=== PATIENT | female | born 1990 | race Caucasian/White ===

== ENCOUNTER → 2017-12-04 10:43 | Outpatient (CLI) | payer OTHER, MEDICAID, SELFPAY ==
[2017-12-04 12:16] LABS: Rubella Antibody IgG 14.3 IU/mL (>15)
[2017-12-04 12:18] LABS: TSH w/ Reflex to FT4 0.87 uIU/mL (0.47-4.68)
[2017-12-05 14:22] LABS: Rubeola Measles IgG < 25.00 AU/mL (< 25.00)
[2017-12-05 14:52] LABS: Hepatitis B Surf Ab Qualitativ Reactive (Nonreactive)
[2017-12-05 15:15] LABS: Hepatitis B Core Antibody Reactive (Nonreactive)
== END ==
PROVIDERS: PCP Physician Assistant; Visit Provider Student in an Organized Health Care Education/Training Program
DX: L74.510 Primary focal hyperhidrosis, axilla (principal); Z78.9 Other specified health status
CPT/HCPCS: 36415; 84443; 86704; 86706; 86735; 86762; 86765; 86787

== ENCOUNTER → 2017-12-06 13:03 | Outpatient (CLI) | payer OTHER, MEDICAID, SELFPAY ==
[2017-12-06 15:00] LABS: Alanine Aminotransferase 32 IU/L (9-52); Albumin 4.2 g/dL (3.5-5.0); Albumin Globulin Ratio 1.7 (1.0-2.8); Alkaline Phosphatase 67 U/L (38-126); Aspartate Aminotransferase 27 IU/L (14-36); Bilirubin Total 0.4 mg/dL (0.2-1.3); Bilirubin Unconjugated 0.1 mg/dL (0.0-1.1); Globulin 2.5 g/dL (1.7-4.1); HEMOLYSIS < 15 (0-50); Total Protein 6.7 g/dL (6.3-8.2)
[2017-12-06 17:50] LABS: Hepatitis B Surface Antigen NEGATIVE s/c (NEGATIVE)
[2017-12-07 11:52] LABS: Hep C Virus Ab w/Reflex Quant NEGATIVE s/c (NEGATIVE)
[2017-12-08 14:05] LABS: Hepatitis B Core IgM Nonreactive (Nonreactive)
[2017-12-09 19:07] LABS: HIV Ag/Ab, 4th Gen Nonreactive (Nonreactive)
== END ==
PROVIDERS: PCP Physician Assistant; Visit Provider Student in an Organized Health Care Education/Training Program
DX: R76.8 Other specified abnormal immunological findings in serum (principal); Z87.898 Personal history of other specified conditions
CPT/HCPCS: 36415; 80076; 86703; 86705; 86803; 87340

== ENCOUNTER → 2017-12-08 13:48 | Outpatient (CLI) | payer OTHER, MEDICAID, SELFPAY ==
--- NOTE | 2017-12-08 21:19 | DI.ECHO.S_ITS ---
Echocardiogram Report + + :Name: SID DE LA PAZ Study Date: 12/08/2017 Height: 68 in : :[facility] Weight: 185 lb : : Gender: Female BSA: 2.0 m2 : :: 1990 Age: 27 yrs BP: 128/70 mmHg: :Reason For Study: Valve disease : : Performed By: Yohana Jimenez : :Referring: KEY WREN : + + Interpretation Summary The left ventricle is normal in size, wall thickness, and systolic function without any focal wall motion abnormalities. The ejection fraction is estimated to be 60-65%. Diastolic parameters suggest probable normal left ventricular diastolic function and normal filling pressures. No valvular abnormalities. The right ventricle is normal in size and function. There is no prior echocardiogram noted for this patient. Procedure: A two-dimensional transthoracic echocardiogram with color flow and Doppler was performed. The study quality was technically good. There is no prior echocardiogram noted for this patient. The patient was in normal sinus rhythm during the exam. Left Ventricle: The left ventricle is normal in size, wall thickness, and systolic function without any focal wall motion abnormalities. The ejection fraction is estimated to be 60-65%. Diastolic parameters suggest probable normal left ventricular diastolic function and normal filling pressures. Right Ventricle: The right ventricle is normal in size and function. TAPSE 2.1cm. Atria: The left atrial size is normal. Right atrial size is normal. The interatrial septum is intact with no evidence for an atrial septal defect. Mitral Valve: The mitral valve is normal in structure and function. There is no mitral regurgitation noted. Aortic Valve: The aortic valve is trileaflet. The aortic valve opens well. There is no aortic valve stenosis. No aortic regurgitation is present. Tricuspid Valve: The tricuspid valve is normal in structure and function. There is no tricuspid stenosis. There is a trace or physiologic amount of tricuspid regurgitation. Pulmonary artery pressures cannot be estimated because of the lack of a measurable TR jet velocity. Pulmonic Valve: The pulmonic valve is normal in structure and function. There is no pulmonic valvular regurgitation. Great Vessels: The aortic root is normal size. The dimensions of the ascending aorta are normal. The IVC is of normal diameter and collapses greater than 50% with a sniff. This suggests a low right atrial pressure of 3 mm Hg. Pericardium/ Pleura There is no pericardial effusion. There is no pleural effusion. MMode/2D Measurements & Calculations LVIDd: 4.9 cm Ao root diam: 2.7 cm LVIDs: 3.2 cm Aortic Jxn: 2.2 cm FS: 33.5 % asc Aorta Diam: 2.4 cm EPSS: 0.94 cm Ao Arch Diam (Prox Trans): 2.4 cm IVSd: 0.77 cm LVPWd: 0.62 cm LV ochoa. diameter/BSA (cm/m^2): 2.5 LV sys. diameter/BSA (cm/m^2): 1.6 LA dimension: 3.6 cm RA long axis: 4.3 cm LA A2 area: 18.5 cm2 RA area: 14.9 cm2 LA A4 area: 17.3 cm2 RA vol: 44.0 ml LA length (vol): 4.9 cm RA : 22.2 ml/m2 LA vol: 55.1 ml IVC diam: 1.5 cm LA vol index: 27.9 ml/m2 RVDd major: 5.0 cm RVD1 (basal): 3.6 cm RVD2 (mid): 3.0 cm Doppler Measurements & Calculations Ao V2 max: 147.1 cm/sec MV E max gutierrez: 90.0 cm/sec Ao V2 mean: 93.3 cm/sec MV A max gutierrez: 61.8 cm/sec Ao max P.7 mmHg MV E/A: 1.5 Ao mean P.1 mmHg Med Peak E' Gutierrez: 9.5 cm/sec Ao V2 VTI: 31.0 cm E/E' med: 9.5 Lat Peak E' Gutierrez: 13.8 cm/sec E/E' lat: 6.5 E/e' average: 8.0 MV dec time: 0.24 sec MV P1/2t: 70.6 msec PA V2 max: 98.8 cm/sec MV P1/2t max gutierrez: 89.5 cm/sec PA V2 mean: 60.9 cm/sec MVA(P1/2t): 3.1 cm2 PA mean P.8 mmHg PA Accel Time: 0.18 sec _ Electronically signed by: Juvencio Oconnell M.D. on Reading Physician:12/08/2017 09:19 PM
== END ==
PROVIDERS: PCP Physician Assistant; Visit Provider Student in an Organized Health Care Education/Training Program
DX: F19.11 Other psychoactive substance abuse, in remission (principal); Z87.898 Personal history of other specified conditions
CPT/HCPCS: 93306

== ENCOUNTER → 2017-12-29 16:20 | Outpatient (CLI) | payer OTHER, MEDICAID, SELFPAY ==
--- NOTE | 2017-12-29 16:23 | DI.RAD.S_ITS ---
PROCEDURE: XR FOOT RT MIN 3V INDICATIONS: Foot injury TECHNIQUE: 3 views of the foot were acquired. COMPARISON: None. FINDINGS: Bones: Subtle lucency projects in the base of the fourth metatarsal, technically indeterminate. Elsewhere, no fractures or dislocations. No suspicious bony lesions. Soft tissues: No tibiotalar joint effusion. Achilles tendon appears normal. IMPRESSION: Subtle linear lucency projecting in the base of the fourth metatarsal although indeterminate recommend correlation of point tenderness. If clinically warranted, further evaluation with repeat radiographs in 10 days could be performed, versus CT. Dictated by: Carlos Echavarria M.D. on 12/29/2017 at 17:36 Approved by: Carlos Echavarria M.D. on 12/29/2017 at 17:38
== END ==
PROVIDERS: PCP Student in an Organized Health Care Education/Training Program; Visit Provider Student in an Organized Health Care Education/Training Program
DX: S99.921A Unspecified injury of right foot, initial encounter (principal)
CPT/HCPCS: 73630

== ENCOUNTER → 2018-04-11 14:12 | Outpatient (CLI) | payer OTHER, MEDICAID, SELFPAY ==
--- NOTE | 2018-04-11 14:15 | DI.RAD.S_ITS ---
PROCEDURE: XR CERVICAL SPINE 2V OR 3V INDICATIONS: Neck pain TECHNIQUE: 3 view(s) of the cervical spine were acquired. COMPARISON: None. FINDINGS: Bones: No fractures or dislocations to the T1 level. The lateral masses of C1 appear intact on the odontoid view. No suspicious bony lesions. Soft tissues: No prevertebral soft tissue swelling. IMPRESSION: No trauma found, no appreciable degenerative change identified. Dictated by: Erick Shah M.D. on 04/11/2018 at 16:02 Approved by: Erick Shah M.D. on 04/11/2018 at 16:02
== END ==
PROVIDERS: PCP Student in an Organized Health Care Education/Training Program; Visit Provider Student in an Organized Health Care Education/Training Program
DX: M54.2 Cervicalgia (principal); G44.209 Tension-type headache, unspecified, not intractable
CPT/HCPCS: 72040

== ENCOUNTER → 2018-09-04 12:31 | Outpatient (CLI) | payer OTHER, MEDICAID, SELFPAY ==
--- NOTE | 2018-09-04 12:32 | DI.US.S_ITS ---
ULTRASOUND OF RIGHT BREAST: 09/04/2018 CLINICAL: Palpable right breast lump retroareolar. No prior exams were available for comparison. Color flow and real-time ultrasound of the right breast were performed. Wong scale images of the real-time examination were reviewed. There is a small skin lesion right breast at 12 o'clock in the sub-areolar depth within the skin measuring approximately 3mm in size that correlates with area of clinical concern and palpable abnormality. THere is associated skin thickening around this intradermal lesion. No abnormalities were seen sonographically in the underlying right breast. IMPRESSION: BENIGN There is no sonographic evidence of malignancy. The palpable area of concern corresponds to an intradermal lesion measuring approximately 3mm in size. Recommend clinical follow up for evaluation and possible dermatology consultation. This exam was interpreted at Station ID: [id number]. Electronically Signed By: Aram Isaac M.D. aty/:09/05/2018 06:19:36 letter sent: Clinical Evaluation Ultrasound BI-RADS: 2 Benign
== END ==
PROVIDERS: PCP Student in an Organized Health Care Education/Training Program; Visit Provider Registered Nurse
DX: N63.10 Unspecified lump in the right breast, unspecified quadrant (principal)
CPT/HCPCS: 76642

== ENCOUNTER 2019-09-08 18:53 | Emergency (ER) | payer OTHER, MEDICAID, SELFPAY ==
[2019-09-08] VITALS (17 sets, daily range): BP systolic 90–152; BP diastolic 54–90; PULSE 65–102; RESP 12–28; TEMP 36.9–38.1; O2SAT 96–100; BMI 28.8
[2019-09-08 20:43] LABS: Add Manual Diff / Slide Review NO; Basophils Absolute Auto 0 /uL (0-100); Basophils Percent Auto 0.4 % (0-2); Eosinophils Absolute Auto 600 /uL (0-450); Eosinophils Percent Auto 5.8 % (2-4); Hematocrit 42.4 % (36-46); Hemoglobin 14.5 g/dL (12.0-16.0); Lymphocytes Absolute Auto 3700 /uL (1100-4500); Lymphocytes Percent Auto 34.8 % (25-40); Mean Corpuscular HGB Conc 34.2 % (30-36); Mean Corpuscular Hemoglobin 30.6 PG (26-34); Mean Corpuscular Volume 89.5 fL (80-100); Monocytes Absolute Auto 900 /uL (0-900); Monocytes Percent Auto 8.1 % (3-14); Neutrophils Absolute Auto 5400 /uL (1500-7000); Neutrophils Percent Auto 50.9 % (50-75); Platelet Count 229 X10^3/uL (150-400); Red Blood Cell Count 4.74 X10^6/uL (4.0-5.2); Red Cell Distribution Width 13.1 % (11.6-14.8); White Blood Cell Count 10.6 X10^3/uL (4.5-11.0)
[2019-09-08 20:55] LABS: Alanine Aminotransferase 26 IU/L (<35); Albumin 4.3 g/dL (3.5-5.0); Albumin Globulin Ratio 1.4 (1.0-2.8); Alkaline Phosphatase 70 U/L (38-126); Aspartate Aminotransferase 48 IU/L (14-36); Bilirubin Total 0.5 mg/dL (0.2-1.3); Blood Urea Nitrogen 13 mg/dL (7-17); Calcium 9.6 mg/dL (8.4-10.2); Carbon Dioxide 26 mmol/L (22-32); Chloride 105 mmol/L (98-107); Estimated Glomerular Filt Rate > 60.0 mL/min (>60); Globulin 3.1 g/dL (1.7-4.1); Glucose 79 mg/dL (70-100); Potassium 3.7 mmol/L (3.4-5.1); Sodium 138 mmol/L (137-145); Total Protein 7.4 g/dL (6.3-8.2)
[2019-09-08] MEDS: KETOROLAC 60 MG/2 ML VIAL 15 MG IV (20:55)
[2019-09-08] MEDS: ACETAMINOPHEN 325 MG TABLET 650 MG PO (20:55)
[2019-09-08] MEDS: METOCLOPRAMIDE 10 MG/2 ML INJ IV (20:55)
[2019-09-08] MEDS: diphenhydrAMINE 50 MG/ML VIAL 25 MG IV (20:55)
[2019-09-08 20:56] LABS: Lactate (Lactic Acid) 1.4 mmol/L (0.7-2.1)
[2019-09-08] MEDS: SODIUM CHLORIDE 0.9% 1,000 ML 1000 ML IV (20:56)
[2019-09-08 20:57] LABS: HEMOLYSIS 52 (0-50)
[2019-09-08 21:15] LABS: Procalcitonin < 0.05 ng/mL (<0.5)
[2019-09-08 21:45] LABS: Appearance Urine UA SL CLOUDY; Bilirubin Urine UA NEGATIVE (NEGATIVE); Color Urine UA YELLOW; Glucose Urine UA NEGATIVE (Negative); Ketones Urine UA NEGATIVE (NEGATIVE); Leukocyte Esterase Urine UA NEGATIVE (NEGATIVE); Nitrite Urine UA NEGATIVE (Negative); Occult Blood Urine UA TRACE-INTACT (Negative); Protein Urine UA NEGATIVE (Negative); Specific Gravity Urine UA 1.015 (1.000-1.035); Urobilinogen Urine UA 0.2 E.U./dL (0.2)
[2019-09-08 21:54] LABS: pH Urine UA 7.5 (4.5-8.0)
[2019-09-08 22:04] LABS: Amorphous Sediment Urine 4+; Bacteria Urine Few (2-10); RBC Urine 0-1/HPF (0-5/HPF); Squamous Epithelial Cell Urine 1-5 /HPF (0-5/HPF); WBC Urine 0-1/HPF (0-5/HPF)
[2019-09-08 22:05] LABS: Culture Indicated Urine Cult Not Indicated
--- NOTE | 2019-09-08 22:07 | ED.DIZZY ---
HPI - Dizziness <MARCUS Plasencia - Last Filed: 09/09/19 03:26> General Chief Complaint: Fever Stated Complaint: Lightheaded, Dizzy, Headache, Unstable,Neck Pain Time Seen by Provider: 09/08/19 20:00 Source: patient Mode of arrival: Ambulatory Limitations: no limitations History of Present Illness HPI Narrative: This is a 29-year-old female, former smoker, who has non-contributing medical history presents to ED with multiple chief complaints such as feeling lightheaded, dizzy, fatigue and malaise, headache, stiff neck, palpitation, and nausea for last 2 weeks which has been getting worse. Patient was evaluated by Dr. White 3 days ago and she had presyncopal episode witnessed by Dr. White and planned for outpatient event monitor, SHERIE, home BP monitor for further evaluation. Patient reports has been running temperature from 98-99%. Patient denies recent travel, known ill contact, or contact with postservtag patients. Patient reports she recently has sharp discomfort behind her right ear. Patient denies cough, sore throat, runny nose, diarrhea, abdominal pain, urinary symptoms, loss of sense of smell or taste. Patient denies chest pain, unusual rashes, dyspnea, or ear pain. Patient reports when she flexed her neck pain, pain is in her posterior lower head. Patient denies speech difficulty, weakness to 1 side of her body, facial droops, difficulty with swallowing. Patient noticed large amount of frequent urination today but she had taken increasing p.o. fluid intake since he was hot day. Patient reports she has been feeling always weak since she quit smoking last January 2019. Patient has been taking Naprosyn as needed for discomfort and last dose was at 4:00 p.m.. Related Data Previous Rx's Medication Instructions Recorded norethindrone 0.5 mg-ethinyl 1 tab PO DAILY #84 tab 08/09/19 estradiol 35 mcg tablet Allergies Allergy/AdvReac Type Severity Reaction Status Date / Time penicillin G AdvReac Verified 09/08/19 19:22 Review of Systems <MARCUS Plasencia - Last Filed: 09/09/19 03:26> Review of Systems Narrative: General: See HPI HEENT: Denies sinus pain, (+) posterior right ear pain, sore throat, difficulty swallowing, dizziness. Respiratory: Denies dyspnea, cough, wheezing, hemoptysis, sputum. Cardiovascular: Denies chest pain, (+) palpitations, orthopnea, edema. Gastrointestinal: Denies (+) occasional nausea when she moves her head, vomiting, abdominal pain, diarrhea, constipation, melena. : Denies dysuria, (+) frequency, incontinence, hematuria, urinary retention. Musculoskeletal: See HPI Skin: Denies rash, skin lesions, or other. Neurologic: Denies weakness, (+) headache, numbness, change in speech, confusion, seizures, incoordination. Psychiatric: No concerning psychosocial issues. 12-point review of systems is negative except for those stated above. Patient History <MARCUS Plasencia - Last Filed: 09/09/19 03:26> Medical History No significant past medical history (Acute) Surgical History No pertinent past surgical history (Acute) Social History marital status: unmarried,single number of children: 1 household members: family occupational status: student Smoking Status: Former smoker alcohol intake: never substance use type: does not use and former substance user Smoking Status: Former smoker Exam <MARCUS Plasencia - Last Filed: 09/09/19 03:26> Narrative Exam Narrative: GEN: Alert, oriented x 3, well nourished, and in no acute distress. Head: Normal cephalic, atraumatic. No scalp or temporal tenderness, palpable mass or rash. EYES: Pupils are equal, round, and reactive to light and accommodation. Extraocular muscles are intact bilaterally. There is no subconjunctival hemorrhage, exudate and sclera non-icteric. ENT: Bilateral auditory canals and tympanic membranes clear. Hearing grossly intact. Nose without bleeding, purulent discharge or deviation. Facial sinuses nontender to palpate. Mucous membrane moist, no mucosal lesion. Throat without erythema, tonsillar hypertrophy or exudate. Uvula in midline, airway patent. Neck: Trachea in midline. No JVD, non-tender without lymphadenopathy. No masses or thyroid megaly. Supple, non-tender and no meningeal signs. CARDIAC: Normal regular rate and rhythm without murmurs, gallops, or rubs. No chest wall tenderness. No peripheral edema, cyanosis or pallor. Capillary refill is less than 2 seconds. RESPIRATORY: Lungs are clear to auscultate bilaterally. No cough, wheezes, rales, or rhonchi. No stridor, respiratory distress, increase work of breathing, or accessary muscle used. ABD: Abdomen soft, nontender and non-distended. No guarding or rebound tenderness to palpate. Bowel sounds are normal in all 4 quadrants. There is no palpable masses or organomegaly. EXT: Full painless ROM of all extremities with no loss of sensation, strength, effusion or edema. SKIN: Warm, dry, normal color for patient. No erythema, lesions or rash over visible areas. BACK: Nontender without deformity or crepitance. No flank tenderness. NEUROLOGICAL: Alert and oriented to place, time and person. Sensation and motor function intact bilaterally. No facial droops, dysphasia. PSYCHIATRIC: Good judgement and reason, without hallucinations, abnormal affect or abnormal behaviors during the examination. Patient is not suicidal. Initial Vital Signs Initial Vital Signs: Vital Signs Temperature 100.5 F H 09/08/19 19:23 Pulse Rate 102 H 09/08/19 19:23 Respiratory Rate 16 09/08/19 19:23 Blood Pressure 145/75 H 09/08/19 19:23 Pulse Oximetry 100 09/08/19 19:23 <Tiana Saldana MD - Last Filed: 09/09/19 03:35> Initial Vital Signs Initial Vital Signs: Vital Signs Temperature 100.5 F H 09/08/19 19:23 Pulse Rate 102 H 09/08/19 19:23 Respiratory Rate 16 09/08/19 19:23 Blood Pressure 145/75 H 09/08/19 19:23 Pulse Oximetry 100 09/08/19 19:23 Scores <MARCUS Plasencia - Last Filed: 09/09/19 03:26> GCS [place] coma scale eye opening: Spontaneous [place] coma scale verbal response: Orientated [place] coma scale motor response: Obey commands [place] coma scale total score: 15 Course <MARCUS Plasencia - Last Filed: 09/09/19 03:26> Orders Ordered: ED Orders 09/08/19 19:28 Test Urine Stat Urinalysis and Microscopic Stat 09/08/19 20:21 Complete Blood Count AUTO DIFF Stat Comprehensive Metabolic Panel Stat D Dimer Stat Lactate (Lactic Acid) Stat Procalcitonin Stat Troponin & CK Cardiac Panel Stat 09/08/19 20:35 Blood Culture Stat 09/08/19 20:39 EKG-12 Lead Stat Discontinued Medications Acetaminophen (Tylenol) 650 mg PO NOW ONE Stop: 09/08/19 20:27 Last Admin: 09/08/19 20:55 Dose: 650 mg Documented by: OBDULIO Diphenhydramine HCl (Benadryl) 25 mg IV NOW ONE Stop: 09/08/19 20:27 Last Admin: 09/08/19 20:55 Dose: 25 mg Documented by: OBDULIO Sodium Chloride (Normal Saline 0.9%) 1,000 mls @ 1,000 mls/hr IV BOLUS ONE Stop: 09/08/19 21:25 Last Infusion: 09/08/19 23:10 Dose: 0 mls/hr Documented by: Admin: 09/08/19 20:56 Dose: 1,000 mls/hr Documented by: OBDULIO Ketorolac Tromethamine (Toradol) 15 mg IV NOW ONE Stop: 09/08/19 20:27 Last Admin: 09/08/19 20:55 Dose: 15 mg Documented by: OBDULIO Metoclopramide HCl (Reglan) 10 mg IV NOW ONE Stop: 09/08/19 20:27 Last Admin: 09/08/19 20:55 Dose: 10 mg Documented by: OBDULIO Consultations Consultation #1: Dr. Saldana with HPI, physical findings, studies and treatment plan Vital Signs Vital signs: Vital Signs - 8 hr 09/08/19 20:33 09/08/19 20:46 09/08/19 21:00 Temperature Pulse Rate 68 72 72 Pulse Rate [Orthostatic Lying] Pulse Rate [Orthostatic Sitting] Pulse Rate [Orthostatic Standing] Respiratory Rate 17 23 14 Blood Pressure 116/90 125/72 Blood Pressure [Orthostatic Lying] Blood Pressure [Orthostatic Sitting] Blood Pressure [Orthostatic Standing] Pulse Oximetry 99 98 97 09/08/19 21:15 09/08/19 21:30 09/08/19 21:45 Temperature Pulse Rate 102 H 66 67 Pulse Rate [Orthostatic Lying] Pulse Rate [Orthostatic Sitting] Pulse Rate [Orthostatic Standing] Respiratory Rate 28 H 12 13 Blood Pressure 152/88 H 115/58 L 111/55 L Blood Pressure [Orthostatic Lying] Blood Pressure [Orthostatic Sitting] Blood Pressure [Orthostatic Standing] Pulse Oximetry 98 96 99 09/08/19 22:00 09/08/19 22:16 09/08/19 22:29 Temperature Pulse Rate 65 70 72 Pulse Rate [Orthostatic Lying] Pulse Rate [Orthostatic Sitting] Pulse Rate [Orthostatic Standing] Respiratory Rate 14 14 19 Blood Pressure 112/57 L 90/54 L 115/58 L Blood Pressure [Orthostatic Lying] Blood Pressure [Orthostatic Sitting] Blood Pressure [Orthostatic Standing] Pulse Oximetry 98 99 100 09/08/19 22:30 09/08/19 22:33 09/08/19 22:34 Temperature Pulse Rate 74 79 78 Pulse Rate [Orthostatic Lying] Pulse Rate [Orthostatic Sitting] Pulse Rate [Orthostatic Standing] Respiratory Rate 14 22 21 Blood Pressure 117/61 123/73 122/72 Blood Pressure [Orthostatic Lying] Blood Pressure [Orthostatic Sitting] Blood Pressure [Orthostatic Standing] Pulse Oximetry 100 100 99 09/08/19 22:38 09/08/19 23:10 09/08/19 23:16 Temperature 98.4 F Pulse Rate Pulse Rate [Orthostatic Lying] 75 Pulse Rate [Orthostatic Sitting] 85 Pulse Rate [Orthostatic Standing] 82 Respiratory Rate Blood Pressure 107/57 L Blood Pressure [Orthostatic Lying] 117/61 Blood Pressure [Orthostatic Sitting] 123/73 Blood Pressure [Orthostatic Standing] 122/72 Pulse Oximetry 09/08/19 23:17 Temperature Pulse Rate 69 Pulse Rate [Orthostatic Lying] Pulse Rate [Orthostatic Sitting] Pulse Rate [Orthostatic Standing] Respiratory Rate 19 Blood Pressure 107/57 L Blood Pressure [Orthostatic Lying] Blood Pressure [Orthostatic Sitting] Blood Pressure [Orthostatic Standing] Pulse Oximetry 99 <Tiana Saldana MD - Last Filed: 09/09/19 03:35> Orders Ordered: ED Orders 09/08/19 19:28 Test Urine Stat Urinalysis and Microscopic Stat 09/08/19 20:21 Complete Blood Count AUTO DIFF Stat Comprehensive Metabolic Panel Stat D Dimer Stat Lactate (Lactic Acid) Stat Procalcitonin Stat Troponin & CK Cardiac Panel Stat 09/08/19 20:35 Blood Culture Stat 09/08/19 20:39 EKG-12 Lead Stat Discontinued Medications Acetaminophen (Tylenol) 650 mg PO NOW ONE Stop: 09/08/19 20:27 Last Admin: 09/08/19 20:55 Dose: 650 mg Documented by: OBDULIO Diphenhydramine HCl (Benadryl) 25 mg IV NOW ONE Stop: 09/08/19 20:27 Last Admin: 09/08/19 20:55 Dose: 25 mg Documented by: OBDULIO Sodium Chloride (Normal Saline 0.9%) 1,000 mls @ 1,000 mls/hr IV BOLUS ONE Stop: 09/08/19 21:25 Last Infusion: 09/08/19 23:10 Dose: 0 mls/hr Documented by: Admin: 09/08/19 20:56 Dose: 1,000 mls/hr Documented by: OBDULIO Ketorolac Tromethamine (Toradol) 15 mg IV NOW ONE Stop: 09/08/19 20:27 Last Admin: 09/08/19 20:55 Dose: 15 mg Documented by: OBDULIO Metoclopramide HCl (Reglan) 10 mg IV NOW ONE Stop: 09/08/19 20:27 Last Admin: 09/08/19 20:55 Dose: 10 mg Documented by: OBDULIO Vital Signs Vital signs: Vital Signs - 8 hr 09/08/19 20:33 09/08/19 20:46 09/08/19 21:00 Temperature Pulse Rate 68 72 72 Pulse Rate [Orthostatic Lying] Pulse Rate [Orthostatic Sitting] Pulse Rate [Orthostatic Standing] Respiratory Rate 17 23 14 Blood Pressure 116/90 125/72 Blood Pressure [Orthostatic Lying] Blood Pressure [Orthostatic Sitting] Blood Pressure [Orthostatic Standing] Pulse Oximetry 99 98 97 09/08/19 21:15 09/08/19 21:30 09/08/19 21:45 Temperature Pulse Rate 102 H 66 67 Pulse Rate [Orthostatic Lying] Pulse Rate [Orthostatic Sitting] Pulse Rate [Orthostatic Standing] Respiratory Rate 28 H 12 13 Blood Pressure 152/88 H 115/58 L 111/55 L Blood Pressure [Orthostatic Lying] Blood Pressure [Orthostatic Sitting] Blood Pressure [Orthostatic Standing] Pulse Oximetry 98 96 99 09/08/19 22:00 09/08/19 22:16 09/08/19 22:29 Temperature Pulse Rate 65 70 72 Pulse Rate [Orthostatic Lying] Pulse Rate [Orthostatic Sitting] Pulse Rate [Orthostatic Standing] Respiratory Rate 14 14 19 Blood Pressure 112/57 L 90/54 L 115/58 L Blood Pressure [Orthostatic Lying] Blood Pressure [Orthostatic Sitting] Blood Pressure [Orthostatic Standing] Pulse Oximetry 98 99 100 09/08/19 22:30 09/08/19 22:33 09/08/19 22:34 Temperature Pulse Rate 74 79 78 Pulse Rate [Orthostatic Lying] Pulse Rate [Orthostatic Sitting] Pulse Rate [Orthostatic Standing] Respiratory Rate 14 22 21 Blood Pressure 117/61 123/73 122/72 Blood Pressure [Orthostatic Lying] Blood Pressure [Orthostatic Sitting] Blood Pressure [Orthostatic Standing] Pulse Oximetry 100 100 99 09/08/19 22:38 09/08/19 23:10 09/08/19 23:16 Temperature 98.4 F Pulse Rate Pulse Rate [Orthostatic Lying] 75 Pulse Rate [Orthostatic Sitting] 85 Pulse Rate [Orthostatic Standing] 82 Respiratory Rate Blood Pressure 107/57 L Blood Pressure [Orthostatic Lying] 117/61 Blood Pressure [Orthostatic Sitting] 123/73 Blood Pressure [Orthostatic Standing] 122/72 Pulse Oximetry 09/08/19 23:17 Temperature Pulse Rate 69 Pulse Rate [Orthostatic Lying] Pulse Rate [Orthostatic Sitting] Pulse Rate [Orthostatic Standing] Respiratory Rate 19 Blood Pressure 107/57 L Blood Pressure [Orthostatic Lying] Blood Pressure [Orthostatic Sitting] Blood Pressure [Orthostatic Standing] Pulse Oximetry 99 MDM - Dizziness <MARCUS Plasencia - Last Filed: 09/09/19 03:26> Differential Diagnosis Differential diagnosis: Likely orthostatic hypotension and other (Headache, COVID-19, PE, UTI, , anemia, electrolyte imbalance, Prolonged QT/STEMI) Medical Records Attestation: I reviewed the patient's medical records. Lab Data Attestation: I reviewed the patient's lab results. Result diagrams: 09/08/19 20:21 09/08/19 20:21 Labs: Lab Results 09/08/19 09/08/19 09/08/19 Range/Units 19:28 19:28 20:21 WBC 10.6 (4.5-11.0) X10^3/uL RBC 4.74 (4.0-5.2) X10^6/uL Hgb 14.5 (12.0-16.0) g/dL Hct 42.4 (36-46) % MCV 89.5 (80-100) fL MCH 30.6 (26-34) PG MCHC 34.2 (30-36) % RDW 13.1 (11.6-14.8) % Plt Count 229 (150-400) X10^3/uL Neut % (Auto) 50.9 (50-75) % Lymph % (Auto) 34.8 (25-40) % Lawrence % (Auto) 8.1 (3-14) % Eos % (Auto) 5.8 H (2-4) % Baso % (Auto) 0.4 (0-2) % Neut # (Auto) 5400 (2036-5787) /uL Lymph # (Auto) 3700 (5054-7197) /uL Lawrence # (Auto) 900 (0-900) /uL Eos # (Auto) 600 H (0-450) /uL Baso # (Auto) 0 (0-100) /uL D-Dimer (<230) ng/mL Sodium (137-145) mmol/L Potassium (3.4-5.1) mmol/L Chloride (98-107) mmol/L Carbon Dioxide (22-32) mmol/L BUN (7-17) mg/dL Creatinine (0.52-1.04) mg/dL Estimated GFR (>60) mL/min BUN/Creatinine Ratio (6-22) Glucose (70-100) mg/dL Lactate (0.7-2.1) mmol/L Calcium (8.4-10.2) mg/dL Total Bilirubin (0.2-1.3) mg/dL AST (14-36) IU/L ALT (<35) IU/L Alkaline Phosphatase (38-126) U/L Total Creatine Kinase (30-135) U/L CK-MB (CK-2) CK-MB (CK-2) Rel Index Troponin I (0.01-0.034) ng/mL Total Protein (6.3-8.2) g/dL Albumin (3.5-5.0) g/dL Globulin (1.7-4.1) g/dL Albumin/Globulin Ratio (1.0-2.8) Procalcitonin (<0.5) ng/mL Urine Color Yellow Urine Appearance Sl cloudy Urine pH 7.5 (4.5-8.0) Ur Specific Artemas 1.015 (1.000-1.035) Urine Protein Negative (Negative) Urine Glucose (UA) Negative (Negative) g/dL Urine Ketones Negative (NEGATIVE) Urine Occult Blood Trace-intact (Negative) Urine Nitrate Negative (Negative) Urine Bilirubin Negative (NEGATIVE) Urine Urobilinogen 0.2 (0.2) E.U./dL Ur Leukocyte Esterase Negative (NEGATIVE) Urine RBC 0-1/hpf (0-5/HPF) Urine WBC 0-1/hpf (0-5/HPF) Ur Squamous Epith Cells 1-5 /hpf (0-5/HPF) Amorphous Sediment 4+ Urine Bacteria Few (2-10) H (None) Ur Culture Indicated? Cult not indicated Urine Test Negative (Negative) 09/08/19 09/08/19 09/08/19 Range/Units 20:21 20:21 20:21 WBC (4.5-11.0) X10^3/uL RBC (4.0-5.2) X10^6/uL Hgb (12.0-16.0) g/dL Hct (36-46) % MCV (80-100) fL MCH (26-34) PG MCHC (30-36) % RDW (11.6-14.8) % Plt Count (150-400) X10^3/uL Neut % (Auto) (50-75) % Lymph % (Auto) (25-40) % Lawrence % (Auto) (3-14) % Eos % (Auto) (2-4) % Baso % (Auto) (0-2) % Neut # (Auto) (5649-1508) /uL Lymph # (Auto) (5833-3103) /uL Lawrence # (Auto) (0-900) /uL Eos # (Auto) (0-450) /uL Baso # (Auto) (0-100) /uL D-Dimer (<230) ng/mL Sodium 138 (137-145) mmol/L Potassium 3.7 (3.4-5.1) mmol/L Chloride 105 (98-107) mmol/L Carbon Dioxide 26 (22-32) mmol/L BUN 13 (7-17) mg/dL Creatinine 0.62 (0.52-1.04) mg/dL Estimated GFR > 60.0 (>60) mL/min BUN/Creatinine Ratio 21.0 (6-22) Glucose 79 (70-100) mg/dL Lactate 1.4 (0.7-2.1) mmol/L Calcium 9.6 (8.4-10.2) mg/dL Total Bilirubin 0.5 (0.2-1.3) mg/dL AST 48 H (14-36) IU/L ALT 26 (<35) IU/L Alkaline Phosphatase 70 (38-126) U/L Total Creatine Kinase (30-135) U/L CK-MB (CK-2) CK-MB (CK-2) Rel Index Troponin I (0.01-0.034) ng/mL Total Protein 7.4 (6.3-8.2) g/dL Albumin 4.3 (3.5-5.0) g/dL Globulin 3.1 (1.7-4.1) g/dL Albumin/Globulin Ratio 1.4 (1.0-2.8) Procalcitonin < 0.05 (<0.5) ng/mL Urine Color Urine Appearance Urine pH (4.5-8.0) Ur Specific Artemas (1.000-1.035) Urine Protein (Negative) Urine Glucose (UA) (Negative) g/dL Urine Ketones (NEGATIVE) Urine Occult Blood (Negative) Urine Nitrate (Negative) Urine Bilirubin (NEGATIVE) Urine Urobilinogen (0.2) E.U./dL Ur Leukocyte Esterase (NEGATIVE) Urine RBC (0-5/HPF) Urine WBC (0-5/HPF) Ur Squamous Epith Cells (0-5/HPF) Amorphous Sediment Urine Bacteria (None) Ur Culture Indicated? Urine Test (Negative) 09/08/19 09/08/19 Range/Units 20:21 20:21 WBC (4.5-11.0) X10^3/uL RBC (4.0-5.2) X10^6/uL Hgb (12.0-16.0) g/dL Hct (36-46) % MCV (80-100) fL MCH (26-34) PG MCHC (30-36) % RDW (11.6-14.8) % Plt Count (150-400) X10^3/uL Neut % (Auto) (50-75) % Lymph % (Auto) (25-40) % Lawrence % (Auto) (3-14) % Eos % (Auto) (2-4) % Baso % (Auto) (0-2) % Neut # (Auto) (0712-3809) /uL Lymph # (Auto) (9829-8221) /uL Lawrence # (Auto) (0-900) /uL Eos # (Auto) (0-450) /uL Baso # (Auto) (0-100) /uL D-Dimer < 200 (<230) ng/mL Sodium (137-145) mmol/L Potassium (3.4-5.1) mmol/L Chloride (98-107) mmol/L Carbon Dioxide (22-32) mmol/L BUN (7-17) mg/dL Creatinine (0.52-1.04) mg/dL Estimated GFR (>60) mL/min BUN/Creatinine Ratio (6-22) Glucose (70-100) mg/dL Lactate (0.7-2.1) mmol/L Calcium (8.4-10.2) mg/dL Total Bilirubin (0.2-1.3) mg/dL AST (14-36) IU/L ALT (<35) IU/L Alkaline Phosphatase (38-126) U/L Total Creatine Kinase 92 (30-135) U/L CK-MB (CK-2) TNP CK-MB (CK-2) Rel Index TNP Troponin I < 0.012 (0.01-0.034) ng/mL Total Protein (6.3-8.2) g/dL Albumin (3.5-5.0) g/dL Globulin (1.7-4.1) g/dL Albumin/Globulin Ratio (1.0-2.8) Procalcitonin (<0.5) ng/mL Urine Color Urine Appearance Urine pH (4.5-8.0) Ur Specific Artemas (1.000-1.035) Urine Protein (Negative) Urine Glucose (UA) (Negative) g/dL Urine Ketones (NEGATIVE) Urine Occult Blood (Negative) Urine Nitrate (Negative) Urine Bilirubin (NEGATIVE) Urine Urobilinogen (0.2) E.U./dL Ur Leukocyte Esterase (NEGATIVE) Urine RBC (0-5/HPF) Urine WBC (0-5/HPF) Ur Squamous Epith Cells (0-5/HPF) Amorphous Sediment Urine Bacteria (None) Ur Culture Indicated? Urine Test (Negative) ECG Data Attestation: I personally reviewed and interpreted this ECG as follows: Prior ECG tracings: not available for review Interpretation: Normal sinus rhythm rate at 69. Normal [place]. NC interval 138, QRS duration 94, QT QTC 410/[address] changes. MDM Narrative Medical decision making narrative: This is a 29-year-old female presents to with multiple vague symptoms for last 2 weeks which has been worsening. Physical exam was unremarkable. Patient had initial temperature is 100.5? with tachycardia of 102 with slight hypertensive of 145/75. Covid 19 was swabed and sent out for routine process. EKG was normal SR without acute ST-T changes or prolonged QT. CBC was unremarkable without leukocytosis or increase in neutrophils. Normal procalcitonin and lactate. CMP was unremarkable except mildly elevated AST of 48. Uhcg was negative and urine test does not indicate UTI. Shortly after patient was givenTylenol, IV medication Toradol, Benadryl and Reglan for headache, patient had side effects of mild akathisia which subsided shortly. According to primary nurse the patient had near syncope episode when got out of bed to go to the bathroom. She was able to use bedside commode without syncope. Patient received 1 L of normal saline infusion. Patient reports feeling much improved after the treatment. Added a D-dimer and cardiac enzymes to rule out PE and cardiac origin for patient's near-syncope symptoms and both were negative. Findings were discussed with the patient and advised to follow up with Dr. Stewart as planned to further investigation and treatment for dizziness. Patient advise self quarantine and social isolation with good hand hygiene until she receives a call for Covid 19 test result. Patient verbalized understanding and agreement with treatment plan. <Tiana Saldana MD - Last Filed: 09/09/19 03:35> Lab Data Labs: Lab Results 07/19/20 07/19/20 07/19/20 Range/Units 19:28 19:28 20:21 WBC 10.6 (4.5-11.0) X10^3/uL RBC 4.74 (4.0-5.2) X10^6/uL Hgb 14.5 (12.0-16.0) g/dL Hct 42.4 (36-46) % MCV 89.5 (80-100) fL MCH 30.6 (26-34) PG MCHC 34.2 (30-36) % RDW 13.1 (11.6-14.8) % Plt Count 229 (150-400) X10^3/uL Neut % (Auto) 50.9 (50-75) % Lymph % (Auto) 34.8 (25-40) % Lawrence % (Auto) 8.1 (3-14) % Eos % (Auto) 5.8 H (2-4) % Baso % (Auto) 0.4 (0-2) % Neut # (Auto) 5400 (2712-3289) /uL Lymph # (Auto) 3700 (3633-0818) /uL Lawrence # (Auto) 900 (0-900) /uL Eos # (Auto) 600 H (0-450) /uL Baso # (Auto) 0 (0-100) /uL D-Dimer (<230) ng/mL Sodium (137-145) mmol/L Potassium (3.4-5.1) mmol/L Chloride (98-107) mmol/L Carbon Dioxide (22-32) mmol/L BUN (7-17) mg/dL Creatinine (0.52-1.04) mg/dL Estimated GFR (>60) mL/min BUN/Creatinine Ratio (6-22) Glucose (70-100) mg/dL Lactate (0.7-2.1) mmol/L Calcium (8.4-10.2) mg/dL Total Bilirubin (0.2-1.3) mg/dL AST (14-36) IU/L ALT (<35) IU/L Alkaline Phosphatase (38-126) U/L Total Creatine Kinase (30-135) U/L CK-MB (CK-2) CK-MB (CK-2) Rel Index Troponin I (0.01-0.034) ng/mL Total Protein (6.3-8.2) g/dL Albumin (3.5-5.0) g/dL Globulin (1.7-4.1) g/dL Albumin/Globulin Ratio (1.0-2.8) Procalcitonin (<0.5) ng/mL Urine Color Yellow Urine Appearance Sl cloudy Urine pH 7.5 (4.5-8.0) Ur Specific Artemas 1.015 (1.000-1.035) Urine Protein Negative (Negative) Urine Glucose (UA) Negative (Negative) g/dL Urine Ketones Negative (NEGATIVE) Urine Occult Blood Trace-intact (Negative) Urine Nitrate Negative (Negative) Urine Bilirubin Negative (NEGATIVE) Urine Urobilinogen 0.2 (0.2) E.U./dL Ur Leukocyte Esterase Negative (NEGATIVE) Urine RBC 0-1/hpf (0-5/HPF) Urine WBC 0-1/hpf (0-5/HPF) Ur Squamous Epith Cells 1-5 /hpf (0-5/HPF) Amorphous Sediment 4+ Urine Bacteria Few (2-10) H (None) Ur Culture Indicated? Cult not indicated Urine Test Negative (Negative) 09/08/19 09/08/19 09/08/19 Range/Units 20:21 20:21 20:21 WBC (4.5-11.0) X10^3/uL RBC (4.0-5.2) X10^6/uL Hgb (12.0-16.0) g/dL Hct (36-46) % MCV (80-100) fL MCH (26-34) PG MCHC (30-36) % RDW (11.6-14.8) % Plt Count (150-400) X10^3/uL Neut % (Auto) (50-75) % Lymph % (Auto) (25-40) % Lawrence % (Auto) (3-14) % Eos % (Auto) (2-4) % Baso % (Auto) (0-2) % Neut # (Auto) (5824-5479) /uL Lymph # (Auto) (6150-0509) /uL Lawrence # (Auto) (0-900) /uL Eos # (Auto) (0-450) /uL Baso # (Auto) (0-100) /uL D-Dimer (<230) ng/mL Sodium 138 (137-145) mmol/L Potassium 3.7 (3.4-5.1) mmol/L Chloride 105 (98-107) mmol/L Carbon Dioxide 26 (22-32) mmol/L BUN 13 (7-17) mg/dL Creatinine 0.62 (0.52-1.04) mg/dL Estimated GFR > 60.0 (>60) mL/min BUN/Creatinine Ratio 21.0 (6-22) Glucose 79 (70-100) mg/dL Lactate 1.4 (0.7-2.1) mmol/L Calcium 9.6 (8.4-10.2) mg/dL Total Bilirubin 0.5 (0.2-1.3) mg/dL AST 48 H (14-36) IU/L ALT 26 (<35) IU/L Alkaline Phosphatase 70 (38-126) U/L Total Creatine Kinase (30-135) U/L CK-MB (CK-2) CK-MB (CK-2) Rel Index Troponin I (0.01-0.034) ng/mL Total Protein 7.4 (6.3-8.2) g/dL Albumin 4.3 (3.5-5.0) g/dL Globulin 3.1 (1.7-4.1) g/dL Albumin/Globulin Ratio 1.4 (1.0-2.8) Procalcitonin < 0.05 (<0.5) ng/mL Urine Color Urine Appearance Urine pH (4.5-8.0) Ur Specific Artemas (1.000-1.035) Urine Protein (Negative) Urine Glucose (UA) (Negative) g/dL Urine Ketones (NEGATIVE) Urine Occult Blood (Negative) Urine Nitrate (Negative) Urine Bilirubin (NEGATIVE) Urine Urobilinogen (0.2) E.U./dL Ur Leukocyte Esterase (NEGATIVE) Urine RBC (0-5/HPF) Urine WBC (0-5/HPF) Ur Squamous Epith Cells (0-5/HPF) Amorphous Sediment Urine Bacteria (None) Ur Culture Indicated? Urine Test (Negative) 09/08/19 09/08/19 Range/Units 20:21 20:21 WBC (4.5-11.0) X10^3/uL RBC (4.0-5.2) X10^6/uL Hgb (12.0-16.0) g/dL Hct (36-46) % MCV (80-100) fL MCH (26-34) PG MCHC (30-36) % RDW (11.6-14.8) % Plt Count (150-400) X10^3/uL Neut % (Auto) (50-75) % Lymph % (Auto) (25-40) % Lawrence % (Auto) (3-14) % Eos % (Auto) (2-4) % Baso % (Auto) (0-2) % Neut # (Auto) (2753-4299) /uL Lymph # (Auto) (8539-6728) /uL Lawrence # (Auto) (0-900) /uL Eos # (Auto) (0-450) /uL Baso # (Auto) (0-100) /uL D-Dimer < 200 (<230) ng/mL Sodium (137-145) mmol/L Potassium (3.4-5.1) mmol/L Chloride (98-107) mmol/L Carbon Dioxide (22-32) mmol/L BUN (7-17) mg/dL Creatinine (0.52-1.04) mg/dL Estimated GFR (>60) mL/min BUN/Creatinine Ratio (6-22) Glucose (70-100) mg/dL Lactate (0.7-2.1) mmol/L Calcium (8.4-10.2) mg/dL Total Bilirubin (0.2-1.3) mg/dL AST (14-36) IU/L ALT (<35) IU/L Alkaline Phosphatase (38-126) U/L Total Creatine Kinase 92 (30-135) U/L CK-MB (CK-2) TNP CK-MB (CK-2) Rel Index TNP Troponin I < 0.012 (0.01-0.034) ng/mL Total Protein (6.3-8.2) g/dL Albumin (3.5-5.0) g/dL Globulin (1.7-4.1) g/dL Albumin/Globulin Ratio (1.0-2.8) Procalcitonin (<0.5) ng/mL Urine Color Urine Appearance Urine pH (4.5-8.0) Ur Specific Artemas (1.000-1.035) Urine Protein (Negative) Urine Glucose (UA) (Negative) g/dL Urine Ketones (NEGATIVE) Urine Occult Blood (Negative) Urine Nitrate (Negative) Urine Bilirubin (NEGATIVE) Urine Urobilinogen (0.2) E.U./dL Ur Leukocyte Esterase (NEGATIVE) Urine RBC (0-5/HPF) Urine WBC (0-5/HPF) Ur Squamous Epith Cells (0-5/HPF) Amorphous Sediment Urine Bacteria (None) Ur Culture Indicated? Urine Test (Negative) Discharge Plan Departure Patient Disposition: Home Clinical Impression: Viral illness, Postural dizziness with presyncope Discharge Date/Time: 09/08/19 23:20 Instructions: DI for Fever (Symptom) -- Adult, DI for Dizziness-Nonvertigo Activity Restrictions/Additional Instructions: You have been diagnosed with [mild fever likely from viral illness and presyncope with changing in position. Unremarkable lab tests today including procalcitonin, lactate, CBC, chemistry including liver function test, and urine test.]. What to do: *Take your medications as directed. Please continue to take Tylenol and or Motrin as needed for discomfort or fever. Tylenol 650-1000 mg up to 3 to 4 times a day as needed. Ibuprofen/Motrin 400-600 mg up to 3 times a day as needed and please take it with food to decrease GI irritation. Please hydrate adequately. *What to do for Covid risk: * per recommendations from the CDC and the [facility] Department of Health * stay home except to get medical care. Restrict activities outside your home, except for getting medical care. Do not go to work, school, or public areas. Avoid using public transportation, ride sharing, or taxis. * separate yourself from other people in your home. * call ahead before visiting your doctor * Wear a face mask * Cover your coughs and sneezes * Clean your hands often * Avoid sharing household items * Clean all high-touch services every day * Monitor your symptoms and seek prompt medical attention if your illness is worsening, particularly with difficulty in breathing. *Follow up with your primary care provider in 2-3 days, call for an appointment to discuss follow-up evaluation and treatment for dizziness and presyncopal episode.. Let them know you were seen in the ED and that we asked you to be seen in follow up. You will receive a phone call from a with latoya with results in next 2-5 days. *Return to ED if you have any new, worsening, or concerning symptoms, such as [chest pain, breathing difficulty, unable to tolerate fluids, unusual rash, worsening pain, high fever, or any acute concerns]. Prescriptions: No Action Nortrel 0.5/35 (28) 0.5-35 mg-mcg tablet 1 tab PO DAILY Qty: 84 RF: 3 Referrals: Anthony White MD [Primary Care Provider] - <Tiana Saldana MD - Last Filed: 09/09/19 03:35> Cosign ED Attending Cosignature Attestation: I was immediately available in the department for consultation throughout this patient's visit. I agree with documentation as above. Tiana Saldana MD
[2019-09-08 22:21] LABS: Creatine Kinase 92 U/L (30-135)
[2019-09-08 22:29] LABS: D Dimer < 200 ng/mL (<230)
[2019-09-08 22:34] LABS: Troponin I < 0.012 ng/mL (0.01-0.034)
[2019-09-08 23:07] LABS: Pregnancy Test Urine Negative (Negative)
[2019-09-10 16:08] LABS: COVID19 Sendout Not Detected (Not Detected)
== END 2019-09-08 23:20 | disposition home or self-care (01) ==
PROVIDERS: Emergency Provider Nurse Practitioner Family; PCP Student in an Organized Health Care Education/Training Program
DX: R42 Dizziness and giddiness (principal); R50.9 Fever, unspecified; I10 Essential (primary) hypertension; R79.89 Other specified abnormal findings of blood chemistry; R55 Syncope and collapse
CPT/HCPCS: 36415; 80053; 81001; 81025; 82550; 83605; 84145; 84484; 85025; 85379; 87040; 87635; 93005; 96361; 96374; 96375; 99284; 99285; J1200; J1885; J2765

== ENCOUNTER → 2019-11-14 15:27 | Outpatient (CLI) | payer OTHER, MEDICAID, SELFPAY ==
[2019-11-14 16:00] LABS: Creatine Kinase 82 U/L (30-135)
[2019-11-14 16:57] LABS: TSH w/ Reflex to FT4 1.35 uIU/mL (0.47-4.68)
== END ==
PROVIDERS: PCP Student in an Organized Health Care Education/Training Program; Referring Provider Student in an Organized Health Care Education/Training Program; Visit Provider Student in an Organized Health Care Education/Training Program
DX: G44.229 Chronic tension-type headache, not intractable (principal); R22.1 Localized swelling, mass and lump, neck
CPT/HCPCS: 36415; 82550; 84443

== ENCOUNTER → 2019-12-18 14:54 | Outpatient (CLI) | payer OTHER, MEDICAID, SELFPAY ==
--- NOTE | 2019-12-18 14:55 | DI.RAD.S_ITS ---
PROCEDURE: XR CERVICAL SPINE 2V OR 3V INDICATIONS: Neck pain TECHNIQUE: Three views of the cervical spine were acquired. COMPARISON: [facility], CR, XR CERVICAL SPINE 2V OR 3V, 04/11/2018, 14:28. FINDINGS: Bones: No fractures or dislocations to the C7 level. The lateral masses of C1 appear intact on the odontoid view. No suspicious bony lesions. Soft tissues: No prevertebral soft tissue swelling. IMPRESSION: No acute osseous abnormality. If the symptoms persist with conservative management, consider cross sectional imaging such as CT or MRI for further assessment. Dictated by: Patrick Cote M.D. on 12/18/2019 at 17:08 Approved by: Patrick Cote M.D. on 12/18/2019 at 17:09
== END ==
PROVIDERS: Family Provider Student in an Organized Health Care Education/Training Program; PCP Student in an Organized Health Care Education/Training Program; Referring Provider Student in an Organized Health Care Education/Training Program; Visit Provider Student in an Organized Health Care Education/Training Program
DX: M54.2 Cervicalgia (principal); R22.1 Localized swelling, mass and lump, neck
CPT/HCPCS: 72040

== ENCOUNTER → 2020-01-03 12:08 | Outpatient (CLI) | payer OTHER, MEDICAID, SELFPAY ==
--- NOTE | 2020-01-03 12:09 | DI.MRI.S_ITS ---
PROCEDURE: MR HEAD/BRAIN WO CON INDICATIONS: Presyncope TECHNIQUE: Noncontrast axial T1 spin echo, axial T2 fast spin echo, sagittal and axial FLAIR, coronal T2 fast spin echo, axial gradient echo, axial diffusion and ADC through the brain. COMPARISON: None. FINDINGS: Image quality: Excellent. CSF Spaces: Basal cisterns are patent. No extra-axial fluid collections. Ventricles are normal in size and shape. Brain: No intracranial masses or hemorrhage. Wong/white matter interface is normal. Brainstem appears normal. Diffusion-weighted images demonstrate no acute ischemic insult. No chronic ischemic insults. Normal intravascular flow voids are present. Skull and face: Calvarium has normal marrow signal. Orbits appear normal. Sinuses: Sinuses and mastoids are clear. IMPRESSION: 1. No intracranial disease process. 2. No abnormal intracranial mass or mass effect. 3. No abnormal intracranial signal. Dictated by: Ameena Hodge MD, PhD on 01/03/2020 at 13:44 Approved by: Ameena Hodge MD, PhD on 01/03/2020 at 13:45
== END ==
PROVIDERS: Family Provider Student in an Organized Health Care Education/Training Program; PCP Student in an Organized Health Care Education/Training Program; Referring Provider Student in an Organized Health Care Education/Training Program; Visit Provider Student in an Organized Health Care Education/Training Program
DX: R55 Syncope and collapse (principal); R42 Dizziness and giddiness
CPT/HCPCS: 70551

== ENCOUNTER → 2020-05-26 10:03 | Outpatient (CLI) | payer OTHER, MEDICAID, SELFPAY ==
[2020-05-27 22:38] LABS: QuantiFERON Mitogen Value >10.00 IU/mL (.); QuantiFERON Nil Value 0.08 IU/mL (.); QuantiFERON TB Gold Plus Negative (Negative); QuantiFERON TB1 Ag Value 0.11 IU/mL (.); QuantiFERON TB2 Ag Value 0.06 IU/mL (.)
== END ==
PROVIDERS: Family Provider Student in an Organized Health Care Education/Training Program; PCP Student in an Organized Health Care Education/Training Program; Referring Provider Student in an Organized Health Care Education/Training Program; Visit Provider Student in an Organized Health Care Education/Training Program
DX: Z02.0 Encounter for examination for admission to educational institution (principal)
CPT/HCPCS: 36415; 86480

== ENCOUNTER 2020-05-28 10:30 | Outpatient (RCR) | payer OTHER, MEDICAID, SELFPAY ==
--- NOTE | 2019-12-23 18:01 | PT.OIE ---
Current Diagnoses Chronic tension-type headache, not intractable (12/23/19) Cervicalgia (12/23/19) Abnormal posture (12/23/19) Weakness (12/23/19) Past Medical History (Last Reviewed 09/09/19 @ 02:34 by MARCUS Plasencia) No significant past medical history (Acute) Past Surgical History (Last Reviewed 09/09/19 @ 02:34 by MARCUS Plasencia) No pertinent past surgical history (Acute) Visit Care Team Role Provider Type Anthony White MD Attending Provider Physician Family Provider Primary Care Provider Referring Provider Specialty: Internal Medicine Address: [address] [place] [address], [address], [facility] Email: [email or web address] Physical Therapy Initial Evaluation PT-OP-A Visit Information Start: 12/19/19 17:51 Freq: Status: Active Protocol: Document 12/23/19 16:42 [facility] (Rec: 12/23/19 17:54 [facility] [id number]) Out-Patient Physical Therapy Visit Information Visit Information Visit Type Initial Evaluation Visit Start Time 16:45 Visit Stop Time 17:35 Total Visit Minutes 50 Visit Number 03/15 Number of COMPANY PILOT Visits 0 PT-OP-B Current Condition Start: 12/19/19 17:51 Freq: Status: Active Protocol: Document 12/23/19 16:42 [facility] (Rec: 12/23/19 17:54 [facility] [id number]) Current Condition History of Current Condition Onset Date TURNER mostly this year; neck pain since childhood Current Complaints neck & TURNER History of Current Condition Pt reports tension TURNER that have been going on for just this year around June. Pt reports a couple years ago, she would get a sharp pain behind R ear that woudln't last long. Pt reports neck & back pain since she was a little kid d/t [facility].Pt reprots as a teenager she didn't take care of her body well and did not do a lot of sittin gup straight. Reports it is difficult and painful to sit up straight. Pt has dizziness comes and goes throughout the day, and since taking anxiety meds, that has helped. Pt reprots she has had to take a mm relaxor and tramadol and does not want to get to that point anymore. Pt took a break from school d/t pain stopping ability to concentrate. Pt has 3 year old son. Pt reports she has had 2 tension TURNER that are pretty major but has mild TURNER 1-2x/week. Pt has seen neurologist that did blood work that idd not show anything; She has worn a heart monitor for 24 hours and neuro wants her to do 2 weeks. Awaiting approval for MRI of head and neck Prior Treatments and Tests chiropractic as a kid, chiro recently-has helped some, acupuncture 1x but did not like it, TENs unit at home but no help, massage helped some. Treatment Goals Patient/Caregiver Goals be able to concentrate in order to be able to go to school, get some strength,dec TURNER, Improve posture Personal Factors Other Personal Factors That May Effect neck pain, back pain, Therapy/Recovery depression, dizziness, anxiety PT-OP-C Subjective Start: 12/19/19 17:51 Freq: Status: Active Protocol: Document 12/23/19 16:42 [facility] (Rec: 12/23/19 17:54 [facility] [id number]) Patient Questionnaires Neck Disability Index NDI Score 25/50 Neck Disability Index Impairment 40 to 59% Impaired (Score 20- 29) OP-PT Pain Assessment Location neck pain Pain Location Details neck pain B & TURNER(UT to post neck & up lat and post head) Intensity 6 Scale Used Numeric (0 - 10) Description Aching,Tightness Description- Other grindy, head feels too heavy Frequency Constant Pain Aggravating Factors Lifting Other Pain Aggravating Factors lack of movement Pain Alleviating Factors Heat,Medication,Massage Other Pain Alleviating Factors stretching, relaxation exercise PT-OP-F Manual Assessment Start: 12/19/19 17:51 Freq: Status: Active Protocol: Document 12/23/19 16:42 [facility] (Rec: 12/23/19 17:54 [facility] [id number]) Manual Assessments Soft Tissue Assessment Soft Tissue Mobility Assessment B UT, LS, cervical paraspinals Joint Mobility Assessment Joint Mobility Assessment L 1st rib elevated PT-OP-J Posture/Palpation/Skin Start: 12/19/19 17:51 Freq: Status: Active Protocol: Document 12/23/19 16:42 [facility] (Rec: 12/23/19 17:54 [facility] [id number]) Posture Evaluation Sylvester Postural Classification System [facility] Postural Classifications Posterior/Anterior Vertebral Compression Test 0 Elbow Flexion Test 0 Lumbar Protective Mechanism Left AP 0 Lumbar Protective Mechanism Right AP 0 Lumbar Protective Mechanism Left PA 1 Lumbar Protective Mechanism Right PA 1 PT-OP-K Range of Motion Start: 12/19/19 17:51 Freq: Status: Active Protocol: Document 12/23/19 16:42 [facility] (Rec: 12/23/19 17:54 [facility] [id number]) Cervical Spine Range of Motion Cervical Spine Active Degrees Testing Position Sitting Flexion 66 Extension 39 Rotation Left 51 Rotation Right 43 Lateral Flexion Left 23 Lateral Flexion Right 43 ROM Limitations Soft Tissue Tightness,Pain Comments nauseus w/flex, pain retruning to netral after ext PT-OP-L Special Tests Start: 12/19/19 17:51 Freq: Status: Active Protocol: Document 12/23/19 16:42 [facility] (Rec: 12/23/19 17:54 [facility] [id number]) Special Tests Cervical Spine Special Tests Vertebral Artery Test Results feels floating w/ L; neg R Spurling's Test Test Results pain in neck Alar Ligament Test Results neg Neural Special Tests- Upper Body Median Nerve Tension Test Results mod tension B Ulnar Nerve Tension Test Results neg B Radial Nerve Tension Test Results neg B Upper Limb Tension Test Test Results about 70 deg B passive abd w/ shoulder restriciton PT-OP-M Strength Start: 12/19/19 17:51 Freq: Status: Active Protocol: Document 12/23/19 16:42 [facility] (Rec: 12/23/19 17:54 [facility] [id number]) Cervical Spine Strength Cervical Spine Manual Muscle Testing Testing Position Sitting Flexion (C1-2) 3+ Fair+ Extension 3+ Fair+ Rotation Left 3+ Fair+ Rotation Right 4 Good Lateral Flexion Left (C3) 3+ Fair+ Lateral Flexion Right (C3) 3+ Fair+ Comments BP 132/76; felt lightheaded w/ some testing Shoulder Strength Shoulder Manual Muscle Testing Right Flexion 3+ Fair+ Extension 3+ Fair+ Abduction (C5) 3+ Fair+ External Rotation 3+ Fair+ Internal Rotation 5 Normal Left Flexion 3+ Fair+ Extension 3+ Fair+ Abduction (C5) 3+ Fair+ External Rotation 3+ Fair+ Internal Rotation 4+ Good+ PT-OP-Q Treatments Start: 12/19/19 17:51 Freq: Status: Active Protocol: Document 12/23/19 16:42 [facility] (Rec: 12/23/19 17:54 [facility] [id number]) Therapeutic Exercises Sidelying Exercises rotation Sidelying Exercise Name open book Side bilateral Reps/Minutes 10 Standing Exercises stretch Standing Exercise Name pec in corner Side bilateral Reps/Minutes 30 sec PT-OP-T Assessment and Plan Start: 12/19/19 17:51 Freq: Status: Active Protocol: Document 12/23/19 16:42 [facility] (Rec: 12/23/19 17:54 [facility] [id number]) Physical Therapy Assessment Rehab Potential Rehabilitation Potential Good Evaluation Complexity Number of Personal Factors/Comorbidities 3 or More Number of Body Systems Impaired 4 or More Clinical Presentation at Evaluation Unstable Impairments Impairments Activity Tolerance,Functional Activities,Functional Mobility ,Pain,Posture,ROM,Soft Tissue Mobility,Strength Goals posture Special Effects Technician Goal (LTG) Pt will present with ipmroved postural stability and posture evidenced by scoring at least 4/5 on VCT. LTG Duration 02/21/19 ROM Residential Goal (LTG) Pt will have full cervical ROM without pain, nausea or dizziness. LTG Duration 02/21/19 strength Short Term Goal (STG) Pt will be indep with HEP. STG Duration 01/22/20 Residential Goal (LTG) Pt will score 5/5 on B shoulder MMT, EFT & LPM to show improved stability in order to allow her to fully participate in her typical activities and allow to dec pain to return to school. LTG Duration 02/21/19 NDI Impairment 25/50 Short Term Goal (STG) Pt will improve NDI score to 18/50 to show improved functional ability. STG Duration 01/22/20 Residential Goal (LTG) Pt will improve NDI score to 6 /50 to show improved functional ability. LTG Duration 02/22/20 Assessment Summary Assessment Pt presents with 6 month ago onset of TURNER and increased neck pain greater than prior underlying neck pain. She had neck Xray and lab testing that did not show anything and has seen a neurologist along with natropathic MD & PCP. MDs have recommended cervical and brain MRIs, but pt has not gotten insurance approval. Imaging would be beneficial d/ t pt's concerning symptoms including occasional lightheadness, dizziness and nausea associated with TURNER. Pt has very fwd slouched posture that likely causes some of her pain d/t poor cervical positioning & dec stability. Pt would benefit from skilled PT to work on dec pain and improving functional ability including posture, strength, ROM and return to typical daily activities. Physical Therapy Plan Frequency and Duration Frequency of Treatment 2x/Week Duration of Treatment 2 months Plan of Care Start Date 12/23/19 Plan of Care End Date 02/22/20 Therapeutic Interventions Therapeutic Interventions Balance Training,Gait Training ,Home Exercise Program,Joint Mobilizations,Manual Therapy, Neuromuscular Re-education, Patient/Caregiver Education, Self-Care/Home Management,Soft Tissue Mobilization,Taping, Therapeutic Activities, Therapeutic Exercises Modalities Cold Pack/Ice Massage,Electric Stimulation,Hot Packs, Traction- Mechanical, Ultrasound Next Visit Focus/Plan Next Note Type Treatment Note Next Visit Plan further cervical testing, thoracic mobs, STM to pec & thoracic region, cervical retraction
--- NOTE | 2019-12-23 18:01 | PT.OPPOC ---
Physical, Occupational & Speech Therapy At [facility] Current Diagnoses Chronic tension-type headache, not intractable (12/23/19) Cervicalgia (12/23/19) Abnormal posture (12/23/19) Weakness (12/23/19) Visit Care Team Role Provider Type Anthony White MD Attending Provider Physician Family Provider Primary Care Provider Referring Provider Specialty: Internal Medicine Address: [address] [place] [address], [facility] [address], [place], [address] Email: [email or web address] Plan Of Care PT-OP-T Assessment and Plan Start: 12/19/19 17:51 Freq: Status: Active Protocol: Document 12/23/19 16:42 [facility] (Rec: 12/23/19 17:54 [facility] [id number]) Physical Therapy Assessment Rehab Potential Rehabilitation Potential Good Evaluation Complexity Number of Personal Factors/Comorbidities 3 or More Number of Body Systems Impaired 4 or More Clinical Presentation at Evaluation Unstable Impairments Impairments Activity Tolerance,Functional Activities,Functional Mobility ,Pain,Posture,ROM,Soft Tissue Mobility,Strength Goals posture Health Services Rn Goal (LTG) Pt will present with ipmroved postural stability and posture evidenced by scoring at least 4/5 on VCT. LTG Duration 02/21/19 ROM Health Services Rn Goal (LTG) Pt will have full cervical ROM without pain, nausea or dizziness. LTG Duration 02/21/19 strength Short Term Goal (STG) Pt will be indep with HEP. STG Duration 01/22/20 Care Home Goal (LTG) Pt will score 5/5 on B shoulder MMT, EFT & LPM to show improved stability in order to allow her to fully participate in her typical activities and allow to dec pain to return to school. LTG Duration 02/21/19 NDI Impairment 25/50 Short Term Goal (STG) Pt will improve NDI score to 18/50 to show improved functional ability. STG Duration 01/22/20 Care Home Goal (LTG) Pt will improve NDI score to 6 /50 to show improved functional ability. LTG Duration 02/22/20 Assessment Summary Assessment Pt presents with 6 month ago onset of TURNER and increased neck pain greater than prior underlying neck pain. She had neck Xray and lab testing that did not show anything and has seen a neurologist along with natropathic MD & PCP. MDs have recommended cervical and brain MRIs, but pt has not gotten insurance approval. Imaging would be beneficial d/ t pt's concerning symptoms including occasional lightheadness, dizziness and nausea associated with TURNER. Pt has very fwd slouched posture that likely causes some of her pain d/t poor cervical positioning & dec stability. Pt would benefit from skilled PT to work on dec pain and improving functional ability including posture, strength, ROM and return to typical daily activities. Physical Therapy Plan Frequency and Duration Frequency of Treatment 2x/Week Duration of Treatment 2 months Plan of Care Start Date 12/23/19 Plan of Care End Date 02/22/20 Therapeutic Interventions Therapeutic Interventions Balance Training,Gait Training ,Home Exercise Program,Joint Mobilizations,Manual Therapy, Neuromuscular Re-education, Patient/Caregiver Education, Self-Care/Home Management,Soft Tissue Mobilization,Taping, Therapeutic Activities, Therapeutic Exercises Modalities Cold Pack/Ice Massage,Electric Stimulation,Hot Packs, Traction- Mechanical, Ultrasound Next Visit Focus/Plan Next Note Type Treatment Note Next Visit Plan further cervical testing, thoracic mobs, STM to pec & thoracic region, cervical retraction Plan of Care Dates Plan of Care Start Date 12/23/19 Plan of Care End Date 02/22/20 Electronically Signed by: Rica Navarro, PT 12/23/19 [id number] Please Sign and Return: I have reviewed this Plan of Care and certify that the skilled therapy services above are required to meet the patient?s needs. Physician Signature Date Printed Name and Credentials Clinical Instructor Signature Printed Name and Credentials
--- NOTE | 2019-12-30 16:12 | PT.OTN ---
Current Diagnoses Chronic tension-type headache, not intractable (12/30/19) Cervicalgia (12/30/19) Abnormal posture (12/30/19) Weakness (12/30/19) Physical Therapy Treatment Note PT-OP-A Visit Information Start: 12/19/19 17:51 Freq: Status: Active Protocol: Document 12/30/19 15:28 [facility] (Rec: 12/30/19 16:12 [facility] [id number]) Out-Patient Physical Therapy Visit Information Visit Information Visit Type Treatment Note Visit Start Time 15:20 Visit Stop Time 15:58 Total Visit Minutes 38 Visit Number 04/15 Number of RN LACTATION Visits 0 PT-OP-B Current Condition Start: 12/19/19 17:51 Freq: Status: Active Protocol: Document 12/23/19 16:42 [facility] (Rec: 12/23/19 17:54 [facility] [id number]) Current Condition History of Current Condition Onset Date TURNER mostly this year; neck pain since childhood Current Complaints neck & TURNER History of Current Condition Pt reports tension TURNER that have been going on for just this year around June. Pt reports a couple years ago, she would get a sharp pain behind R ear that woudln't last long. Pt reports neck & back pain since she was a little kid d/t [facility] 6 years ago.Pt reprots as a teenager she didn't take care of her body well and did not do a lot of sittin gup straight. Reports it is difficult and painful to sit up straight. Pt has dizziness comes and goes throughout the day, and since taking anxiety meds, that has helped. Pt reprots she has had to take a mm relaxor and tramadol and does not want to get to that point anymore. Pt took a break from school d/t pain stopping ability to concentrate. Pt has 3 year old son. Pt reports she has had 2 tension TURNER that are pretty major but has mild TURNER 1-2x/week. Pt has seen neurologist that did blood work that idd not show anything; She has worn a heart monitor for 24 hours and neuro wants her to do 2 weeks. Awaiting approval for MRI of head and neck Prior Treatments and Tests chiropractic as a kid, chiro recently-has helped some, acupuncture 1x but did not like it, TENs unit at home but no help, massage helped some. Treatment Goals Patient/Caregiver Goals be able to concentrate in order to be able to go to school, get some strength,dec TURNER, Improve posture Personal Factors Other Personal Factors That May Effect neck pain, back pain, Therapy/Recovery depression, dizziness, anxiety PT-OP-C Subjective Start: 12/19/19 17:51 Freq: Status: Active Protocol: Document 12/30/19 15:28 [facility] (Rec: 12/30/19 16:12 [facility] [id number]) OP-PT Subjective Patient Comments Patient Comments Pt reports doing exercsies and has been intential about trying to work pecs PT-OP-F Manual Assessment Start: 12/19/19 17:51 Freq: Status: Active Protocol: Document 12/23/19 16:42 [facility] (Rec: 12/23/19 17:54 [facility] [id number]) Manual Assessments Soft Tissue Assessment Soft Tissue Mobility Assessment B UT, LS, cervical paraspinals Joint Mobility Assessment Joint Mobility Assessment L 1st rib elevated PT-OP-J Posture/Palpation/Skin Start: 12/19/19 17:51 Freq: Status: Active Protocol: Document 12/23/19 16:42 [facility] (Rec: 12/23/19 17:54 [facility] [id number]) Posture Evaluation Sylvester Postural Classification System Sylvester Postural Classifications Posterior/Anterior Vertebral Compression Test 0 Elbow Flexion Test 0 Lumbar Protective Mechanism Left AP 0 Lumbar Protective Mechanism Right AP 0 Lumbar Protective Mechanism Left PA 1 Lumbar Protective Mechanism Right PA 1 PT-OP-K Range of Motion Start: 12/19/19 17:51 Freq: Status: Active Protocol: Document 12/23/19 16:42 [facility] (Rec: 12/23/19 17:54 [facility] [id number]) Cervical Spine Range of Motion Cervical Spine Active Degrees Testing Position Sitting Flexion 66 Extension 39 Rotation Left 51 Rotation Right 43 Lateral Flexion Left 23 Lateral Flexion Right 43 ROM Limitations Soft Tissue Tightness,Pain Comments nauseus w/flex, pain retruning to netral after ext PT-OP-L Special Tests Start: 12/19/19 17:51 Freq: Status: Active Protocol: Document 12/23/19 16:42 [facility] (Rec: 12/23/19 17:54 [facility] [id number]) Special Tests Cervical Spine Special Tests Vertebral Artery Test Results feels floating w/ L; neg R Spurling's Test Test Results pain in neck Alar Ligament Test Results neg Neural Special Tests- Upper Body Median Nerve Tension Test Results mod tension B Ulnar Nerve Tension Test Results neg B Radial Nerve Tension Test Results neg B Upper Limb Tension Test Test Results about 70 deg B passive abd w/ shoulder restriciton PT-OP-M Strength Start: 12/19/19 17:51 Freq: Status: Active Protocol: Document 12/23/19 16:42 [facility] (Rec: 12/23/19 17:54 [facility] [id number]) Cervical Spine Strength Cervical Spine Manual Muscle Testing Testing Position Sitting Flexion (C1-2) 3+ Fair+ Extension 3+ Fair+ Rotation Left 3+ Fair+ Rotation Right 4 Good Lateral Flexion Left (C3) 3+ Fair+ Lateral Flexion Right (C3) 3+ Fair+ Comments BP 132/76; felt lightheaded w/ some testing Shoulder Strength Shoulder Manual Muscle Testing Right Flexion 3+ Fair+ Extension 3+ Fair+ Abduction (C5) 3+ Fair+ External Rotation 3+ Fair+ Internal Rotation 5 Normal Left Flexion 3+ Fair+ Extension 3+ Fair+ Abduction (C5) 3+ Fair+ External Rotation 3+ Fair+ Internal Rotation 4+ Good+ PT-OP-Q Treatments Start: 12/19/19 17:51 Freq: Status: Active Protocol: Document 12/30/19 15:28 [facility] (Rec: 12/30/19 16:12 [facility] [id number]) Therapeutic Exercises Supine Exercises foam roll Supine Exercise Name flex, Habd, abd Side bilateral Reps/Minutes 15 ea Sidelying Exercises rotation Sidelying Exercise Name open book Side bilateral Reps/Minutes 10 Sitting Exercises retraction Sitting Exercise Name scap retraction/depression focus on no TL ext Side bilateral Reps/Minutes 10 Standing Exercises posture Standing Exercise Name wall roll up w/B shoulder ext Side bilateral Reps/Minutes 2x30 sec row Side bilateral Equipment Used L1 Reps/Minutes 15 Comments focus on no TL junction ext HAbd Side bilateral Equipment Used L1 Reps/Minutes 5 Comments stopped dt neck pain and UT engagement L>R Therapeutic Activity Therapeutic Activity sleeping Name pillow set up edu for supine & s/l posture Name seated unsupported posture focus on thoracic opening vs TL juction ext PT-OP-T Assessment and Plan Start: 12/19/19 17:51 Freq: Status: Active Protocol: Document 12/30/19 15:28 [facility] (Rec: 12/30/19 16:12 [facility] [id number]) Physical Therapy Assessment Goals posture Bench Inspector Goal (LTG) Pt will present with ipmroved postural stability and posture evidenced by scoring at least 4/5 on VCT. LTG Duration 02/21/19 ROM Bench Inspector Goal (LTG) Pt will have full cervical ROM without pain, nausea or dizziness. LTG Duration 02/21/19 strength Short Term Goal (STG) Pt will be indep with HEP. STG Duration 01/22/20 Bench Inspector Goal (LTG) Pt will score 5/5 on B shoulder MMT, EFT & LPM to show improved stability in order to allow her to fully participate in her typical activities and allow to dec pain to return to school. LTG Duration 02/21/19 NDI Impairment 25/50 Short Term Goal (STG) Pt will improve NDI score to 18/50 to show improved functional ability. STG Duration 01/22/20 Usp Goal (LTG) Pt will improve NDI score to 6 /50 to show improved functional ability. LTG Duration 02/22/20 Assessment Summary Assessment Pt did get blurring of vision and feeling of dizziness with cervical rotation w/extended hold and rotation of torso w/ keeping head in same posiiton so MD will be called re: concerns and left message. Imaging is pending but pt would definately benefit from imaging to be sure there is no vertebrabasilar occulusion occuring. SHe required cueing for posture throughout as she tends to extend at TL junction vs thoracic spine. improved comfort in sleep position w/ edu Physical Therapy Plan Frequency and Duration Frequency of Treatment 2x/Week Duration of Treatment 2 months Plan of Care Start Date 12/23/19 Plan of Care End Date 02/22/20 Next Visit Focus/Plan Next Note Type Treatment Note Next Visit Plan STM to pecs and thoracic spine , cont to work on thoracic aspect of postural correction, review exercises
--- NOTE | 2020-01-01 16:50 | PT.OTN ---
Current Diagnoses Chronic tension-type headache, not intractable (01/01/20) Cervicalgia (01/01/20) Abnormal posture (01/01/20) Weakness (01/01/20) Physical Therapy Treatment Note PT-OP-A Visit Information Start: 12/19/19 17:51 Freq: Status: Active Protocol: Document 01/01/20 15:15 [facility] (Rec: 01/01/20 16:50 [facility] [id number]) Out-Patient Physical Therapy Visit Information Visit Information Visit Type Treatment Note Visit Start Time 15:17 Visit Stop Time 16:14 Total Visit Minutes 55 Visit Number 05/13 Number of METERMAN Visits 0 PT-OP-B Current Condition Start: 12/19/19 17:51 Freq: Status: Active Protocol: Document 12/23/19 16:42 [facility] (Rec: 12/23/19 17:54 [facility] [id number]) Current Condition History of Current Condition Onset Date TURNER mostly this year; neck pain since childhood Current Complaints neck & TURNER History of Current Condition Pt reports tension TURNER that have been going on for just this year around June. Pt reports a couple years ago, she would get a sharp pain behind R ear that woudln't last long. Pt reports neck & back pain since she was a little kid d/t [facility] years ago.Pt reprots as a teenager she didn't take care of her body well and did not do a lot of sittin gup straight. Reports it is difficult and painful to sit up straight. Pt has dizziness comes and goes throughout the day, and since taking anxiety meds, that has helped. Pt reprots she has had to take a mm relaxor and tramadol and does not want to get to that point anymore. Pt took a break from school d/t pain stopping ability to concentrate. Pt has 3 year old son. Pt reports she has had 2 tension TURNER that are pretty major but has mild TURNER 1-2x/week. Pt has seen neurologist that did blood work that idd not show anything; She has worn a heart monitor for 24 hours and neuro wants her to do 2 weeks. Awaiting approval for MRI of head and neck Prior Treatments and Tests chiropractic as a kid, chiro recently-has helped some, acupuncture 1x but did not like it, TENs unit at home but no help, massage helped some. Treatment Goals Patient/Caregiver Goals be able to concentrate in order to be able to go to school, get some strength,dec TURNER, Improve posture Personal Factors Other Personal Factors That May Effect neck pain, back pain, Therapy/Recovery depression, dizziness, anxiety PT-OP-C Subjective Start: 12/19/19 17:51 Freq: Status: Active Protocol: Document 01/01/20 15:15 [facility] (Rec: 01/01/20 16:50 [facility] [id number]) OP-PT Subjective Patient Comments Patient Comments Pt reports some soreness in UT & mid back after last session PT-OP-F Manual Assessment Start: 12/19/19 17:51 Freq: Status: Active Protocol: Document 12/23/19 16:42 [facility] (Rec: 12/23/19 17:54 [facility] [id number]) Manual Assessments Soft Tissue Assessment Soft Tissue Mobility Assessment B UT, LS, cervical paraspinals Joint Mobility Assessment Joint Mobility Assessment L 1st rib elevated PT-OP-J Posture/Palpation/Skin Start: 12/19/19 17:51 Freq: Status: Active Protocol: Document 12/23/19 16:42 [facility] (Rec: 12/23/19 17:54 [facility] [id number]) Posture Evaluation Sylvester Postural Classification System Sylvester Postural Classifications Posterior/Anterior Vertebral Compression Test 0 Elbow Flexion Test 0 Lumbar Protective Mechanism Left AP 0 Lumbar Protective Mechanism Right AP 0 Lumbar Protective Mechanism Left PA 1 Lumbar Protective Mechanism Right PA 1 PT-OP-K Range of Motion Start: 12/19/19 17:51 Freq: Status: Active Protocol: Document 12/23/19 16:42 [facility] (Rec: 12/23/19 17:54 [facility] [id number]) Cervical Spine Range of Motion Cervical Spine Active Degrees Testing Position Sitting Flexion 66 Extension 39 Rotation Left 51 Rotation Right 43 Lateral Flexion Left 23 Lateral Flexion Right 43 ROM Limitations Soft Tissue Tightness,Pain Comments nauseus w/flex, pain retruning to netral after ext PT-OP-L Special Tests Start: 12/19/19 17:51 Freq: Status: Active Protocol: Document 12/23/19 16:42 [facility] (Rec: 12/23/19 17:54 [facility] [id number]) Special Tests Cervical Spine Special Tests Vertebral Artery Test Results feels floating w/ L; neg R Spurling's Test Test Results pain in neck Alar Ligament Test Results neg Neural Special Tests- Upper Body Median Nerve Tension Test Results mod tension B Ulnar Nerve Tension Test Results neg B Radial Nerve Tension Test Results neg B Upper Limb Tension Test Test Results about 70 deg B passive abd w/ shoulder restriciton PT-OP-M Strength Start: 12/19/19 17:51 Freq: Status: Active Protocol: Document 12/23/19 16:42 [facility] (Rec: 12/23/19 17:54 [facility] [id number]) Cervical Spine Strength Cervical Spine Manual Muscle Testing Testing Position Sitting Flexion (C1-2) 3+ Fair+ Extension 3+ Fair+ Rotation Left 3+ Fair+ Rotation Right 4 Good Lateral Flexion Left (C3) 3+ Fair+ Lateral Flexion Right (C3) 3+ Fair+ Comments BP 132/76; felt lightheaded w/ some testing Shoulder Strength Shoulder Manual Muscle Testing Right Flexion 3+ Fair+ Extension 3+ Fair+ Abduction (C5) 3+ Fair+ External Rotation 3+ Fair+ Internal Rotation 5 Normal Left Flexion 3+ Fair+ Extension 3+ Fair+ Abduction (C5) 3+ Fair+ External Rotation 3+ Fair+ Internal Rotation 4+ Good+ PT-OP-Q Treatments Start: 12/19/19 17:51 Freq: Status: Active Protocol: Document 01/01/20 15:15 [facility] (Rec: 01/01/20 16:50 [facility] [id number]) Therapeutic Exercises Supine Exercises foam roll Supine Exercise Name flex, Habd, abd, row, diaphramatic breathing, scap retract Side bilateral Reps/Minutes 10 ea Sidelying Exercises rotation Sidelying Exercise Name open book Side right Reps/Minutes 10 Sitting Exercises retraction Sitting Exercise Name scap retraction/depression focus on no TL ext Side bilateral Reps/Minutes 10 Standing Exercises posture Standing Exercise Name wall roll up w/B shoulder ext Side bilateral Reps/Minutes 2x30 sec row Side bilateral Equipment Used L1 Reps/Minutes 15 Comments stopped d.t UT activation Manual Therapy Treatment Soft Tissue Mobilization pec Body Location L Mobilization Type Rolling Intensity/Depth Moderate Joint Mobilizations sternum Joint depression Grade II rib Joint L 4th rib Direction inf & distraction from sternum PT-OP-T Assessment and Plan Start: 12/19/19 17:51 Freq: Status: Active Protocol: Document 01/01/20 15:15 [facility] (Rec: 01/01/20 16:50 [facility] [id number]) Physical Therapy Assessment Goals posture Usp Goal (LTG) Pt will present with ipmroved postural stability and posture evidenced by scoring at least 4/5 on VCT. LTG Duration 02/21/19 ROM Java Core Developer Goal (LTG) Pt will have full cervical ROM without pain, nausea or dizziness. LTG Duration 02/21/19 strength Short Term Goal (STG) Pt will be indep with HEP. STG Duration 01/22/20 Usp Goal (LTG) Pt will score 5/5 on B shoulder MMT, EFT & LPM to show improved stability in order to allow her to fully participate in her typical activities and allow to dec pain to return to school. LTG Duration 02/21/19 NDI Impairment 25/50 Short Term Goal (STG) Pt will improve NDI score to 18/50 to show improved functional ability. STG Duration 01/22/20 Java Core Developer Goal (LTG) Pt will improve NDI score to 6 /50 to show improved functional ability. LTG Duration 02/22/20 Assessment Summary Assessment Improved pec mobility after manual treatment today. She is encouraged to cont to work on thoracic posture and avoid neck motions that cause any of her symptoms. Physical Therapy Plan Frequency and Duration Frequency of Treatment 2x/Week Duration of Treatment 2 months Plan of Care Start Date 12/23/19 Plan of Care End Date 02/22/20 Next Visit Focus/Plan Next Note Type Treatment Note Next Visit Plan STM to pecs and thoracic spine , cont to work on thoracic aspect of postural correction, review exercises, check results of MRI & US
--- NOTE | 2020-01-07 18:04 | PT.OTN ---
Current Diagnoses Chronic tension-type headache, not intractable (01/07/20) Cervicalgia (01/07/20) Abnormal posture (01/07/20) Weakness (01/07/20) Physical Therapy Treatment Note PT-OP-A Visit Information Start: 12/19/19 17:51 Freq: Status: Active Protocol: Document 01/07/20 17:23 [facility] (Rec: 01/07/20 18:04 [facility] [id number]) Out-Patient Physical Therapy Visit Information Visit Information Visit Type Treatment Note Visit Start Time 15:20 Visit Stop Time 16:00 Total Visit Minutes 40 Visit Number 06/13 Number of ELECTRICAL INSTALLATION SUPERVISOR Visits 0 PT-OP-B Current Condition Start: 12/19/19 17:51 Freq: Status: Active Protocol: Document 12/23/19 16:42 [facility] (Rec: 12/23/19 17:54 [facility] [id number]) Current Condition History of Current Condition Onset Date TURNER mostly this year; neck pain since childhood Current Complaints neck & TURNER History of Current Condition Pt reports tension TURNER that have been going on for just this year around June. Pt reports a couple years ago, she would get a sharp pain behind R ear that woudln't last long. Pt reports neck & back pain since she was a little kid d/t [facility] years ago.Pt reprots as a teenager she didn't take care of her body well and did not do a lot of sittin gup straight. Reports it is difficult and painful to sit up straight. Pt has dizziness comes and goes throughout the day, and since taking anxiety meds, that has helped. Pt reprots she has had to take a mm relaxor and tramadol and does not want to get to that point anymore. Pt took a break from school d/t pain stopping ability to concentrate. Pt has 3 year old son. Pt reports she has had 2 tension TURNER that are pretty major but has mild TURNER 1-2x/week. Pt has seen neurologist that did blood work that idd not show anything; She has worn a heart monitor for 24 hours and neuro wants her to do 2 weeks. Awaiting approval for MRI of head and neck Prior Treatments and Tests chiropractic as a kid, chiro recently-has helped some, acupuncture 1x but did not like it, TENs unit at home but no help, massage helped some. Treatment Goals Patient/Caregiver Goals be able to concentrate in order to be able to go to school, get some strength,dec TURNER, Improve posture Personal Factors Other Personal Factors That May Effect neck pain, back pain, Therapy/Recovery depression, dizziness, anxiety PT-OP-C Subjective Start: 12/19/19 17:51 Freq: Status: Active Protocol: Document 01/07/20 17:23 [facility] (Rec: 01/07/20 18:04 [facility] [id number]) OP-PT Subjective Patient Comments Patient Comments Pt reports she has had a TURNER and intermittant dizziness and nausea since Monday. Notes neck pain also. MRI of head done and okay but did not do US d/t not able to do what MD wanted to see. primary MD is awaiting neurologist to direct further testing PT-OP-F Manual Assessment Start: 12/19/19 17:51 Freq: Status: Active Protocol: Document 12/23/19 16:42 [facility] (Rec: 12/23/19 17:54 [facility] [id number]) Manual Assessments Soft Tissue Assessment Soft Tissue Mobility Assessment B UT, LS, cervical paraspinals Joint Mobility Assessment Joint Mobility Assessment L 1st rib elevated PT-OP-J Posture/Palpation/Skin Start: 12/19/19 17:51 Freq: Status: Active Protocol: Document 12/23/19 16:42 [facility] (Rec: 12/23/19 17:54 [facility] [id number]) Posture Evaluation Sylvester Postural Classification System Sylvester Postural Classifications Posterior/Anterior Vertebral Compression Test 0 Elbow Flexion Test 0 Lumbar Protective Mechanism Left AP 0 Lumbar Protective Mechanism Right AP 0 Lumbar Protective Mechanism Left PA 1 Lumbar Protective Mechanism Right PA 1 PT-OP-K Range of Motion Start: 12/19/19 17:51 Freq: Status: Active Protocol: Document 12/23/19 16:42 [facility] (Rec: 12/23/19 17:54 [facility] [id number]) Cervical Spine Range of Motion Cervical Spine Active Degrees Testing Position Sitting Flexion 66 Extension 39 Rotation Left 51 Rotation Right 43 Lateral Flexion Left 23 Lateral Flexion Right 43 ROM Limitations Soft Tissue Tightness,Pain Comments nauseus w/flex, pain retruning to netral after ext PT-OP-L Special Tests Start: 12/19/19 17:51 Freq: Status: Active Protocol: Document 12/23/19 16:42 [facility] (Rec: 12/23/19 17:54 [facility] [id number]) Special Tests Cervical Spine Special Tests Vertebral Artery Test Results feels floating w/ L; neg R Spurling's Test Test Results pain in neck Alar Ligament Test Results neg Neural Special Tests- Upper Body Median Nerve Tension Test Results mod tension B Ulnar Nerve Tension Test Results neg B Radial Nerve Tension Test Results neg B Upper Limb Tension Test Test Results about 70 deg B passive abd w/ shoulder restriciton PT-OP-M Strength Start: 12/19/19 17:51 Freq: Status: Active Protocol: Document 12/23/19 16:42 [facility] (Rec: 12/23/19 17:54 [facility] [id number]) Cervical Spine Strength Cervical Spine Manual Muscle Testing Testing Position Sitting Flexion (C1-2) 3+ Fair+ Extension 3+ Fair+ Rotation Left 3+ Fair+ Rotation Right 4 Good Lateral Flexion Left (C3) 3+ Fair+ Lateral Flexion Right (C3) 3+ Fair+ Comments BP 132/76; felt lightheaded w/ some testing Shoulder Strength Shoulder Manual Muscle Testing Right Flexion 3+ Fair+ Extension 3+ Fair+ Abduction (C5) 3+ Fair+ External Rotation 3+ Fair+ Internal Rotation 5 Normal Left Flexion 3+ Fair+ Extension 3+ Fair+ Abduction (C5) 3+ Fair+ External Rotation 3+ Fair+ Internal Rotation 4+ Good+ PT-OP-Q Treatments Start: 12/19/19 17:51 Freq: Status: Active Protocol: Document 01/07/20 17:23 [facility] (Rec: 01/07/20 18:04 [facility] [id number]) Manual Therapy Treatment Soft Tissue Mobilization lat Body Location L lat & teres & rhomboids Mobilization Type Rolling Intensity/Depth Moderate Body Position Sidelying pec Body Location L Mobilization Type Rolling Comments superficial to moderate Joint Mobilizations scap Joint L Direction med & lat glides & tilts Self-Care/Home Management Treatment Education Other Education edu to call neuro office to make sure they got records and follow up re: their recommendations PT-OP-T Assessment and Plan Start: 12/19/19 17:51 Freq: Status: Active Protocol: Document 01/07/20 17:23 [facility] (Rec: 01/07/20 18:04 [facility] [id number]) Physical Therapy Assessment Goals posture Practice Professional Goal (LTG) Pt will present with ipmroved postural stability and posture evidenced by scoring at least 4/5 on VCT. LTG Duration 02/21/19 ROM Practice Professional Goal (LTG) Pt will have full cervical ROM without pain, nausea or dizziness. LTG Duration 02/21/19 strength Short Term Goal (STG) Pt will be indep with HEP. STG Duration 01/22/20 [facility] Goal (LTG) Pt will score 5/5 on B shoulder MMT, EFT & LPM to show improved stability in order to allow her to fully participate in her typical activities and allow to dec pain to return to school. LTG Duration 02/21/19 NDI Impairment 25/50 Short Term Goal (STG) Pt will improve NDI score to 18/50 to show improved functional ability. STG Duration 01/22/20 Practice Professional Goal (LTG) Pt will improve NDI score to 6 /50 to show improved functional ability. LTG Duration 02/22/20 Assessment Summary Assessment Improved depression of scapula after manual treatment today and improved pec flexibility testing. Pt had significant tenderness to L pec & lats. Pt 's thoracic posture likely casuses significant amount of neck pain d/t inc kyphosis causing fwd head. Pt cont to c /o of nausea & dizziness so no cerivical specific work done d/t concerns. When asked, pt reported no nausea or dizziness at end of treatment, but noted some nausea mid treatment that improved after position change. Physical Therapy Plan Frequency and Duration Frequency of Treatment 2x/Week Duration of Treatment 2 months Plan of Care Start Date 12/23/19 Plan of Care End Date 02/22/20 Next Visit Focus/Plan Next Note Type Treatment Note Next Visit Plan STM to pecs and thoracic spine , cont to work on thoracic aspect of postural correction, review exercises, check results of MRI & US; assess cranial nerves
--- NOTE | 2020-01-09 18:04 | PT.OTN ---
Current Diagnoses Chronic tension-type headache, not intractable (01/09/20) Cervicalgia (01/09/20) Abnormal posture (01/09/20) Weakness (01/09/20) Physical Therapy Treatment Note PT-OP-A Visit Information Start: 12/19/19 17:51 Freq: Status: Active Protocol: Document 01/09/20 16:12 [facility] (Rec: 01/09/20 18:03 [facility] [id number]) Out-Patient Physical Therapy Visit Information Visit Information Visit Type Treatment Note Visit Start Time 15:20 Visit Stop Time 16:00 Total Visit Minutes 40 Visit Number 07/13 Number of SENIOR INTERACTIVE PRODUCER Visits 0 PT-OP-B Current Condition Start: 12/19/19 17:51 Freq: Status: Active Protocol: Document 12/23/19 16:42 [facility] (Rec: 12/23/19 17:54 [facility] [id number]) Current Condition History of Current Condition Onset Date TURNER mostly this year; neck pain since childhood Current Complaints neck & TURNER History of Current Condition Pt reports tension TURNER that have been going on for just this year around June. Pt reports a couple years ago, she would get a sharp pain behind R ear that woudln't last long. Pt reports neck & back pain since she was a little kid d/t [facility] years ago.Pt reprots as a teenager she didn't take care of her body well and did not do a lot of sittin gup straight. Reports it is difficult and painful to sit up straight. Pt has dizziness comes and goes throughout the day, and since taking anxiety meds, that has helped. Pt reprots she has had to take a mm relaxor and tramadol and does not want to get to that point anymore. Pt took a break from school d/t pain stopping ability to concentrate. Pt has 3 year old son. Pt reports she has had 2 tension TURNER that are pretty major but has mild TURNER 1-2x/week. Pt has seen neurologist that did blood work that idd not show anything; She has worn a heart monitor for 24 hours and neuro wants her to do 2 weeks. Awaiting approval for MRI of head and neck Prior Treatments and Tests chiropractic as a kid, chiro recently-has helped some, acupuncture 1x but did not like it, TENs unit at home but no help, massage helped some. Treatment Goals Patient/Caregiver Goals be able to concentrate in order to be able to go to school, get some strength,dec TURNER, Improve posture Personal Factors Other Personal Factors That May Effect neck pain, back pain, Therapy/Recovery depression, dizziness, anxiety PT-OP-C Subjective Start: 12/19/19 17:51 Freq: Status: Active Protocol: Document 01/09/20 16:12 [facility] (Rec: 01/09/20 18:03 [facility] [id number]) OP-PT Subjective Patient Comments Patient Comments reoprts feeling better after last session. Reorts she was dancing with her son and noted dizziness when turning. PT-OP-F Manual Assessment Start: 12/19/19 17:51 Freq: Status: Active Protocol: Document 12/23/19 16:42 [facility] (Rec: 12/23/19 17:54 [facility] [id number]) Manual Assessments Soft Tissue Assessment Soft Tissue Mobility Assessment B UT, LS, cervical paraspinals Joint Mobility Assessment Joint Mobility Assessment L 1st rib elevated PT-OP-J Posture/Palpation/Skin Start: 12/19/19 17:51 Freq: Status: Active Protocol: Document 12/23/19 16:42 [facility] (Rec: 12/23/19 17:54 [facility] [id number]) Posture Evaluation Sylvester Postural Classification System Sylvester Postural Classifications Posterior/Anterior Vertebral Compression Test 0 Elbow Flexion Test 0 Lumbar Protective Mechanism Left AP 0 Lumbar Protective Mechanism Right AP 0 Lumbar Protective Mechanism Left PA 1 Lumbar Protective Mechanism Right PA 1 PT-OP-K Range of Motion Start: 12/19/19 17:51 Freq: Status: Active Protocol: Document 12/23/19 16:42 [facility] (Rec: 12/23/19 17:54 [facility] [id number]) Cervical Spine Range of Motion Cervical Spine Active Degrees Testing Position Sitting Flexion 66 Extension 39 Rotation Left 51 Rotation Right 43 Lateral Flexion Left 23 Lateral Flexion Right 43 ROM Limitations Soft Tissue Tightness,Pain Comments nauseus w/flex, pain retruning to netral after ext PT-OP-L Special Tests Start: 12/19/19 17:51 Freq: Status: Active Protocol: Document 12/23/19 16:42 [facility] (Rec: 12/23/19 17:54 [facility] [id number]) Special Tests Cervical Spine Special Tests Vertebral Artery Test Results feels floating w/ L; neg R Spurling's Test Test Results pain in neck Alar Ligament Test Results neg Neural Special Tests- Upper Body Median Nerve Tension Test Results mod tension B Ulnar Nerve Tension Test Results neg B Radial Nerve Tension Test Results neg B Upper Limb Tension Test Test Results about 70 deg B passive abd w/ shoulder restriciton PT-OP-M Strength Start: 12/19/19 17:51 Freq: Status: Active Protocol: Document 12/23/19 16:42 [facility] (Rec: 12/23/19 17:54 [facility] [id number]) Cervical Spine Strength Cervical Spine Manual Muscle Testing Testing Position Sitting Flexion (C1-2) 3+ Fair+ Extension 3+ Fair+ Rotation Left 3+ Fair+ Rotation Right 4 Good Lateral Flexion Left (C3) 3+ Fair+ Lateral Flexion Right (C3) 3+ Fair+ Comments BP 132/76; felt lightheaded w/ some testing Shoulder Strength Shoulder Manual Muscle Testing Right Flexion 3+ Fair+ Extension 3+ Fair+ Abduction (C5) 3+ Fair+ External Rotation 3+ Fair+ Internal Rotation 5 Normal Left Flexion 3+ Fair+ Extension 3+ Fair+ Abduction (C5) 3+ Fair+ External Rotation 3+ Fair+ Internal Rotation 4+ Good+ PT-OP-Q Treatments Start: 12/19/19 17:51 Freq: Status: Active Protocol: Document 01/09/20 16:12 [facility] (Rec: 01/09/20 18:03 [facility] [id number]) Gym Equipment Therapeutic Ball seated Ball Size/Color 65 cm Comments pelvic titlts & clocks x10 B Therapeutic Exercises Supine Exercises foam roll Supine Exercise Name pelvic tilt, tilt w/flex, alt march Side bilateral Reps/Minutes 10 ea Manual Therapy Treatment Soft Tissue Mobilization lat Body Location R lat & teres & rhomboids Mobilization Type Rolling Intensity/Depth Moderate Body Position Sidelying pec Body Location R Mobilization Type Rolling Comments superficial to moderate Joint Mobilizations tspine Direction transverse L w/passive rotation scap Joint R Direction med & lat glides & tilts PT-OP-T Assessment and Plan Start: 12/19/19 17:51 Freq: Status: Active Protocol: Document 01/09/20 16:12 [facility] (Rec: 01/09/20 18:03 [facility] [id number]) Physical Therapy Assessment Goals posture Dip Brazier Goal (LTG) Pt will present with ipmroved postural stability and posture evidenced by scoring at least 4/5 on VCT. LTG Duration 02/21/19 ROM Dip Brazier Goal (LTG) Pt will have full cervical ROM without pain, nausea or dizziness. LTG Duration 02/21/19 strength Short Term Goal (STG) Pt will be indep with HEP. STG Duration 01/22/20 Half-Way Goal (LTG) Pt will score 5/5 on B shoulder MMT, EFT & LPM to show improved stability in order to allow her to fully participate in her typical activities and allow to dec pain to return to school. LTG Duration 02/21/19 NDI Impairment 25/50 Short Term Goal (STG) Pt will improve NDI score to 18/50 to show improved functional ability. STG Duration 01/22/20 Half-Way Goal (LTG) Pt will improve NDI score to 6 /50 to show improved functional ability. LTG Duration 02/22/20 Assessment Summary Assessment Pt is improving with posture and able to have more netural thoracic spine positioning. She cont to have tightness in B pecs and lats which likely contributes to this tightness. Physical Therapy Plan Frequency and Duration Frequency of Treatment 2x/Week Duration of Treatment 2 months Plan of Care Start Date 12/23/19 Plan of Care End Date 02/22/20 Next Visit Focus/Plan Next Note Type Treatment Note Next Visit Plan STM to pecs and thoracic spine , cont to work on thoracic aspect of postural correction, review exercises, check results of MRI & US; assess cranial nerves
--- NOTE | 2020-01-13 13:09 | PT.OTN ---
Current Diagnoses Chronic tension-type headache, not intractable (01/13/20) Cervicalgia (01/13/20) Abnormal posture (01/13/20) Weakness (01/13/20) Physical Therapy Treatment Note PT-OP-A Visit Information Start: 12/19/19 17:51 Freq: Status: Active Protocol: Document 01/13/20 10:12 [facility] (Rec: 01/13/20 13:09 [facility] [id number]) Out-Patient Physical Therapy Visit Information Visit Information Visit Type Treatment Note Visit Start Time 09:47 Visit Stop Time 10:45 Total Visit Minutes 58 Visit Number 08/13 Number of TEAR DOWN WORKER Visits 0 PT-OP-B Current Condition Start: 12/19/19 17:51 Freq: Status: Active Protocol: Document 12/23/19 16:42 [facility] (Rec: 12/23/19 17:54 [facility] [id number]) Current Condition History of Current Condition Onset Date TURNER mostly this year; neck pain since childhood Current Complaints neck & TURNER History of Current Condition Pt reports tension TURNER that have been going on for just this year around June. Pt reports a couple years ago, she would get a sharp pain behind R ear that woudln't last long. Pt reports neck & back pain since she was a little kid d/t [facility] 6 years ago.Pt reprots as a teenager she didn't take care of her body well and did not do a lot of sittin gup straight. Reports it is difficult and painful to sit up straight. Pt has dizziness comes and goes throughout the day, and since taking anxiety meds, that has helped. Pt reprots she has had to take a mm relaxor and tramadol and does not want to get to that point anymore. Pt took a break from school d/t pain stopping ability to concentrate. Pt has 3 year old son. Pt reports she has had 2 tension TURNER that are pretty major but has mild TURNER 1-2x/week. Pt has seen neurologist that did blood work that idd not show anything; She has worn a heart monitor for 24 hours and neuro wants her to do 2 weeks. Awaiting approval for MRI of head and neck Prior Treatments and Tests chiropractic as a kid, chiro recently-has helped some, acupuncture 1x but did not like it, TENs unit at home but no help, massage helped some. Treatment Goals Patient/Caregiver Goals be able to concentrate in order to be able to go to school, get some strength,dec TURNER, Improve posture Personal Factors Other Personal Factors That May Effect neck pain, back pain, Therapy/Recovery depression, dizziness, anxiety PT-OP-C Subjective Start: 12/19/19 17:51 Freq: Status: Active Protocol: Document 01/13/20 10:12 [facility] (Rec: 01/13/20 13:09 [facility] [id number]) OP-PT Subjective Patient Comments Patient Comments Pt reports some soreness in neck after last session. Notes R sided neck soreness today. Reports her depression was worse this weekend and had to encourage to get up and out side on Monday PT-OP-F Manual Assessment Start: 12/19/19 17:51 Freq: Status: Active Protocol: Document 12/23/19 16:42 [facility] (Rec: 12/23/19 17:54 [facility] [id number]) Manual Assessments Soft Tissue Assessment Soft Tissue Mobility Assessment B UT, LS, cervical paraspinals Joint Mobility Assessment Joint Mobility Assessment L 1st rib elevated PT-OP-J Posture/Palpation/Skin Start: 12/19/19 17:51 Freq: Status: Active Protocol: Document 12/23/19 16:42 [facility] (Rec: 12/23/19 17:54 [facility] [id number]) Posture Evaluation Sylvester Postural Classification System Sylvester Postural Classifications Posterior/Anterior Vertebral Compression Test 0 Elbow Flexion Test 0 Lumbar Protective Mechanism Left AP 0 Lumbar Protective Mechanism Right AP 0 Lumbar Protective Mechanism Left PA 1 Lumbar Protective Mechanism Right PA 1 PT-OP-K Range of Motion Start: 12/19/19 17:51 Freq: Status: Active Protocol: Document 12/23/19 16:42 [facility] (Rec: 12/23/19 17:54 [facility] [id number]) Cervical Spine Range of Motion Cervical Spine Active Degrees Testing Position Sitting Flexion 66 Extension 39 Rotation Left 51 Rotation Right 43 Lateral Flexion Left 23 Lateral Flexion Right 43 ROM Limitations Soft Tissue Tightness,Pain Comments nauseus w/flex, pain retruning to netral after ext PT-OP-L Special Tests Start: 12/19/19 17:51 Freq: Status: Active Protocol: Document 12/23/19 16:42 [facility] (Rec: 12/23/19 17:54 [facility] [id number]) Special Tests Cervical Spine Special Tests Vertebral Artery Test Results feels floating w/ L; neg R Spurling's Test Test Results pain in neck Alar Ligament Test Results neg Neural Special Tests- Upper Body Median Nerve Tension Test Results mod tension B Ulnar Nerve Tension Test Results neg B Radial Nerve Tension Test Results neg B Upper Limb Tension Test Test Results about 70 deg B passive abd w/ shoulder restriciton PT-OP-M Strength Start: 12/19/19 17:51 Freq: Status: Active Protocol: Document 12/23/19 16:42 [facility] (Rec: 12/23/19 17:54 [facility] [id number]) Cervical Spine Strength Cervical Spine Manual Muscle Testing Testing Position Sitting Flexion (C1-2) 3+ Fair+ Extension 3+ Fair+ Rotation Left 3+ Fair+ Rotation Right 4 Good Lateral Flexion Left (C3) 3+ Fair+ Lateral Flexion Right (C3) 3+ Fair+ Comments BP 132/76; felt lightheaded w/ some testing Shoulder Strength Shoulder Manual Muscle Testing Right Flexion 3+ Fair+ Extension 3+ Fair+ Abduction (C5) 3+ Fair+ External Rotation 3+ Fair+ Internal Rotation 5 Normal Left Flexion 3+ Fair+ Extension 3+ Fair+ Abduction (C5) 3+ Fair+ External Rotation 3+ Fair+ Internal Rotation 4+ Good+ PT-OP-Q Treatments Start: 12/19/19 17:51 Freq: Status: Active Protocol: Document 01/13/20 10:12 [facility] (Rec: 01/13/20 13:09 [facility] [id number]) Therapeutic Exercises Supine Exercises thoracic mob Supine Exercise Name w/towel roll about T8 Side bilateral Reps/Minutes 15 Comments LTR Therapeutic Activity Therapeutic Activity posture Comments seated unsupported and standing posture with cueing for shoulder position & dec kyphosis Manual Therapy Treatment Soft Tissue Mobilization scap Body Location along superior asspec of spine & med border Mobilization Type Rolling lat Body Location R lat & teres & rhomboids Mobilization Type Rolling Intensity/Depth Moderate Body Position Sidelying pec Body Location R Mobilization Type Rolling Comments superficial to moderate PT-OP-T Assessment and Plan Start: 12/19/19 17:51 Freq: Status: Active Protocol: Document 01/13/20 10:12 [facility] (Rec: 01/13/20 13:09 [facility] [id number]) Physical Therapy Assessment Goals posture Green Coffee Blender Goal (LTG) Pt will present with ipmroved postural stability and posture evidenced by scoring at least 4/5 on VCT. LTG Duration 02/21/19 ROM Alf Goal (LTG) Pt will have full cervical ROM without pain, nausea or dizziness. LTG Duration 02/21/19 strength Short Term Goal (STG) Pt will be indep with HEP. STG Duration 01/22/20 Alf Goal (LTG) Pt will score 5/5 on B shoulder MMT, EFT & LPM to show improved stability in order to allow her to fully participate in her typical activities and allow to dec pain to return to school. LTG Duration 02/21/19 NDI Impairment 25/50 Short Term Goal (STG) Pt will improve NDI score to 18/50 to show improved functional ability. STG Duration 01/22/20 Green Coffee Blender Goal (LTG) Pt will improve NDI score to 6 /50 to show improved functional ability. LTG Duration 02/22/20 Assessment Summary Assessment Pt imprvoingw ith posture with cueing and notes dec back tightness when in good posture . SHown with LPM how improved posture imrpoves her overall stability Physical Therapy Plan Frequency and Duration Frequency of Treatment 2x/Week Duration of Treatment 2 months Plan of Care Start Date 12/23/19 Plan of Care End Date 02/22/20 Next Visit Focus/Plan Next Note Type Treatment Note Next Visit Plan diaphram release & work on breathing,STM to pecs and thoracic spine, cont to work on thoracic aspect of postural correction, review exercises, check results of MRI & US; assess cranial nerves
--- NOTE | 2020-01-22 17:50 | PT.OTN ---
Current Diagnoses Chronic tension-type headache, not intractable (01/22/20) Cervicalgia (01/22/20) Abnormal posture (01/22/20) Weakness (01/22/20) Physical Therapy Treatment Note PT-OP-A Visit Information Start: 12/19/19 17:51 Freq: Status: Active Protocol: Document 01/22/20 17:00 [facility] (Rec: 01/22/20 17:50 [facility] [id number]) Out-Patient Physical Therapy Visit Information Visit Information Visit Type Treatment Note Visit Start Time 16:02 Visit Stop Time 16:52 Total Visit Minutes 50 Visit Number 09/12 Number of MANAGER FINANCE Visits 0 PT-OP-B Current Condition Start: 12/19/19 17:51 Freq: Status: Active Protocol: Document 12/23/19 16:42 [facility] (Rec: 12/23/19 17:54 [facility] [id number]) Current Condition History of Current Condition Onset Date TURNER mostly this year; neck pain since childhood Current Complaints neck & TURNER History of Current Condition Pt reports tension TURNER that have been going on for just this year around June. Pt reports a couple years ago, she would get a sharp pain behind R ear that woudln't last long. Pt reports neck & back pain since she was a little kid d/t [facility] years [facility].Pt reprots as a teenager she didn't take care of her body well and did not do a lot of sittin gup straight. Reports it is difficult and painful to sit up straight. Pt has dizziness comes and goes throughout the day, and since taking anxiety meds, that has helped. Pt reprots she has had to take a mm relaxor and tramadol and does not want to get to that point anymore. Pt took a break from school d/t pain stopping ability to concentrate. Pt has 3 year old son. Pt reports she has had 2 tension TURNER that are pretty major but has mild TURNER 1-2x/week. Pt has seen neurologist that did blood work that idd not show anything; She has worn a heart monitor for 24 hours and neuro wants her to do 2 weeks. Awaiting approval for MRI of head and neck Prior Treatments and Tests chiropractic as a kid, chiro recently-has helped some, acupuncture 1x but did not like it, TENs unit at home but no help, massage helped some. Treatment Goals Patient/Caregiver Goals be able to concentrate in order to be able to go to school, get some strength,dec TURNER, Improve posture Personal Factors Other Personal Factors That May Effect neck pain, back pain, Therapy/Recovery depression, dizziness, anxiety PT-OP-C Subjective Start: 12/19/19 17:51 Freq: Status: Active Protocol: Document 01/22/20 17:00 [facility] (Rec: 01/22/20 17:50 [facility] [id number]) OP-PT Subjective Patient Comments Patient Comments Pt reports having okay days the past 2 days but the 3 prior to that were bad. Pt saw set off blocker who is going to have her heart monitored for 2 weeks and she will be doing a stress test PT-OP-F Manual Assessment Start: 12/19/19 17:51 Freq: Status: Active Protocol: Document 12/23/19 16:42 [facility] (Rec: 12/23/19 17:54 [facility] [id number]) Manual Assessments Soft Tissue Assessment Soft Tissue Mobility Assessment B UT, LS, cervical paraspinals Joint Mobility Assessment Joint Mobility Assessment L 1st rib elevated PT-OP-J Posture/Palpation/Skin Start: 12/19/19 17:51 Freq: Status: Active Protocol: Document 12/23/19 16:42 [facility] (Rec: 12/23/19 17:54 [facility] [id number]) Posture Evaluation Sylvester Postural Classification System Sylvester Postural Classifications Posterior/Anterior Vertebral Compression Test 0 Elbow Flexion Test 0 Lumbar Protective Mechanism Left AP 0 Lumbar Protective Mechanism Right AP 0 Lumbar Protective Mechanism Left PA 1 Lumbar Protective Mechanism Right PA 1 PT-OP-K Range of Motion Start: 12/19/19 17:51 Freq: Status: Active Protocol: Document 12/23/19 16:42 [facility] (Rec: 12/23/19 17:54 [facility] [id number]) Cervical Spine Range of Motion Cervical Spine Active Degrees Testing Position Sitting Flexion 66 Extension 39 Rotation Left 51 Rotation Right 43 Lateral Flexion Left 23 Lateral Flexion Right 43 ROM Limitations Soft Tissue Tightness,Pain Comments nauseus w/flex, pain retruning to netral after ext PT-OP-L Special Tests Start: 12/19/19 17:51 Freq: Status: Active Protocol: Document 12/23/19 16:42 [facility] (Rec: 12/23/19 17:54 [facility] [id number]) Special Tests Cervical Spine Special Tests Vertebral Artery Test Results feels floating w/ L; neg R Spurling's Test Test Results pain in neck Alar Ligament Test Results neg Neural Special Tests- Upper Body Median Nerve Tension Test Results mod tension B Ulnar Nerve Tension Test Results neg B Radial Nerve Tension Test Results neg B Upper Limb Tension Test Test Results about 70 deg B passive abd w/ shoulder restriciton PT-OP-M Strength Start: 12/19/19 17:51 Freq: Status: Active Protocol: Document 12/23/19 16:42 [facility] (Rec: 12/23/19 17:54 [facility] [id number]) Cervical Spine Strength Cervical Spine Manual Muscle Testing Testing Position Sitting Flexion (C1-2) 3+ Fair+ Extension 3+ Fair+ Rotation Left 3+ Fair+ Rotation Right 4 Good Lateral Flexion Left (C3) 3+ Fair+ Lateral Flexion Right (C3) 3+ Fair+ Comments BP 132/76; felt lightheaded w/ some testing Shoulder Strength Shoulder Manual Muscle Testing Right Flexion 3+ Fair+ Extension 3+ Fair+ Abduction (C5) 3+ Fair+ External Rotation 3+ Fair+ Internal Rotation 5 Normal Left Flexion 3+ Fair+ Extension 3+ Fair+ Abduction (C5) 3+ Fair+ External Rotation 3+ Fair+ Internal Rotation 4+ Good+ PT-OP-Q Treatments Start: 12/19/19 17:51 Freq: Status: Active Protocol: Document 01/22/20 17:00 [facility] (Rec: 01/22/20 17:50 [facility] [id number]) Therapeutic Exercises Supine Exercises breathing Supine Exercise Name diaphragmatic breathing Comments 1. breathing 2. breathing in thirds 3. breath transfer btwn chest & abdomen Therapeutic Activity Therapeutic Activity posture Comments seated unsupported and standing posture with cueing for shoulder position & dec kyphosis Manual Therapy Treatment Soft Tissue Mobilization diaphram Body Location R>L Mobilization Type Sustained Pressure Comments w/LTR thoracic paraspinals Body Location L Mobilization Type Rolling pec Body Location L Mobilization Type Rolling Comments superficial to moderate & along sternum PT-OP-T Assessment and Plan Start: 12/19/19 17:51 Freq: Status: Active Protocol: Document 01/22/20 17:00 [facility] (Rec: 01/22/20 17:50 [facility] [id number]) Physical Therapy Assessment Goals posture Assisted Goal (LTG) Pt will present with ipmroved postural stability and posture evidenced by scoring at least 4/5 on VCT. LTG Duration 02/21/19 ROM Insurance Verification Representative Goal (LTG) Pt will have full cervical ROM without pain, nausea or dizziness. LTG Duration 02/21/19 strength Short Term Goal (STG) Pt will be indep with HEP. STG Duration 01/22/20 Assisted Goal (LTG) Pt will score 5/5 on B shoulder MMT, EFT & LPM to show improved stability in order to allow her to fully participate in her typical activities and allow to dec pain to return to school. LTG Duration 02/21/19 NDI Impairment 25/50 Short Term Goal (STG) Pt will improve NDI score to 18/50 to show improved functional ability. STG Duration 01/22/20 Assisted Goal (LTG) Pt will improve NDI score to 6 /50 to show improved functional ability. LTG Duration 02/22/20 Assessment Summary Assessment Pt is improving with posture but still does manual facilitation & cueing for good positioning. She had signifiacnt scalene & only upper ribcage movement with breathing at start of treatment which was improved by diaphram release which should dec activiation of scalenes & cervical mm with breathing. Physical Therapy Plan Frequency and Duration Frequency of Treatment 2x/Week Duration of Treatment 2 months Plan of Care Start Date 12/23/19 Plan of Care End Date 02/22/20 Next Visit Focus/Plan Next Note Type Treatment Note Next Visit Plan cont to work on diapharm and work on breathing strategies, work on core w/breathing & appropriate activation w/o neck activation
--- NOTE | 2020-01-24 16:00 | PT.OTN ---
Current Diagnoses Chronic tension-type headache, not intractable (01/24/20) Cervicalgia (01/24/20) Abnormal posture (01/24/20) Weakness (01/24/20) Physical Therapy Treatment Note PT-OP-A Visit Information Start: 12/19/19 17:51 Freq: Status: Active Protocol: Document 01/24/20 15:59 MA (Rec: 01/24/20 16:17 MA [id number]) Out-Patient Physical Therapy Visit Information Visit Information Visit Type Treatment Note Visit Start Time 15:19 Visit Stop Time 15:59 Total Visit Minutes 40 Visit Number 10/13 Number of ERGONOMICS TECHNICIAN Visits 1 PT-OP-B Current Condition Start: 12/19/19 17:51 Freq: Status: Active Protocol: Document 12/23/19 16:42 [facility] (Rec: 12/23/19 17:54 [facility] [id number]) Current Condition History of Current Condition Onset Date TURNER mostly this year; neck pain since childhood Current Complaints neck & TURNER History of Current Condition Pt reports tension TURNER that have been going on for just this year around June. Pt reports a couple years ago, she would get a sharp pain behind R ear that woudln't last long. Pt reports neck & back pain since she was a little kid d/t [facility] years ago.Pt reprots as a teenager she didn't take care of her body well and did not do a lot of sittin gup straight. Reports it is difficult and painful to sit up straight. Pt has dizziness comes and goes throughout the day, and since taking anxiety meds, that has helped. Pt reprots she has had to take a mm relaxor and tramadol and does not want to get to that point anymore. Pt took a break from school d/t pain stopping ability to concentrate. Pt has 3 year old son. Pt reports she has had 2 tension TURNER that are pretty major but has mild TURNER 1-2x/week. Pt has seen neurologist that did blood work that idd not show anything; She has worn a heart monitor for 24 hours and neuro wants her to do 2 weeks. Awaiting approval for MRI of head and neck Prior Treatments and Tests chiropractic as a kid, chiro recently-has helped some, acupuncture 1x but did not like it, TENs unit at home but no help, massage helped some. Treatment Goals Patient/Caregiver Goals be able to concentrate in order to be able to go to school, get some strength,dec TURNER, Improve posture Personal Factors Other Personal Factors That May Effect neck pain, back pain, Therapy/Recovery depression, dizziness, anxiety PT-OP-C Subjective Start: 12/19/19 17:51 Freq: Status: Active Protocol: Document 01/24/20 15:59 MA (Rec: 01/24/20 16:17 MA [email or web address]) OP-PT Subjective Patient Comments Patient Comments Pt has had head aches the last two days. She has not heard back from her dr about her MRI PT-OP-F Manual Assessment Start: 12/19/19 17:51 Freq: Status: Active Protocol: Document 12/23/19 16:42 [facility] (Rec: 12/23/19 17:54 [facility] [id number]) Manual Assessments Soft Tissue Assessment Soft Tissue Mobility Assessment B UT, LS, cervical paraspinals Joint Mobility Assessment Joint Mobility Assessment L 1st rib elevated PT-OP-J Posture/Palpation/Skin Start: 12/19/19 17:51 Freq: Status: Active Protocol: Document 12/23/19 16:42 [facility] (Rec: 12/23/19 17:54 [facility] [id number]) Posture Evaluation Sylvester Postural Classification System Sylvester Postural Classifications Posterior/Anterior Vertebral Compression Test 0 Elbow Flexion Test 0 Lumbar Protective Mechanism Left AP 0 Lumbar Protective Mechanism Right AP 0 Lumbar Protective Mechanism Left PA 1 Lumbar Protective Mechanism Right PA 1 PT-OP-K Range of Motion Start: 12/19/19 17:51 Freq: Status: Active Protocol: Document 12/23/19 16:42 [facility] (Rec: 12/23/19 17:54 [facility] [id number]) Cervical Spine Range of Motion Cervical Spine Active Degrees Testing Position Sitting Flexion 66 Extension 39 Rotation Left 51 Rotation Right 43 Lateral Flexion Left 23 Lateral Flexion Right 43 ROM Limitations Soft Tissue Tightness,Pain Comments nauseus w/flex, pain retruning to netral after ext PT-OP-L Special Tests Start: 12/19/19 17:51 Freq: Status: Active Protocol: Document 12/23/19 16:42 [facility] (Rec: 12/23/19 17:54 [facility] [id number]) Special Tests Cervical Spine Special Tests Vertebral Artery Test Results feels floating w/ L; neg R Spurling's Test Test Results pain in neck Alar Ligament Test Results neg Neural Special Tests- Upper Body Median Nerve Tension Test Results mod tension B Ulnar Nerve Tension Test Results neg B Radial Nerve Tension Test Results neg B Upper Limb Tension Test Test Results about 70 deg B passive abd w/ shoulder restriciton PT-OP-M Strength Start: 12/19/19 17:51 Freq: Status: Active Protocol: Document 12/23/19 16:42 [facility] (Rec: 12/23/19 17:54 [facility] [id number]) Cervical Spine Strength Cervical Spine Manual Muscle Testing Testing Position Sitting Flexion (C1-2) 3+ Fair+ Extension 3+ Fair+ Rotation Left 3+ Fair+ Rotation Right 4 Good Lateral Flexion Left (C3) 3+ Fair+ Lateral Flexion Right (C3) 3+ Fair+ Comments BP 132/76; felt lightheaded w/ some testing Shoulder Strength Shoulder Manual Muscle Testing Right Flexion 3+ Fair+ Extension 3+ Fair+ Abduction (C5) 3+ Fair+ External Rotation 3+ Fair+ Internal Rotation 5 Normal Left Flexion 3+ Fair+ Extension 3+ Fair+ Abduction (C5) 3+ Fair+ External Rotation 3+ Fair+ Internal Rotation 4+ Good+ PT-OP-Q Treatments Start: 12/19/19 17:51 Freq: Status: Active Protocol: Document 01/24/20 15:59 MA (Rec: 01/24/20 16:17 MA [email or web address]) Therapeutic Exercises Supine Exercises Core Supine Exercise Name Pelvic tucks then supine marches Side bilateral Reps/Minutes 20x Comments initiating core contraction with exhale on lift Sidelying Exercises rotation Sidelying Exercise Name Open Book Side bilateral Reps/Minutes 10x Sitting Exercises Marches Sitting Exercise Name Focus on abdominal contraction Side bilateral Reps/Minutes 10x Manual Therapy Treatment Soft Tissue Mobilization RC Body Location insertion bilateral Mobilization Type Cross-Friction Intensity/Depth Moderate Body Position Supine diaphram Body Location R>L Mobilization Type Sustained Pressure Comments w/LTR-discont. due to back pain scap Body Location along superior asspec of spine & med border Mobilization Type Rolling pec Body Location Bilateral Mobilization Type Strumming,Sustained Pressure, Trigger Point Release Intensity/Depth Moderate Comments 90/90 abd/flex PT-OP-T Assessment and Plan Start: 12/19/19 17:51 Freq: Status: Active Protocol: Document 01/24/20 15:59 MA (Rec: 01/24/20 16:17 MA [id number]) Physical Therapy Assessment Goals posture Correction Goal (LTG) Pt will present with ipmroved postural stability and posture evidenced by scoring at least 4/5 on VCT. LTG Duration 02/21/19 ROM Correction Goal (LTG) Pt will have full cervical ROM without pain, nausea or dizziness. LTG Duration 02/21/19 strength Short Term Goal (STG) Pt will be indep with HEP. 01/24/20-GOAL MET STG Duration 01/22/20 Correction Goal (LTG) Pt will score 5/5 on B shoulder MMT, EFT & LPM to show improved stability in order to allow her to fully participate in her typical activities and allow to dec pain to return to school. LTG Duration 02/21/19 NDI Impairment 25/50 Short Term Goal (STG) Pt will improve NDI score to 18/50 to show improved functional ability. STG Duration 01/22/20 Nurses' Association Counselor Goal (LTG) Pt will improve NDI score to 6 /50 to show improved functional ability. LTG Duration 02/22/20 Assessment Summary Assessment Pt felt release after pec STM on right. She needs cues for proper core facilitation during marches-breathing cues for exhalation to help activate TA and avoid cervical strain seemed to work best during today's tx. Added supine marches to HEP. Practiced seated marches as well focusing on core contraction. Pt would benefit from continued therapy to help strengthen core to decrease back pain. Physical Therapy Plan Frequency and Duration Frequency of Treatment 2x/Week Duration of Treatment 2 months Plan of Care Start Date 12/23/19 Plan of Care End Date 02/22/20 Next Visit Focus/Plan Next Note Type Treatment Note Next Visit Plan Check how supine marches went at home. Cont to work on breathing strategies and diaphragm, work on core w/breathing & appropriate activation w/o cervical strain
--- NOTE | 2020-01-27 17:55 | PT.OTN ---
Current Diagnoses Chronic tension-type headache, not intractable (01/27/20) Cervicalgia (01/27/20) Abnormal posture (01/27/20) Weakness (01/27/20) Physical Therapy Treatment Note PT-OP-A Visit Information Start: 12/19/19 17:51 Freq: Status: Active Protocol: Document 01/27/20 17:46 [facility] (Rec: 01/27/20 17:55 [facility] [id number]) Out-Patient Physical Therapy Visit Information Visit Information Visit Type Treatment Note Visit Start Time 16:05 Visit Stop Time 16:45 Total Visit Minutes 40 Visit Number 11/13 Number of SUPERVISOR MECHANIC BOILERMAKING Visits 0 PT-OP-B Current Condition Start: 12/19/19 17:51 Freq: Status: Active Protocol: Document 12/23/19 16:42 [facility] (Rec: 12/23/19 17:54 [facility] [id number]) Current Condition History of Current Condition Onset Date TURNER mostly this year; neck pain since childhood Current Complaints neck & TURNER History of Current Condition Pt reports tension TURNER that have been going on for just this year around June. Pt reports a couple years ago, she would get a sharp pain behind R ear that woudln't last long. Pt reports neck & back pain since she was a little kid d/t [facility] years ago.Pt reprots as a teenager she didn't take care of her body well and did not do a lot of sittin gup straight. Reports it is difficult and painful to sit up straight. Pt has dizziness comes and goes throughout the day, and since taking anxiety meds, that has helped. Pt reprots she has had to take a mm relaxor and tramadol and does not want to get to that point anymore. Pt took a break from school d/t pain stopping ability to concentrate. Pt has 3 year old son. Pt reports she has had 2 tension TURNER that are pretty major but has mild TURNER 1-2x/week. Pt has seen neurologist that did blood work that idd not show anything; She has worn a heart monitor for 24 hours and neuro wants her to do 2 weeks. Awaiting approval for MRI of head and neck Prior Treatments and Tests chiropractic as a kid, chiro recently-has helped some, acupuncture 1x but did not like it, TENs unit at home but no help, massage helped some. Treatment Goals Patient/Caregiver Goals be able to concentrate in order to be able to go to school, get some strength,dec TURNER, Improve posture Personal Factors Other Personal Factors That May Effect neck pain, back pain, Therapy/Recovery depression, dizziness, anxiety PT-OP-C Subjective Start: 12/19/19 17:51 Freq: Status: Active Protocol: Document 01/27/20 17:46 [facility] (Rec: 01/27/20 17:55 [facility] [id number]) OP-PT Subjective Patient Comments Patient Comments Pt reprots she was nauseas after last session when damián got to her car. Notes she has not heard from neurologist. necks hurting a bit today PT-OP-F Manual Assessment Start: 12/19/19 17:51 Freq: Status: Active Protocol: Document 12/23/19 16:42 [facility] (Rec: 12/23/19 17:54 [facility] [id number]) Manual Assessments Soft Tissue Assessment Soft Tissue Mobility Assessment B UT, LS, cervical paraspinals Joint Mobility Assessment Joint Mobility Assessment L 1st rib elevated PT-OP-J Posture/Palpation/Skin Start: 12/19/19 17:51 Freq: Status: Active Protocol: Document 12/23/19 16:42 [facility] (Rec: 12/23/19 17:54 [facility] [id number]) Posture Evaluation Sylvester Postural Classification System Sylvester Postural Classifications Posterior/Anterior Vertebral Compression Test 0 Elbow Flexion Test 0 Lumbar Protective Mechanism Left AP 0 Lumbar Protective Mechanism Right AP 0 Lumbar Protective Mechanism Left PA 1 Lumbar Protective Mechanism Right PA 1 PT-OP-K Range of Motion Start: 12/19/19 17:51 Freq: Status: Active Protocol: Document 12/23/19 16:42 [facility] (Rec: 12/23/19 17:54 [facility] [id number]) Cervical Spine Range of Motion Cervical Spine Active Degrees Testing Position Sitting Flexion 66 Extension 39 Rotation Left 51 Rotation Right 43 Lateral Flexion Left 23 Lateral Flexion Right 43 ROM Limitations Soft Tissue Tightness,Pain Comments nauseus w/flex, pain retruning to netral after ext PT-OP-L Special Tests Start: 12/19/19 17:51 Freq: Status: Active Protocol: Document 12/23/19 16:42 [facility] (Rec: 12/23/19 17:54 [facility] [id number]) Special Tests Cervical Spine Special Tests Vertebral Artery Test Results feels floating w/ L; neg R Spurling's Test Test Results pain in neck Alar Ligament Test Results neg Neural Special Tests- Upper Body Median Nerve Tension Test Results mod tension B Ulnar Nerve Tension Test Results neg B Radial Nerve Tension Test Results neg B Upper Limb Tension Test Test Results about 70 deg B passive abd w/ shoulder restriciton PT-OP-M Strength Start: 12/19/19 17:51 Freq: Status: Active Protocol: Document 12/23/19 16:42 [facility] (Rec: 12/23/19 17:54 [facility] [id number]) Cervical Spine Strength Cervical Spine Manual Muscle Testing Testing Position Sitting Flexion (C1-2) 3+ Fair+ Extension 3+ Fair+ Rotation Left 3+ Fair+ Rotation Right 4 Good Lateral Flexion Left (C3) 3+ Fair+ Lateral Flexion Right (C3) 3+ Fair+ Comments BP 132/76; felt lightheaded w/ some testing Shoulder Strength Shoulder Manual Muscle Testing Right Flexion 3+ Fair+ Extension 3+ Fair+ Abduction (C5) 3+ Fair+ External Rotation 3+ Fair+ Internal Rotation 5 Normal Left Flexion 3+ Fair+ Extension 3+ Fair+ Abduction (C5) 3+ Fair+ External Rotation 3+ Fair+ Internal Rotation 4+ Good+ PT-OP-Q Treatments Start: 12/19/19 17:51 Freq: Status: Active Protocol: Document 01/27/20 17:46 [facility] (Rec: 01/27/20 17:55 [facility] [id number]) Therapeutic Exercises Supine Exercises Core Supine Exercise Name pelvic tilts Reps/Minutes 20 Comments max cueing breathing Supine Exercise Name diaphragmatic breathing Reps/Minutes 3. attempted diagonals but too difficult Comments 1. breathing 2. breathing in thirds 3. breath transfer btwn chest & abdomen Standing Exercises posture Standing Exercise Name wall roll up w/B shoulder ext Side bilateral Reps/Minutes 2x10 Therapeutic Activity Therapeutic Activity posture Comments seated unsupported and standing posture with cueing for shoulder position & dec kyphosis-tactile cueing for dec rounding Manual Therapy Treatment Soft Tissue Mobilization diaphram Body Location L>R Mobilization Type Sustained Pressure Comments w/LTR Joint Mobilizations sternum Joint quick release for breathing rib Joint R ribs 5-8 Direction gapping from sternum w/LTR FM PT-OP-T Assessment and Plan Start: 12/19/19 17:51 Freq: Status: Active Protocol: Document 01/27/20 17:46 [facility] (Rec: 01/27/20 17:55 [facility] [id number]) Physical Therapy Assessment Goals posture Longterm Goal (LTG) Pt will present with ipmroved postural stability and posture evidenced by scoring at least 4/5 on VCT. LTG Duration 02/21/19 ROM Longterm Goal (LTG) Pt will have full cervical ROM without pain, nausea or dizziness. LTG Duration 02/21/19 strength Short Term Goal (STG) Pt will be indep with HEP. 01/24/20-GOAL MET STG Duration 01/22/20 Longterm Goal (LTG) Pt will score 5/5 on B shoulder MMT, EFT & LPM to show improved stability in order to allow her to fully participate in her typical activities and allow to dec pain to return to school. LTG Duration 02/21/19 NDI Impairment 25/50 Short Term Goal (STG) Pt will improve NDI score to 18/50 to show improved functional ability. STG Duration 01/22/20 Longterm Goal (LTG) Pt will improve NDI score to 6 /50 to show improved functional ability. LTG Duration 02/22/20 Assessment Summary Assessment Pt reports dec neck paina fter today's treatment. Pt had imrpoved thoracic rotation R froma bout 30 deg to about 60 deg aftter manual treatment. Improved breathing after diaphram work> pt reviewd wall posture exercise and was able to perform at end of session w/lest cues and better abilityt o roll up wall vs begining of session. Diffuclty w/pelvic titls actually getting tilt vs bridge and making sure she breathes with motion & does not activate neck. Physical Therapy Plan Frequency and Duration Frequency of Treatment 2x/Week Duration of Treatment 2 months Plan of Care Start Date 12/23/19 Plan of Care End Date 02/22/20 Next Visit Focus/Plan Next Note Type Treatment Note Next Visit Plan see if can progress past post pelvic tilts Cont to work on breathing strategies and diaphragm, work on core w/breathing & appropriate activation w/o cervical strain
--- NOTE | 2020-01-29 12:07 | PT.OTN ---
Current Diagnoses Chronic tension-type headache, not intractable (01/29/20) Cervicalgia (01/29/20) Abnormal posture (01/29/20) Weakness (01/29/20) Physical Therapy Treatment Note PT-OP-A Visit Information Start: 12/19/19 17:51 Freq: Status: Active Protocol: Document 01/29/20 11:20 [facility] (Rec: 01/29/20 12:07 [facility] [id number]) Out-Patient Physical Therapy Visit Information Visit Information Visit Type Treatment Note Visit Start Time 11:20 Visit Stop Time 12:00 Total Visit Minutes 40 Visit Number 10 Number of HAT PARTS CUTTER MACHINE Visits 0 PT-OP-B Current Condition Start: 12/19/19 17:51 Freq: Status: Active Protocol: Document 12/23/19 16:42 [facility] (Rec: 12/23/19 17:54 [facility] [id number]) Current Condition History of Current Condition Onset Date TURNER mostly this year; neck pain since childhood Current Complaints neck & TURNER History of Current Condition Pt reports tension TURNER that have been going on for just this year around June. Pt reports a couple years ago, she would get a sharp pain behind R ear that woudln't last long. Pt reports neck & back pain since she was a little kid d/t [facility] 6 years ago.Pt reprots as a teenager she didn't take care of her body well and did not do a lot of sittin gup straight. Reports it is difficult and painful to sit up straight. Pt has dizziness comes and goes throughout the day, and since taking anxiety meds, that has helped. Pt reprots she has had to take a mm relaxor and tramadol and does not want to get to that point anymore. Pt took a break from school d/t pain stopping ability to concentrate. Pt has 3 year old son. Pt reports she has had 2 tension TURNER that are pretty major but has mild TURNER 1-2x/week. Pt has seen neurologist that did blood work that idd not show anything; She has worn a heart monitor for 24 hours and neuro wants her to do 2 weeks. Awaiting approval for MRI of head and neck Prior Treatments and Tests chiropractic as a kid, chiro recently-has helped some, acupuncture 1x but did not like it, TENs unit at home but no help, massage helped some. Treatment Goals Patient/Caregiver Goals be able to concentrate in order to be able to go to school, get some strength,dec TURNER, Improve posture Personal Factors Other Personal Factors That May Effect neck pain, back pain, Therapy/Recovery depression, dizziness, anxiety PT-OP-C Subjective Start: 12/19/19 17:51 Freq: Status: Active Protocol: Document 01/29/20 11:20 [facility] (Rec: 01/29/20 12:07 [facility] [id number]) OP-PT Subjective Patient Comments Patient Comments Pt reprots neck pain today. Yesterday having a TURNER behind eyes that lasted all day. Pt notes seh feels better when seh leaves PT but still gets HAs and neck pain along with nausea and lightheadedness. PT-OP-F Manual Assessment Start: 12/19/19 17:51 Freq: Status: Active Protocol: Document 12/23/19 16:42 [facility] (Rec: 12/23/19 17:54 [facility] [id number]) Manual Assessments Soft Tissue Assessment Soft Tissue Mobility Assessment B UT, LS, cervical paraspinals Joint Mobility Assessment Joint Mobility Assessment L 1st rib elevated PT-OP-J Posture/Palpation/Skin Start: 12/19/19 17:51 Freq: Status: Active Protocol: Document 12/23/19 16:42 [facility] (Rec: 12/23/19 17:54 [facility] [id number]) Posture Evaluation Sylvester Postural Classification System Sylvester Postural Classifications Posterior/Anterior Vertebral Compression Test 0 Elbow Flexion Test 0 Lumbar Protective Mechanism Left AP 0 Lumbar Protective Mechanism Right AP 0 Lumbar Protective Mechanism Left PA 1 Lumbar Protective Mechanism Right PA 1 PT-OP-K Range of Motion Start: 12/19/19 17:51 Freq: Status: Active Protocol: Document 12/23/19 16:42 [facility] (Rec: 12/23/19 17:54 [facility] [id number]) Cervical Spine Range of Motion Cervical Spine Active Degrees Testing Position Sitting Flexion 66 Extension 39 Rotation Left 51 Rotation Right 43 Lateral Flexion Left 23 Lateral Flexion Right 43 ROM Limitations Soft Tissue Tightness,Pain Comments nauseus w/flex, pain retruning to netral after ext PT-OP-L Special Tests Start: 12/19/19 17:51 Freq: Status: Active Protocol: Document 12/23/19 16:42 [facility] (Rec: 12/23/19 17:54 [facility] [id number]) Special Tests Cervical Spine Special Tests Vertebral Artery Test Results feels floating w/ L; neg R Spurling's Test Test Results pain in neck Alar Ligament Test Results neg Neural Special Tests- Upper Body Median Nerve Tension Test Results mod tension B Ulnar Nerve Tension Test Results neg B Radial Nerve Tension Test Results neg B Upper Limb Tension Test Test Results about 70 deg B passive abd w/ shoulder restriciton PT-OP-M Strength Start: 12/19/19 17:51 Freq: Status: Active Protocol: Document 12/23/19 16:42 [facility] (Rec: 12/23/19 17:54 [facility] [id number]) Cervical Spine Strength Cervical Spine Manual Muscle Testing Testing Position Sitting Flexion (C1-2) 3+ Fair+ Extension 3+ Fair+ Rotation Left 3+ Fair+ Rotation Right 4 Good Lateral Flexion Left (C3) 3+ Fair+ Lateral Flexion Right (C3) 3+ Fair+ Comments BP 132/76; felt lightheaded w/ some testing Shoulder Strength Shoulder Manual Muscle Testing Right Flexion 3+ Fair+ Extension 3+ Fair+ Abduction (C5) 3+ Fair+ External Rotation 3+ Fair+ Internal Rotation 5 Normal Left Flexion 3+ Fair+ Extension 3+ Fair+ Abduction (C5) 3+ Fair+ External Rotation 3+ Fair+ Internal Rotation 4+ Good+ PT-OP-Q Treatments Start: 12/19/19 17:51 Freq: Status: Active Protocol: Document 01/29/20 11:20 [facility] (Rec: 01/29/20 12:07 [facility] [id number]) Therapeutic Activity Therapeutic Activity posture Comments seated unsupported and standing posture with cueing for shoulder position & dec kyphosis-tactile cueing for dec rounding Manual Therapy Treatment Soft Tissue Mobilization thoracic paraspinals Body Location L Mobilization Type Rolling Body Position Prone scap Body Location med border Mobilization Type Rolling Body Position Prone Comments L lat Body Location R lat & teres & rhomboids Mobilization Type Rolling Intensity/Depth Moderate Body Position Prone Joint Mobilizations AC Joint gapping Direction FM Grade II tspine Joint T3-7 Direction L UPA & PA Grade II Comments FM w/deep breathing rib Joint L ribs 3-6 Direction gapping from sternum w/deep breathing FM PT-OP-T Assessment and Plan Start: 12/19/19 17:51 Freq: Status: Active Protocol: Document 01/29/20 11:20 [facility] (Rec: 01/29/20 12:07 [facility] [id number]) Physical Therapy Assessment Goals posture Group Home Goal (LTG) Pt will present with ipmroved postural stability and posture evidenced by scoring at least 4/5 on VCT. LTG Duration 02/21/19 ROM Group Home Goal (LTG) Pt will have full cervical ROM without pain, nausea or dizziness. LTG Duration 02/21/19 strength Short Term Goal (STG) Pt will be indep with HEP. 01/24/20-GOAL MET STG Duration 01/22/20 Trawl Net Maker Goal (LTG) Pt will score 5/5 on B shoulder MMT, EFT & LPM to show improved stability in order to allow her to fully participate in her typical activities and allow to dec pain to return to school. LTG Duration 02/21/19 NDI Impairment 25/50 Short Term Goal (STG) Pt will improve NDI score to 18/50 to show improved functional ability. STG Duration 01/22/20 Trawl Net Maker Goal (LTG) Pt will improve NDI score to 6 /50 to show improved functional ability. LTG Duration 02/22/20 Assessment Summary Assessment Pt reported less feeling of tightness after manual treatment and decreased neck pain. She noted nausea when proximal clavicle given gentle pressure so mobilizaiton was done. Pt did feel relief with shoulder mobs on L side and has inc L sided restrictions that limit her ability to sit and stand fully upright. She feels better after treatmnets but the days in between are still difficult for pt with increased pain. Will contact PCP re: this and will discuss possible further imaging. Physical Therapy Plan Frequency and Duration Frequency of Treatment 2x/Week Duration of Treatment 2 months Plan of Care Start Date 12/23/19 Plan of Care End Date 02/22/20 Next Visit Focus/Plan Next Note Type Treatment Note Next Visit Plan see if can progress past post pelvic tilts Cont to work on breathing strategies and diaphragm, work on core w/breathing & appropriate activation w/o cervical strain
--- NOTE | 2020-02-06 11:09 | PT.OTN ---
Current Diagnoses Chronic tension-type headache, not intractable (02/06/20) Cervicalgia (02/06/20) Abnormal posture (02/06/20) Weakness (02/06/20) Physical Therapy Treatment Note PT-OP-A Visit Information Start: 12/19/19 17:51 Freq: Status: Active Protocol: Document 02/06/20 10:48 [facility] (Rec: 02/06/20 11:09 [facility] [id number]) Out-Patient Physical Therapy Visit Information Visit Information Visit Type Treatment Note Visit Start Time 09:50 Visit Stop Time 10:31 Total Visit Minutes 41 Visit Number 11 Number of CALL CENTER RECRUITER Visits 0 PT-OP-B Current Condition Start: 12/19/19 17:51 Freq: Status: Active Protocol: Document 12/23/19 16:42 [facility] (Rec: 12/23/19 17:54 [facility] [id number]) Current Condition History of Current Condition Onset Date TURNER mostly this year; neck pain since childhood Current Complaints neck & TURNER History of Current Condition Pt reports tension TURNER that have been going on for just this year around June. Pt reports a couple years ago, she would get a sharp pain behind R ear that woudln't last long. Pt reports neck & back pain since she was a little kid d/[facility] years [facility].Pt reprots as a teenager she didn't take care of her body well and did not do a lot of sittin gup straight. Reports it is difficult and painful to sit up straight. Pt has dizziness comes and goes throughout the day, and since taking anxiety meds, that has helped. Pt reprots she has had to take a mm relaxor and tramadol and does not want to get to that point anymore. Pt took a break from school d/t pain stopping ability to concentrate. Pt has 3 year old son. Pt reports she has had 2 tension TURNER that are pretty major but has mild TURNER 1-2x/week. Pt has seen neurologist that did blood work that idd not show anything; She has worn a heart monitor for 24 hours and neuro wants her to do 2 weeks. Awaiting approval for MRI of head and neck Prior Treatments and Tests chiropractic as a kid, chiro recently-has helped some, acupuncture 1x but did not like it, TENs unit at home but no help, massage helped some. Treatment Goals Patient/Caregiver Goals be able to concentrate in order to be able to go to school, get some strength,dec TURNER, Improve posture Personal Factors Other Personal Factors That May Effect neck pain, back pain, Therapy/Recovery depression, dizziness, anxiety PT-OP-C Subjective Start: 12/19/19 17:51 Freq: Status: Active Protocol: Document 02/06/20 10:48 [facility] (Rec: 02/06/20 11:09 [facility] [id number]) OP-PT Subjective Patient Comments Patient Comments My stress test is this Monday and they are mailing the monitor on the and I should get I next week in the mail. Pt called Dr. White's office and they are choosing to wait until after the outdoor illuminating engineer appt.Over the weekend, my other half applied some ane cream on my neck for me and when he was rubbing on my spine, near my neck.. around C1, C2 area I got very nauseous and unstable feeling. PT-OP-F Manual Assessment Start: 12/19/19 17:51 Freq: Status: Active Protocol: Document 12/23/19 16:42 [facility] (Rec: 12/23/19 17:54 [facility] [id number]) Manual Assessments Soft Tissue Assessment Soft Tissue Mobility Assessment B UT, LS, cervical paraspinals Joint Mobility Assessment Joint Mobility Assessment L 1st rib elevated PT-OP-J Posture/Palpation/Skin Start: 12/19/19 17:51 Freq: Status: Active Protocol: Document 12/23/19 16:42 [facility] (Rec: 12/23/19 17:54 [facility] [id number]) Posture Evaluation Sylvester Postural Classification System Sylvester Postural Classifications Posterior/Anterior Vertebral Compression Test 0 Elbow Flexion Test 0 Lumbar Protective Mechanism Left AP 0 Lumbar Protective Mechanism Right AP 0 Lumbar Protective Mechanism Left PA 1 Lumbar Protective Mechanism Right PA 1 PT-OP-K Range of Motion Start: 12/19/19 17:51 Freq: Status: Active Protocol: Document 12/23/19 16:42 [facility] (Rec: 12/23/19 17:54 [facility] [id number]) Cervical Spine Range of Motion Cervical Spine Active Degrees Testing Position Sitting Flexion 66 Extension 39 Rotation Left 51 Rotation Right 43 Lateral Flexion Left 23 Lateral Flexion Right 43 ROM Limitations Soft Tissue Tightness,Pain Comments nauseus w/flex, pain retruning to netral after ext PT-OP-L Special Tests Start: 12/19/19 17:51 Freq: Status: Active Protocol: Document 12/23/19 16:42 [facility] (Rec: 12/23/19 17:54 [facility] [id number]) Special Tests Cervical Spine Special Tests Vertebral Artery Test Results feels floating w/ L; neg R Spurling's Test Test Results pain in neck Alar Ligament Test Results neg Neural Special Tests- Upper Body Median Nerve Tension Test Results mod tension B Ulnar Nerve Tension Test Results neg B Radial Nerve Tension Test Results neg B Upper Limb Tension Test Test Results about 70 deg B passive abd w/ shoulder restriciton PT-OP-M Strength Start: 12/19/19 17:51 Freq: Status: Active Protocol: Document 12/23/19 16:42 [facility] (Rec: 12/23/19 17:54 [facility] [id number]) Cervical Spine Strength Cervical Spine Manual Muscle Testing Testing Position Sitting Flexion (C1-2) 3+ Fair+ Extension 3+ Fair+ Rotation Left 3+ Fair+ Rotation Right 4 Good Lateral Flexion Left (C3) 3+ Fair+ Lateral Flexion Right (C3) 3+ Fair+ Comments BP 132/76; felt lightheaded w/ some testing Shoulder Strength Shoulder Manual Muscle Testing Right Flexion 3+ Fair+ Extension 3+ Fair+ Abduction (C5) 3+ Fair+ External Rotation 3+ Fair+ Internal Rotation 5 Normal Left Flexion 3+ Fair+ Extension 3+ Fair+ Abduction (C5) 3+ Fair+ External Rotation 3+ Fair+ Internal Rotation 4+ Good+ PT-OP-Q Treatments Start: 12/19/19 17:51 Freq: Status: Active Protocol: Document 02/06/20 10:48 [facility] (Rec: 02/06/20 11:09 [facility] [id number]) Therapeutic Exercises Standing Exercises row Side bilateral Equipment Used L1 Reps/Minutes 10 Comments stopped d.t scalene activation Other Exercises quadruped Other Exercise Name 1. Habd 2. ext Side bilateral Reps/Minutes 12 Comments focus on back and neck alignment Manual Therapy Treatment Soft Tissue Mobilization UT Body Location along spine of scapula Mobilization Type Rolling Intensity/Depth Moderate thoracic paraspinals Body Location B C6-T3 paraspinals Mobilization Type Rolling Body Position Supine pec Body Location Bilateral Mobilization Type Strumming,Sustained Pressure, Trigger Point Release Intensity/Depth Moderate Comments 90/90 abd/flex PT-OP-T Assessment and Plan Start: 12/19/19 17:51 Freq: Status: Active Protocol: Document 02/06/20 10:48 [facility] (Rec: 02/06/20 11:09 [facility] [id number]) Physical Therapy Assessment Goals posture Usp Goal (LTG) Pt will present with ipmroved postural stability and posture evidenced by scoring at least 4/5 on VCT. LTG Duration 02/21/19 ROM Usp Goal (LTG) Pt will have full cervical ROM without pain, nausea or dizziness. LTG Duration 02/21/19 strength Short Term Goal (STG) Pt will be indep with HEP. 01/24/20-GOAL MET STG Duration 01/22/20 Usp Goal (LTG) Pt will score 5/5 on B shoulder MMT, EFT & LPM to show improved stability in order to allow her to fully participate in her typical activities and allow to dec pain to return to school. LTG Duration 02/21/19 NDI Impairment 25/50 Short Term Goal (STG) Pt will improve NDI score to 18/50 to show improved functional ability. STG Duration 01/22/20 [employer] Reading Teacher Goal (LTG) Pt will improve NDI score to 6 /50 to show improved functional ability. LTG Duration 02/22/20 Assessment Summary Assessment Pt still unabel to tolerate rows in standing without inc neck pain. She reported difficulty holding ehr head in quadruped but no pain. She was able to do those exercsies with good scap activaiton without inc pain. She did not have any nausea, dizziness or ligthheadeness w/manual treatmtne. Physical Therapy Plan Frequency and Duration Frequency of Treatment 2x/Week Duration of Treatment 2 months Plan of Care Start Date 12/23/19 Plan of Care End Date 02/22/20 Next Visit Focus/Plan Next Note Type Treatment Note Next Visit Plan see if can progress past post pelvic tilts; progress quadruped positioning Cont to work on breathing strategies and diaphragm, work on core w/breathing & appropriate activation w/o cervical strain
--- NOTE | 2020-02-06 11:09 | PT-OP ANOTE ---
Pt's MD was called re: cont concern re: nausea & dizziness associated w/head movemetns & pt's partner massaging her neck.
--- NOTE | 2020-02-10 18:14 | PT.OTN ---
Current Diagnoses Chronic tension-type headache, not intractable (02/10/20) Cervicalgia (02/10/20) Abnormal posture (02/10/20) Weakness (02/10/20) Physical Therapy Treatment Note PT-OP-A Visit Information Start: 12/19/19 17:51 Freq: Status: Active Protocol: Document 02/10/20 18:07 [facility] (Rec: 02/10/20 18:14 [facility] [id number]) Out-Patient Physical Therapy Visit Information Visit Information Visit Type Treatment Note Visit Start Time 15:18 Visit Stop Time 16:04 Total Visit Minutes 46 Visit Number 12 Number of PYTHON ENGINEER Visits 0 PT-OP-B Current Condition Start: 12/19/19 17:51 Freq: Status: Active Protocol: Document 12/23/19 16:42 [facility] (Rec: 12/23/19 17:54 [facility] [id number]) Current Condition History of Current Condition Onset Date TURNER mostly this year; neck pain since childhood Current Complaints neck & TURNER History of Current Condition Pt reports tension TURNER that have been going on for just this year around June. Pt reports a couple years ago, she would get a sharp pain behind R ear that woudln't last long. Pt reports neck & back pain since she was a little kid d/t M[facility] 6 years ago.Pt reprots as a teenager she didn't take care of her body well and did not do a lot of sittin gup straight. Reports it is difficult and painful to sit up straight. Pt has dizziness comes and goes throughout the day, and since taking anxiety meds, that has helped. Pt reprots she has had to take a mm relaxor and tramadol and does not want to get to that point anymore. Pt took a break from school d/t pain stopping ability to concentrate. Pt has 3 year old son. Pt reports she has had 2 tension TURNER that are pretty major but has mild TURNER 1-2x/week. Pt has seen neurologist that did blood work that idd not show anything; She has worn a heart monitor for 24 hours and neuro wants her to do 2 weeks. Awaiting approval for MRI of head and neck Prior Treatments and Tests chiropractic as a kid, chiro recently-has helped some, acupuncture 1x but did not like it, TENs unit at home but no help, massage helped some. Treatment Goals Patient/Caregiver Goals be able to concentrate in order to be able to go to school, get some strength,dec TURNER, Improve posture Personal Factors Other Personal Factors That May Effect neck pain, back pain, Therapy/Recovery depression, dizziness, anxiety PT-OP-C Subjective Start: 12/19/19 17:51 Freq: Status: Active Protocol: Document 02/10/20 18:07 [facility] (Rec: 02/10/20 18:14 [facility] [id number]) OP-PT Subjective Patient Comments Patient Comments Pt reports she has yet to hear from her associate curator re: her stress test but the tech she worked with said there was nothing too exciting. Notes she did some yard work on sat but not much d/t feeling exhausted. Pt notes she had to drive to [facility] [address] and had neck pain and tingling into RUE after driving along with feeling lightheaded. PT-OP-F Manual Assessment Start: 12/19/19 17:51 Freq: Status: Active Protocol: Document 12/23/19 16:42 [facility] (Rec: 12/23/19 17:54 [facility] [id number]) Manual Assessments Soft Tissue Assessment Soft Tissue Mobility Assessment B UT, LS, cervical paraspinals Joint Mobility Assessment Joint Mobility Assessment L 1st rib elevated PT-OP-J Posture/Palpation/Skin Start: 12/19/19 17:51 Freq: Status: Active Protocol: Document 12/23/19 16:42 [facility] (Rec: 12/23/19 17:54 [facility] [id number]) Posture Evaluation [facility] Postural Classification System Sylvester Postural Classifications Posterior/Anterior Vertebral Compression Test 0 Elbow Flexion Test 0 Lumbar Protective Mechanism Left AP 0 Lumbar Protective Mechanism Right AP 0 Lumbar Protective Mechanism Left PA 1 Lumbar Protective Mechanism Right PA 1 PT-OP-K Range of Motion Start: 12/19/19 17:51 Freq: Status: Active Protocol: Document 12/23/19 16:42 [facility] (Rec: 12/23/19 17:54 [facility] [id number]) Cervical Spine Range of Motion Cervical Spine Active Degrees Testing Position Sitting Flexion 66 Extension 39 Rotation Left 51 Rotation Right 43 Lateral Flexion Left 23 Lateral Flexion Right 43 ROM Limitations Soft Tissue Tightness,Pain Comments nauseus w/flex, pain retruning to netral after ext PT-OP-L Special Tests Start: 12/19/19 17:51 Freq: Status: Active Protocol: Document 12/23/19 16:42 [facility] (Rec: 12/23/19 17:54 [facility] [id number]) Special Tests Cervical Spine Special Tests Vertebral Artery Test Results feels floating w/ L; neg R Spurling's Test Test Results pain in neck Alar Ligament Test Results neg Neural Special Tests- Upper Body Median Nerve Tension Test Results mod tension B Ulnar Nerve Tension Test Results neg B Radial Nerve Tension Test Results neg B Upper Limb Tension Test Test Results about 70 deg B passive abd w/ shoulder restriciton PT-OP-M Strength Start: 12/19/19 17:51 Freq: Status: Active Protocol: Document 12/23/19 16:42 [facility] (Rec: 12/23/19 17:54 [facility] [id number]) Cervical Spine Strength Cervical Spine Manual Muscle Testing Testing Position Sitting Flexion (C1-2) 3+ Fair+ Extension 3+ Fair+ Rotation Left 3+ Fair+ Rotation Right 4 Good Lateral Flexion Left (C3) 3+ Fair+ Lateral Flexion Right (C3) 3+ Fair+ Comments BP 132/76; felt lightheaded w/ some testing Shoulder Strength Shoulder Manual Muscle Testing Right Flexion 3+ Fair+ Extension 3+ Fair+ Abduction (C5) 3+ Fair+ External Rotation 3+ Fair+ Internal Rotation 5 Normal Left Flexion 3+ Fair+ Extension 3+ Fair+ Abduction (C5) 3+ Fair+ External Rotation 3+ Fair+ Internal Rotation 4+ Good+ PT-OP-Q Treatments Start: 12/19/19 17:51 Freq: Status: Active Protocol: Document 02/10/20 18:07 [facility] (Rec: 02/10/20 18:14 [facility] [id number]) Therapeutic Exercises Supine Exercises axial elongation Supine Exercise Name gentle Reps/Minutes 5 stopped d/t pt unable to achieve indep w/o pain Other Exercises quadruped Other Exercise Name 1. Habd 2. ext Side bilateral Reps/Minutes 12 Comments focus on back and neck alignment Self-Care/Home Management Treatment Education Other Education discuss w/Natropathic doc re: vitamin deficiency and discuss re: cigarette carton sealer re: referral to ortho possibly discussed that no nystamus has been noted & Pt had inc lightheadedness w/chair rotation w/trunk PT-OP-T Assessment and Plan Start: 12/19/19 17:51 Freq: Status: Active Protocol: Document 02/10/20 18:07 [facility] (Rec: 02/10/20 18:14 [facility] [id number]) Physical Therapy Assessment Goals posture Timekeeper Goal (LTG) Pt will present with ipmroved postural stability and posture evidenced by scoring at least 4/5 on VCT. LTG Duration 02/21/19 ROM Timekeeper Goal (LTG) Pt will have full cervical ROM without pain, nausea or dizziness. LTG Duration 02/21/19 strength Short Term Goal (STG) Pt will be indep with HEP. 01/24/20-GOAL MET STG Duration 01/22/20 Timekeeper Goal (LTG) Pt will score 5/5 on B shoulder MMT, EFT & LPM to show improved stability in order to allow her to fully participate in her typical activities and allow to dec pain to return to school. LTG Duration 02/21/19 NDI Impairment 25/50 Short Term Goal (STG) Pt will improve NDI score to 18/50 to show improved functional ability. STG Duration 01/22/20 Residential Goal (LTG) Pt will improve NDI score to 6 /50 to show improved functional ability. LTG Duration 02/22/20 Assessment Summary Assessment Avoided areas for pt that caused any symptoms but was able to do work into post cervical mm. Pt does still have stiffness in tspine casuing fwd head position which likely causes inc in symptoms. Physical Therapy Plan Frequency and Duration Frequency of Treatment 2x/Week Duration of Treatment 2 months Plan of Care Start Date 12/23/19 Plan of Care End Date 02/22/20 Next Visit Focus/Plan Next Note Type Treatment Note Next Visit Plan see if can progress past post pelvic tilts; progress quadruped positioning Cont to work on breathing strategies and diaphragm, work on core w/breathing & appropriate activation w/o cervical strain
--- NOTE | 2020-02-12 11:12 | PT.OTN ---
Current Diagnoses Chronic tension-type headache, not intractable (02/12/20) Cervicalgia (02/12/20) Abnormal posture (02/12/20) Weakness (02/12/20) Physical Therapy Treatment Note PT-OP-A Visit Information Start: 12/19/19 17:51 Freq: Status: Active Protocol: Document 02/12/20 08:54 [facility] (Rec: 02/12/20 11:12 [facility] [id number]) Out-Patient Physical Therapy Visit Information Visit Information Visit Type Treatment Note Visit Start Time 09:02 Visit Stop Time 09:45 Total Visit Minutes 43 Visit Number 13 Number of LACE PAPER MACHINE OPERATOR Visits 0 PT-OP-B Current Condition Start: 12/19/19 17:51 Freq: Status: Active Protocol: Document 12/23/19 16:42 [facility] (Rec: 12/23/19 17:54 [facility] [id number]) Current Condition History of Current Condition Onset Date TURNER mostly this year; neck pain since childhood Current Complaints neck & TURNER History of Current Condition Pt reports tension TURNER that have been going on for just this year around June. Pt reports a couple years ago, she would get a sharp pain behind R ear that woudln't last long. Pt reports neck & back pain since she was a little kid d/t [facility] years ago.Pt reprots as a teenager she didn't take care of her body well and did not do a lot of sittin gup straight. Reports it is difficult and painful to sit up straight. Pt has dizziness comes and goes throughout the day, and since taking anxiety meds, that has helped. Pt reprots she has had to take a mm relaxor and tramadol and does not want to get to that point anymore. Pt took a break from school d/t pain stopping ability to concentrate. Pt has 3 year old son. Pt reports she has had 2 tension TURNER that are pretty major but has mild TURNER 1-2x/week. Pt has seen neurologist that did blood work that idd not show anything; She has worn a heart monitor for 24 hours and neuro wants her to do 2 weeks. Awaiting approval for MRI of head and neck Prior Treatments and Tests chiropractic as a kid, chiro recently-has helped some, acupuncture 1x but did not like it, TENs unit at home but no help, massage helped some. Treatment Goals Patient/Caregiver Goals be able to concentrate in order to be able to go to school, get some strength,dec TURNER, Improve posture Personal Factors Other Personal Factors That May Effect neck pain, back pain, Therapy/Recovery depression, dizziness, anxiety PT-OP-C Subjective Start: 12/19/19 17:51 Freq: Status: Active Protocol: Document 02/12/20 08:54 [facility] (Rec: 02/12/20 11:12 [facility] [id number]) OP-PT Subjective Patient Comments Patient Comments Pt reports yesterdya was a good day after last session PT-OP-F Manual Assessment Start: 12/19/19 17:51 Freq: Status: Active Protocol: Document 12/23/19 16:42 [facility] (Rec: 12/23/19 17:54 [facility] [id number]) Manual Assessments Soft Tissue Assessment Soft Tissue Mobility Assessment B UT, LS, cervical paraspinals Joint Mobility Assessment Joint Mobility Assessment L 1st rib elevated PT-OP-J Posture/Palpation/Skin Start: 12/19/19 17:51 Freq: Status: Active Protocol: Document 12/23/19 16:42 [facility] (Rec: 12/23/19 17:54 [facility] [id number]) Posture Evaluation [facility] Postural Classification System Sylvester Postural Classifications Posterior/Anterior Vertebral Compression Test 0 Elbow Flexion Test 0 Lumbar Protective Mechanism Left AP 0 Lumbar Protective Mechanism Right AP 0 Lumbar Protective Mechanism Left PA 1 Lumbar Protective Mechanism Right PA 1 PT-OP-K Range of Motion Start: 12/19/19 17:51 Freq: Status: Active Protocol: Document 12/23/19 16:42 [facility] (Rec: 12/23/19 17:54 [facility] [id number]) Cervical Spine Range of Motion Cervical Spine Active Degrees Testing Position Sitting Flexion 66 Extension 39 Rotation Left 51 Rotation Right 43 Lateral Flexion Left 23 Lateral Flexion Right 43 ROM Limitations Soft Tissue Tightness,Pain Comments nauseus w/flex, pain retruning to netral after ext PT-OP-L Special Tests Start: 12/19/19 17:51 Freq: Status: Active Protocol: Document 12/23/19 16:42 [facility] (Rec: 12/23/19 17:54 [facility] [id number]) Special Tests Cervical Spine Special Tests Vertebral Artery Test Results feels floating w/ L; neg R Spurling's Test Test Results pain in neck Alar Ligament Test Results neg Neural Special Tests- Upper Body Median Nerve Tension Test Results mod tension B Ulnar Nerve Tension Test Results neg B Radial Nerve Tension Test Results neg B Upper Limb Tension Test Test Results about 70 deg B passive abd w/ shoulder restriciton PT-OP-M Strength Start: 12/19/19 17:51 Freq: Status: Active Protocol: Document 12/23/19 16:42 [facility] (Rec: 12/23/19 17:54 [facility] [id number]) Cervical Spine Strength Cervical Spine Manual Muscle Testing Testing Position Sitting Flexion (C1-2) 3+ Fair+ Extension 3+ Fair+ Rotation Left 3+ Fair+ Rotation Right 4 Good Lateral Flexion Left (C3) 3+ Fair+ Lateral Flexion Right (C3) 3+ Fair+ Comments BP 132/76; felt lightheaded w/ some testing Shoulder Strength Shoulder Manual Muscle Testing Right Flexion 3+ Fair+ Extension 3+ Fair+ Abduction (C5) 3+ Fair+ External Rotation 3+ Fair+ Internal Rotation 5 Normal Left Flexion 3+ Fair+ Extension 3+ Fair+ Abduction (C5) 3+ Fair+ External Rotation 3+ Fair+ Internal Rotation 4+ Good+ PT-OP-Q Treatments Start: 12/19/19 17:51 Freq: Status: Active Protocol: Document 02/12/20 08:54 [facility] (Rec: 02/12/20 11:12 [facility] [id number]) Therapeutic Exercises Other Exercises quadruped Other Exercise Name 1. Habd 2. ext 3. flex 4. alt hip ext Side bilateral Reps/Minutes 8 ea Comments focus on back and neck alignment & scap movement Manual Therapy Treatment Soft Tissue Mobilization UT Body Location along spine of scapula Mobilization Type Rolling Intensity/Depth Moderate Comments L>R thoracic paraspinals Body Location B C6-T3 paraspinals Mobilization Type Rolling Body Position Sitting Comments L>R Joint Mobilizations shoulder Joint L GH Direction post FM PT-OP-T Assessment and Plan Start: 12/19/19 17:51 Freq: Status: Active Protocol: Document 02/12/20 08:54 [facility] (Rec: 02/12/20 11:12 [facility] [id number]) Physical Therapy Assessment Goals posture Strip Machine Operator Goal (LTG) Pt will present with ipmroved postural stability and posture evidenced by scoring at least 4/5 on VCT. LTG Duration 02/21/19 ROM Residential Goal (LTG) Pt will have full cervical ROM without pain, nausea or dizziness. LTG Duration 02/21/19 strength Short Term Goal (STG) Pt will be indep with HEP. 01/24/20-GOAL MET STG Duration 01/22/20 Residential Goal (LTG) Pt will score 5/5 on B shoulder MMT, EFT & LPM to show improved stability in order to allow her to fully participate in her typical activities and allow to dec pain to return to school. LTG Duration 02/21/19 NDI Impairment 25/50 Short Term Goal (STG) Pt will improve NDI score to 18/50 to show improved functional ability. STG Duration 01/22/20 Residential Goal (LTG) Pt will improve NDI score to 6 /50 to show improved functional ability. LTG Duration 02/22/20 Assessment Summary Assessment Pt had some inc lightheadedness w/exercises today and when sitting up from activity BP checked and was 118/78. No inc in dizziness, lightheadedness or nausea today during soft tissue work or mobs, but noted some lightheadeness after. Message left at neurologist office re: concern re: pt's symptoms. Message left to primary MD re: asking for referral to treat dizziness. pt was tighter on L side today with elevation of L shoulder girdle. Physical Therapy Plan Frequency and Duration Frequency of Treatment 2x/Week Duration of Treatment 2 months Plan of Care Start Date 12/23/19 Plan of Care End Date 02/22/20 Next Visit Focus/Plan Next Note Type Treatment Note Next Visit Plan cont to progress core/trunk/ cervical stability, assess vestibular function if MD agreeable for referral, cont to work soft tissue and able
--- NOTE | 2020-02-18 12:11 | PT.OTN ---
Current Diagnoses Chronic tension-type headache, not intractable (02/18/20) Cervicalgia (02/18/20) Abnormal posture (02/18/20) Weakness (02/18/20) Physical Therapy Treatment Note PT-OP-A Visit Information Start: 12/19/19 17:51 Freq: Status: Active Protocol: Document 02/18/20 10:58 [facility] (Rec: 02/18/20 12:11 [facility] [id number]) Out-Patient Physical Therapy Visit Information Visit Information Visit Type Progress Note Visit Number 14 Number of BLANKET FOLDER Visits 0 PT-OP-B Current Condition Start: 12/19/19 17:51 Freq: Status: Active Protocol: Document 12/23/19 16:42 [facility] (Rec: 12/23/19 17:54 [facility] [id number]) Current Condition History of Current Condition Onset Date TURNER mostly this year; neck pain since childhood Current Complaints neck & TURNER History of Current Condition Pt reports tension TURNER that have been going on for just this year around June. Pt reports a couple years ago, she would get a sharp pain behind R ear that woudln't last long. Pt reports neck & back pain since she was a little kid d/t [facility] years ago.Pt reprots as a teenager she didn't take care of her body well and did not do a lot of sittin gup straight. Reports it is difficult and painful to sit up straight. Pt has dizziness comes and goes throughout the day, and since taking anxiety meds, that has helped. Pt reprots she has had to take a mm relaxor and tramadol and does not want to get to that point anymore. Pt took a break from school d/t pain stopping ability to concentrate. Pt has 3 year old son. Pt reports she has had 2 tension TURNER that are pretty major but has mild TURNER 1-2x/week. Pt has seen neurologist that did blood work that idd not show anything; She has worn a heart monitor for 24 hours and neuro wants her to do 2 weeks. Awaiting approval for MRI of head and neck Prior Treatments and Tests chiropractic as a kid, chiro recently-has helped some, acupuncture 1x but did not like it, TENs unit at home but no help, massage helped some. Treatment Goals Patient/Caregiver Goals be able to concentrate in order to be able to go to school, get some strength,dec TURNER, Improve posture Personal Factors Other Personal Factors That May Effect neck pain, back pain, Therapy/Recovery depression, dizziness, anxiety PT-OP-C Subjective Start: 12/19/19 17:51 Freq: Status: Active Protocol: Document 02/18/20 10:58 [facility] (Rec: 02/18/20 12:11 [facility] [id number]) OP-PT Subjective Patient Comments Patient Comments Pt reports TURNER after last treatment into the next day but realized seh may not have drank enough water so hydrated more on and since then have been feeling better with less dizziness. Patient Reported Progress Improving PT-OP-F Manual Assessment Start: 12/19/19 17:51 Freq: Status: Active Protocol: Document 12/23/19 16:42 [facility] (Rec: 12/23/19 17:54 [facility] [id number]) Manual Assessments Soft Tissue Assessment Soft Tissue Mobility Assessment B UT, LS, cervical paraspinals Joint Mobility Assessment Joint Mobility Assessment L 1st rib elevated PT-OP-J Posture/Palpation/Skin Start: 12/19/19 17:51 Freq: Status: Active Protocol: Document 02/18/20 10:58 [facility] (Rec: 02/18/20 12:11 [facility] [id number]) Posture Evaluation Sylvester Postural Classification System Vertebral Compression Test 1 Elbow Flexion Test 1 Comments Posture Comments nausea noted w/VCT PT-OP-K Range of Motion Start: 12/19/19 17:51 Freq: Status: Active Protocol: Document 02/18/20 10:58 [facility] (Rec: 02/18/20 12:11 [facility] [id number]) Cervical Spine Range of Motion Cervical Spine Active Degrees Flexion 64 Extension 58 Rotation Left 74 Rotation Right 54 Lateral Flexion Left 48 Lateral Flexion Right 50 Comments feels a strange feeling and in her eyes w/flex, ext & L SB ; lightheaded w/ R rotaiton PT-OP-L Special Tests Start: 12/19/19 17:51 Freq: Status: Active Protocol: Document 12/23/19 16:42 [facility] (Rec: 12/23/19 17:54 [facility] [id number]) Special Tests Cervical Spine Special Tests Vertebral Artery Test Results feels floating w/ L; neg R Spurling's Test Test Results pain in neck Alar Ligament Test Results neg Neural Special Tests- Upper Body Median Nerve Tension Test Results mod tension B Ulnar Nerve Tension Test Results neg B Radial Nerve Tension Test Results neg B Upper Limb Tension Test Test Results about 70 deg B passive abd w/ shoulder restriciton PT-OP-M Strength Start: 12/19/19 17:51 Freq: Status: Active Protocol: Document 02/18/20 10:58 [facility] (Rec: 02/18/20 12:11 [facility] [id number]) Shoulder Strength Shoulder Manual Muscle Testing Right Flexion 4 Good Extension 4 Good Abduction (C5) 4 Good External Rotation 4- Good- Internal Rotation 5 Normal Left Flexion 4 Good Extension 4+ Good+ Abduction (C5) 4 Good External Rotation 4 Good Internal Rotation 5 Normal PT-OP-Q Treatments Start: 12/19/19 17:51 Freq: Status: Active Protocol: Document 02/18/20 10:58 [facility] (Rec: 02/18/20 12:11 [facility] [id number]) Manual Therapy Treatment Soft Tissue Mobilization UT Body Location along spine of scapula Mobilization Type Rolling Intensity/Depth Moderate Comments L>R thoracic paraspinals Body Location B C6-T3 paraspinals Mobilization Type Rolling Body Position Sitting Comments L>R pec Body Location R Mobilization Type Strumming,Sustained Pressure, Trigger Point Release Intensity/Depth Moderate Joint Mobilizations tspine Joint T1-3 Direction R UPA & PA Grade II Body Position Sitting PT-OP-T Assessment and Plan Start: 12/19/19 17:51 Freq: Status: Active Protocol: Document 02/18/20 10:58 [facility] (Rec: 02/18/20 12:11 [facility] [id number]) Physical Therapy Assessment Goals posture Chief Internal Auditor Goal (LTG) Pt will present with ipmroved postural stability and posture evidenced by scoring at least 4/5 on VCT. LTG Duration 2. ROM Chief Internal Auditor Goal (LTG) Pt will have full cervical ROM without pain, nausea or dizziness. LTG Duration 04/19/20 strength Short Term Goal (STG) Pt will be indep with HEP. 01/24/20-GOAL MET STG Duration achieved progressing as tolerated Correction Goal (LTG) Pt will score 5/5 on B shoulder MMT, EFT & LPM to show improved stability in order to allow her to fully participate in her typical activities and allow to dec pain to return to school. 02/17-improving LTG Duration 04/19/20 NDI Impairment 25/50 Short Term Goal (STG) Pt will improve NDI score to 18/50 to show improved functional ability. STG Duration 03/20/20 Chief Internal Auditor Goal (LTG) Pt will improve NDI score to 6 /50 to show improved functional ability. LTG Duration 04/19/20 Assessment Summary Assessment Pt is improving with ROM and strength overall along with posture but does still have some lightheadeness and odd feelings with cervical ROM. Physican referred for dizziness consult and pt will see vestibular therapist next session in order to assess any for any vestibular dysfunction. She has made slow progress with decreasing of symptoms and MDs have been contacted re: cont nausea, dizziness and lightheadedness but awaiting fruther contact from neurologist & for account manager employee benefits readings. Physical Therapy Plan Frequency and Duration Frequency of Treatment 2x/Week Duration of Treatment 2 months Plan of Care Start Date 02/18/20 Plan of Care End Date 04/19/20 Therapeutic Interventions Therapeutic Interventions Balance Training,Gait Training ,Home Exercise Program,Joint Mobilizations,Manual Therapy, Neuromuscular Re-education, Patient/Caregiver Education, Self-Care/Home Management,Soft Tissue Mobilization,Taping, Therapeutic Activities, Therapeutic Exercises, Vestibular Rehabilitation Modalities Cold Pack/Ice Massage,Electric Stimulation,Hot Packs, Traction- Mechanical, Ultrasound Next Visit Focus/Plan Next Note Type Treatment Note Next Visit Plan cont to progress core/trunk/ cervical stability, assess vestibular function by vestibular therapist , cont to work soft tissue and able
--- NOTE | 2020-02-18 17:24 | PT.OPPOC ---
Physical, Occupational & Speech Therapy At [facility] Current Diagnoses Chronic tension-type headache, not intractable (02/18/20) Cervicalgia (02/18/20) Abnormal posture (02/18/20) Weakness (02/18/20) Visit Care Team Role Provider Type Anthony White MD Attending Provider Physician Family Provider Primary Care Provider Referring Provider Specialty: Internal Medicine Address: [address] [place] [address], [address], [place], [address] Email: [email or web address] Plan Of Care PT-OP-T Assessment and Plan Start: 12/19/19 17:51 Freq: Status: Active Protocol: Document 02/18/20 10:58 [facility] (Rec: 02/18/20 12:11 [facility] [id number]) Physical Therapy Assessment Goals posture Rn Peritoneal Dialysis Goal (LTG) Pt will present with ipmroved postural stability and posture evidenced by scoring at least 4/5 on VCT. LTG Duration 2. ROM Mcc Goal (LTG) Pt will have full cervical ROM without pain, nausea or dizziness. LTG Duration 04/19/20 strength Short Term Goal (STG) Pt will be indep with HEP. 01/24/20-GOAL MET STG Duration achieved progressing as tolerated Mcc Goal (LTG) Pt will score 5/5 on B shoulder MMT, EFT & LPM to show improved stability in order to allow her to fully participate in her typical activities and allow to dec pain to return to school. 02/17-improving LTG Duration 04/19/20 NDI Impairment 25/50 Short Term Goal (STG) Pt will improve NDI score to 18/50 to show improved functional ability. STG Duration 03/20/20 Rn Peritoneal Dialysis Goal (LTG) Pt will improve NDI score to 6 /50 to show improved functional ability. LTG Duration 04/19/20 Assessment Summary Assessment Pt is improving with ROM and strength overall along with posture but does still have some lightheadeness and odd feelings with cervical ROM. Physican referred for dizziness consult and pt will see vestibular therapist next session in order to assess any for any vestibular dysfunction. She has made slow progress with decreasing of symptoms and MDs have been contacted re: cont nausea, dizziness and lightheadedness but awaiting fruther contact from neurologist & for belling machine operator readings. Physical Therapy Plan Frequency and Duration Frequency of Treatment 2x/Week Duration of Treatment 2 months Plan of Care Start Date 02/18/20 Plan of Care End Date 04/19/20 Therapeutic Interventions Therapeutic Interventions Balance Training,Gait Training ,Home Exercise Program,Joint Mobilizations,Manual Therapy, Neuromuscular Re-education, Patient/Caregiver Education, Self-Care/Home Management,Soft Tissue Mobilization,Taping, Therapeutic Activities, Therapeutic Exercises, Vestibular Rehabilitation Modalities Cold Pack/Ice Massage,Electric Stimulation,Hot Packs, Traction- Mechanical, Ultrasound Next Visit Focus/Plan Next Note Type Treatment Note Next Visit Plan cont to progress core/trunk/ cervical stability, assess vestibular function by vestibular therapist , cont to work soft tissue and able Plan of Care Dates Plan of Care Start Date 02/18/20 Plan of Care End Date 04/19/20 Electronically Signed by: Rica Navarro, PT 02/18/20 [id number] Please Sign and Return: I have reviewed this Plan of Care and certify that the skilled therapy services above are required to meet the patient?s needs. Physician Signature Date Printed Name and Credentials Clinical Instructor Signature Printed Name and Credentials
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
--- NOTE | 2020-03-23 16:45 | PT.OPPOC ---
Physical, Occupational & Speech Therapy At [facility] Current Diagnoses Chronic tension-type headache, not intractable (03/23/20) Cervicalgia (03/23/20) Low back pain (03/23/20) Abnormal posture (03/23/20) Weakness (03/23/20) Visit Care Team Role Provider Type Anthony White MD Attending Provider Physician Family Provider Primary Care Provider Referring Provider Specialty: Internal Medicine Address: [address] [place] [address], [address], [facility] Email: [email or web address] Plan Of Care PT-OP-T Assessment and Plan Start: 12/19/19 17:51 Freq: Status: Active Protocol: Document 03/23/20 11:23 [facility] (Rec: 03/23/20 11:47 [facility] [id number]) Physical Therapy Assessment Rehab Potential Rehabilitation Potential Good Evaluation Complexity Number of Personal Factors/Comorbidities 3 or More Number of Body Systems Impaired 4 or More Clinical Presentation at Evaluation Evolving Impairments Impairments Activity Tolerance,Balance, Functional Activities, Functional Mobility,Gait,Pain, Posture,ROM,Soft Tissue Mobility,Strength,Transfers Goals sitting Production Supply Equipment Tender Goal (LTG) Pt will be able to sit as needed without increased back pain. LTG Duration 05/24/20 posture [facility] Goal (LTG) Pt will present with improved postural stability and posture evidenced by scoring at least 4/5 on VCT. LTG Duration 05/21/20 ROM Short Term Goal (STG) Pt will be able to bend over to orange picking supervisor objects & do as she needs around the house STG Duration 04/23/20 [facility] Goal (LTG) Pt will have full cervical ROM without pain, nausea or dizziness and lumbar ROM w/o pain to allow pt to do normal daily activities. 03/23-improved but still has symptoms but ROM improving LTG Duration 05/24/20 strength Short Term Goal (STG) Pt will be indep with HEP. 01/24/20-GOAL MET STG Duration achieved progressing as tolerated Production Supply Equipment Tender Goal (LTG) Pt will score 5/5 on B shoulder & BLE MMT, EFT & LPM to show improved stability in order to allow her to fully participate in her typical activities and allow to dec pain to return to school & household activites 02/17-improving LTG Duration 05/24/20 NDI Impairment 25/50 Short Term Goal (STG) Pt will improve NDI score to 18/50 to show improved functional ability. STG Duration 04/23/20 Production Supply Equipment Tender Goal (LTG) Pt will improve NDI score to 6 /50 to show improved functional ability. LTG Duration 05/24/20 Assessment Summary Assessment Pt presents w/assessment of new back pain over the past couple weeks that has been limiting her daily activities especailly bending over and sitting. She has been slolwy imrpoving with neck pain and symptoms but still does have some dizziness and fatigue but is getting further cervical testing from neurologist to create a clearing picture if there is anything going on. She has been compliant w/HEP and would benefit from PT to work on back and neck pain along w/dec TURNER and dizziness. She does have weakness w/eye muscles and would benefit from further occular exercises. Physical Therapy Plan Frequency and Duration Frequency of Treatment 1-2x/Week Duration of Treatment 2 months Plan of Care Start Date 03/26/20 Plan of Care End Date 05/24/20 Therapeutic Interventions Therapeutic Interventions Aquatic Therapy,Balance Training,Gait Training,Home Exercise Program,Joint Mobilizations,Manual Therapy, Neuromuscular Re-education, Patient/Caregiver Education, Self-Care/Home Management,Soft Tissue Mobilization,Taping, Therapeutic Activities, Therapeutic Exercises, Vestibular Rehabilitation Modalities Cold Pack/Ice Massage,Electric Stimulation,Hot Packs, Traction- Mechanical, Ultrasound Next Visit Focus/Plan Next Note Type Treatment Note Next Visit Plan cont to progress core/trunk/ cervical stability, cont to work soft tissue as able Plan of Care Dates Plan of Care Start Date 03/26/20 Plan of Care End Date 05/24/20 Electronically Signed by: Rica Navarro, PT 03/26/20 [id number] Please Sign and Return: I have reviewed this Plan of Care and certify that the skilled therapy services above are required to meet the patient?s needs. Physician Signature Date Printed Name and Credentials Clinical Instructor Signature Printed Name and Credentials
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
--- NOTE | 2020-05-28 11:12 | PT.OPPOC ---
Physical, Occupational & Speech Therapy At [facility] Current Diagnoses Chronic tension-type headache, not intractable (05/28/20) Cervicalgia (05/28/20) Low back pain (05/28/20) Abnormal posture (05/28/20) Weakness (05/28/20) Visit Care Team Role Provider Type Anthony White MD Attending Provider Physician Family Provider Primary Care Provider Referring Provider Specialty: Internal Medicine Address: [address] [place] [address], [address], [address] Email: [email or web address] Plan Of Care PT-OP-T Assessment and Plan Start: 12/19/19 17:51 Freq: Status: Active Protocol: Document 05/28/20 10:08 [facility] (Rec: 05/28/20 11:12 [facility] [id number]) Physical Therapy Assessment Goals sitting Senior Living Goal (LTG) Pt will be able to sit as needed without increased back pain. LTG Duration achieved posture Band Aid Machine Operator Goal (LTG) Pt will present with improved postural stability and posture evidenced by scoring at least 4/5 on VCT. LTG Duration can imrpove w/cueing for posture & pt can self correct ROM Short Term Goal (STG) Pt will be able to bend over to berry picker objects & do as she needs around the house STG Duration achieved Band Aid Machine Operator Goal (LTG) Pt will have full cervical ROM without pain, nausea or dizziness and lumbar ROM w/o pain to allow pt to do normal daily activities. 03/23-improved but still has symptoms but ROM improving LTG Duration achieved strength Short Term Goal (STG) Pt will be indep with HEP. 01/24/20-GOAL MET STG Duration achieved progressing as tolerated Senior Living Goal (LTG) Pt will score 5/5 on B shoulder & BLE MMT, EFT & LPM to show improved stability in order to allow her to fully participate in her typical activities and allow to dec pain to return to school & household activites 02/17-improving LTG Duration much improved, EFT not tested d/t new tatoo on forearm NDI Impairment 25/50 Short Term Goal (STG) Pt will improve NDI score to 18/50 to show improved functional ability. STG Duration achieved Band Aid Machine Operator Goal (LTG) Pt will improve NDI score to 6 /50 to show improved functional ability. LTG Duration improved to 7/50 Assessment Summary Assessment Pt has made excellent progress with therapy and is feeling much better with her engery, pain, nausea & dizziness since participating in PT. She has imrpoved significanlty with strength and stability and has HEP to cont working on this and her posture at home. Pt is dc to home program at this time. Physical Therapy Plan Frequency and Duration Frequency of Treatment 1x Duration of Treatment 1 day Plan of Care Start Date 05/28/20 Plan of Care End Date 05/28/20 Therapeutic Interventions Therapeutic Interventions Aquatic Therapy,Balance Training,Gait Training,Home Exercise Program,Joint Mobilizations,Manual Therapy, Neuromuscular Re-education, Patient/Caregiver Education, Self-Care/Home Management,Soft Tissue Mobilization,Taping, Therapeutic Activities, Therapeutic Exercises, Vestibular Rehabilitation Modalities Cold Pack/Ice Massage,Electric Stimulation,Hot Packs, Traction- Mechanical, Ultrasound Discharge Physical Therapy Discharge Reasons Goals Met Plan of Care Dates Plan of Care Start Date 05/28/20 Plan of Care End Date 05/28/20 Electronically Signed by: Rica Navarro, PT 05/28/20 1112 Please Sign and Return: I have reviewed this Plan of Care and certify that the skilled therapy services above are required to meet the patient?s needs. Physician Signature Date Printed Name and Credentials Clinical Instructor Signature Printed Name and Credentials
== END 2020-05-29 08:00 | disposition home or self-care (01) ==
LOC: PHYS 10:30
PROVIDERS: Family Provider Student in an Organized Health Care Education/Training Program; PCP Student in an Organized Health Care Education/Training Program; Referring Provider Student in an Organized Health Care Education/Training Program; Visit Provider Student in an Organized Health Care Education/Training Program
DX: G44.229 Chronic tension-type headache, not intractable (principal); R53.1 Weakness; M54.2 Cervicalgia; R29.3 Abnormal posture; M54.5 Low back pain
CPT/HCPCS: 97010; 97012; 97110; 97112; 97140; 97163; 97164; 97530; 97535

== ENCOUNTER → 2020-07-06 09:33 | Outpatient (CLI) | payer OTHER, MEDICAID, SELFPAY ==
[2020-07-06 10:02] LABS: COVID19 -Nasal RAPID Negative (Negative)
== END ==
PROVIDERS: Family Provider Student in an Organized Health Care Education/Training Program; PCP Student in an Organized Health Care Education/Training Program; Visit Provider Student in an Organized Health Care Education/Training Program
DX: J02.9 Acute pharyngitis, unspecified (principal); Z20.822 Contact with and (suspected) exposure to COVID-19
CPT/HCPCS: 87070; 87077; 87147; 87635

== ENCOUNTER → 2020-10-05 11:57 | Outpatient (CLI) | payer OTHER, MEDICAID, SELFPAY ==
[2020-10-05 13:45] LABS: COVID19 -Nasal RAPID Negative (Negative)
== END ==
PROVIDERS: Family Provider Student in an Organized Health Care Education/Training Program; PCP Student in an Organized Health Care Education/Training Program; Visit Provider Physician Assistant
DX: Z20.822 Contact with and (suspected) exposure to COVID-19 (principal); R51.9 Headache, unspecified
CPT/HCPCS: 87635

== ENCOUNTER → 2020-11-26 | Outpatient (CLI) | payer OTHER, MEDICAID, SELFPAY | PROVIDERS: PCP Student in an Organized Health Care Education/Training Program; Referring Provider Internal Medicine; Visit Provider Internal Medicine | DX: Z23 Encounter for immunization (principal) | CPT/HCPCS: 90471; 90686 ==

== ENCOUNTER → 2020-12-03 15:45 | Outpatient (CLI) | payer OTHER, MEDICAID, SELFPAY ==
[2020-12-03 16:35] LABS: COVID19 -Nasal RAPID Negative (Negative)
== END ==
PROVIDERS: PCP Student in an Organized Health Care Education/Training Program; Referring Provider Nurse Practitioner; Visit Provider Nurse Practitioner
DX: Z20.822 Contact with and (suspected) exposure to COVID-19 (principal)
CPT/HCPCS: 87635

== ENCOUNTER → 2021-02-03 16:43 | Outpatient (CLI) | payer OTHER, MEDICAID, SELFPAY ==
[2021-02-03 17:30] LABS: COVID19 -Nasal RAPID Negative (Negative)
== END ==
PROVIDERS: Family Provider Student in an Organized Health Care Education/Training Program; PCP Student in an Organized Health Care Education/Training Program; Visit Provider Physician Assistant
DX: Z20.822 Contact with and (suspected) exposure to COVID-19 (principal)
CPT/HCPCS: 87635

== ENCOUNTER → 2021-03-11 10:00 | Outpatient (CLI) | payer OTHER, MEDICAID, SELFPAY ==
[2021-03-11 11:05] LABS: Add Manual Diff / Slide Review NO; Basophils Absolute Auto 0 /uL (0-100); Basophils Percent Auto 0.6 % (0-2); Eosinophils Absolute Auto 200 /uL (0-450); Eosinophils Percent Auto 2.6 % (2-4); Hematocrit 39.9 % (36-46); Hemoglobin 13.6 g/dL (12.0-16.0); Lymphocytes Absolute Auto 1700 /uL (1100-4500); Lymphocytes Percent Auto 20.2 % (25-40); Mean Corpuscular Hemoglobin 30.4 PG (26-34); Mean Corpuscular Volume 89.4 fL (80-100); Monocytes Absolute Auto 400 /uL (0-900); Monocytes Percent Auto 4.1 % (3-14); Neutrophils Absolute Auto 6300 /uL (1500-7000); Neutrophils Percent Auto 72.5 % (50-75); Platelet Count 201 X10^3/uL (150-400); Red Blood Cell Count 4.46 X10^6/uL (4.0-5.2); Red Cell Distribution Width 13.6 % (11.6-14.8); White Blood Cell Count 8.6 X10^3/uL (4.5-11.0)
[2021-03-11 12:53] LABS: Appearance Urine UA CLEAR; Bilirubin Urine UA NEGATIVE (NEGATIVE); Color Urine UA YELLOW; Glucose Urine UA NEGATIVE (Negative); Ketones Urine UA NEGATIVE (NEGATIVE); Leukocyte Esterase Urine UA NEGATIVE (NEGATIVE); Nitrite Urine UA NEGATIVE (Negative); Occult Blood Urine UA 1+ (Negative); Protein Urine UA NEGATIVE (Negative); Urobilinogen Urine UA 0.2 E.U./dL (0.2)
[2021-03-11 12:54] LABS: pH Urine UA 7.5 (4.5-8.0)
[2021-03-11 13:05] LABS: Bacteria Urine Occasional (0-1); RBC Urine 1-5/HPF (0-5/HPF); Squamous Epithelial Cell Urine 0-1 /HPF (0-5/HPF); WBC Urine 0-1/HPF (0-5/HPF)
[2021-03-11 15:35] LABS: Hepatitis B Surface Antigen NEGATIVE s/c (NEGATIVE); Rubella Antibody IgG 58.1 IU/mL (>15)
[2021-03-11 15:50] LABS: HIV 1 & 2 Ab/Ag 4th Gen Combo NEGATIVE (NEGATIVE); Hep C Virus Ab w/Reflex Quant NEGATIVE s/c (NEGATIVE)
[2021-03-12 07:51] LABS: RPR Screen Non Reactive (Non Reactive)
[2021-03-12 08:21] LABS: Varicella IgG Antibody 2109 index (Immune >165)
== END ==
PROVIDERS: Family Provider Student in an Organized Health Care Education/Training Program; PCP Student in an Organized Health Care Education/Training Program; Referring Provider Obstetrics & Gynecology; Visit Provider Obstetrics & Gynecology
DX: Z34.80 Encounter for supervision of other normal pregnancy, unspecified trimester (principal)
CPT/HCPCS: 36415; 80055; 81003; 81015; 86787; 86803; 86850; 86900; 86901; 87086; 87389

== ENCOUNTER 2021-03-18 09:45 | Outpatient (RCR) | payer OTHER, MEDICAID, SELFPAY ==
--- NOTE | 2021-01-07 18:22 | PT.OIE ---
Current Diagnoses Chronic tension-type headache, intractable (01/07/21) Other chronic pain (01/07/21) Cervicalgia (01/07/21) Past Medical History (Last Reviewed 12/03/20 @ 16:44 by MARCUS Florez) Anxiety associated with depression Body posture problem Cervical somatic dysfunction Chronic neck pain Cranial somatic dysfunction Lumbar region somatic dysfunction Major depression No pertinent past surgical history No significant past medical history Pelvic somatic dysfunction Sacral region somatic dysfunction Segmental and somatic dysfunction of abdomen and other regions Thoracic region somatic dysfunction Past Surgical History (Last Reviewed 12/03/20 @ 16:44 by MARCUS Florez) No pertinent past surgical history Visit Care Team Role Provider Type Anthony White MD Attending Provider Physician Family Provider Primary Care Provider Referring Provider Specialty: Internal Medicine Address: [address] [place] [address], [facility] [address], [place], [facility] Email: [email or web address] Physical Therapy Initial Evaluation PT-OP-A Visit Information Start: 12/31/20 16:39 Freq: Status: Active Protocol: Document 01/07/21 08:17 DERRICK (Rec: 01/07/21 13:31 DERRICK [email or web address]) Out-Patient Physical Therapy Visit Information Visit Information Visit Type Initial Evaluation Visit Note SPT Crys was directly supervised by PT Rica Visit Start Time 08:17 Visit Stop Time 09:01 Total Visit Minutes 44 Visit Number 1 Number of AMMUNITION SPECIALIST Visits 0 PT-OP-B Current Condition Start: 12/31/20 16:39 Freq: Status: Active Protocol: Document 01/07/21 08:17 DERRICK (Rec: 01/07/21 13:31 Bessy [email or web address]) Current Condition History of Current Condition Onset Date 09/20/20 Current Complaints Headache, neck pain, arm pain History of Current Condition pt was seen by PT until May 2020 for back and neck pain which resolved at time of discharge. 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 She felt pain in her upper back and discontinued rowing. pt has had headaches at least 2xmonth since the rowing incident. pt states she feels the headaches come on over several days and will last several days once headaches become painful. Headache is felt at base of skull, moves anterior over top of head, and occ into jaw. Pt has near constant bilat cervical pain and into area superior to scapula as well as lateral forearm pain. Pt has discontinued use of NSAIDs at Dr. Britt's recommendation. Currently Dr. Britt is providing dry needling. Pt denies lighthead, dizziness. Aggrevating factors: work station (laptop at eye level, has to raise arms to type), long days without oppurtunity to change body position or use alleviating tools. Alleviating factors: walking, hot showers, stretching, muscle relaxers. Prior Treatments and Tests x-ray, dry needling, muscle relaxers, OTC NSAIDs Future Testing and Treatments Planned none PT-OP-C Subjective Start: 12/31/20 16:39 Freq: Status: Active Protocol: Document 01/07/21 08:17 JG (Rec: 01/07/21 18:11 J [id number]) Patient Questionnaires Neck Disability Index NDI Score 17/50 Quick Dash- Upper Extremity Quick Dash UE Score 40.9 PT-OP-F Manual Assessment Start: 12/31/20 16:39 Freq: Status: Active Protocol: Document 01/07/21 08:17 JG (Rec: 01/07/21 18:03 J [id number]) Manual Assessments Soft Tissue Assessment Soft Tissue Mobility Assessment bilat UT, levator, parascapular muscles tender to palp Joint Mobility Assessment Joint Mobility Assessment R ac joint tenderness upon palp PT-OP-J Posture/Palpation/Skin Start: 12/31/20 16:39 Freq: Status: Active Protocol: Document 01/07/21 08:17 JG (Rec: 01/07/21 09:03 J [id number]) Posture Evaluation Sylvester Postural Classification System Sylvester Postural Classifications Posterior/Anterior Vertebral Compression Test 0 Elbow Flexion Test 0 Lumbar Protective Mechanism Left AP 1 Lumbar Protective Mechanism Right AP 0 Lumbar Protective Mechanism Left PA 1 Lumbar Protective Mechanism Right PA 0 Comments Posture Comments R foot ER, L foot appears aligned, iliac crests level, upper trunk R rot and R side bent, L shld elevated, bilat scap ant shift, L arm more ant compared to R arm, cervical rot to L so head appeared midline PT-OP-K Range of Motion Start: 12/31/20 16:39 Freq: Status: Active Protocol: Document 01/07/21 08:17 JG (Rec: 01/07/21 09:03 JG [id number]) Cervical Spine Range of Motion Cervical Spine Active Degrees Flexion 53 Extension 45 Rotation Left 47 Rotation Right 49 Lateral Flexion Left 42 Lateral Flexion Right 43 Comments pain w/R rotation PT-OP-L Special Tests Start: 12/31/20 16:39 Freq: Status: Active Protocol: Document 01/07/21 08:17 JG (Rec: 01/07/21 09:03 JG [id number]) Special Tests Cervical Spine Special Tests Traction Test Results pain in R scap region Spurling's Test Test Results neg Neural Special Tests- Upper Body Median Nerve Tension Test Results positive B Ulnar Nerve Tension Test Results positive B Radial Nerve Tension Test Results neg B PT-OP-M Strength Start: 12/31/20 16:39 Freq: Status: Active Protocol: Document 01/07/21 08:17 JG (Rec: 01/07/21 09:03 JG [id number]) Shoulder Strength Shoulder Manual Muscle Testing Right Flexion 3+ Fair+ Extension 3+ Fair+ Abduction (C5) 3 Fair External Rotation 3+ Fair+ Internal Rotation 3+ Fair+ Comments pain w/MMT except ext Left Flexion 3+ Fair+ Extension 4- Good- Abduction (C5) 4- Good- External Rotation 4 Good Internal Rotation 4+ Good+ Elbow/Forearm Strength Elbow and Forearm Manual Muscle Testing Right Flexion (C6) 4+ Good+ Extension (C7) 5 Normal Pronation 5 Normal Supination 5 Normal Left Flexion (C6) 4 Good Extension (C7) 5 Normal Pronation 5 Normal Supination 5 Normal Wrist Strength Wrist Manual Muscle Testing Right Flexion (C7) 4 Good Extension (C6) 4- Good- Ulnar Deviation 4 Good Radial Deviation 5 Normal Comments pain w/wrist flex in shoulder Left Flexion (C7) 5 Normal Extension (C6) 5 Normal Ulnar Deviation 5 Normal Radial Deviation 5 Normal Comments pain in forearm w/flex PT-OP-Q Treatments Start: 12/31/20 16:39 Freq: Status: Active Protocol: Document 01/07/21 08:17 JG (Rec: 01/07/21 13:36 JG [email or web address]) Therapeutic Exercises Standing Exercises Wall Posture Standing Exercise Name Rolling up from tailbone to head, maintain wall posture w/ breathing Side bilateral Comments hands and arms off wall due to increase in symptoms PT-OP-T Assessment and Plan Start: 12/31/20 16:39 Freq: Status: Active Protocol: Document 01/07/21 08:17 DERRICK (Rec: 01/07/21 13:44 JMelody [email or web address]) Physical Therapy Assessment Rehab Potential Rehabilitation Potential Excellent Evaluation Complexity Number of Personal Factors/Comorbidities 3 or More Number of Body Systems Impaired 4 or More Clinical Presentation at Evaluation Evolving Impairments Impairments Activity Tolerance,Functional Activities,Functional Mobility ,Pain,Posture,ROM,Strength Goals 5 Impairment Exercise Cooler Service Supervisor Goal (LTG) pt will be able to participate in 2-3 fitness workouts/week without increase in symptoms to promote cardiovascular health LTG Duration 04/09/21 4 Impairment Pain in neck, shlds, arms Impairment Positive bilat ulnar and median nerve tests: R positive even w/o scap depression and wrist ext, L positive w/wrist ext and scap depression [facility] Goal (LTG) Negative bilat ulnar and median nerve tests w/scap depression and wrist ext so pt can do UE motion without pain LTG Duration 04/09/21 3 Impairment Cervical ROM and pain Impairment Significantly decreased bilat cervical rotation AROM, cervical pain Short Term Goal (STG) Increase pain-free cervical rotation AROM to 60 degrees bilat STG Duration 02/06/21 Cooler Service Supervisor Goal (LTG) All cervical ROM is pain-free, pt feels no apprehension during movement, and ROM is WNL so she can supervise her child, drive car, and document at work without pain LTG Duration 04/09/21 2 Impairment Posture Impairment Upper torso right rotation, L shld elevated, R increased side bend Short Term Goal (STG) pt will be able to self- correct posture with min cueing and maintain for 5 minutes without pain or discomfort STG Duration 02/06/21 Cooler Service Supervisor Goal (LTG) pt will score 4/5 on VCT demostrating ability to maintain good posture w/o cueing LTG Duration 04/09/21 1 Impairment Work positional tolerance, workstation ergonomics Impairment Unable to document without pain, unable to tolerate long day of working without pain Short Term Goal (STG) Complete and incorporate recommendations from workstation ergo evaluation STG Duration 02/06/21 [facility] Goal (LTG) Able to complete 10 hour work day without pain LTG Duration 04/09/21 Assessment Summary Assessment Pt is 30 year old female coming to PT with compliants of headaches, cervical, shoulder, and arm pain. She has been attempted relief through dry needling, muscle relaxers, NSAIDs, ceasing her fitness classes, and stretching, but the symptoms are progressively getting worse. Pt presents w/upper torso R rotation and R side bending resulting in L elevated shld and L cervical rotation to stay in midline. Pt also has significant upper thoracic kyphosis, cervical lordosis, mild lumbar lordosis , and anterior pelvic tilt which could contribute to functional movement dysfunction and pain. As pt has tried numerous prior methods of treatment without alleviation of headaches, cervical pain, shoulder pain, and arm pain, pt would benefit from skilled PT to address posture, ROM, strength, workstation ergonomics, and soft tissue tone. Physical Therapy Plan Frequency and Duration Frequency of Treatment 1-2/week Duration of Treatment 3 months Plan of Care Start Date 01/07/21 Plan of Care End Date 04/09/21 Therapeutic Interventions Therapeutic Interventions Home Exercise Program,Joint Mobilizations,Manual Therapy, Neuromuscular Re-education, Patient/Caregiver Education, Self-Care/Home Management,Soft Tissue Mobilization,Taping, Therapeutic Activities, Therapeutic Exercises Modalities Cold Pack/Ice Massage,Hot Packs Next Visit Focus/Plan Next Note Type Treatment Note Next Visit Plan Posture, cervical stretch and ROM, rib assessment, pelvic tilt and core exercises, manual therapy to cervical, upper back, shld, arm to increase ROM and decrease pain
--- NOTE | 2021-01-07 18:29 | PT.OPPOC ---
Physical, Occupational & Speech Therapy At [facility] Current Diagnoses Chronic tension-type headache, intractable (01/07/21) Other chronic pain (01/07/21) Cervicalgia (01/07/21) Visit Care Team Role Provider Type Anthony White MD Attending Provider Physician Family Provider Primary Care Provider Referring Provider Specialty: Internal Medicine Address: [address] [place] [address], [address], [facility] Email: [email or web address] Plan Of Care PT-OP-T Assessment and Plan Start: 12/31/20 16:39 Freq: Status: Active Protocol: Document 01/07/21 08:17 JG (Rec: 01/07/21 13:44 [email or web address] [email or web address]) Physical Therapy Assessment Rehab Potential Rehabilitation Potential Excellent Evaluation Complexity Number of Personal Factors/Comorbidities 3 or More Number of Body Systems Impaired 4 or More Clinical Presentation at Evaluation Evolving Impairments Impairments Activity Tolerance,Functional Activities,Functional Mobility ,Pain,Posture,ROM,Strength Goals 5 Impairment Exercise Correction Goal (LTG) pt will be able to participate in 2-3 fitness workouts/week without increase in symptoms to promote cardiovascular health LTG Duration 04/09/21 4 Impairment Pain in neck, shlds, arms Impairment Positive bilat ulnar and median nerve tests: R positive even w/o scap depression and wrist ext, L positive w/wrist ext and scap depression Set Up / Operator Goal (LTG) Negative bilat ulnar and median nerve tests w/scap depression and wrist ext so pt can do UE motion without pain LTG Duration 04/09/21 3 Impairment Cervical ROM and pain Impairment Significantly decreased bilat cervical rotation AROM, cervical pain Short Term Goal (STG) Increase pain-free cervical rotation AROM to 60 degrees bilat STG Duration 02/06/21 Correction Goal (LTG) All cervical ROM is pain-free, pt feels no apprehension during movement, and ROM is WNL so she can supervise her child, drive car, and document at work without pain LTG Duration 04/09/21 2 Impairment Posture Impairment Upper torso right rotation, L shld elevated, R increased side bend Short Term Goal (STG) pt will be able to self- correct posture with min cueing and maintain for 5 minutes without pain or discomfort STG Duration 02/06/21 Correction Goal (LTG) pt will score 4/5 on VCT demostrating ability to maintain good posture w/o cueing LTG Duration 04/09/21 1 Impairment Work positional tolerance, workstation ergonomics Impairment Unable to document without pain, unable to tolerate long day of working without pain Short Term Goal (STG) Complete and incorporate recommendations from workstation ergo evaluation STG Duration 02/06/21 Set Up / Operator Goal (LTG) Able to complete 10 hour work day without pain LTG Duration 04/09/21 Assessment Summary Assessment Pt is 30 year old female coming to PT with compliants of headaches, cervical, shoulder, and arm pain. She has been attempted relief through dry needling, muscle relaxers, NSAIDs, ceasing her fitness classes, and stretching, but the symptoms are progressively getting worse. Pt presents w/upper torso R rotation and R side bending resulting in L elevated shld and L cervical rotation to stay in midline. Pt also has significant upper thoracic kyphosis, cervical lordosis, mild lumbar lordosis , and anterior pelvic tilt which could contribute to functional movement dysfunction and pain. As pt has tried numerous prior methods of treatment without alleviation of headaches, cervical pain, shoulder pain, and arm pain, pt would benefit from skilled PT to address posture, ROM, strength, workstation ergonomics, and soft tissue tone. Physical Therapy Plan Frequency and Duration Frequency of Treatment 1-2/week Duration of Treatment 3 months Plan of Care Start Date 01/07/21 Plan of Care End Date 04/09/21 Therapeutic Interventions Therapeutic Interventions Home Exercise Program,Joint Mobilizations,Manual Therapy, Neuromuscular Re-education, Patient/Caregiver Education, Self-Care/Home Management,Soft Tissue Mobilization,Taping, Therapeutic Activities, Therapeutic Exercises Modalities Cold Pack/Ice Massage,Hot Packs Next Visit Focus/Plan Next Note Type Treatment Note Next Visit Plan Posture, cervical stretch and ROM, rib assessment, pelvic tilt and core exercises, manual therapy to cervical, upper back, shld, arm to increase ROM and decrease pain Plan of Care Dates Plan of Care Start Date 01/07/21 Plan of Care End Date 04/09/21 Electronically Signed by: Rica Navarro, PT 01/07/21 6902 Please Sign and Return: I have reviewed this Plan of Care and certify that the skilled therapy services above are required to meet the patient?s needs. Physician Signature Date Printed Name and Credentials Clinical Instructor Signature Printed Name and Credentials
--- NOTE | 2021-01-13 18:07 | PT.OTN ---
Current Diagnoses Chronic tension-type headache, intractable (01/13/21) Other chronic pain (01/13/21) Cervicalgia (01/13/21) Physical Therapy Treatment Note PT-OP-A Visit Information Start: 12/31/20 16:39 Freq: Status: Active Protocol: Document 01/13/21 17:50 [facility] (Rec: 01/13/21 18:07 [facility] [id number]) Out-Patient Physical Therapy Visit Information Visit Information Visit Type Treatment Note Visit Note SPT Crys participated in treatment w/direct PT supervision Visit Start Time 16:46 Visit Stop Time 17:32 Total Visit Minutes 46 Visit Number 2 Number of HANDSTITCHING MACHINE COLLAR FELLER Visits 0 PT-OP-B Current Condition Start: 12/31/20 16:39 Freq: Status: Active Protocol: Document 01/07/21 08:17 JG (Rec: 01/07/21 13:31 JG [id number]) Current Condition History of Current Condition Onset Date 09/20/20 Current Complaints Headache, neck pain, arm pain History of Current Condition pt was seen by PT until May 2020 for back and neck pain which resolved at time of discharge. 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 She felt pain in her upper back and discontinued rowing. pt has had headaches at least 2xmonth since the rowing incident. pt states she feels the headaches come on over several days and will last several days once headaches become painful. Headache is felt at base of skull, moves anterior over top of head, and occ into jaw. Pt has near constant bilat cervical pain and into area superior to scapula as well as lateral forearm pain. Pt has discontinued use of NSAIDs at Dr. Britt's recommendation. Currently Dr. Britt is providing dry needling. Pt denies lighthead, dizziness. Aggrevating factors: work station (laptop at eye level, has to raise arms to type), long days without oppurtunity to change body position or use alleviating tools. Alleviating factors: walking, hot showers, stretching, muscle relaxers. Prior Treatments and Tests x-ray, dry needling, muscle relaxers, OTC NSAIDs Future Testing and Treatments Planned none PT-OP-C Subjective Start: 12/31/20 16:39 Freq: Status: Active Protocol: Document 01/13/21 17:50 LR (Rec: 01/13/21 18:07 [facility] [id number]) OP-PT Subjective Patient Comments Patient Comments Pt reports nausea & R arm tingling/numbness starting Monday night and into Monday along w/R shoulder pain. Pt reprots she saw primary on Monday who prescribed gabapentin and she took one last nigtha nd woke up w/o arm tingling. She removed her lap top from the elvated surface yesterday also and this evening got her separate keyboard for when she is at her desk. Notes shoulder pain still significant today. PT-OP-F Manual Assessment Start: 12/31/20 16:39 Freq: Status: Active Protocol: Document 01/07/21 08:17 JG (Rec: 01/07/21 18:03 JG [id number]) Manual Assessments Soft Tissue Assessment Soft Tissue Mobility Assessment bilat UT, levator, parascapular muscles tender to palp Joint Mobility Assessment Joint Mobility Assessment R ac joint tenderness upon palp PT-OP-J Posture/Palpation/Skin Start: 12/31/20 16:39 Freq: Status: Active Protocol: Document 01/07/21 08:17 JG (Rec: 01/07/21 09:03 JG [id number]) Posture Evaluation Sylvester Postural Classification System Sylvester Postural Classifications Posterior/Anterior Vertebral Compression Test 0 Elbow Flexion Test 0 Lumbar Protective Mechanism Left AP 1 Lumbar Protective Mechanism Right AP 0 Lumbar Protective Mechanism Left PA 1 Lumbar Protective Mechanism Right PA 0 Comments Posture Comments R foot ER, L foot appears aligned, iliac crests level, upper trunk R rot and R side bent, L shld elevated, bilat scap ant shift, L arm more ant compared to R arm, cervical rot to L so head appeared midline PT-OP-K Range of Motion Start: 12/31/20 16:39 Freq: Status: Active Protocol: Document 01/07/21 08:17 JG (Rec: 01/07/21 09:03 JG [id number]) Cervical Spine Range of Motion Cervical Spine Active Degrees Flexion 53 Extension 45 Rotation Left 47 Rotation Right 49 Lateral Flexion Left 42 Lateral Flexion Right 43 Comments pain w/R rotation PT-OP-L Special Tests Start: 12/31/20 16:39 Freq: Status: Active Protocol: Document 01/07/21 08:17 JG (Rec: 01/07/21 09:03 JG [id number]) Special Tests Cervical Spine Special Tests Traction Test Results pain in R scap region Spurling's Test Test Results neg Neural Special Tests- Upper Body Median Nerve Tension Test Results positive B Ulnar Nerve Tension Test Results positive B Radial Nerve Tension Test Results neg B PT-OP-M Strength Start: 12/31/20 16:39 Freq: Status: Active Protocol: Document 01/07/21 08:17 JG (Rec: 01/07/21 09:03 JG [id number]) Shoulder Strength Shoulder Manual Muscle Testing Right Flexion 3+ Fair+ Extension 3+ Fair+ Abduction (C5) 3 Fair External Rotation 3+ Fair+ Internal Rotation 3+ Fair+ Comments pain w/MMT except ext Left Flexion 3+ Fair+ Extension 4- Good- Abduction (C5) 4- Good- External Rotation 4 Good Internal Rotation 4+ Good+ Elbow/Forearm Strength Elbow and Forearm Manual Muscle Testing Right Flexion (C6) 4+ Good+ Extension (C7) 5 Normal Pronation 5 Normal Supination 5 Normal Left Flexion (C6) 4 Good Extension (C7) 5 Normal Pronation 5 Normal Supination 5 Normal Wrist Strength Wrist Manual Muscle Testing Right Flexion (C7) 4 Good Extension (C6) 4- Good- Ulnar Deviation 4 Good Radial Deviation 5 Normal Comments pain w/wrist flex in shoulder Left Flexion (C7) 5 Normal Extension (C6) 5 Normal Ulnar Deviation 5 Normal Radial Deviation 5 Normal Comments pain in forearm w/flex PT-OP-Q Treatments Start: 12/31/20 16:39 Freq: Status: Active Protocol: Document 01/13/21 17:50 [facility] (Rec: 01/13/21 18:07 [facility] [id number]) Therapeutic Exercises Prone Exercises open book Side bilateral Reps/Minutes 10 Comments focus on keeping arm in line w /body Sitting Exercises shoulder rolls Sitting Exercise Name both directions Side bilateral Reps/Minutes 5 Comments cues for comfortable range stretches Sitting Exercise Name attempted cervical SB/rotation stretches but inc pain so not to do Standing Exercises stretch Standing Exercise Name 1. doorway straight arm 2. corner 90/90 pec stretch Side bilateral Reps/Minutes 1. 45 sec 2. 10 sec but stopped d/t pain in shoudler Manual Therapy Treatment Soft Tissue Mobilization cervical Body Location SOR & paraspinals R Mobilization Type Myofascial Release,Rolling, Strumming,Sustained Pressure Intensity/Depth Moderate Body Position Supine UT Body Location R ant border Mobilization Type Rolling Comments w/cervical rotation-stopped d/ t causing nausea lat Body Location R lat & teres & rhomboids Mobilization Type Myofascial Release,Rolling, Strumming Intensity/Depth Moderate Body Position Sidelying Comments also MFR to R inf ribcage w/ basking seal Self-Care/Home Management Treatment Education Other Education edu re: anatomy of neck and shoulder region & possibility for nerve impingment. PT-OP-T Assessment and Plan Start: 12/31/20 16:39 Freq: Status: Active Protocol: Document 01/13/21 17:50 [facility] (Rec: 01/13/21 18:07 [facility] [id number]) Physical Therapy Assessment Goals 5 Impairment Exercise Health Underwriter Goal (LTG) pt will be able to participate in 2-3 fitness workouts/week without increase in symptoms to promote cardiovascular health LTG Duration 04/09/21 4 Impairment Pain in neck, shlds, arms Impairment Positive bilat ulnar and median nerve tests: R positive even w/o scap depression and wrist ext, L positive w/wrist ext and scap depression Intermediate Goal (LTG) Negative bilat ulnar and median nerve tests w/scap depression and wrist ext so pt can do UE motion without pain LTG Duration 04/09/21 3 Impairment Cervical ROM and pain Impairment Significantly decreased bilat cervical rotation AROM, cervical pain Short Term Goal (STG) Increase pain-free cervical rotation AROM to 60 degrees bilat STG Duration 02/06/21 Intermediate Goal (LTG) All cervical ROM is pain-free, pt feels no apprehension during movement, and ROM is WNL so she can supervise her child, drive car, and document at work without pain LTG Duration 04/09/21 2 Impairment Posture Impairment Upper torso right rotation, L shld elevated, R increased side bend Short Term Goal (STG) pt will be able to self- correct posture with min cueing and maintain for 5 minutes without pain or discomfort STG Duration 02/06/21 Intermediate Goal (LTG) pt will score 4/5 on VCT demostrating ability to maintain good posture w/o cueing LTG Duration 04/09/21 1 Impairment Work positional tolerance, workstation ergonomics Impairment Unable to document without pain, unable to tolerate long day of working without pain Short Term Goal (STG) Complete and incorporate recommendations from workstation ergo evaluation STG Duration 02/06/21 Health Underwriter Goal (LTG) Able to complete 10 hour work day without pain LTG Duration 04/09/21 Assessment Summary Assessment Pt had more shoulder flex w/ less wincing after manual treatment. Pt did have nausea w/UT work so stopped and nausea subsided. She had significant tightness of ribcage w/tenderness to palpation so started w/dec pressure. Physical Therapy Plan Frequency and Duration Frequency of Treatment 1-2/week Duration of Treatment 3 months Plan of Care Start Date 01/07/21 Plan of Care End Date 04/09/21 Next Visit Focus/Plan Next Note Type Treatment Note Next Visit Plan review exercises, rib assessment, pelvic tilt and core exercises, manual therapy to cervical, upper back, shld , arm to increase ROM and decrease pain
--- NOTE | 2021-01-21 16:37 | PT.OTN ---
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 She felt pain in her upper back and discontinued rowing. pt has had headaches at least 2xmonth since the rowing incident. pt states she feels the headaches come on over several days and will last several days once headaches become painful. Headache is felt at base of skull, moves anterior over top of head, and occ into jaw. Pt has near constant bilat cervical pain and into area superior to scapula as well as lateral forearm pain. Pt has discontinued use of NSAIDs at Dr. Britt's recommendation. Currently Dr. Britt is providing dry needling. Pt denies lighthead, dizziness. Aggrevating factors: work station (laptop at eye level, has to raise arms to type), long days without oppurtunity to change body position or use alleviating tools. Alleviating factors: walking, hot showers, stretching, muscle relaxers. Prior Treatments and Tests x-ray, dry needling, muscle relaxers, OTC NSAIDs Future Testing and Treatments Planned none PT-OP-C Subjective Start: 12/31/20 16:39 Freq: Status: Active Protocol: Document 01/21/21 13:57 JG (Rec: 01/21/21 14:02 JG [id number]) OP-PT Subjective Patient Comments Patient Comments Pt reports her neck and shld were sore for several days over the weekend. Pt states Dr Reyna Britt mobilized her ribs which was intense, but she felt better afterwards and like she had improved posture. PT-OP-F Manual Assessment Start: 12/31/20 16:39 Freq: Status: Active Protocol: Document 01/07/21 08:17 JG (Rec: 01/07/21 18:03 JG [id number]) Manual Assessments Soft Tissue Assessment Soft Tissue Mobility Assessment bilat UT, levator, parascapular muscles tender to palp Joint Mobility Assessment Joint Mobility Assessment R ac joint tenderness upon palp PT-OP-J Posture/Palpation/Skin Start: 12/31/20 16:39 Freq: Status: Active Protocol: Document 01/07/21 08:17 JG (Rec: 01/07/21 09:03 JG [id number]) Posture Evaluation Sylvester Postural Classification System Sylvester Postural Classifications Posterior/Anterior Vertebral Compression Test 0 Elbow Flexion Test 0 Lumbar Protective Mechanism Left AP 1 Lumbar Protective Mechanism Right AP 0 Lumbar Protective Mechanism Left PA 1 Lumbar Protective Mechanism Right PA 0 Comments Posture Comments R foot ER, L foot appears aligned, iliac crests level, upper trunk R rot and R side bent, L shld elevated, bilat scap ant shift, L arm more ant compared to R arm, cervical rot to L so head appeared midline PT-OP-K Range of Motion Start: 12/31/20 16:39 Freq: Status: Active Protocol: Document 01/07/21 08:17 JG (Rec: 01/07/21 09:03 JG [id number]) Cervical Spine Range of Motion Cervical Spine Active Degrees Flexion 53 Extension 45 Rotation Left 47 Rotation Right 49 Lateral Flexion Left 42 Lateral Flexion Right 43 Comments pain w/R rotation PT-OP-L Special Tests Start: 12/31/20 16:39 Freq: Status: Active Protocol: Document 01/07/21 08:17 JG (Rec: 01/07/21 09:03 JG [id number]) Special Tests Cervical Spine Special Tests Traction Test Results pain in R scap region Spurling's Test Test Results neg Neural Special Tests- Upper Body Median Nerve Tension Test Results positive B Ulnar Nerve Tension Test Results positive B Radial Nerve Tension Test Results neg B PT-OP-M Strength Start: 12/31/20 16:39 Freq: Status: Active Protocol: Document 01/07/21 08:17 JG (Rec: 01/07/21 09:03 JG [id number]) Shoulder Strength Shoulder Manual Muscle Testing Right Flexion 3+ Fair+ Extension 3+ Fair+ Abduction (C5) 3 Fair External Rotation 3+ Fair+ Internal Rotation 3+ Fair+ Comments pain w/MMT except ext Left Flexion 3+ Fair+ Extension 4- Good- Abduction (C5) 4- Good- External Rotation 4 Good Internal Rotation 4+ Good+ Elbow/Forearm Strength Elbow and Forearm Manual Muscle Testing Right Flexion (C6) 4+ Good+ Extension (C7) 5 Normal Pronation 5 Normal Supination 5 Normal Left Flexion (C6) 4 Good Extension (C7) 5 Normal Pronation 5 Normal Supination 5 Normal Wrist Strength Wrist Manual Muscle Testing Right Flexion (C7) 4 Good Extension (C6) 4- Good- Ulnar Deviation 4 Good Radial Deviation 5 Normal Comments pain w/wrist flex in shoulder Left Flexion (C7) 5 Normal Extension (C6) 5 Normal Ulnar Deviation 5 Normal Radial Deviation 5 Normal Comments pain in forearm w/flex PT-OP-Q Treatments Start: 12/31/20 16:39 Freq: Status: Active Protocol: Document 01/21/21 13:57 JG (Rec: 01/21/21 14:02 JG [id number]) Therapeutic Exercises Supine Exercises Pelvic Tilts Supine Exercise Name 1. tilts 2. w/marching 3. w/ marching & arms by side moving into shld flex Side bilateral Comments mod cues for not over dustin, small range w/UE Prone Exercises open book Side bilateral Reps/Minutes 2x8 Comments min cueing to keep arm in line w/body Sitting Exercises shoulder rolls Sitting Exercise Name elevation, posterior, depress Side bilateral Reps/Minutes 1x5 Comments cues to stay within painfree range, not move head forward stretches Sitting Exercise Name 1. child's pose 2. thread the needle Side bilateral Reps/Minutes 3x45 seconds Standing Exercises Wall Posture Standing Exercise Name Rolling up segmentally, maintain wall posture w/ breathing, shld rolls Side bilateral Comments hands and arms off wall due to increase in symptoms, head not touching wall Manual Therapy Treatment Soft Tissue Mobilization cervical Body Location anterior and lateral R cervical muscles Mobilization Type Cross-Friction,Rolling, Strumming,Sustained Pressure Intensity/Depth Moderate Body Position Supine Comments R scalenes, SCM, superior and posterior border of clavicle PT-OP-T Assessment and Plan Start: 12/31/20 16:39 Freq: Status: Active Protocol: Document 01/21/21 13:57 JG (Rec: 01/21/21 14:12 JG [email or web address]) Physical Therapy Assessment Goals 5 Impairment Exercise Intermediate Goal (LTG) pt will be able to participate in 2-3 fitness workouts/week without increase in symptoms to promote cardiovascular health LTG Duration 04/09/21 4 Impairment Pain in neck, shlds, arms Impairment Positive bilat ulnar and median nerve tests: R positive even w/o scap depression and wrist ext, L positive w/wrist ext and scap depression Exhibition Organiser Goal (LTG) Negative bilat ulnar and median nerve tests w/scap depression and wrist ext so pt can do UE motion without pain LTG Duration 04/09/21 3 Impairment Cervical ROM and pain Impairment Significantly decreased bilat cervical rotation AROM, cervical pain Short Term Goal (STG) Increase pain-free cervical rotation AROM to 60 degrees bilat STG Duration 02/06/21 Intermediate Goal (LTG) All cervical ROM is pain-free, pt feels no apprehension during movement, and ROM is WNL so she can supervise her child, drive car, and document at work without pain LTG Duration 04/09/21 2 Impairment Posture Impairment Upper torso right rotation, L shld elevated, R increased side bend Short Term Goal (STG) pt will be able to self- correct posture with min cueing and maintain for 5 minutes without pain or discomfort STG Duration 02/06/21 Intermediate Goal (LTG) pt will score 4/5 on VCT demostrating ability to maintain good posture w/o cueing LTG Duration 04/09/21 1 Impairment Work positional tolerance, workstation ergonomics Impairment Unable to document without pain, unable to tolerate long day of working without pain Short Term Goal (STG) Complete and incorporate recommendations from workstation ergo evaluation STG Duration 02/06/21 Exhibition Organiser Goal (LTG) Able to complete 10 hour work day without pain LTG Duration 04/09/21 Assessment Summary Assessment Pt had significantly improved scapular depression after manual therapy. Pt was able to tolerate manual therapy, even lateral and anterior cervical musculature, without becoming nauseous or dizzy. After cueing, pt was able to self- position into spinal midline and level her shlds. Pt was challenged w/wall posture and pelvic tilt exercises to maintain form without needing to reset or take a break. Physical Therapy Plan Frequency and Duration Frequency of Treatment 1-2/week Duration of Treatment 3 months Plan of Care Start Date 01/07/21 Plan of Care End Date 04/09/21 Next Visit Focus/Plan Next Note Type Treatment Note Next Visit Plan review wall posture and stretches, rib assessment, continue pelvic tilt and core exercises progressing if able, manual therapy to cervical, upper back, shld, arm to increase ROM and decrease pain
--- NOTE | 2021-01-28 16:04 | PT.OTN ---
Current Diagnoses Chronic tension-type headache, intractable (01/28/21) Other chronic pain (01/28/21) Cervicalgia (01/28/21) Physical Therapy Treatment Note PT-OP-A Visit Information Start: 12/31/20 16:39 Freq: Status: Active Protocol: Document 01/28/21 15:10 JMelody (Rec: 01/28/21 15:28 DERRICK [id number]) Out-Patient Physical Therapy Visit Information Visit Information Visit Type Treatment Note Visit Note SPT Crys participated in treatment w/direct PT supervision Visit Start Time 09:03 Visit Stop Time 09:50 Total Visit Minutes 47 Visit Number 4 Number of DINKEY OPERATOR Visits 0 PT-OP-B Current Condition Start: 12/31/20 16:39 Freq: Status: Active Protocol: Document 01/07/21 08:17 DERRICK (Rec: 01/07/21 13:31 DERRICK [id number]) Current Condition History of Current Condition Onset Date 09/20/20 Current Complaints Headache, neck pain, arm pain History of Current Condition pt was seen by PT until May 2020 for back and neck pain which resolved at time of discharge. 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 She felt pain in her upper back and discontinued rowing. pt has had headaches at least 2xmonth since the rowing incident. pt states she feels the headaches come on over several days and will last several days once headaches become painful. Headache is felt at base of skull, moves anterior over top of head, and occ into jaw. Pt has near constant bilat cervical pain and into area superior to scapula as well as lateral forearm pain. Pt has discontinued use of NSAIDs at Dr. Britt's recommendation. Currently Dr. Britt is providing dry needling. Pt denies lighthead, dizziness. Aggrevating factors: work station (laptop at eye level, has to raise arms to type), long days without oppurtunity to change body position or use alleviating tools. Alleviating factors: walking, hot showers, stretching, muscle relaxers. Prior Treatments and Tests x-ray, dry needling, muscle relaxers, OTC NSAIDs Future Testing and Treatments Planned none PT-OP-C Subjective Start: 12/31/20 16:39 Freq: Status: Active Protocol: Document 01/28/21 15:10 JG (Rec: 01/28/21 15:28 JG [id number]) OP-PT Subjective Patient Comments Patient Comments Pt reported her next appt w/Dr Reyna Britt is 02/09. Pt has been feeling her rib slowly move back out of place. Pt has not had nausea or dizziness this last week, but has had sore shld. PT-OP-F Manual Assessment Start: 12/31/20 16:39 Freq: Status: Active Protocol: Document 01/07/21 08:17 JG (Rec: 01/07/21 18:03 J [id number]) Manual Assessments Soft Tissue Assessment Soft Tissue Mobility Assessment bilat UT, levator, parascapular muscles tender to palp Joint Mobility Assessment Joint Mobility Assessment R ac joint tenderness upon palp PT-OP-J Posture/Palpation/Skin Start: 12/31/20 16:39 Freq: Status: Active Protocol: Document 01/07/21 08:17 JG (Rec: 01/07/21 09:03 J [id number]) Posture Evaluation Sylvester Postural Classification System Sylvester Postural Classifications Posterior/Anterior Vertebral Compression Test 0 Elbow Flexion Test 0 Lumbar Protective Mechanism Left AP 1 Lumbar Protective Mechanism Right AP 0 Lumbar Protective Mechanism Left PA 1 Lumbar Protective Mechanism Right PA 0 Comments Posture Comments R foot ER, L foot appears aligned, iliac crests level, upper trunk R rot and R side bent, L shld elevated, bilat scap ant shift, L arm more ant compared to R arm, cervical rot to L so head appeared midline PT-OP-K Range of Motion Start: 12/31/20 16:39 Freq: Status: Active Protocol: Document 01/07/21 08:17 JG (Rec: 01/07/21 09:03 J [id number]) Cervical Spine Range of Motion Cervical Spine Active Degrees Flexion 53 Extension 45 Rotation Left 47 Rotation Right 49 Lateral Flexion Left 42 Lateral Flexion Right 43 Comments pain w/R rotation PT-OP-L Special Tests Start: 12/31/20 16:39 Freq: Status: Active Protocol: Document 01/07/21 08:17 JG (Rec: 01/07/21 09:03 J [id number]) Special Tests Cervical Spine Special Tests Traction Test Results pain in R scap region Spurling's Test Test Results neg Neural Special Tests- Upper Body Median Nerve Tension Test Results positive B Ulnar Nerve Tension Test Results positive B Radial Nerve Tension Test Results neg B PT-OP-M Strength Start: 12/31/20 16:39 Freq: Status: Active Protocol: Document 01/07/21 08:17 JG (Rec: 01/07/21 09:03 JG [id number]) Shoulder Strength Shoulder Manual Muscle Testing Right Flexion 3+ Fair+ Extension 3+ Fair+ Abduction (C5) 3 Fair External Rotation 3+ Fair+ Internal Rotation 3+ Fair+ Comments pain w/MMT except ext Left Flexion 3+ Fair+ Extension 4- Good- Abduction (C5) 4- Good- External Rotation 4 Good Internal Rotation 4+ Good+ Elbow/Forearm Strength Elbow and Forearm Manual Muscle Testing Right Flexion (C6) 4+ Good+ Extension (C7) 5 Normal Pronation 5 Normal Supination 5 Normal Left Flexion (C6) 4 Good Extension (C7) 5 Normal Pronation 5 Normal Supination 5 Normal Wrist Strength Wrist Manual Muscle Testing Right Flexion (C7) 4 Good Extension (C6) 4- Good- Ulnar Deviation 4 Good Radial Deviation 5 Normal Comments pain w/wrist flex in shoulder Left Flexion (C7) 5 Normal Extension (C6) 5 Normal Ulnar Deviation 5 Normal Radial Deviation 5 Normal Comments pain in forearm w/flex PT-OP-Q Treatments Start: 12/31/20 16:39 Freq: Status: Active Protocol: Document 01/28/21 15:10 JG (Rec: 01/28/21 15:28 JG [id number]) Therapeutic Exercises Supine Exercises foam roller Supine Exercise Name breathing and gentle rocking side to side Equipment Used full foam roller Comments pt initially slightly nauseous , relaxing/no movement/ breathing eased Pelvic Tilts Supine Exercise Name 1. tilts 2. w/marching Side bilateral Comments added small rolled towel under mid-thoracic spine Prone Exercises open book Side bilateral Reps/Minutes 2x12 Comments added breath at end range Standing Exercises Wall Posture Standing Exercise Name Rolling up segmentally, maintain wall posture w/ breathing, shld rolls Side bilateral Resistance w/shld rolls Comments hands and arms off wall due to increase in symptoms, head not touching wall Manual Therapy Treatment Soft Tissue Mobilization pec Body Location mid-upper pec over sternum Mobilization Type Myofascial Release Intensity/Depth Superficial Body Position Supine Joint Mobilizations sternum Joint sternum/rib Grade I Comments R lateral border of sternum, superior and middle, w/ breathing and supported cervical flexion/flex and L rot PT-OP-T Assessment and Plan Start: 12/31/20 16:39 Freq: Status: Active Protocol: Document 01/28/21 15:10 JG (Rec: 01/28/21 15:28 J [id number]) Physical Therapy Assessment Goals 5 Impairment Exercise Mcc Goal (LTG) pt will be able to participate in 2-3 fitness workouts/week without increase in symptoms to promote cardiovascular health LTG Duration 04/09/21 4 Impairment Pain in neck, shlds, arms Impairment Positive bilat ulnar and median nerve tests: R positive even w/o scap depression and wrist ext, L positive w/wrist ext and scap depression Blasting Machine Operator Goal (LTG) Negative bilat ulnar and median nerve tests w/scap depression and wrist ext so pt can do UE motion without pain LTG Duration 04/09/21 3 Impairment Cervical ROM and pain Impairment Significantly decreased bilat cervical rotation AROM, cervical pain Short Term Goal (STG) Increase pain-free cervical rotation AROM to 60 degrees bilat STG Duration 02/06/21 Mcc Goal (LTG) All cervical ROM is pain-free, pt feels no apprehension during movement, and ROM is WNL so she can supervise her child, drive car, and document at work without pain LTG Duration 04/09/21 2 Impairment Posture Impairment Upper torso right rotation, L shld elevated, R increased side bend Short Term Goal (STG) pt will be able to self- correct posture with min cueing and maintain for 5 minutes without pain or discomfort STG Duration 02/06/21 Mcc Goal (LTG) pt will score 4/5 on VCT demostrating ability to maintain good posture w/o cueing LTG Duration 04/09/21 1 Impairment Work positional tolerance, workstation ergonomics Impairment Unable to document without pain, unable to tolerate long day of working without pain Short Term Goal (STG) Complete and incorporate recommendations from workstation ergo evaluation STG Duration 02/06/21 Blasting Machine Operator Goal (LTG) Able to complete 10 hour work day without pain LTG Duration 04/09/21 Assessment Summary Assessment Pt had felt decreased ribcage discomfort after manual therapy and mobilization. Pt initially became nauseous w/ reintroduction of foam roller, but regained homestasis with gentle breathing. Pt was able to do gentle, limited range lateral rolling on foam roller . Open book was progressed with breathing at end range which also decreased ribcage discomfort. Physical Therapy Plan Frequency and Duration Frequency of Treatment 1-2/week Duration of Treatment 3 months Plan of Care Start Date 01/07/21 Plan of Care End Date 04/09/21 Next Visit Focus/Plan Next Note Type Treatment Note Next Visit Plan review foam roller, prone exercises, quad stability, pelvic tilt+core, manual therapy to cervical, upper back, shld, arm to increase ROM and decrease pain
--- NOTE | 2021-02-11 13:45 | PT.OTN ---
Current Diagnoses Chronic tension-type headache, intractable (02/11/21) Other chronic pain (02/11/21) Cervicalgia (02/11/21) Physical Therapy Treatment Note PT-OP-A Visit Information Start: 12/31/20 16:39 Freq: Status: Active Protocol: Document 02/11/21 09:30 JG (Rec: 02/11/21 09:51 JG [id number]) Out-Patient Physical Therapy Visit Information Visit Information Visit Type Treatment Note Visit Note DENIS Spangler participated in treatment w/direct PT supervision Visit Start Time 09:04 Visit Stop Time 09:45 Total Visit Minutes 41 Visit Number 5 Number of EDGE MOLDER Visits 0 PT-OP-B Current Condition Start: 12/31/20 16:39 Freq: Status: Active Protocol: Document 01/07/21 08:17 JG (Rec: 01/07/21 13:31 JG [id number]) Current Condition History of Current Condition Onset Date 09/20/20 Current Complaints Headache, neck pain, arm pain History of Current Condition pt was seen by PT until May 2020 for back and neck pain which resolved at time of discharge. 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 She felt pain in her upper back and discontinued rowing. pt has had headaches at least 2xmonth since the rowing incident. pt states she feels the headaches come on over several days and will last several days once headaches become painful. Headache is felt at base of skull, moves anterior over top of head, and occ into jaw. Pt has near constant bilat cervical pain and into area superior to scapula as well as lateral forearm pain. Pt has discontinued use of NSAIDs at Dr. Britt's recommendation. Currently Dr. Britt is providing dry needling. Pt denies lighthead, dizziness. Aggrevating factors: work station (laptop at eye level, has to raise arms to type), long days without oppurtunity to change body position or use alleviating tools. Alleviating factors: walking, hot showers, stretching, muscle relaxers. Prior Treatments and Tests x-ray, dry needling, muscle relaxers, OTC NSAIDs Future Testing and Treatments Planned none PT-OP-C Subjective Start: 12/31/20 16:39 Freq: Status: Active Protocol: Document 02/11/21 09:30 JG (Rec: 02/11/21 09:51 JG [id number]) OP-PT Subjective Patient Comments Patient Comments Pt reports decreased neck pain , but typically bodily pain. Pt states she has not had arm numbness or tingling. Pt reports pelvic tilts had increased neck pain last session. PT-OP-F Manual Assessment Start: 12/31/20 16:39 Freq: Status: Active Protocol: Document 01/07/21 08:17 JG (Rec: 01/07/21 18:03 JG [id number]) Manual Assessments Soft Tissue Assessment Soft Tissue Mobility Assessment bilat UT, levator, parascapular muscles tender to palp Joint Mobility Assessment Joint Mobility Assessment R ac joint tenderness upon palp PT-OP-J Posture/Palpation/Skin Start: 12/31/20 16:39 Freq: Status: Active Protocol: Document 01/07/21 08:17 JG (Rec: 01/07/21 09:03 JG [id number]) Posture Evaluation Sylvester Postural Classification System Sylvester Postural Classifications Posterior/Anterior Vertebral Compression Test 0 Elbow Flexion Test 0 Lumbar Protective Mechanism Left AP 1 Lumbar Protective Mechanism Right AP 0 Lumbar Protective Mechanism Left PA 1 Lumbar Protective Mechanism Right PA 0 Comments Posture Comments R foot ER, L foot appears aligned, iliac crests level, upper trunk R rot and R side bent, L shld elevated, bilat scap ant shift, L arm more ant compared to R arm, cervical rot to L so head appeared midline PT-OP-K Range of Motion Start: 12/31/20 16:39 Freq: Status: Active Protocol: Document 01/07/21 08:17 JG (Rec: 01/07/21 09:03 J [id number]) Cervical Spine Range of Motion Cervical Spine Active Degrees Flexion 53 Extension 45 Rotation Left 47 Rotation Right 49 Lateral Flexion Left 42 Lateral Flexion Right 43 Comments pain w/R rotation PT-OP-L Special Tests Start: 12/31/20 16:39 Freq: Status: Active Protocol: Document 01/07/21 08:17 JG (Rec: 01/07/21 09:03 J [id number]) Special Tests Cervical Spine Special Tests Traction Test Results pain in R scap region Spurling's Test Test Results neg Neural Special Tests- Upper Body Median Nerve Tension Test Results positive B Ulnar Nerve Tension Test Results positive B Radial Nerve Tension Test Results neg B PT-OP-M Strength Start: 12/31/20 16:39 Freq: Status: Active Protocol: Document 01/07/21 08:17 JG (Rec: 01/07/21 09:03 JG [id number]) Shoulder Strength Shoulder Manual Muscle Testing Right Flexion 3+ Fair+ Extension 3+ Fair+ Abduction (C5) 3 Fair External Rotation 3+ Fair+ Internal Rotation 3+ Fair+ Comments pain w/MMT except ext Left Flexion 3+ Fair+ Extension 4- Good- Abduction (C5) 4- Good- External Rotation 4 Good Internal Rotation 4+ Good+ Elbow/Forearm Strength Elbow and Forearm Manual Muscle Testing Right Flexion (C6) 4+ Good+ Extension (C7) 5 Normal Pronation 5 Normal Supination 5 Normal Left Flexion (C6) 4 Good Extension (C7) 5 Normal Pronation 5 Normal Supination 5 Normal Wrist Strength Wrist Manual Muscle Testing Right Flexion (C7) 4 Good Extension (C6) 4- Good- Ulnar Deviation 4 Good Radial Deviation 5 Normal Comments pain w/wrist flex in shoulder Left Flexion (C7) 5 Normal Extension (C6) 5 Normal Ulnar Deviation 5 Normal Radial Deviation 5 Normal Comments pain in forearm w/flex PT-OP-Q Treatments Start: 12/31/20 16:39 Freq: Status: Active Protocol: Document 02/11/21 09:30 JG (Rec: 02/11/21 09:51 JG [id number]) Therapeutic Exercises Prone Exercises open book Side bilateral Reps/Minutes 2x12 Comments cue for head turn, knees tucked to torso Standing Exercises Side step w/resistance band in hand Standing Exercise Name hold RB in hands, focus posture and core Side bilateral Resistance L1 Equipment Used wall resistance bands Reps/Minutes x1.5 minutes each side Comments mod cues for toes forward, posture alignment Row Resistance L1 Equipment Used wall resistance bands Reps/Minutes 1x20 Comments max cue for no lumbar ext, scap control, decreased ROM to decrease neck rachel Wall Posture Standing Exercise Name Rolling up segmentally, maintain wall posture w/ breathing, shld rolls Side bilateral Resistance w/shld rolls Comments hands and arms off wall due to increase in symptoms, head not touching wall Other Exercises Quad Other Exercise Name 1. ellyn pose<>quad 2. quad w /UE ext Reps/Minutes x12 each Comments mod cues for scap retraction, pelvic tilt Manual Therapy Treatment Soft Tissue Mobilization cervical Body Location scalenes, anterior neck fascia Mobilization Type Myofascial Release,Strumming, Sustained Pressure Intensity/Depth Moderate Body Position Supine Comments L and R scalenes w/breathing thoracic paraspinals Body Location bilat Mobilization Type Rolling,Sustained Pressure Intensity/Depth Moderate Body Position Supine pec Body Location mid-upper pec over sternum Mobilization Type Myofascial Release Intensity/Depth Superficial Body Position Supine Joint Mobilizations rib Joint 2-5th ribs, anterior Direction caudal Fm PT-OP-T Assessment and Plan Start: 12/31/20 16:39 Freq: Status: Active Protocol: Document 02/11/21 09:30 JG (Rec: 02/11/21 09:51 JG [id number]) Physical Therapy Assessment Goals 5 Impairment Exercise Leather Parts Matcher Goal (LTG) pt will be able to participate in 2-3 fitness workouts/week without increase in symptoms to promote cardiovascular health LTG Duration 04/09/21 4 Impairment Pain in neck, shlds, arms Impairment Positive bilat ulnar and median nerve tests: R positive even w/o scap depression and wrist ext, L positive w/wrist ext and scap depression Leather Parts Matcher Goal (LTG) Negative bilat ulnar and median nerve tests w/scap depression and wrist ext so pt can do UE motion without pain LTG Duration 04/09/21 3 Impairment Cervical ROM and pain Impairment Significantly decreased bilat cervical rotation AROM, cervical pain Short Term Goal (STG) Increase pain-free cervical rotation AROM to 60 degrees bilat STG Duration 02/06/21 Custodial Goal (LTG) All cervical ROM is pain-free, pt feels no apprehension during movement, and ROM is WNL so she can supervise her child, drive car, and document at work without pain LTG Duration 04/09/21 2 Impairment Posture Impairment Upper torso right rotation, L shld elevated, R increased side bend Short Term Goal (STG) pt will be able to self- correct posture with min cueing and maintain for 5 minutes without pain or discomfort STG Duration 02/06/21 Custodial Goal (LTG) pt will score 4/5 on VCT demostrating ability to maintain good posture w/o cueing LTG Duration 04/09/21 1 Impairment Work positional tolerance, workstation ergonomics Impairment Unable to document without pain, unable to tolerate long day of working without pain Short Term Goal (STG) Complete and incorporate recommendations from workstation ergo evaluation STG Duration 02/06/21 Custodial Goal (LTG) Able to complete 10 hour work day without pain LTG Duration 04/09/21 Assessment Summary Assessment Pt completed progression exercises w/good form and min- mod cueing for decrease lumbar ext, scap control. Pt was able to do pelvic tilts in quad w/o increase in neck pain . Manual therapy equalized rib alignment and decreased muscular hypertonicity in cervical and thoracic region. Physical Therapy Plan Frequency and Duration Frequency of Treatment 1-2/week Duration of Treatment 3 months Plan of Care Start Date 01/07/21 Plan of Care End Date 04/09/21 Next Visit Focus/Plan Next Note Type Treatment Note Next Visit Plan continue standing and quad core and posture exercises. MT : anterior and posterior thoracic tissue, anterior and lateral cervical tissue.
--- NOTE | 2021-03-18 14:22 | PT.OTN ---
Current Diagnoses Chronic tension-type headache, intractable (03/18/21) Other chronic pain (03/18/21) Cervicalgia (03/18/21) Physical Therapy Treatment Note PT-OP-A Visit Information Start: 12/31/20 16:39 Freq: Status: Active Protocol: Document 03/18/21 09:48 [facility] (Rec: 03/18/21 14:22 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 She felt pain in her upper back and discontinued rowing. pt has had headaches at least 2xmonth since the rowing incident. pt states she feels the headaches come on over several days and will last several days once headaches become painful. Headache is felt at base of skull, moves anterior over top of head, and occ into jaw. Pt has near constant bilat cervical pain and into area superior to scapula as well as lateral forearm pain. Pt has discontinued use of NSAIDs at Dr. Britt's recommendation. Currently Dr. Britt is providing dry needling. Pt denies lighthead, dizziness. Aggrevating factors: work station (laptop at eye level, has to raise arms to type), long days without oppurtunity to change body position or use alleviating tools. Alleviating factors: walking, hot showers, stretching, muscle relaxers. Prior Treatments and Tests x-ray, dry needling, muscle relaxers, OTC NSAIDs Future Testing and Treatments Planned none PT-OP-C Subjective Start: 12/31/20 16:39 Freq: Status: Active Protocol: Document 03/18/21 09:48 [facility] (Rec: 03/18/21 14:22 [facility] [id number]) OP-PT Subjective Patient Comments Patient Comments Pt is now 9 weeks . She has been doing foam roll and ellyn pose but has been exhausted and nauseus so is very limited. She can no longer take mm relaxors or be on her anxiety med. PT-OP-F Manual Assessment Start: 12/31/20 16:39 Freq: Status: Active Protocol: Document 01/07/21 08:17 JG (Rec: 01/07/21 18:03 J [id number]) Manual Assessments Soft Tissue Assessment Soft Tissue Mobility Assessment bilat UT, levator, parascapular muscles tender to palp Joint Mobility Assessment Joint Mobility Assessment R ac joint tenderness upon palp PT-OP-J Posture/Palpation/Skin Start: 12/31/20 16:39 Freq: Status: Active Protocol: Document 01/07/21 08:17 JG (Rec: 01/07/21 09:03 J [id number]) Posture Evaluation Sylvester Postural Classification System Sylvester Postural Classifications Posterior/Anterior Vertebral Compression Test 0 Elbow Flexion Test 0 Lumbar Protective Mechanism Left AP 1 Lumbar Protective Mechanism Right AP 0 Lumbar Protective Mechanism Left PA 1 Lumbar Protective Mechanism Right PA 0 Comments Posture Comments R foot ER, L foot appears aligned, iliac crests level, upper trunk R rot and R side bent, L shld elevated, bilat scap ant shift, L arm more ant compared to R arm, cervical rot to L so head appeared midline PT-OP-K Range of Motion Start: 12/31/20 16:39 Freq: Status: Active Protocol: Document 03/18/21 09:48 [facility] (Rec: 03/18/21 14:22 [facility] [id number]) Cervical Spine Range of Motion Cervical Spine Active Degrees Flexion 62 Extension 68 Rotation Left 74 Rotation Right 73 Lateral Flexion Left 52 Lateral Flexion Right 53 Comments tightness w/tip to R PT-OP-L Special Tests Start: 12/31/20 16:39 Freq: Status: Active Protocol: Document 03/18/21 09:48 [facility] (Rec: 03/18/21 14:22 [facility] [id number]) Special Tests Neural Special Tests- Upper Body Median Nerve Tension Test Results mild tension B at end range icn w/sb Ulnar Nerve Tension Test Results neg B Radial Nerve Tension Test Results neg B PT-OP-M Strength Start: 12/31/20 16:39 Freq: Status: Active Protocol: Document 03/18/21 09:48 [facility] (Rec: 03/18/21 14:22 [facility] [id number]) Shoulder Strength Shoulder Manual Muscle Testing Right Flexion 4+ Good+ Extension 5 Normal Abduction (C5) 4- Good- External Rotation 4 Good Internal Rotation 5 Normal Left Flexion 5 Normal Extension 5 Normal Abduction (C5) 5 Normal External Rotation 5 Normal Internal Rotation 5 Normal PT-OP-Q Treatments Start: 12/31/20 16:39 Freq: Status: Active Protocol: Document 03/18/21 09:48 [facility] (Rec: 03/18/21 14:22 [facility] [id number]) Gym Equipment Therapeutic Ball seated Ball Size/Color 65cm Body Position Sitting Comments 1. pelvic circles x5 B 2. pelvic tilts x15 3. marches alt x5 B 4. B ER w/Lvl band x15 Therapeutic Exercises Sitting Exercises tracking Sitting Exercise Name eye tracking following finger side to side & up/down Side bilateral Reps/Minutes 3 ea Standing Exercises Wall Posture Standing Exercise Name Rolling up segmentally, maintain wall posture w/ breathing, shoulder ext Side bilateral Other Exercises cat/camel Equipment Used 8 Quad Other Exercise Name alt UE flex Side bilateral Reps/Minutes 3 Comments core focus Manual Therapy Treatment Soft Tissue Mobilization thoracic paraspinals Body Location R>L Mobilization Type Rolling,Sustained Pressure Intensity/Depth Moderate Body Position Sidelying Self-Care/Home Management Treatment Education Other Education edu fro cont HEP as tolerated during and trying small bits of activity to help her feel better. Discussed PT during pregancy for stabilty as needed if she develops pain . PT-OP-T Assessment and Plan Start: 12/31/20 16:39 Freq: Status: Active Protocol: Document 03/18/21 09:48 [facility] (Rec: 03/18/21 14:22 [facility] [id number]) Physical Therapy Assessment Goals 5 Impairment Exercise Business Continuity Planner Goal (LTG) pt will be able to participate in 2-3 fitness workouts/week without increase in symptoms to promote cardiovascular health LTG Duration unable d/t 4 Impairment Pain in neck, shlds, arms Impairment Positive bilat ulnar and median nerve tests: R positive even w/o scap depression and wrist ext, L positive w/wrist ext and scap depression Longterm Goal (LTG) Negative bilat ulnar and median nerve tests w/scap depression and wrist ext so pt can do UE motion without pain LTG Duration neg ulnar n tension, mild med n tension B 3 Impairment Cervical ROM and pain Impairment Significantly decreased bilat cervical rotation AROM, cervical pain Short Term Goal (STG) Increase pain-free cervical rotation AROM to 60 degrees bilat STG Duration achieved Longterm Goal (LTG) All cervical ROM is pain-free, pt feels no apprehension during movement, and ROM is WNL so she can supervise her child, drive car, and document at work without pain LTG Duration achieved 2 Impairment Posture Impairment Upper torso right rotation, L shld elevated, R increased side bend Short Term Goal (STG) pt will be able to self- correct posture with min cueing and maintain for 5 minutes without pain or discomfort STG Duration achieved Business Continuity Planner Goal (LTG) pt will score 4/5 on VCT demostrating ability to maintain good posture w/o cueing LTG Duration n/t but improved postural stability 1 Impairment Work positional tolerance, workstation ergonomics Impairment Unable to document without pain, unable to tolerate long day of working without pain Short Term Goal (STG) Complete and incorporate recommendations from workstation ergo evaluation STG Duration achieved Business Continuity Planner Goal (LTG) Able to complete 10 hour work day without pain LTG Duration achieved -no issues w/work currently Assessment Summary Assessment Pt has not been having much pain recently and has been signfiicantly fatigued and having nausea w/current . Past exercises were reviewed and pt given handout to work on in order to keep mobility and stability. Pt encouraged to returnt o PT if she has pain w/. Physical Therapy Plan Discharge Physical Therapy Discharge Comments pt doing well w/pain at this time
== END 2021-03-19 09:56 ==
LOC: PHYS 09:45
PROVIDERS: Family Provider Student in an Organized Health Care Education/Training Program; PCP Student in an Organized Health Care Education/Training Program; Referring Provider Student in an Organized Health Care Education/Training Program; Visit Provider Student in an Organized Health Care Education/Training Program
DX: M54.2 Cervicalgia (principal); G89.29 Other chronic pain; G44.221 Chronic tension-type headache, intractable
CPT/HCPCS: 97110; 97140; 97162; 97535

== ENCOUNTER → 2021-03-25 10:05 | Outpatient (CLI) | payer OTHER, MEDICAID, SELFPAY ==
[2021-03-25 10:56] LABS: Alanine Aminotransferase 21 IU/L (<35); Albumin 3.8 g/dL (3.5-5.0); Albumin Globulin Ratio 1.5 (1.0-2.8); Alkaline Phosphatase 57 U/L (38-126); Aspartate Aminotransferase 26 IU/L (14-36); Bilirubin Total 0.2 mg/dL (0.2-1.3); Blood Urea Nitrogen 7 mg/dL (7-17); Carbon Dioxide 27 mmol/L (22-32); Chloride 104 mmol/L (98-107); Creatinine Urine Random 189.1 mg/dL; Estimated Glomerular Filt Rate > 60.0 mL/min (>60); Globulin 2.6 g/dL (1.7-4.1); Glucose 78 mg/dL (70-100); HEMOLYSIS < 15 (0-50); Lactate Dehydrogenase 321 U/L (313-618); Potassium 3.7 mmol/L (3.4-5.1); Protein (Total) Urine Random 9 mg/dL (0-12); Protein Creatinine Ratio Urine 0.04 GRAM/24H; Sodium 134 mmol/L (137-145); Total Protein 6.4 g/dL (6.3-8.2); Uric Acid 2.6 mg/dL (2.5-6.2)
[2021-03-25 11:53] LABS: Folate > 20.0 ng/mL (2.76-20.0); Vitamin B12 346 pg/mL (239-931)
== END ==
PROVIDERS: Family Provider Student in an Organized Health Care Education/Training Program; PCP Student in an Organized Health Care Education/Training Program; Referring Provider Obstetrics & Gynecology; Visit Provider Obstetrics & Gynecology
DX: O30.009 Twin pregnancy, unspecified number of placenta and unspecified number of amniotic sacs, unspecified trimester (principal)
CPT/HCPCS: 36415; 80053; 82306; 82570; 82607; 82746; 83615; 84156; 84550

== ENCOUNTER → 2021-04-08 09:29 | Outpatient (CLI) | payer OTHER, MEDICAID, SELFPAY ==
[2021-04-08 10:00] LABS: Specimen Label NATERA
== END ==
PROVIDERS: Family Provider Student in an Organized Health Care Education/Training Program; PCP Student in an Organized Health Care Education/Training Program; Referring Provider Obstetrics & Gynecology; Visit Provider Obstetrics & Gynecology
DX: Z82.79 Family history of other congenital malformations, deformations and chromosomal abnormalities (principal); O30.041 Twin pregnancy, dichorionic/diamniotic, first trimester
CPT/HCPCS: 36415

== ENCOUNTER → 2021-05-06 09:06 | Outpatient (CLI) | payer OTHER, MEDICAID, SELFPAY ==
[2021-05-08 21:25] LABS: AFP Value 54.3 ng/mL (.); Gest Age on Col Date 15.4 weeks (.); Insulin Dep Diabetes No (.); OSBR Risk 1IN 1362 (.); Results Report (.); Test Results *Screen Negative* (.)
== END ==
PROVIDERS: Family Provider Student in an Organized Health Care Education/Training Program; PCP Student in an Organized Health Care Education/Training Program; Referring Provider Obstetrics & Gynecology; Visit Provider Obstetrics & Gynecology
DX: Z34.82 Encounter for supervision of other normal pregnancy, second trimester (principal); Z3A.16 16 weeks gestation of pregnancy
CPT/HCPCS: 36415; 82105

== ENCOUNTER → 2021-06-02 07:32 | Outpatient (CLI) | payer OTHER, MEDICAID, SELFPAY ==
--- NOTE | 2021-06-02 07:35 | DI.US.S_ITS ---
PROCEDURE: US OB >= 14 WEEKS FETUS INDICATIONS: ANATOMY; TWINS OUTSIDE/PRIOR DATING DATA: Last menstrual period (LMP): Unknown LMP-based estimated date of delivery (FREDRICK): Unknown. First dating scan (date and location): 03/11/2021. Estimated date of delivery (FREDRICK) from first dating scan: 10/18/2021. The calculations are made using the ultrasound FREDRICK of 10/18/2021. TECHNIQUE: Real-time scanning was performed of the fetuses, with image documentation and biometric measurements. Endovaginal scanning: Not performed COMPARISON: [facility], , US OB >= 14 WEEKS FETUS, 03/25/2021, 9:58. [facility], , US OB >= 14 WEEKS FETUS, 04/08/2021, 9:23. [facility], , US OB >= 14 WEEKS FETUS, 05/06/2021, 8:47. [facility], , US OB <= 14 WEEKS FETUS, 03/11/2021, 9:29. [facility], , US OB >= 14 WEEKS FETUS, 06/01/2021, 11:57. FINDINGS: General: An intrauterine dichorionic-diamniotic twin is present, as evidenced by separate placentas, differing sexes, or an intervening membrane of greater than 2 mm. Maternal cervical canal: 4.3 cm long. Normal lower limit is 2.5 cm. FETUS A: Fetus is located on the maternal left side, and is in vertex presentation. CHRISTY: 12.9 cm; within normal limits Placental position is posterior , without previa. heart rate: 145 beats per minute. biometrics a small by a at shinto some by a at: Biparietal diameter: 5.3 cm, 22 weeks 0 days Head circumference: 19.0 cm, 21 weeks 2 days Abdominal circumference: 16.0 cm, 21 weeks 0 days Femur length: 3.5 cm, 20 weeks 6 days Clinically estimated gestational age: 20 weeks 2 days Composite gestational age from present scan: 21 weeks 2 days Estimated weight and percentile: 396 g, 85th percentile Anatomic survey: Neuro: Ventricles are normal at less than 10 mm. Cisterna magna is normal at 3-11 mm. Cerebellum is normal in size and morphology. Nuchal skin fold: Normal at less than 6 mm between 14 and 21 weeks gestational age. Face: Facial profile not well seen. Nose and lips well seen. Spine: No evidence for spina bifida. Heart: 4 chambered heart is present, with normal ventricular outflow tracts. Diaphragm: Diaphragm is intact. Stomach: Left-sided stomach is present. Kidneys: Prominent bilateral renal pelves, measuring 6.7 mm on the right and 3.8 mm on the left. Normal ranges are less than 5 mm in 2nd trimester, less than 7 mm in 3rd trimester. Cord: 3 vessel cord . Insertion not well seen.. Bladder: Normal in size. Extremities: All 4 extremities are visualized. FETUS B: Fetus is located on the maternal right side, and is in vertex presentation. CHRISTY: 11.6 cm; within normal limits Placental position is anterior , without previa. heart rate: 135 beats per minute. biometrics: Biparietal diameter: 4.6 cm, 19 weeks 5 days Head circumference: 17.5 cm, 20 weeks 0 days Abdominal circumference: 15.3 cm, 20 weeks 4 days Femur length: 3.3 cm, 20 weeks 3 days Clinically estimated gestational age: 20 weeks 2 days Composite gestational age from present scan: 20 weeks 1 day Estimated weight and percentile: 352 g, 50 second percentile Anatomic survey: Neuro: Ventricles are normal at less than 10 mm. Cisterna magna is normal at 3-11 mm. Cerebellum is normal in size and morphology. Nuchal skin fold: Normal at less than 6 mm between 14 and 21 weeks gestational age. Face: Nose and lips, facial profile are normal. Spine: No evidence for spina bifida. Heart: 4 chambered heart is present, with normal ventricular outflow tracts. Diaphragm: Diaphragm is intact. Stomach: Left-sided stomach is present. Kidneys: No hydronephrosis. Normal ranges are less than 5 mm in 2nd trimester, less than 7 mm in 3rd trimester. Cord: 3 vessel cord has orthotopic insertion. Bladder: Normal in size. Extremities: All 4 extremities are visualized. IMPRESSION: 1. Living diamniotic dichorionic 2nd trimester twin gestation. 2. Fetus A currently measures 7 days greater than clinical age based on initial ultrasound. 3. Fetus A facial profile not well seen, cord insertion not well seen, and bilateral renal pelves are prominent. Right renal pelvis, at 6.7 mm, approaches abnormal dilatation. 4. Fetus B ultrasound age is 1 day less than clinical age based on initial ultrasound. 5. Normal fetus B anatomy. Comment: Recommend the patient return for limited ultrasound to complete the anatomy study of fetus A. We strive to produce accurate, complete, and clear reports of imaging services. To assist us in improving patient care, this report was composed using standard report templates and voice recognition software. Therefore, it may contain abnormal punctuation, insertions and/or omissions. Occasional wrong-word or sound-alike substitutions may occur. Though we review the report and make efforts to correct it, we do recommend that the report be read carefully in proper context to recognize any text inaccuracies. Dictated by: Manas Baltazar M.D. on 06/02/2021 at 11:22 Approved by: Manas Baltazar M.D. on 06/02/2021 at 11:38
== END ==
PROVIDERS: Family Provider Student in an Organized Health Care Education/Training Program; PCP Student in an Organized Health Care Education/Training Program; Referring Provider Obstetrics & Gynecology; Visit Provider Obstetrics & Gynecology
DX: O30.042 Twin pregnancy, dichorionic/diamniotic, second trimester (principal); Z3A.21 21 weeks gestation of pregnancy
CPT/HCPCS: 76811; 76812

== ENCOUNTER 2021-06-15 10:27 | Outpatient (RCR) | payer OTHER, MEDICAID, SELFPAY ==
[2021-06-15 10:40] VITALS: BP 116/74
--- NOTE | 2021-06-15 16:21 | PT.OPPOC ---
Physical, Occupational & Speech Therapy At [facility] Current Diagnoses Low back pain, unspecified (06/15/21) Pain in thoracic spine (06/15/21) Muscle weakness (generalized) (06/15/21) Pelvic and perineal pain (06/15/21) Lower abdominal pain, unspecified (06/15/21) Encounter for supervision of other normal , unspecified trimester (06/15/21) Visit Care Team Role Provider Type Ofelia Ba MD Other Providers Physician Specialty: QUALITY CONTROL ANALYST Address: [address] [place] [address], [id number] Email: Anthony White MD Attending Provider Physician Family Provider Primary Care Provider Referring Provider Specialty: Internal Medicine Address: [address] [place] [address], [address], [address] Email: [email or web address] Plan Of Care PT-OP-T Assessment and Plan Start: 06/11/21 16:39 Freq: Status: Active Protocol: Document 06/15/21 10:40 LRN (Rec: 06/15/21 12:22 LRN [id number]) Physical Therapy Assessment Rehab Potential Rehabilitation Potential Fair Evaluation Complexity Number of Personal Factors/Comorbidities 3 or More Number of Body Systems Impaired 4 or More Clinical Presentation at Evaluation Evolving Impairments Impairments Activity Tolerance,Pain, Posture,ROM,Soft Tissue Mobility,Strength,Transfers Goals 3 Impairment Pelvic pain due to poor core and pelvic strength Impairment Lower abdominal/Pelvic pain rated 6/10. LBP rated 3/10. Neck pain rated 2/10 lateral neck, 3/10 head, posterior neck 4/10. Short Term Goal (STG) Decrease lower abdominal pain with external support as needed and pt educated in pelvic muscle strengthening to meet the challenge of . STG Duration 07/14/21 Penitentiary Goal (LTG) Pt LBP no greater than 3/10 with pt will be able to maintain her core/LE strength to meet the challenge of her . LTG Duration 08/28/21 2 Impairment Poor body mechanics Short Term Goal (STG) Pt will be educated in proper standing posture STG Duration 06/25/21 Heel Emery Buffer Goal (LTG) Pt will be educated and able to demonstrate proper body mechanics for transfers an daily activities that will minimize her pelvic and low back pain. LTG Duration 08/28/21 1 Impairment Lacks appropriate self care HEP. Short Term Goal (STG) Pt will be independent in a home walking program at least 2 times/week. STG Duration 07/02/21 Penitentiary Goal (LTG) Pt will be educated and independent in a self care HEP of core/pelvic stabilization and strengthening exercises at time of discharge. LTG Duration 08/28/21 Assessment Summary Assessment Pt presents with mechanical dysfunction of the low back and pelvis with hyper mobility and pain at the pubic symphysis and low back pain from postural changes (loss of lordosis). She has soft tissue dysfunction causing abodminal pain from most likely round ligament stretching and abdominal tissue stretching. The pt demonstrated poor body mechanics and standing posture and core weakness that also contributes to her overall abdominal and low back pain. It is expected that as the pt progresses in her of twins that she will becomre more uncomfortable and will need to use her belt that she has or one that might better suit her growing abdomen. The pt will benefit from skilled physical therapy for core/pelvis strengthening and stabilization, pt education in self care to achieve the above stated goals . Physical Therapy Plan Frequency and Duration Frequency of Treatment 1x/Week Plan of Care Start Date 06/15/21 Plan of Care End Date 08/28/21 Therapeutic Interventions Therapeutic Interventions Aquatic Therapy,Home Exercise Program,Joint Mobilizations, Manual Therapy,Neuromuscular Re-education,Patient/Caregiver Education,Self-Care/Home Management,Soft Tissue Mobilization,Therapeutic Activities,Therapeutic Exercises Modalities Cold Pack/Ice Massage Next Visit Focus/Plan Next Note Type Treatment Note Next Visit Plan Assess & balance pelvis, assess strength of hip AB Strengthen hip ER/AB, TA/core, Postural training (standing/ sitting) and postural correction ex's. General conditioning. HEP. Plan of Care Dates Plan of Care Start Date 06/15/21 Plan of Care End Date 08/28/21 Electronically Signed by: Ольга Gurrola, PT 06/17/21 3048 If you are in agreement with this Plan of Care, please return a signed and dated copy. I have reviewed this Plan of Care and certify that the skilled therapy services above are required to meet the patient?s needs. Physician Signature Date Printed Name and Credentials Clinical Instructor Signature Printed Name and Credentials
--- NOTE | 2021-06-15 16:21 | PT.OIE ---
Current Diagnoses Low back pain, unspecified (06/15/21) Pain in thoracic spine (06/15/21) Muscle weakness (generalized) (06/15/21) Pelvic and perineal pain (06/15/21) Lower abdominal pain, unspecified (06/15/21) Encounter for supervision of other normal , unspecified trimester (06/15/21) Past Medical History (Last Updated 06/10/21 @ 09:23 by Matt Britt DO) Acute right-sided low back pain Acute tension-type headache Acute thoracic back pain Anxiety associated with depression (~2019) Body posture problem Cellulitis Cervical somatic dysfunction Chronic neck pain (~2019) Cranial somatic dysfunction Elevated blood pressure reading without diagnosis of hypertension History of tonsillectomy (~2004) Hx of dilation and curettage Lumbar region somatic dysfunction Major depression Neck stiffness No pertinent past surgical history No significant past medical history Pelvic pain affecting in second trimester, antepartum Pelvic somatic dysfunction Rib pain on right side Sacral region somatic dysfunction Segmental and somatic dysfunction of abdomen and other regions Segmental and somatic dysfunction of rib cage Thoracic region somatic dysfunction Viral syndrome Past Surgical History (Last Updated 03/08/21 @ 07:40 by Pily Navarro RN) History of tonsillectomy (~2004) Hx of dilation and curettage No pertinent past surgical history Visit Care Team Role Provider Type Ofelia Ba MD Other Providers 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 Address: [address] [place] [address] Email: Anthony White MD Attending Provider Physician Family Provider Primary Care Provider Referring Provider Specialty: Internal Medicine Address: [address] [place] [address], [address], [place], [facility] Email: [email or web address] Physical Therapy Initial Evaluation PT-OP-A Visit Information Start: 06/11/21 16:39 Freq: Status: Active Protocol: Document 06/15/21 10:40 LRN (Rec: 06/15/21 12:22 LRN [id number]) Out-Patient Physical Therapy Visit Information Visit Information Visit Type Initial Evaluation Visit Start Time 10:40 Visit Stop Time 11:22 Total Visit Minutes 42 Visit Number 1 Evaluation Information Evaluation Date 06/15/21 Precautions Precautions Pt is 22-23 weeks ( due date end of September), Per health history intake form : depression, dizziness, headaches, neck pain PT-OP-B Current Condition Start: 06/11/21 16:39 Freq: Status: Active Protocol: Document 06/15/21 10:40 LRN (Rec: 06/15/21 12:22 LRN [id number]) Current Condition History of Current Condition Onset Date 6 weeks ago Current Complaints Pelvic pain along groin, neck pain, and sometimes back pain History of Current Condition Pelvic pain started 6 weeks ago. Hx of moving wrong and causing pain. Picked up 5 yr old son and sacrum popped out , but was repositioned after [address] Britt[address] Britt for OMT 1x/ month for related things. Starting in July will see weekly. Normally has LBP and neck pain . Has been to PT for back and neck and was successfully treated with minimal discomfort lingering. 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 Prior Treatments and Tests Dr. Britt for OMT for neck and helped 5%. 3-4 weeks ago saw a chiropractor and has since has had a headache and plans not to go back. STates her pelvic bone was fixed but adjusted neck and back and the neck got worse. Treatment Goals Patient/Caregiver Goals PT goal is to stay upright, learn good body mechanics while . Keep strength she has. Prior Functional Status Baseline Function- ADL's Independent Baseline Function- Mobility Independent Baseline Function- Other Spouse does taking out garbage and walking dog and lifting in the house. No instability of pelvis or pelvic pain previously. Current Functional Impairments (Reported) Functional Limitations- ADL's Pain in lower abdomen/groin with lifting, squatting, moving wrong. Personal Factors Other Personal Factors That May Effect Pt has 5 yr old at home and is Therapy/Recovery currently 22-23 weeks with twins, due date at end of September. Pt is and works as medical assist at [employer], work with pediatric patients, is planning on reducing work hours soon. PT-OP-C Subjective Start: 06/11/21 16:39 Freq: Status: Active Protocol: Document 06/15/21 10:40 LRN (Rec: 06/15/21 12:22 LRN [id number]) Patient Questionnaires Oswestry Low Back Index Oswestry Score 20 Oswestry Impairment 20 to 39% Impaired (Score 20- 39) OP-PT Pain Assessment Pain Assessment Grid Paper Pain Assessment Grid Completed Yes Location Neck pain Pain Location Details posterior and lateral neck Intensity 4 Scale Used Numeric (0 - 10) Description Aching,Cramping Description- Other Headaches, Pelvis Pain Location Details Anterior groin Intensity 6 Scale Used Numeric (0 - 10) back pain Pain Location Details Low back Intensity 3 Scale Used Numeric (0 - 10) Description Aching,Cramping Description- Other Grinding. Frequency Constant Pain Duration Prior to preg, had poor posture, was able to manage the pain rated 1-2/10. Comments Pain Comments Sharp pain when walking, when at rest most of the time feels bruise. Does exers to reset her pelvis, and has relief for 1/2 the day. Has been able to keep it under a CRYING PAIN of 8-9/10. PT-OP-H Neuro Start: 06/11/21 16:39 Freq: Status: Active Protocol: Document 06/15/21 10:40 LRN (Rec: 06/15/21 12:22 LRN [id number]) Sensation Evaluation Gross Sensation Gross Sensation WNL Vital Signs Blood Pressure Sitting Blood Pressure (90/60-120/80 mmHg) 116/74 PT-OP-J Posture/Palpation/Skin Start: 06/11/21 16:39 Freq: Status: Active Protocol: Document 06/15/21 10:40 LRN (Rec: 06/15/21 12:22 LRN [id number]) Posture Evaluation Position Standing Head/C-Spine Posture Forward Head T-Spine Posture Flattened L-Spine Posture Flattened Shoulder Posture (L) Elevated Knee Posture (L) Genu Valgus,(R) Genu Valgus Comments Posture Comments Sway back, neck shifted right, dowagers hump, Curvature of T /S apex is at T6-T7, abdomen shifted right. (R handed) Palpation Assessment Location Lower abdomen Palpation Location Pubic Symphysis & round ligament bilaterally at groin Palpation Findings Tenderness PT-OP-K Range of Motion Start: 06/11/21 16:39 Freq: Status: Active Protocol: Document 06/15/21 10:40 LRN (Rec: 06/15/21 12:22 LRN [id number]) Lumbar Spine Range of Motion Lumbar Spine Active Degrees Testing Position Standing Flexion 75 Rotation Left 20 Rotation Right 20 Lateral Flexion Left 25 Lateral Flexion Right 12 Comments posterior tilt of pelvis hip flexion is 60 deg's with trunk flex deferred testing extension due to . Hip Goniometric Range of Motion Hip Right Active Testing Position Sitting Internal Rotation 40 External Rotation 30 Comments ROM is approximate, not measure in supine due to decreased toleranc to supine lying. Left Active Testing Position Sitting Internal Rotation 40 External Rotation 30 Comments ROM is approximate, not measure in supine due to decreased toleranc to supine lying. PT-OP-M Strength Start: 06/11/21 16:39 Freq: Status: Active Protocol: Document 06/15/21 10:40 LRN (Rec: 06/15/21 12:22 LRN [id number]) Trunk Strength Trunk Manual Muscle Testing Core Stabilization Pt not able maintain core stability with testing of hip flexion strength Hip Strength Hip Manual Muscle Testing Right Flexion (L2) 3 Fair External Rotation 3 Fair Internal Rotation 5 Normal Comments Discomfort at pubic symphysis with active ER. Deferred further testing due to condition and pain. Left Flexion (L2) 3+ Fair+ External Rotation 3 Fair Internal Rotation 5 Normal Comments Discomfort at pubic symphysis with active ER Deferred further testing due to condition and pain. PT-OP-Q Treatments Start: 06/11/21 16:39 Freq: Status: Active Protocol: Document 06/15/21 10:40 LRN (Rec: 06/15/21 12:22 LRN [id number]) Therapeutic Exercises Sidelying Exercises TA tightening Sidelying Exercise Name TA tightening only in L sidelie due to SOB in R sidelie. Side bilateral Reps/Minutes 5 H x 5 in R sidelie & 10x in L sidelie Sitting Exercises Isometric BKFO Sitting Exercise Name Isometric BKFO Equipment Used Manual resist with training to use TB Reps/Minutes 2' Self-Care/Home Management Treatment Education Patient Education Body Mechanics,Pain Management Other Education Educated in proper standing posture (feet closer together and toes pointing fwd) to minimize pelvic pain. Discussed use of belt that pt already owns. Educated pt in use of LE's/ squatting to reach down vs bending and low back. Educated pt in hip hinging for transfers. Educated pt in equal WBing into ischial tuberosities in sitting and equal WBing into feet when standing. Educated pt in reducing pain at pubic symphysis with sitting isometric hip ER using TBand as resistance at work. Discussed results of evaluation, specifics of plan of care, and goals, pt agreeable to POC and goals. Activities Self-Care/Home Management Activities Issued Lev 2 TBand for sitting isometric hip ER. I/S pt in TA strengthening in sitting and L sidelie, recommending only L sidelie due to pt complaints of SOB in R sidelie. PT-OP-T Assessment and Plan Start: 06/11/21 16:39 Freq: Status: Active Protocol: Document 06/15/21 10:40 LRN (Rec: 06/15/21 12:22 LRN [id number]) Physical Therapy Assessment Rehab Potential Rehabilitation Potential Fair Evaluation Complexity Number of Personal Factors/Comorbidities 3 or More Number of Body Systems Impaired 4 or More Clinical Presentation at Evaluation Evolving Impairments Impairments Activity Tolerance,Pain, Posture,ROM,Soft Tissue Mobility,Strength,Transfers Goals 3 Impairment Pelvic pain due to poor core and pelvic strength Impairment Lower abdominal/Pelvic pain rated 6/10. LBP rated 3/10. Neck pain rated 2/10 lateral neck, 3/10 head, posterior neck 4/10. Short Term Goal (STG) Decrease lower abdominal pain with external support as needed and pt educated in pelvic muscle strengthening to meet the challenge of . STG Duration 07/14/21 Leak Inspector Goal (LTG) Pt LBP no greater than 3/10 with pt will be able to maintain her core/LE strength to meet the challenge of her . LTG Duration 08/28/21 2 Impairment Poor body mechanics Short Term Goal (STG) Pt will be educated in proper standing posture STG Duration 06/25/21 Prison Goal (LTG) Pt will be educated and able to demonstrate proper body mechanics for transfers an daily activities that will minimize her pelvic and low back pain. LTG Duration 08/28/21 1 Impairment Lacks appropriate self care HEP. Short Term Goal (STG) Pt will be independent in a home walking program at least 2 times/week. STG Duration 07/02/21 Prison Goal (LTG) Pt will be educated and independent in a self care HEP of core/pelvic stabilization and strengthening exercises at time of discharge. LTG Duration 08/28/21 Assessment Summary Assessment Pt presents with mechanical dysfunction of the low back and pelvis with hyper mobility and pain at the pubic symphysis and low back pain from postural changes (loss of lordosis). She has soft tissue dysfunction causing abodminal pain from most likely round ligament stretching and abdominal tissue stretching. The pt demonstrated poor body mechanics and standing posture and core weakness that also contributes to her overall abdominal and low back pain. It is expected that as the pt progresses in her of twins that she will becomre more uncomfortable and will need to use her belt that she has or one that might better suit her growing abdomen. The pt will benefit from skilled physical therapy for core/pelvis strengthening and stabilization, pt education in self care to achieve the above stated goals . Physical Therapy Plan Frequency and Duration Frequency of Treatment 1x/Week Plan of Care Start Date 06/15/21 Plan of Care End Date 08/28/21 Therapeutic Interventions Therapeutic Interventions Aquatic Therapy,Home Exercise Program,Joint Mobilizations, Manual Therapy,Neuromuscular Re-education,Patient/Caregiver Education,Self-Care/Home Management,Soft Tissue Mobilization,Therapeutic Activities,Therapeutic Exercises Modalities Cold Pack/Ice Massage Next Visit Focus/Plan Next Note Type Treatment Note Next Visit Plan Assess & balance pelvis, assess strength of hip AB Strengthen hip ER/AB, TA/core, Postural training (standing/ sitting) and postural correction ex's. General conditioning. HEP.
--- NOTE | 2021-08-27 15:49 | PT.OPDS ---
Current Diagnoses Low back pain, unspecified (06/15/21) Pain in thoracic spine (06/15/21) Muscle weakness (generalized) (06/15/21) Pelvic and perineal pain (06/15/21) Lower abdominal pain, unspecified (06/15/21) Encounter for supervision of other normal , unspecified trimester (06/15/21) Visit Care Team Role Provider Type Ofelia Ba MD Other Providers Physician Specialty: [employer] Address: [address] [place] [address], [id number] Email: Anthony White MD Attending Provider Physician Family Provider Primary Care Provider Referring Provider Specialty: Internal Medicine Address: [address] [place] [address], [address], [place], [address] Email: [email or web address] Visit Number Visit Number 1 Discharge Summary PT-OP-B Current Condition Start: 06/11/21 16:39 Freq: Status: Active Protocol: Document 06/15/21 10:40 LRN (Rec: 06/15/21 12:22 LRN [id number]) Current Condition History of Current Condition Onset Date 6 weeks ago Current Complaints Pelvic pain along groin, neck pain, and sometimes back pain History of Current Condition Pelvic pain started 6 weeks ago. Hx of moving wrong and causing pain. Picked up 5 yr old son and sacrum popped out , but was repositioned after [address] Britt[address] Britt for OMT 1x/ month for related things. Starting in July will see weekly. Normally has LBP and neck pain . Has been to PT for back and neck and was successfully treated with minimal discomfort lingering. 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 Prior Treatments and Tests Dr. Britt for OMT for neck and helped 5%. 3-4 weeks ago saw a chiropractor and has since has had a headache and plans not to go back. STates her pelvic bone was fixed but adjusted neck and back and the neck got worse. Treatment Goals Patient/Caregiver Goals PT goal is to stay upright, learn good body mechanics while . Keep strength she has. Prior Functional Status Baseline Function- ADL's Independent Baseline Function- Mobility Independent Baseline Function- Other Spouse does taking out garbage and walking dog and lifting in the house. No instability of pelvis or pelvic pain previously. Current Functional Impairments (Reported) Functional Limitations- ADL's Pain in lower abdomen/groin with lifting, squatting, moving wrong. Personal Factors Other Personal Factors That May Effect Pt has 5 yr old at home and is Therapy/Recovery currently 22-23 weeks with twins, due date at end of September. Pt is and works as medical assist at [employer], work with pediatric patients, is planning on reducing work hours soon. PT-OP-C Subjective Start: 06/11/21 16:39 Freq: Status: Active Protocol: Document 06/15/21 10:40 LRN (Rec: 06/15/21 12: LRN [id number]) Patient Questionnaires Oswestry Low Back Index Oswestry Score 20 Oswestry Impairment 20 to 39% Impaired (Score 20- 39) OP-PT Pain Assessment Pain Assessment Grid Paper Pain Assessment Grid Completed Yes Location Neck pain Pain Location Details posterior and lateral neck Intensity 4 Scale Used Numeric (0 - 10) Description Aching,Cramping Description- Other Headaches, Pelvis Pain Location Details Anterior groin Intensity 6 Scale Used Numeric (0 - 10) back pain Pain Location Details Low back Intensity 3 Scale Used Numeric (0 - 10) Description Aching,Cramping Description- Other Grinding. Frequency Constant Pain Duration Prior to preg, had poor posture, was able to manage the pain rated 1-2/10. Comments Pain Comments Sharp pain when walking, when at rest most of the time feels bruise. Does exers to reset her pelvis, and has relief for 1/2 the day. Has been able to keep it under a CRYING PAIN of 8-9/10. PT-OP-H Neuro Start: 06/11/21 16:39 Freq: Status: Active Protocol: Document 06/15/21 10:40 LRN (Rec: 06/15/21 12:22 LRN [id number]) Sensation Evaluation Gross Sensation Gross Sensation WNL Vital Signs Blood Pressure Sitting Blood Pressure (90/60-120/80 mmHg) 116/74 PT-OP-J Posture/Palpation/Skin Start: 06/11/21 16:39 Freq: Status: Active Protocol: Document 06/15/21 10:40 LRN (Rec: 06/15/21 12:22 LRN [id number]) Posture Evaluation Position Standing Head/C-Spine Posture Forward Head T-Spine Posture Flattened L-Spine Posture Flattened Shoulder Posture (L) Elevated Knee Posture (L) Genu Valgus,(R) Genu Valgus Comments Posture Comments Sway back, neck shifted right, dowagers hump, Curvature of T /S apex is at T6-T7, abdomen shifted right. (R handed) Palpation Assessment Location Lower abdomen Palpation Location Pubic Symphysis & round ligament bilaterally at groin Palpation Findings Tenderness PT-OP-K Range of Motion Start: 06/11/21 16:39 Freq: Status: Active Protocol: Document 06/15/21 10:40 LRN (Rec: 06/15/21 12:22 LRN [id number]) Lumbar Spine Range of Motion Lumbar Spine Active Degrees Testing Position Standing Flexion 75 Rotation Left 20 Rotation Right 20 Lateral Flexion Left 25 Lateral Flexion Right 12 Comments posterior tilt of pelvis hip flexion is 60 deg's with trunk flex deferred testing extension due to . Hip Goniometric Range of Motion Hip Right Active Testing Position Sitting Internal Rotation 40 External Rotation 30 Comments ROM is approximate, not measure in supine due to decreased toleranc to supine lying. Left Active Testing Position Sitting Internal Rotation 40 External Rotation 30 Comments ROM is approximate, not measure in supine due to decreased toleranc to supine lying. PT-OP-M Strength Start: 06/11/21 16:39 Freq: Status: Active Protocol: Document 06/15/21 10:40 LRN (Rec: 06/15/21 12:22 LRN [id number]) Trunk Strength Trunk Manual Muscle Testing Core Stabilization Pt not able maintain core stability with testing of hip flexion strength Hip Strength Hip Manual Muscle Testing Right Flexion (L2) 3 Fair External Rotation 3 Fair Internal Rotation 5 Normal Comments Discomfort at pubic symphysis with active ER. Deferred further testing due to condition and pain. Left Flexion (L2) 3+ Fair+ External Rotation 3 Fair Internal Rotation 5 Normal Comments Discomfort at pubic symphysis with active ER Deferred further testing due to condition and pain. PT-OP-T Assessment and Plan Start: 06/11/21 16:39 Freq: Status: Active Protocol: Document 08/27/21 15:46 LRN (Rec: 08/27/21 15:49 LRN [id number]) Physical Therapy Assessment Assessment Summary Assessment Pt was only seen for initial visit 06/15/21. Pt did not return for further therapy and called to request discharge due to being placed on bedrest . No further therapy planned. Pt did not meet her goals due to being placed on bedrest and unable to complete PT program. Physical Therapy Plan Discharge Physical Therapy Discharge Reasons Patient Request Discharge Comments Thank you for your referral.
== END 2021-08-31 12:57 ==
LOC: PHYS 10:27
PROVIDERS: Family Provider Student in an Organized Health Care Education/Training Program; PCP Student in an Organized Health Care Education/Training Program; Referring Provider Student in an Organized Health Care Education/Training Program; Visit Provider Student in an Organized Health Care Education/Training Program
DX: Z34.80 Encounter for supervision of other normal pregnancy, unspecified trimester (principal); M54.6 Pain in thoracic spine; R10.30 Lower abdominal pain, unspecified; R10.2 Pelvic and perineal pain; M54.50 Low back pain, unspecified; M62.81 Muscle weakness (generalized)
CPT/HCPCS: 97162; 97535

== ENCOUNTER → 2021-07-05 14:11 | Outpatient (CLI) | payer OTHER, MEDICAID, SELFPAY ==
--- NOTE | 2021-07-05 15:12 | DI.US.S_ITS ---
PROCEDURE: US OB FOLLOW UP INDICATIONS: FOLLOW UP ANATOMY SCAN OUTSIDE/PRIOR DATING DATA: First dating scan (date and location): 03/11/2021. Estimated date of delivery (FREDRICK) from first dating scan: 10/18/2021. The calculations are made using the ultrasound FREDRICK of 10/18/2021. TECHNIQUE: Real-time scanning was performed of the fetuses, with image documentation and biometric measurements. COMPARISON: [facility], [place], US OB >= 14 WEEKS FETUS, 06/01/2021, 11:57. [facility], US, US OB >= 14 WEEKS FETUS, 06/14/2021, 8:36. [facility], US, US OB >= 14 WEEKS FETUS, 06/28/2021, 9:25. FINDINGS: General: An intrauterine dichorionic-diamniotic twin is present, as evidenced by separate placentas, differing sexes, or an intervening membrane of greater than 2 mm. Composite amniotic fluid index: Not obtained. Maternal cervical canal: 4.1 cm long. Normal lower limit is 2.5 cm. FETUS A: Fetus is located on the maternal left side, and is in vertex presentation. Largest amniotic fluid pocket: 6.2 cm, normal is 2-8 cm. Placental position is posterior , without previa. heart rate: 168 beats per minute. biometrics: Biparietal diameter: 26 weeks 4 days Head circumference: 26 weeks Abdominal circumference: 25 weeks 3 days Femur length: 25 weeks 3 days Clinically estimated gestational age: 25 Composite gestational age from present scan: Mild joint narrowing with periarticular osteophyte formation. 5 weeks 6 days Estimated weight and percentile: 80 18 g, 63rd percentile Normal appearance of the facial profile and placental cord insertion site. Mild bilateral renal pyelectasis measuring up to 4.9 mm on the right and 6.2 mm on the left. FETUS B: Fetus is located on the maternal right side, and is in vertex presentation. Largest amniotic fluid pocket: 4.6 cm, normal is 2-8 cm. Placental position is anterior, without previa. heart rate: 140 beats per minute. biometrics: Biparietal diameter: 24 weeks 1 day Head circumference: 24 weeks 6 days Abdominal circumference: 26 weeks 1 day Femur length: 25 weeks 5 days Clinically estimated gestational age: 25 weeks Composite gestational age from present scan: 25 weeks 2 days Estimated weight and percentile: 844 g, 70 second percentile IMPRESSION: 1. Diamniotic dichorionic living twin gestation and interval growth is normal for each fetus with estimated weight for fetus A 63rd percentile and 72 percentile for fetus B. 2. Anatomic survey complete for fetus A which was incomplete on prior exam. We strive to produce accurate, complete, and clear reports of imaging services. To assist us in improving patient care, this report was composed using standard report templates and voice recognition software. Therefore, it may contain abnormal punctuation, insertions and/or omissions. Occasional wrong-word or sound-alike substitutions may occur. Though we review the report and make efforts to correct it, we do recommend that the report be read carefully in proper context to recognize any text inaccuracies. Dictated by: Librado OSCAR Interpreted: Ray Shipman MD on 07/05/2021 at 16:54 Transcribed by: CHUYITA on 07/07/2021 at 10:46 Approved by: Manas Baltazar M.D. on 07/07/2021 at 11:13
== END ==
PROVIDERS: Family Provider Student in an Organized Health Care Education/Training Program; PCP Student in an Organized Health Care Education/Training Program; Referring Provider Obstetrics & Gynecology; Visit Provider Obstetrics & Gynecology
DX: O30.042 Twin pregnancy, dichorionic/diamniotic, second trimester (principal); Z36.2 Encounter for other antenatal screening follow-up; Z3A.25 25 weeks gestation of pregnancy
CPT/HCPCS: 76816

== ENCOUNTER → 2021-07-14 14:49 | Outpatient (CLI) | payer OTHER, MEDICAID, SELFPAY ==
[2021-07-14 16:39] LABS: Add Manual Diff / Slide Review NO; Basophils Absolute Auto 0 /uL (0-100); Basophils Percent Auto 0.3 % (0-2); Eosinophils Absolute Auto 300 /uL (0-450); Eosinophils Percent Auto 2.5 % (2-4); Hematocrit 34.5 % (36-46); Hemoglobin 12.2 g/dL (12.0-16.0); Lymphocytes Absolute Auto 1800 /uL (1100-4500); Lymphocytes Percent Auto 16.3 % (25-40); Mean Corpuscular HGB Conc 35.3 % (30-36); Mean Corpuscular Hemoglobin 32.7 PG (26-34); Mean Corpuscular Volume 92.5 fL (80-100); Monocytes Absolute Auto 900 /uL (0-900); Monocytes Percent Auto 7.8 % (3-14); Neutrophils Absolute Auto 8000 /uL (1500-7000); Neutrophils Percent Auto 73.1 % (50-75); Platelet Count 156 X10^3/uL (150-400); Red Blood Cell Count 3.73 X10^6/uL (4.0-5.2); Red Cell Distribution Width 13.6 % (11.6-14.8)
[2021-07-14 16:53] LABS: GTT (PREG) 1 Hour PP 50gm Dose 122 mg/dL (76-139)
[2021-07-14 18:08] LABS: Alanine Aminotransferase 16 IU/L (<35); Albumin 3.2 g/dL (3.5-5.0); Albumin Globulin Ratio 1.1 (1.0-2.8); Alkaline Phosphatase 84 U/L (38-126); Aspartate Aminotransferase 43 IU/L (14-36); Bilirubin Total 0.4 mg/dL (0.2-1.3); Blood Urea Nitrogen 8 mg/dL (7-17); Carbon Dioxide 24 mmol/L (22-32); Chloride 102 mmol/L (98-107); Estimated Glomerular Filt Rate > 60 mL/min (>60); Globulin 2.8 g/dL (1.7-4.1); Glucose 121 mg/dL (70-100); HEMOLYSIS < 15 (0-50); Potassium 3.2 mmol/L (3.4-5.1); Sodium 135 mmol/L (137-145)
== END ==
PROVIDERS: Family Medicine; Family Provider Student in an Organized Health Care Education/Training Program; PCP Student in an Organized Health Care Education/Training Program; Referring Provider Obstetrics & Gynecology; Visit Provider Obstetrics & Gynecology
DX: O16.2 Unspecified maternal hypertension, second trimester (principal); Z3A.26 26 weeks gestation of pregnancy
CPT/HCPCS: 36415; 80053; 82950; 85025

== ENCOUNTER → 2021-08-09 14:35 | Outpatient (CLI) | payer OTHER, MEDICAID, SELFPAY ==
--- NOTE | 2021-08-09 14:37 | DI.US.S_ITS ---
PROCEDURE: US OB FOLLOW UP INDICATIONS: FOLLOW UP FETUS A RENAL PYELECTASIS SEEN ON ANATOMY OUTSIDE/PRIOR DATING DATA: First dating scan (date and location): 03/11/2021. Estimated date of delivery (FREDRICK) from first dating scan: 10/18/2021. The calculations are made using the ultrasound FREDRICK of 10/18/2021. TECHNIQUE: Real-time scanning was performed of the fetuses, with image documentation and biometric measurements. COMPARISON: [facility], [place], OB FOLLOW UP, 07/05/2021, 16:16. FINDINGS: General: An intrauterine dichorionic-diamniotic twin is present, as evidenced by separate placentas, differing sexes, or an intervening membrane of greater than 2 mm. Maternal cervical canal: 4.8 cm long. Normal lower limit is 2.5 cm. FETUS A: Fetus is located on the maternal left side, and is in vertex presentation. Largest amniotic fluid pocket: 6.0 cm, normal is 2-8 cm. Placental position is posterior , without previa. heart rate: 155 beats per minute. biometrics: Biparietal diameter: 32 weeks 5 days Head circumference: 31 weeks 4 days Abdominal circumference: 31 weeks 1 day Femur length: 30 weeks 1 day Clinically estimated gestational age: 30 weeks Composite gestational age from present scan: 31 weeks 3 days Estimated weight and percentile: 1678 g; 74th percentile FETUS B: Fetus is located on the maternal right side, and is in breech presentation. Largest amniotic fluid pocket: 6.8 cm, normal is 2-8 cm. Placental position is anterior, without previa. heart rate: 155 beats per minute. biometrics: Biparietal diameter: 30 weeks Head circumference: 30 weeks Abdominal circumference: 30 weeks 4 days Femur length: 30 weeks Clinically estimated gestational age: 30 weeks Composite gestational age from present scan: 30 weeks 3 days Estimated weight and percentile: 1559 g; 53rd percentile IMPRESSION: 1. Living twin dichorionic diamniotic and interval growth is normal as above. 2. No renal pyelectasis present in fetus A or fetus B. We strive to produce accurate, complete, and clear reports of imaging services. To assist us in improving patient care, this report was composed using standard report templates and voice recognition software. Therefore, it may contain abnormal punctuation, insertions and/or omissions. Occasional wrong-word or sound-alike substitutions may occur. Though we review the report and make efforts to correct it, we do recommend that the report be read carefully in proper context to recognize any text inaccuracies. Dictated by: Librado OSCAR Interpreted: Wiley Barone MD on 08/09/2021 at 16:40 Transcribed by: SAMIRA on 08/09/2021 at 16:45 Approved by: Wiley Barone M.D. on 08/09/2021 at 17:00
== END ==
PROVIDERS: Family Provider Student in an Organized Health Care Education/Training Program; PCP Student in an Organized Health Care Education/Training Program; Referring Provider Obstetrics & Gynecology; Visit Provider Obstetrics & Gynecology
DX: Z36.2 Encounter for other antenatal screening follow-up (principal); O30.043 Twin pregnancy, dichorionic/diamniotic, third trimester; O35.8XX0 Maternal care for other (suspected) fetal abnormality and damage, not applicable or unspecified; Z3A.31 31 weeks gestation of pregnancy
CPT/HCPCS: 76812; 76816

== ENCOUNTER 2021-08-24 17:11 | Outpatient (CLI) | payer OTHER, MEDICAID, SELFPAY ==
--- NOTE | 2021-08-24 18:11 | PM.OBTRLD ---
Visit Information Visit Information Date of evaluation: 08/24/21 Primary OB Provider: Ofelia Ba Reason for Evaluation: Yes non-stress test Comments/Additional reasons for admission: Patient is 32 weeks with di/di TIUP, for scheduled NST. Vital Signs Vital Signs: 121/71, HR 88 PFSH Medical History (Updated 07/20/21 @ 12:57 by Matt Britt DO) Acute right-sided low back pain Acute tension-type headache Acute thoracic back pain Anxiety associated with depression (~2019) Body posture problem Cellulitis Cervical somatic dysfunction Chronic neck pain (~2019) Cranial somatic dysfunction Elevated blood pressure reading without diagnosis of hypertension Lumbar region somatic dysfunction Major depression Neck stiffness No significant past medical history Pelvic pain affecting in second trimester, antepartum Pelvic somatic dysfunction Rib pain on right side Sacral region somatic dysfunction Segmental and somatic dysfunction of abdomen and other regions Segmental and somatic dysfunction of rib cage Thoracic region somatic dysfunction Viral syndrome Surgical History (Updated 03/08/21 @ 07:40 by Pily Navarro, RN) History of tonsillectomy (~2004) Hx of dilation and curettage No pertinent past surgical history Family History (Updated 03/08/21 @ 07:44 by Pily Navarro, HIRO) Mother PTSD (post-traumatic stress disorder) Anxiety TBI (traumatic brain injury) Mental health problem Preeclampsia Brother Down syndrome Grandfather Diabetes mellitus Grandmother Cancer Social History marital status: unmarried,single number of children: 1 household members: family lives independently: Yes caregiver/support person: Yes housing: house pets and animals: Yes (Dog) education level: college occupational status: student current occupational exposures/hazards: No seatbelt use: always water heater temp set < 120 deg: Yes working smoke detector in home: Yes fire extinguisher in home: Yes carbon monox detector in home: Yes firearms in home: No do you feel safe at home: No Smoking Status: Former smoker Tobacco: How many years used: 5 second hand exposure: Yes (rare by mother in law) alcohol intake: never substance use type: does not use and former substance user during the past year weight has: increased > 10 lbs well-balanced diet: about half the time daily servings fruits/ve-4 caffeine: Yes (Not right now, not feeling well) Evaluation Evaluation Baseline heart rate: 155 Variability: Moderate (11-25) monitor accelerations: Present Monitor Decelerations: Absent Category of Tracing: Reactive Status: Category l Comments: Baby B: HR 140, cat 1, reactive Diagnosis, Plan/Disposition Plan/Disposition Plan: Home with routine precautions. OB Disposition: home
== END 2021-08-24 18:10 | disposition home or self-care (01) ==
LOC: OB 08-25 09:22
PROVIDERS: Family Provider Student in an Organized Health Care Education/Training Program; PCP Student in an Organized Health Care Education/Training Program; Referring Provider Obstetrics & Gynecology; Visit Provider Obstetrics & Gynecology
DX: O30.043 Twin pregnancy, dichorionic/diamniotic, third trimester (principal); Z3A.32 32 weeks gestation of pregnancy
CPT/HCPCS: 59025; G0378; G0379

== ENCOUNTER 2021-09-01 15:45 | Outpatient (CLI) | payer OTHER, MEDICAID, SELFPAY ==
--- NOTE | 2021-09-01 16:27 | DI.US.S_ITS ---
PROCEDURE: US OB LIMITED INDICATIONS: twins OUTSIDE/PRIOR DATING DATA: Last menstrual period (LMP): Unknown. LMP-based estimated date of delivery (FREDRICK): Not applicable. First dating scan (date and location): 03/11/2021. Estimated date of delivery (FREDRICK) from first dating scan: 10/18/2021. TECHNIQUE: Real-time scanning was performed of the fetuses, with image documentation and biometric measurements. Endovaginal scanning: No COMPARISON: None. FINDINGS: General: An intrauterine diamniotic, dichorionic twin is present, Amniotic fluid index (composite): 6.0 cm. FETUS A: heart rate: 152 beats per minute. FETUS B: heart rate: 135 beats per minute. Normal four-chamber heart view, stomach/abdomen, and bilateral renal regions, as well as umbilical cord is present for fetus a and fetus B. IMPRESSION: 1. Diamniotic dichorionic twin living intrauterine gestations. 2. Normal amniotic fluid index for each twin. 3. Limited normal survey of anatomy for each twin. We strive to produce accurate, complete, and clear reports of imaging services. To assist us in improving patient care, this report was composed using standard report templates and voice recognition software. Therefore, it may contain abnormal punctuation, insertions and/or omissions. Occasional wrong-word or sound-alike substitutions may occur. Though we review the report and make efforts to correct it, we do recommend that the report be read carefully in proper context to recognize any text inaccuracies. Dictated by: Jones Mendiola M.D. on 09/01/2021 at 17:39 Approved by: Jones Mendiola M.D. on 09/01/2021 at 17:42
--- NOTE | 2021-09-01 17:11 | P.TNLD_ITS ---
Visit Information Visit Information Date of evaluation: 09/01/21 Primary OB Provider: Rica Oenal Reason for Evaluation: Yes non-stress test Comments/Additional reasons for admission: 31yo at 33w5d here for NST for di-di twin gestation. No vaginal bleeding, LOF, contractions. Feeling babies move regularly. [facility] Medical History (Updated 09/06/21 @ 14:05 by Rica Oneal MD) Acute right-sided low back pain Acute tension-type headache Acute thoracic back pain Anxiety associated with depression (~2019) Body posture problem Cellulitis Cervical somatic dysfunction Chronic neck pain (~2019) Cranial somatic dysfunction Elevated blood pressure reading without diagnosis of hypertension Lumbar region somatic dysfunction Major depression Neck stiffness No significant past medical history Pelvic pain affecting in second trimester, antepartum Pelvic somatic dysfunction Rib pain on right side Sacral region somatic dysfunction Segmental and somatic dysfunction of abdomen and other regions Segmental and somatic dysfunction of rib cage Thoracic region somatic dysfunction Viral syndrome Surgical History (Updated 03/08/21 @ 07:40 by Pily Navarro RN) History of tonsillectomy (~2004) Hx of dilation and curettage No pertinent past surgical history Family History (Updated 03/08/21 @ 07:44 by Pily Navarro RN) Mother PTSD (post-traumatic stress disorder) Anxiety TBI (traumatic brain injury) Mental health problem Preeclampsia Brother Down syndrome Grandfather Diabetes mellitus Grandmother Cancer Social History marital status: unmarried,single number of children: 1 household members: family lives independently: Yes caregiver/support person: Yes housing: house pets and animals: Yes (Dog) education level: college occupational status: student current occupational exposures/hazards: No seatbelt use: always water heater temp set < 120 deg: Yes working smoke detector in home: Yes fire extinguisher in home: Yes carbon monox detector in home: Yes firearms in home: No do you feel safe at home: No Smoking Status: Former smoker Tobacco: How many years used: 5 second hand exposure: Yes (rare by mother in law) alcohol intake: never substance use type: does not use and former substance user during the past year weight has: increased > 10 lbs well-balanced diet: about half the time daily servings fruits/ve-4 caffeine: Yes (Not right now, not feeling well) Evaluation Evaluation Comments: Baby A baseline 150, moderate variability, accels present, no decels; Reactive Baby B baseline 140, moderate variability, accels present, no decels; Reactive Diagnosis, Plan/Disposition Final Diagnosis (1) Dichorionic diamniotic twin gestation: Status: Acute Plan/Disposition Plan: 31yo at 33w5d here for NST for di-di twin gestation. Reactive monitoring, although fragmented. OB Disposition: home
== END 2021-09-01 17:15 | disposition home or self-care (01) ==
LOC: OB 09-29 15:16
PROVIDERS: Family Provider Student in an Organized Health Care Education/Training Program; PCP Student in an Organized Health Care Education/Training Program; Referring Provider Family Medicine; Visit Provider Family Medicine
DX: O30.043 Twin pregnancy, dichorionic/diamniotic, third trimester (principal); Z3A.33 33 weeks gestation of pregnancy
CPT/HCPCS: 59025; 76812; 76815; G0378; G0379

== ENCOUNTER 2021-09-03 09:49 | Outpatient (CLI) | payer OTHER, MEDICAID, SELFPAY | END 2021-09-03 11:27 | disposition home or self-care (01) | LOC: LABOR 11:58 → OB 09-07 08:26 | PROVIDERS: Family Provider Student in an Organized Health Care Education/Training Program; PCP Student in an Organized Health Care Education/Training Program; Referring Provider Family Medicine; Visit Provider Family Medicine | DX: O30.043 Twin pregnancy, dichorionic/diamniotic, third trimester (principal); Z3A.34 34 weeks gestation of pregnancy | CPT/HCPCS: 59025; G0378; G0379 ==

== ENCOUNTER 2021-09-06 10:13 | Outpatient (CLI) | payer OTHER, MEDICAID, SELFPAY ==
--- NOTE | 2021-09-06 10:52 | PM.OBTRLD ---
Visit Information Visit Information Date of evaluation: 09/06/21 Primary OB Provider: Rica Oneal Reason for Evaluation: Yes non-stress test non-stress test reason: decreased movement Comments/Additional reasons for admission: 31yo at 34w3d here for decreased movement of baby boy (baby B). She has felt some movement, just less than usual. No vaginal bleeding, LOF, contractions. Baby A has been moving regularly still. [facility] Medical History (Updated 09/06/21 @ 10:53 by Rica Oneal MD) Acute right-sided low back pain Acute tension-type headache Acute thoracic back pain Anxiety associated with depression (~2019) Body posture problem Cellulitis Cervical somatic dysfunction Chronic neck pain (~2019) Cranial somatic dysfunction Elevated blood pressure reading without diagnosis of hypertension Lumbar region somatic dysfunction Major depression Neck stiffness No significant past medical history Pelvic pain affecting in second trimester, antepartum Pelvic somatic dysfunction Rib pain on right side Sacral region somatic dysfunction Segmental and somatic dysfunction of abdomen and other regions Segmental and somatic dysfunction of rib cage Thoracic region somatic dysfunction Viral syndrome Surgical History (Updated 03/08/21 @ 07:40 by Pily Navarro, RN) History of tonsillectomy (~2004) Hx of dilation and curettage No pertinent past surgical history Family History (Updated 03/08/21 @ 07:44 by Pily Navarro, HIRO) Mother PTSD (post-traumatic stress disorder) Anxiety TBI (traumatic brain injury) Mental health problem Preeclampsia Brother Down syndrome Grandfather Diabetes mellitus Grandmother Cancer Social History marital status: unmarried,single number of children: 1 household members: family lives independently: Yes caregiver/support person: Yes housing: house pets and animals: Yes (Dog) education level: college occupational status: student current occupational exposures/hazards: No seatbelt use: always water heater temp set < 120 deg: Yes working smoke detector in home: Yes fire extinguisher in home: Yes carbon monox detector in home: Yes firearms in home: No do you feel safe at home: No Smoking Status: Former smoker Tobacco: How many years used: 5 second hand exposure: Yes (rare by mother in law) alcohol intake: never substance use type: does not use and former substance user during the past year weight has: increased > 10 lbs well-balanced diet: about half the time daily servings fruits/ve-4 caffeine: Yes (Not right now, not feeling well) Evaluation Evaluation Comments: Baby A - baseline 140, moderate variability, accels present, no decels; Reactive Baby B - baseline 140, moderate variability, accels present, no decels; Reactive Diagnosis, Plan/Disposition Final Diagnosis (1) Decreased movement: Status: Acute Plan/Disposition Plan: 31yo at 34w3d here for decreased movement of baby B. Reactive NST, pt feeling baby move now. Stable for d/c home. OB Disposition: home
== END 2021-09-06 11:05 | disposition home or self-care (01) ==
LOC: OB 09-07 08:28
PROVIDERS: Family Provider Student in an Organized Health Care Education/Training Program; PCP Student in an Organized Health Care Education/Training Program; Referring Provider Family Medicine; Visit Provider Family Medicine
DX: O36.8130 Decreased fetal movements, third trimester, not applicable or unspecified (principal); O30.003 Twin pregnancy, unspecified number of placenta and unspecified number of amniotic sacs, third trimester; Z3A.34 34 weeks gestation of pregnancy
CPT/HCPCS: 59025; G0378; G0379

== ENCOUNTER → 2021-09-10 16:16 | Outpatient (CLI) | payer OTHER, MEDICAID, SELFPAY ==
[2021-09-11 15:03] LABS: Strep Grp B PCR NEG for Grp B Strep
== END ==
PROVIDERS: Family Provider Student in an Organized Health Care Education/Training Program; PCP Student in an Organized Health Care Education/Training Program; Visit Provider Family Medicine
DX: Z36.85 Encounter for antenatal screening for Streptococcus B (principal)
CPT/HCPCS: 87653

== ENCOUNTER 2021-09-10 16:32 | Observation (INO) | payer OTHER, MEDICAID, SELFPAY ==
--- NOTE | 2021-09-10 17:05 | P.TNLD_ITS ---
Visit Information Visit Information Date of evaluation: 09/10/21 Primary OB Provider: Rica Oneal Comments/Additional reasons for admission: 31yo at 35w0d here for NST for di-di twin gestation.? No vaginal bleeding, LOF, contractions.? Feeling babies move regularly. [facility] Medical History (Updated 09/10/21 @ 17:50 by Rica Oneal MD) Acute right-sided low back pain Acute tension-type headache Acute thoracic back pain Anxiety associated with depression (~2019) Body posture problem Cellulitis Cervical somatic dysfunction Chronic neck pain (~2019) Cranial somatic dysfunction Elevated blood pressure reading without diagnosis of hypertension Lumbar region somatic dysfunction Major depression Neck stiffness No significant past medical history Pelvic pain affecting in second trimester, antepartum Pelvic somatic dysfunction Rib pain on right side Sacral region somatic dysfunction Segmental and somatic dysfunction of abdomen and other regions Segmental and somatic dysfunction of rib cage Thoracic region somatic dysfunction Viral syndrome Surgical History (Updated 03/08/21 @ 07:40 by Pily Navarro, RN) History of tonsillectomy (~2004) Hx of dilation and curettage No pertinent past surgical history Family History (Updated 03/08/21 @ 07:44 by Pily Navarro, RN) Mother PTSD (post-traumatic stress disorder) Anxiety TBI (traumatic brain injury) Mental health problem Preeclampsia Brother Down syndrome Grandfather Diabetes mellitus Grandmother Cancer Social History marital status: unmarried,single number of children: 1 household members: family lives independently: Yes caregiver/support person: Yes housing: house pets and animals: Yes (Dog) education level: college occupational status: student current occupational exposures/hazards: No seatbelt use: always water heater temp set < 120 deg: Yes working smoke detector in home: Yes fire extinguisher in home: Yes carbon monox detector in home: Yes firearms in home: No do you feel safe at home: No Smoking Status: Former smoker Tobacco: How many years used: 5 second hand exposure: Yes (rare by mother in law) alcohol intake: never substance use type: does not use and former substance user during the past year weight has: increased > 10 lbs well-balanced diet: about half the time daily servings fruits/ve-4 caffeine: Yes (Not right now, not feeling well) Evaluation Evaluation Comments: Baby A baseline 140, moderate variability, accels present, no decels; Reactive Baby B baseline 125, moderate variability, accels present, no decels; Reactive Diagnosis, Plan/Disposition Final Diagnosis (1) Dichorionic diamniotic twin gestation: Status: Acute (2) 35 weeks gestation of : Status: Acute Plan/Disposition Plan: 31yo at 33w5d here for NST for di-di twin gestation.? Reactive NSTs. Stable for d/c home. OB Disposition: home
== END 2021-09-10 18:15 | disposition home or self-care (01) ==
LOC: LABOR 16:35
PROVIDERS: Admitting Provider Family Medicine; Family Provider Student in an Organized Health Care Education/Training Program; PCP Student in an Organized Health Care Education/Training Program; Referring Provider Family Medicine; Visit Provider Family Medicine
CPT/HCPCS: 59025; 59050; G0378; G0379

== ENCOUNTER 2021-09-12 10:00 | Inpatient (IN) | payer OTHER, MEDICAID, SELFPAY ==
[2021-09-12 10:59] LABS: Add Manual Diff / Slide Review NO; Basophils Absolute Auto 100 /uL (0-100); Basophils Percent Auto 0.7 % (0-2); Eosinophils Absolute Auto 200 /uL (0-450); Eosinophils Percent Auto 2.5 % (2-4); Hematocrit 37.7 % (36-46); Hemoglobin 13.3 g/dL (12.0-16.0); Lymphocytes Absolute Auto 1700 /uL (1100-4500); Lymphocytes Percent Auto 18.5 % (25-40); Mean Corpuscular HGB Conc 35.3 % (30-36); Mean Corpuscular Hemoglobin 31.8 PG (26-34); Mean Corpuscular Volume 90.3 fL (80-100); Monocytes Absolute Auto 800 /uL (0-900); Neutrophils Absolute Auto 6500 /uL (1500-7000); Neutrophils Percent Auto 69.3 % (50-75); Platelet Count 130 X10^3/uL (150-400); Red Blood Cell Count 4.17 X10^6/uL (4.0-5.2); Red Cell Distribution Width 13.3 % (11.6-14.8); White Blood Cell Count 9.4 X10^3/uL (4.5-11.0)
[2021-09-12 11:08] LABS: COVID19 -Nasal RAPID Negative (Negative)
[2021-09-12] MEDS: OXYTOCIN 10 UNIT/ML VIAL IM (12:50)
--- NOTE | 2021-09-12 14:06 | PM.OBHP.IH.1 ---
OB HPI Date/Time Date of admission: 09/12/21 Date Patient Seen: 09/12/21 Time Patient Seen: 11:00 History of Present Condition Chief complaint: obs FERDRICK Calculator Estimated Delivery Date Method Current WG Current Estimate 10/15/21 LMP (Certain) 35w 2d Other Estimates 10/18/21 Ultrasound #1 34w 6d # 2 Estimated Gestational Age (weeks): 35w2d : 4 Para: 1 Narrative: Pt is a 31yo at 35w2d who presented with LOF and painful contractions. The pt reports that she woke around 8am with her shorts wet. She has continued to leak fluid since then. She started dustin after waking, and they are getting closer together. She denies any vaginal bleeding. She is feeling her babies move regularly. Her is complicated by di-di twin gestation. She has anxiety and depression, stable on Citalopram. care: good care, initiated at week # (8) and pounds weight gain (43) Dating criteria OB: LMP confirmed by 1st trimester US Ultrasounds: normal 1st trimester US (di-di twin gestation) and normal mid trimester US Obstetrical complications: none Medical complications OB: psychiatric (anxiety and depression) Preadmission Labs Last OB Lab Results: Blood Type A Positive 09/12/21 10:35 Antibody Screen Negative 09/12/21 10:35 Hematocrit 37.7 % (36-46) 09/12/21 10:35 Hemoglobin 13.3 g/dL (12.0-16.0) 09/12/21 10:35 Hepatitis B Surface Antigen Negative s/c (NEGATIVE) 03/11/21 10:11 Hepatitis C Antibody Negative s/c (NEGATIVE) 03/11/21 10:11 HIV (1&2) Ag and Ab, 4th Generation Nonreactive (Nonreactive) 12/06/17 13:06 Rubella Antibody 58.1 IU/mL (>15) 03/11/21 10:11 Varicella-Zoster IgG Antibody 2109 index (Immune >165) 03/11/21 10:11 Glucose 1 Hour 122 mg/dL (76-139) 07/14/21 15:01 Group B Streptococcus (PCR) Neg for grp b strep 09/10/21 16:16 Genetic Screens: Cell-free DNA: Normal Prior (ies) Past Pregnancies Del. Date GA/Weeks Labor Lgth Wt Sex Route Outcome Anesthesia Place Delv Breastfeed Preg Comp Name 02/20/06 11 spontaneous general spontaneous 02/20/07 6 spontaneous spontaneous 06/07/16 40 2 6 lb 7 oz Male vaginal live - full term epidural Ransom Gustavo 2 none Robin Delivery Date: 02/20/06 Last Updated by: Pily Navarro R.N. D & C Delivery Date: 06/07/16 Last Updated by: Pily Navarro R.N. spontaneous ROM w/o contractions, started Pitocin after 12 hrs of rupture. Evaluation Evaluation Contraction Frequency (minutes): 2 Uterine Contraction Intensity: Strong/Firm Status: Category l Dilation (cm): 7 Effacement (%): 100 station: 0 Comments: Twin A - baseline 120, moderate variability, accels present, no decels Twin B - baseline 140, moderate variability, spacing with frequent breaks making it difficult to see accels/decels PFS Medical History (Updated 09/10/21 @ 17:50 by Rica Oneal MD) Acute right-sided low back pain Acute tension-type headache Acute thoracic back pain Anxiety associated with depression (~2019) Body posture problem Cellulitis Cervical somatic dysfunction Chronic neck pain (~2019) Cranial somatic dysfunction Elevated blood pressure reading without diagnosis of hypertension Lumbar region somatic dysfunction Major depression Neck stiffness No significant past medical history Pelvic pain affecting in second trimester, antepartum Pelvic somatic dysfunction Rib pain on right side Sacral region somatic dysfunction Segmental and somatic dysfunction of abdomen and other regions Segmental and somatic dysfunction of rib cage Thoracic region somatic dysfunction Viral syndrome Surgical History (Updated 03/08/21 @ 07:40 by Pily Navarro RN) History of tonsillectomy (~2004) Hx of dilation and curettage No pertinent past surgical history Family History (Updated 03/08/21 @ 07:44 by Pily Nvaarro RN) Mother PTSD (post-traumatic stress disorder) Anxiety TBI (traumatic brain injury) Mental health problem Preeclampsia Brother Down syndrome Grandfather Diabetes mellitus Grandmother Cancer Social History marital status: unmarried,single number of children: 1 household members: family lives independently: Yes caregiver/support person: Yes housing: house pets and animals: Yes (Dog) education level: college occupational status: student current occupational exposures/hazards: No seatbelt use: always water heater temp set < 120 deg: Yes working smoke detector in home: Yes fire extinguisher in home: Yes carbon monox detector in home: Yes firearms in home: No do you feel safe at home: No Smoking Status: Former smoker Tobacco: How many years used: 5 second hand exposure: Yes (rare by mother in law) alcohol intake: never substance use type: does not use and former substance user during the past year weight has: increased > 10 lbs well-balanced diet: about half the time daily servings fruits/ve-4 caffeine: Yes (Not right now, not feeling well) Meds Home Medications and Allergies Home Medications Medication Instructions Recorded Confirmed Type clonazepam 0.5 mg tablet 0.5 mg PO DAILY #30 tabs 11/19/20 09/10/21 Rx prenat.vits,miguel,msf-isuu-ljizq 1 tab PO DAILY 03/08/21 09/10/21 History cyclobenzaprine 5 mg tablet See Rx Instructions .Route 06/21/21 09/10/21 Rx .COMPLEX #10 tabs citalopram 40 mg tablet 40 mg PO DAILY #90 tabs 07/13/21 09/10/21 Rx folic acid 1 mg tablet See Rx Instructions .Route 08/02/21 09/10/21 Rx .COMPLEX #30 tabs Double electric breast pump #1 ea 08/06/21 09/10/21 Rx Allergies Allergy/AdvReac Type Severity Reaction Status Date / Time cyclobenzaprine AdvReac Mild Anger Verified 09/10/21 15:54 penicillin G AdvReac Verified 09/10/21 15:54 OB Exam Narrative Exam Narrative: Gen: NAD, sitting comfortably in bed, appears well CV: RRR, no murmurs Resp: clear to auscultation bilaterally Abd: soft, nontender, gravid Ext: no edema Objective Labs Result Diagrams: 09/12/21 10:35 Labs: Laboratory Results - last 24 hr 09/12/21 09/12/21 09/12/21 10:35 10:35 10:35 WBC 9.4 RBC 4.17 Hgb 13.3 Hct 37.7 MCV 90.3 MCH 31.8 MCHC 35.3 RDW 13.3 Plt Count 130 L Neut % (Auto) 69.3 Lymph % (Auto) 18.5 L [place] % (Auto) 9.0 Eos % (Auto) 2.5 Baso % (Auto) 0.7 Neut # (Auto) 6500 Lymph # (Auto) 1700 [place] # (Auto) 800 Eos # (Auto) 200 Baso # (Auto) 100 SARS-CoV-2 (PCR) Negative Blood Type A Positive Antibody Screen Negative Assessment and Plan Assessment and Plan Assessment and Plan narrative: 31yo at 35w2d here in active labor with SROM at home. Di-di twin gestation, both currently vertex. Pt desires vaginal delivery. GBS negative, Rh positive. - Expectant management, anticipate - Will repeat u/s after delivery twin A to ensure twin B still vertex - GBS negative, no prophylaxis needed - Epidural now for pain control - FHT reassuring thus far
--- NOTE | 2021-09-12 15:43 | PM.OBPRVD ---
Events: Multiple gestation Labor & Delivery Delivery date: 09/12/21 Cervical ripening method: none Induction method: none Delivery monitor: external FHT and external uterine Route of delivery: Episiotomy description: None L&D Laceration Description: Perineal - 2nd Degree Delivery repair: vicryl Quantitative Blood Loss: 200 Anesthesia Type: Epidural Complications: None Narrative: PROCEDURE: at 35w2d presented in active labor with SROM and was admitted to Labor and Delivery. The patient progressed through the 1st stage over 4.5 hours. Pain was controlled with an epidural. The patient progressed through the 2nd stage over 25 minutes. Twin A delivered direct OP with APGARs 8/9 at 12:36 via without complications. Nuchal cord x 1 was reduced at the perineum. The cord was cut and clamped after it stopped pulsating. Ultrasound was used to confirm the Twin B was vertex. AROM was then performed with production of clear fluid. Twin B then delivered after 16 minutes, direct OP, with APGARs 8/9 at 12:52 via without complications. Nuchal cord x1 was reduced after delivery. The cord was cut and clamped due to poor tone and decreased respiratory drive, and the baby was taken to the warmer. Both placentas then delivered with gentle cord traction. The perineum and vagina were inspected with 2nd degree laceration repaired with 2-O Vicryl. PREPROCEDURE DIAGNOSIS: Intrauterine at 35w2d Di-Di twin gestation Anxiety/Depression GBS negative RH positive POSTPROCEDURE DIAGNOSIS: Intrauterine at 35w2d, delivered Same as preprocedure Baby 2: gender: Female Presentation: vertex Position: Left Occiput Anterior Placenta delivery description: Spontaneous Cord Vessel Description: 3 Vessels and Nuchal Cord score (1 min): 8 score (5 min): 9 weight: 5 lb 2.894 oz 1: gender: Male Presentation: brow Position: Left Occiput Anterior and Right Occiput Anterior Placenta delivery description: Spontaneous Cord Vessel Description: 3 Vessels and Nuchal Cord score (1 min): 8 score (5 min): 9 weight: 5 lb 5.716 oz Plan for aftercare: Routine care
[2021-09-12] MEDS: DERMOPLAST SPRAY 20% 60 ML 1 SPRAY TOP (16:10)
[2021-09-12] MEDS: ACETAMINOPHEN 325 MG TABLET 650 MG PO ×2 (16:11→22:15)
[2021-09-12] MEDS: IBUPROFEN 600 MG TABLET PO ×2 (16:12→22:15)
[2021-09-12 19:35] VITALS: BP 146/69
[2021-09-13] MEDS: ACETAMINOPHEN 325 MG TABLET 650 MG PO ×4 (04:36→22:29)
[2021-09-13] MEDS: IBUPROFEN 600 MG TABLET PO ×4 (04:36→22:29)
--- NOTE | 2021-09-13 08:42 | PM.OBPN.1 ---
Subjective - OB Subjective Date Patient Seen: 09/13/21 Interval history: The pt reports that she is feeling well. She is urinating without difficulty, and has passed flatus. She is ambulating. Her lochia is decreasing appropriately. She is working on , pumping as well, and formula supplementing. She does report increased swelling in her lower extremities, left worse than right. No calf pain, chest pain, SOB. Exam Narrative Exam Narrative: Gen: NAD, sitting comfortably in chair, appears well CV: RRR, no murmurs Resp: clear to auscultation bilaterally Abd: soft, appropriately tender, fundus firm and below the umbilicus, nondistended Ext: 1+ pitting edema right LE, 2+ left LE Objective Labs Result Diagrams: 09/12/21 10:35 Labs: Laboratory Results - last 24 hr 09/12/21 09/12/21 09/12/21 10:35 10:35 10:35 WBC 9.4 RBC 4.17 Hgb 13.3 Hct 37.7 MCV 90.3 MCH 31.8 MCHC 35.3 RDW 13.3 Plt Count 130 L Neut % (Auto) 69.3 Lymph % (Auto) 18.5 L [place] % (Auto) 9.0 Eos % (Auto) 2.5 Baso % (Auto) 0.7 Neut # (Auto) 6500 Lymph # (Auto) 1700 [place] # (Auto) 800 Eos # (Auto) 200 Baso # (Auto) 100 SARS-CoV-2 (PCR) Negative Blood Type A Positive Antibody Screen Negative Assessment & Plan Plan Comments: 31yo PPD #1 s/p of di-di twin without complications. Pt doing well overall. Does have increasing swelling in LE, asymmetric. Negative Elías's sign, no other symptoms suggestive of DVT. BP normal range. Will continue to monitor closely. Otherwise, normal care with support. Time Spent With Patient Time: Total time spent is greater than 50% in coordination of care (as documented) at patient's floor/unit and/or counseling patient: Time with patient: 15-24 minutes
[2021-09-13] MEDS: CITALOPRAM 10 MG TABLET 40 MG PO (18:36)
[2021-09-13] MEDS: PRENATAL VIT,CALC/IRON/FOLIC 1 TABLET 1 TAB PO (18:36)
[2021-09-14] MEDS: IBUPROFEN 600 MG TABLET PO ×2 (04:28→10:15)
[2021-09-14] MEDS: ACETAMINOPHEN 325 MG TABLET 650 MG PO ×2 (04:29→10:15)
--- NOTE | 2021-09-14 08:28 | PM.OBDS.1 ---
Discharge Providers Provider Date of admission: 09/12/21 10:00 Discharge Date: 09/14/21 Primary care physician: Anthony White MD Consults: 09/13/21 14:04 Consult to Machine Packaging Technician Routine Comment: Discharge provider: Rica Oneal MD Summary Hospital Course Date Patient Seen: 09/14/21 Time Patient Seen: 07:45 Diagnoses: Intrauterine at 35w2d Di-Di twin gestation Anxiety/Depression GBS negative RH positive Hospital Course: The pt presented in active labor. She received an epidural for pain control. She progressed to complete and had an of a viable baby boy on 09/12/21. Twin B was confirmed vertex, and AROM was performed. She then had an of a viable baby girl 16 minutes later. A second degree laceration was repaired. There were no complications with delivery. The pt tolerated delivery well. , there were no complications. At the time of discharge she was voiding, ambulating, and passing flatus without difficulty. Her lochia was decreasing appropriately. She was with good latch, and formula supplementing as well. Her pain was well controlled. Her had a vasectomy for contraception. She will f/u in clinic in 6 weeks for check. Peripartum Data Infant Delivery Method: Natural Vaginal Laceration Description: Perineal - 2nd Degree Episiotomy description: None Procedures: Spontaneous vaginal delivery complications: none 1: Gender: Male Disposition of : home 2: Gender: Female Disposition of : home Discharge Diagnosis (1) 35 weeks gestation of : Status: Acute (2) Dichorionic diamniotic twin gestation: Status: Acute (3) Spontaneous vaginal delivery: Status: Acute Time Spent with Patient Time attestation: Total time spent providing and/or coordinating discharge services: Objective Labs Result Diagrams: 09/12/21 10:35 Exam Narrative Exam Narrative: Gen: NAD, sitting comfortably in bed, appears well CV: RRR, no murmurs Resp: clear to auscultation bilaterally Abd: soft, appropriately tender, fundus firm and below the umbilicus, nondistended Ext: 1+ edema bilaterally Discharge Plan Discharge Plan Patient Disposition: Home Discharge orders & Medications Prescriptions: New docusate sodium 100 mg Capsule 100 mg PO DAILY Qty: 30 0RF ibuprofen 600 mg Tablet 600 mg PO Q6HR PRN (Reason: Pain, Mild (1-3)) Qty: 30 0RF Continued citalopram 40 mg tablet 40 mg PO DAILY Qty: 90 1RF (DME) Double electric breast pump See Rx Instructions .Route .MEDSUPPLY Qty: 1 0RF Rx Instructions: Use electric breast pump and supplies as directed for 99 months. FREDRICK 10/15/21 prenat.vits,miguel,[id number] Tablet 1 tab PO DAILY Discontinued clonazepam 0.5 mg tablet 0.5 mg PO DAILY Qty: 30 5RF Hold Instructions: Change to #30 with next fill cyclobenzaprine 5 mg tablet See Rx Instructions .ROUTE .COMPLEX Qty: 10 0RF Dose Instruction: take 1 tablet by mouth three times a day 3 days if needed Rx Instructions: take 1 tablet by mouth three times a day 3 days if needed folic acid 1 mg tablet See Rx Instructions .ROUTE .COMPLEX Qty: 30 3RF Dose Instruction: take 1 tablet by mouth once daily Rx Instructions: take 1 tablet by mouth once daily Follow up/Referrals: Anthony White MD [Primary Care Provider] - Rica Oneal MD [Physician] - 6 Weeks Diet/Activity/Treatments Diet: Diet as Tolerated and Regular Skin/Wound/Dressing Care Report to your healthcare provider any signs of infection, such as:: chills, fever Visit Report/Discharge Packet Instructions: DI for Labor and Delivery, Vaginal Visit Report Forms: Patient Portal/API, Stroke Signs & Symptoms Discharge Data Primary Care Provider: Anthony White
[2021-09-14 09:54] VITALS: BP 132/84; PULSE 80; RESP 16; TEMP 36.7
== END 2021-09-14 10:35 | disposition home or self-care (01) | DRG 807 ==
PROVIDERS: Admitting Provider Family Medicine; Family Provider Student in an Organized Health Care Education/Training Program; PCP Student in an Organized Health Care Education/Training Program; Referring Provider Family Medicine; Visit Provider Family Medicine
DX: O60.14X0 Preterm labor third trimester with preterm delivery third trimester, not applicable or unspecified (principal); Z37.2 Twins, both liveborn; O30.043 Twin pregnancy, dichorionic/diamniotic, third trimester; Z3A.35 35 weeks gestation of pregnancy; O70.1 Second degree perineal laceration during delivery; O69.81X0 Labor and delivery complicated by cord around neck, without compression, not applicable or unspecified; O99.344 Other mental disorders complicating childbirth; F41.9 Anxiety disorder, unspecified; F32.A Depression, unspecified; Z20.822 Contact with and (suspected) exposure to COVID-19
CPT/HCPCS: 01967; 36415; 59025; 59050; 59400; 59409; 84112; 85025; 86850; 86900; 86901; 87635; 87653; C9803; G0378; G0379; J2590

== ENCOUNTER 2021-09-21 13:28 | Observation (INO) | payer OTHER, MEDICAID, SELFPAY ==
[2021-09-21] VITALS (7 sets, daily range): BP systolic 116–127; BP diastolic 54–76; PULSE 72–97; RESP 16–18; TEMP 36.3–36.9; O2SAT 97–100; BMI 32.2
--- NOTE | 2021-09-21 14:18 | PM.HP.1 ---
History of Present Illness History of Present Illness Date Patient Seen: 09/21/21 Time Patient Seen: 16:15 Chief complaint: endometritis Narrative: This is a 31-year-old 9 days after uncomplicated vaginal delivery of twins on the 09/12/21 who presented to clinic with 3 days of progressively worsening lower abdominal pain and rectal pain. She has been feeling clammy as well but without measurable fevers. Pain is 7/10 and not relieved with Tylenol or ibuprofen. She has been utilizing ice and warm baths for her perineum and rectum. Vaginal bleeding had been decreasing but picked up again the last few days. Bleeding is watery and she is using 3 or 4 pads a day. Denies malodorous discharge or exudate. No clots. No urinary symptoms. Stools are soft. No diarrhea or vomiting. Her twins are doing well. She is pumping and giving expressed breast milk. Patient History Medical History Acute right-sided low back pain Acute tension-type headache Acute thoracic back pain Anxiety associated with depression (~2019) Body posture problem Cellulitis Cervical somatic dysfunction Chronic neck pain (~2019) Cranial somatic dysfunction Elevated blood pressure reading without diagnosis of hypertension Lumbar region somatic dysfunction Major depression No significant past medical history Pelvic somatic dysfunction Rib pain on right side Sacral region somatic dysfunction Segmental and somatic dysfunction of abdomen and other regions Segmental and somatic dysfunction of rib cage Thoracic region somatic dysfunction Viral syndrome Surgical History History of tonsillectomy (~2004) Hx of dilation and curettage No pertinent past surgical history Family & Social History Family History Mother PTSD (post-traumatic stress disorder) Anxiety TBI (traumatic brain injury) Mental health problem Preeclampsia Brother Down syndrome Grandfather Diabetes mellitus Grandmother Cancer Social History: household members family lives independently Yes caregiver/support person Yes Tobacco & Substance use: Smoking Status Never smoker alcohol intake never Meds Home Medications and Allergies Home Medications Medication Instructions Recorded Confirmed Type prenat.vits,miguel,shb-sldt-bedbf 1 tab PO DAILY 03/08/21 09/14/21 History citalopram 40 mg tablet 40 mg PO DAILY #90 tabs 07/13/21 09/14/21 Rx Double electric breast pump #1 ea 08/06/21 09/14/21 Rx docusate sodium 100 mg capsule 100 mg PO DAILY #30 caps 09/14/21 Rx ibuprofen 600 mg tablet 600 mg PO Q6HR PRN Pain, Mild 09/14/21 Rx (1-3) #30 tabs Allergies Allergy/AdvReac Type Severity Reaction Status Date / Time cyclobenzaprine AdvReac Mild Anger Verified 09/10/21 15:54 penicillin G AdvReac Verified 09/10/21 15:54 Exam Vital Signs (past 8 hours): - 09/21/21 13:47 Temperature 98.1 F Pulse Rate 97 H Respiratory Rate 16 Blood Pressure 120/76 Pulse Oximetry 100 Narrative Exam Narrative: Exam from clinic visit prompting admission: General:? Appears ill and uncomfortable, distressed CV:? Regular tachycardia without murmurs Lungs:? Clear to auscultation bilaterally Abdomen: Bowel tones active throughout.? Very tender to palpation suprapubically without guarding.? Mild tenderness throughout abdomen. Genitourinary:? Normal external female genitalia with a small amount of blood at the introitus.? Laceration repair intact.? Dark blood in the vaginal vault, no exudate or odor.? Cervix intact.? Uterine tenderness with gentle bimanual exam. Extremities:? No edema Objective Labs Result Diagrams: 09/21/21 14:50 09/21/21 14:50 Assessment & Plan Assessment and plan (1) endometritis: Status: Acute Plan 31-year-old 9 days after vaginal delivery of twins now with severe uterine tenderness consistent with endometritis. She is afebrile however has been taking ibuprofen and Tylenol regularly. She reports feeling progressively worse the last 3 days. Plan Empiric antibiotics for endometritis with clindamycin 900 mg q.8 hours and gentamicin 5 mg/kg Q 24 hours CBC, CMP and blood cultures Urine does not appear infected but was sent for culture Anticipate discharge in the next 24-48 hours pending clinical improvement. Time Spent With Patient Critical Care time: I spent a total of [] minutes of critical care time on this patient's care today; this time is exclusive of procedural time.
[2021-09-21] MEDS: OXYCODONE IR 5 MG TABLET PO ×2 (14:26→18:27)
[2021-09-21] MEDS: IBUPROFEN 600 MG TABLET PO ×2 (14:28→20:46)
[2021-09-21 15:31] LABS: Alanine Aminotransferase 24 IU/L (<35); Albumin 3.9 g/dL (3.5-5.0); Albumin Globulin Ratio 1.3 (1.0-2.8); Alkaline Phosphatase 107 U/L (38-126); Aspartate Aminotransferase 34 IU/L (14-36); BUN Creatinine Ratio 28.6 (6-22); Bilirubin Total 0.3 mg/dL (0.2-1.3); Blood Urea Nitrogen 18 mg/dL (7-17); Calcium 8.7 mg/dL (8.4-10.2); Carbon Dioxide 23 mmol/L (22-32); Chloride 105 mmol/L (98-107); Estimated Glomerular Filt Rate > 60 mL/min (>60); Glucose 87 mg/dL (70-100); HEMOLYSIS 16 (0-50); Potassium 4.3 mmol/L (3.4-5.1); Sodium 137 mmol/L (137-145); Total Protein 6.9 g/dL (6.3-8.2)
[2021-09-21 16:04] LABS: Add Manual Diff / Slide Review NO; Basophils Absolute Auto 100 /uL (0-100); Basophils Percent Auto 0.8 % (0-2); Eosinophils Absolute Auto 500 /uL (0-450); Eosinophils Percent Auto 4.8 % (2-4); Hematocrit 46.1 % (36-46); Hemoglobin 15.4 g/dL (12.0-16.0); Lymphocytes Absolute Auto 1800 /uL (1100-4500); Lymphocytes Percent Auto 17.7 % (25-40); Mean Corpuscular HGB Conc 33.4 % (30-36); Mean Corpuscular Volume 92.7 fL (80-100); Monocytes Absolute Auto 700 /uL (0-900); Monocytes Percent Auto 7.3 % (3-14); Neutrophils Absolute Auto 7000 /uL (1500-7000); Neutrophils Percent Auto 69.4 % (50-75); Platelet Count 286 X10^3/uL (150-400); Red Blood Cell Count 4.97 X10^6/uL (4.0-5.2); Red Cell Distribution Width 13.3 % (11.6-14.8); White Blood Cell Count 10.1 X10^3/uL (4.5-11.0)
[2021-09-21] MEDS: LACTATED RINGERS 1,000 ML 100 ML IV (16:05)
[2021-09-21] MEDS: GENTAMICIN 460 MG in SODIUM CHLORIDE 0.9% 100 ML 111.5 MG IV (16:09)
[2021-09-21] MEDS: CLINDAMYCIN 900 MG/50 ML PIGGYBACK 50 MG IV (17:06)
--- NOTE | 2021-09-21 17:30 | PC.NURSE ---
1705- Pt stated she feels much better right now than she did when she arrived earlier this afternoon. Pt resting in bed, holding her babies, denies pain and no complaints at this time.
--- NOTE | 2021-09-21 17:35 | PC.NURSE ---
1500- 18G inserted in L wrist. Unremarkable, labs drawn.
[2021-09-21] MEDS: CITALOPRAM 10 MG TABLET 40 MG PO (18:25)
[2021-09-21] MEDS: PRENATAL VIT,CALC/IRON/FOLIC 1 TABLET 1 TAB PO (18:25)
--- NOTE | 2021-09-21 19:17 | PC.NURSE ---
Rec'd SBAR report from HIRO Regan. Pt resting in bed, pain 04/01. No c/o at this time. IVsite unremarkable and infusing via pump.
[2021-09-21] MEDS: ACETAMINOPHEN 325 MG TABLET 650 MG PO (23:49)
[2021-09-22] MEDS: LACTATED RINGERS 1,000 ML 100 ML IV ×2 (01:07→13:45)
[2021-09-22] MEDS: CLINDAMYCIN 900 MG/50 ML PIGGYBACK 50 MG IV ×3 (01:07→17:03)
[2021-09-22] MEDS: IBUPROFEN 600 MG TABLET PO ×4 (02:39→20:34)
[2021-09-22] MEDS: OXYCODONE IR 5 MG TABLET PO ×4 (02:42→20:34)
--- NOTE | 2021-09-22 07:18 | PC.NURSE ---
Pt remained afebrile throughout the night, VSS. Pain has been managed well, and pt has rested well when not feeding her twins. SBAR report given to HIRO Regan.
[2021-09-22] MEDS: ACETAMINOPHEN 325 MG TABLET 650 MG PO ×2 (07:46→13:44)
[2021-09-22 08:07] VITALS: BP 114/68; PULSE 72; RESP 15; TEMP 36.5; O2SAT 100
--- NOTE | 2021-09-22 11:14 | PM.PN.1 ---
Subjective Subjective Date Patient Seen: 09/22/21 Time Patient Seen: 09:10 Interval history: Feeling better this morning but still painful over her uterus. Pain is now 5/10, down from 7/10. Ibuprofen, acetaminophen and oxycodone are helping. Bleeding has stopped completely and she not longer feels clammy. No vomiting or diarrhea. Walking improved, no issues with voiding. Exam Vital Signs (past 8 hours): - 09/22/21 08:07 Temperature 97.7 F Pulse Rate 72 Respiratory Rate 15 Blood Pressure 114/68 Pulse Oximetry 100 Narrative Exam Narrative: Gen: Sitting up in bed, appears comfortable CV: RRR Lungs: CTAB Abdomen: Bowel tones active x4. TTP over fundus. Ext: No edema Objective Labs Result Diagrams: 09/21/21 14:50 09/21/21 14:50 Labs: Laboratory Results - last 24 hr 09/21/21 09/21/21 14:50 14:50 WBC 10.1 RBC 4.97 Hgb 15.4 Hct 46.1 H MCV 92.7 MCH 31.0 MCHC 33.4 RDW 13.3 Plt Count 286 Neut % (Auto) 69.4 Lymph % (Auto) 17.7 L [place] % (Auto) 7.3 Eos % (Auto) 4.8 H Baso % (Auto) 0.8 Neut # (Auto) 7000 Lymph # (Auto) 1800 [place] # (Auto) 700 Eos # (Auto) 500 H Baso # (Auto) 100 Sodium 137 Potassium 4.3 Chloride 105 Carbon Dioxide 23 BUN 18 H Creatinine 0.63 Estimated GFR > 60 BUN/Creatinine Ratio 28.6 H Glucose 87 Calcium 8.7 Total Bilirubin 0.3 AST 34 ALT 24 Alkaline Phosphatase 107 Total Protein 6.9 Albumin 3.9 Globulin 3.0 Albumin/Globulin Ratio 1.3 [facility] Medical History Acute right-sided low back pain Acute tension-type headache Acute thoracic back pain Anxiety associated with depression (~2019) Body posture problem Cellulitis Cervical somatic dysfunction Chronic neck pain (~2019) Cranial somatic dysfunction Elevated blood pressure reading without diagnosis of hypertension Lumbar region somatic dysfunction Major depression No significant past medical history Pelvic somatic dysfunction Rib pain on right side Sacral region somatic dysfunction Segmental and somatic dysfunction of abdomen and other regions Segmental and somatic dysfunction of rib cage Thoracic region somatic dysfunction Viral syndrome Surgical History History of tonsillectomy (~2004) Hx of dilation and curettage No pertinent past surgical history Family History Mother PTSD (post-traumatic stress disorder) Anxiety TBI (traumatic brain injury) Mental health problem Preeclampsia Brother Down syndrome Grandfather Diabetes mellitus Grandmother Cancer Social History marital status: unmarried,single number of children: 1 household members: family lives independently: Yes caregiver/support person: Yes housing: house pets and animals: Yes (Dog) education level: college occupational status: student current occupational exposures/hazards: No seatbelt use: always water heater temp set < 120 deg: Yes working smoke detector in home: Yes fire extinguisher in home: Yes carbon monox detector in home: Yes firearms in home: No do you feel safe at home: No Smoking Status: Never smoker Tobacco: How many years used: 5 second hand exposure: Yes (rare by mother in law) alcohol intake: never substance use type: does not use and former substance user during the past year weight has: increased > 10 lbs well-balanced diet: about half the time daily servings fruits/ve-4 caffeine: Yes (Not right now, not feeling well) Assessment & Plan Assessment and plan (1) endometritis: Status: Acute Plan 31 year old 10 days now with endometritis. Clinicaly improving though still with uterine tenderness. VSS, no fevers. URine and blood cultures negative to date. Continue clindamycin and gentamicin. Discharge home tomorrow if continuing to improve, otherwise will consider imaging to ruleout other potential sources of pain. Time Spent With Patient Critical Care time: I spent a total of [] minutes of critical care time on this patient's care today; this time is exclusive of procedural time. Quality VTE Deep Vein Thrombosis/Pulmonary Embolism Present on Admission: No
--- NOTE | 2021-09-22 12:52 | PC.NURSE ---
Addendum entered by Ruchi Lucero R.N. 09/22/21 18:44: 1400 pt up to walk around in the court yard, tolerated well. 1600: pt complained of pain, medicated, see mar. VSS. remains aferible 1800- pt up to shower, tolerated well. Addendum entered by Ruchi Lucero R.N. 09/22/21 14:00: 1300 pt sitting up in bed, denies pain at this time. Tonia, infrastructure consultant on unit, stopped in and discussed how feeding with twins was going. Tonia reported well, no addtional support needed. Pt remains stable at baseline Original Note: 0700-assumed care of pt. Pt resting in bed, unlabored breathing. VSS. 0900- pt sitting up in bed, painful, pt. medicated, see MA 1100- pt taking a nap, unlabored breathing, remains comfortable. stable. will continue to monitor.
[2021-09-22 14:15] VITALS: BP 118/67; PULSE 77; RESP 17; TEMP 36.8; O2SAT 100
[2021-09-22] MEDS: GENTAMICIN 460 MG in SODIUM CHLORIDE 0.9% 100 ML 111.5 MG IV (16:01)
[2021-09-22] MEDS: PRENATAL VIT,CALC/IRON/FOLIC 1 TABLET 1 TAB PO (20:37)
[2021-09-22] MEDS: CITALOPRAM 10 MG TABLET 40 MG PO (20:37)
[2021-09-22 21:00] VITALS: BP 116/56; PULSE 84; RESP 18; TEMP 36.2; O2SAT 99
--- NOTE | 2021-09-22 21:09 | PC.NURSE ---
SBAR report rec'd from HIRO Regan at 1930. Pt having more pelvic pain and was given Motrin and Oxycodone at 2044. Resting now.
[2021-09-23] MEDS: CLINDAMYCIN 900 MG/50 ML PIGGYBACK 50 MG IV ×2 (00:08→08:30)
[2021-09-23] MEDS: LACTATED RINGERS 1,000 ML 100 ML IV (00:09)
[2021-09-23] MEDS: ACETAMINOPHEN 325 MG TABLET 650 MG PO (05:20)
[2021-09-23] MEDS: IBUPROFEN 600 MG TABLET PO (05:21)
--- NOTE | 2021-09-23 05:28 | PC.NURSE ---
This morning pt reports that her pain is more manageable and she is feeling better overall. Ibuprofen and Tylenol given per request at 0525. Pt has remained afebrile with vital signs stable throughout nightshift.
[2021-09-23 05:32] VITALS: BP 112/62; PULSE 74; RESP 16; TEMP 36.8; O2SAT 100
[2021-09-23 06:19] LABS: BUN Creatinine Ratio 29.6 (6-22); Blood Urea Nitrogen 16 mg/dL (7-17); Calcium 8.4 mg/dL (8.4-10.2); Carbon Dioxide 28 mmol/L (22-32); Chloride 103 mmol/L (98-107); Estimated Glomerular Filt Rate > 60 mL/min (>60); Glucose 79 mg/dL (70-100); HEMOLYSIS < 15 (0-50); Potassium 4.4 mmol/L (3.4-5.1); Sodium 137 mmol/L (137-145)
[2021-09-23 06:23] LABS: Gentamicin Random 0.7 ug/mL (1.0-8.0)
--- NOTE | 2021-09-23 07:22 | PC.NURSE ---
pt asleep, call light w/in reach
--- NOTE | 2021-09-23 08:05 | PM.DS.1 ---
History of Present Illness History of Present Illness Date Patient Seen: 09/23/21 Time Patient Seen: 07:50 Chief complaint: endometritis Narrative: Patient is a 31-year-old presented to clinic 9 days after uncomplicated vaginal delivery of twins with progressively worsening uterine pain concerning for endometriosis. She was managing the pain with Tylenol and ibuprofen and was without measurable fevers at home though felt quite clammy and unwell. Vaginal bleeding had stopped but picked up again and had changed in character, more watery than normal. No odor or exudate. She was direct admitted from clinic to the [facility] for treatment of endometritis. Her babies were doing well. Discharge Providers Provider Date of admission: 09/21/21 13:28 Discharge Date: 09/23/21 Primary care physician: Anthony White MD Discharge provider: Lacy Benitez DO Summary Hospital Course Discharge Diagnosis: endometritis Hospital Course: Patient was admitted and received 48 hours of clindamycin and gentamicin for presumed endometritis. After 24 hour she was improving though reagent tender over the fundus and requiring oxycodone for pain control in addition to ibuprofen and Tylenol. Urine culture was negative. By hospital day 2 she was feeling much improved with resolution of tenderness and eager to go home. Blood cultures were negative after 48 hours. She was discharged home and will follow-up in clinic next week. Discussed warning signs of fever, severe pain or bleeding through more than a pad an hour and she voiced her understanding. Status at Discharge Cognitive/behavioral status at discharge: at baseline, oriented Functional status at discharge: independent ambulation Time Spent with Patient Time spent: Less than 30 minutes Exam Vital Signs (past 8 hours): - 09/23/21 05:32 Temperature 98.2 F Pulse Rate 74 Respiratory Rate 16 Blood Pressure 112/62 Pulse Oximetry 100 Narrative Exam Narrative: General: Resting comfortably in bed, no distress CV: Regular rate and rhythm, no murmur Lungs: Clear to auscultation bilaterally Abdomen: Bowel tones active, nontender to palpation throughout, specifically no tenderness over the fundus Extremities: No edema Objective Labs Result Diagrams: 09/21/21 14:50 09/23/21 05:47 Labs: Laboratory Results - last 24 hr 09/23/21 09/23/21 05:47 05:47 Sodium 137 Potassium 4.4 Chloride 103 Carbon Dioxide 28 BUN 16 Creatinine 0.54 Estimated GFR > 60 BUN/Creatinine Ratio 29.6 H Glucose 79 Calcium 8.4 Random Gentamicin 0.7 L PFSH Medical History Acute right-sided low back pain Acute tension-type headache Acute thoracic back pain Anxiety associated with depression (~2019) Body posture problem Cellulitis Cervical somatic dysfunction Chronic neck pain (~2019) Cranial somatic dysfunction Elevated blood pressure reading without diagnosis of hypertension Lumbar region somatic dysfunction Major depression No significant past medical history Pelvic somatic dysfunction Rib pain on right side Sacral region somatic dysfunction Segmental and somatic dysfunction of abdomen and other regions Segmental and somatic dysfunction of rib cage Thoracic region somatic dysfunction Viral syndrome Surgical History History of tonsillectomy (~2004) Hx of dilation and curettage No pertinent past surgical history Family History Mother PTSD (post-traumatic stress disorder) Anxiety TBI (traumatic brain injury) Mental health problem Preeclampsia Brother Down syndrome Grandfather Diabetes mellitus Grandmother Cancer Social History marital status: unmarried,single number of children: 1 household members: family lives independently: Yes caregiver/support person: Yes housing: house pets and animals: Yes (Dog) education level: college occupational status: student current occupational exposures/hazards: No seatbelt use: always water heater temp set < 120 deg: Yes working smoke detector in home: Yes fire extinguisher in home: Yes carbon monox detector in home: Yes firearms in home: No do you feel safe at home: No Smoking Status: Never smoker Tobacco: How many years used: 5 second hand exposure: Yes (rare by mother in law) alcohol intake: never substance use type: does not use and former substance user during the past year weight has: increased > 10 lbs well-balanced diet: about half the time daily servings fruits/ve-4 caffeine: Yes (Not right now, not feeling well) Discharge Plan Discharge Plan Patient Disposition: Home Discharge orders & Medications Prescriptions: Continued citalopram 40 mg tablet 40 mg PO DAILY Qty: 90 1RF (DME) Double electric breast pump See Rx Instructions .Route .MEDSUPPLY Qty: 1 0RF Rx Instructions: Use electric breast pump and supplies as directed for 99 months. FREDRICK 10/15/21 prenat.vits,miguel,[id number] Tablet 1 tab PO DAILY docusate sodium 100 mg Capsule 100 mg PO DAILY Qty: 30 0RF ibuprofen 600 mg Tablet 600 mg PO Q6HR PRN (Reason: Pain, Mild (1-3)) Qty: 30 0RF Follow up/Referrals: Anthony White MD [Primary Care Provider] - Rica Oneal MD [Physician] - 10/27/21 1:30 pm Diet/Activity/Treatments Diet: Diet as Tolerated Skin/Wound/Dressing Care Report to your healthcare provider any signs of infection, such as:: chills, fever, night sweats, increased pain, unusual drainage and unusual redness Visit Report/Discharge Packet Visit Report Forms: Patient Portal/API Discharge Data Primary Care Provider: Anthony White Attending Provider: Lacy Benitez Admit Date/Time: 09/21/21 13:28 Discharges patient from system. Discharge Date/Time: 09/23/21 09:59 Quality VTE Deep Vein Thrombosis/Pulmonary Embolism Present on Admission: No
[2021-09-23 08:12] VITALS: BP 124/70; PULSE 72; RESP 16; TEMP 36.8
[2021-09-23 08:55] VITALS: BP 124/70; PULSE 72; RESP 16; TEMP 36.8
--- NOTE | 2021-09-23 09:37 | PC.NURSE ---
pt given d/c instructions, with her understanding. IV discontinued, tip intact
--- NOTE | 2021-09-23 09:59 | PC.NURSE ---
pt escorted to car in stable condition
== END 2021-09-23 09:59 | disposition home or self-care (01) ==
PROVIDERS: Admitting Provider Family Medicine; Family Provider Student in an Organized Health Care Education/Training Program; PCP Student in an Organized Health Care Education/Training Program; Referring Provider Family Medicine; Visit Provider Family Medicine
DX: O86.12 Endometritis following delivery (principal)
CPT/HCPCS: 36415; 80048; 80053; 80170; 81002; 85025; 87040; 87086; G0378; G0379

== ENCOUNTER 2021-10-17 14:29 | Emergency (ER) | payer OTHER, MEDICAID, SELFPAY ==
[2021-09-21 14:00] VITALS: BMI 32.2
[2021-10-17 14:51] VITALS: BP 122/76; PULSE 100; RESP 20; TEMP 37.6; O2SAT 99; BMI 32.8
--- NOTE | 2021-10-17 14:59 | DI.RAD.S_ITS ---
PROCEDURE: XR CHEST 1V INDICATIONS: suspected sepsis TECHNIQUE: One view of the chest was acquired. COMPARISON: None. FINDINGS: Surgical changes and devices: None. Lungs and pleura: Lungs are clear. No pleural effusions or pneumothorax. Mediastinum: Mediastinal contours appear normal. Heart size is normal. Bones and chest wall: No suspicious bony lesions. Overlying soft tissues appear unremarkable. IMPRESSION: Portable chest within normal limits. Dictated by: Sly Shaw M.D. on 10/17/2021 at 15:21 Approved by: Sly Shaw M.D. on 10/17/2021 at 15:21
[2021-10-17] MEDS: SODIUM CHLORIDE 0.9% 1,000 ML 1000 ML IV (15:31)
[2021-10-17 15:42] LABS: INR 1.2 (0.9-1.3)
[2021-10-17 15:45] LABS: PTT Partial Thromboplastin Tim 31 SECONDS (26-36)
[2021-10-17 15:47] LABS: Alanine Aminotransferase 61 IU/L (<35); Albumin Globulin Ratio 1.1 (1.0-2.8); Alkaline Phosphatase 136 U/L (38-126); Aspartate Aminotransferase 45 IU/L (14-36); BUN Creatinine Ratio 15.9 (6-22); Bilirubin Total 0.7 mg/dL (0.2-1.3); Blood Urea Nitrogen 11 mg/dL (7-17); Calcium 8.8 mg/dL (8.4-10.2); Carbon Dioxide 23 mmol/L (22-32); Chloride 101 mmol/L (98-107); Estimated Glomerular Filt Rate > 60 mL/min (>60); Globulin 3.5 g/dL (1.7-4.1); Glucose 102 mg/dL (70-100); HEMOLYSIS < 15 (0-50); Lipase 78 U/L (23-300); Potassium 3.8 mmol/L (3.4-5.1); Sodium 132 mmol/L (137-145); Total Protein 7.5 g/dL (6.3-8.2)
[2021-10-17 15:48] VITALS: PULSE 89; RESP 15; O2SAT 99
[2021-10-17 15:49] LABS: Add Manual Diff / Slide Review NO; Basophils Absolute Auto 0 /uL (0-100); Basophils Percent Auto 0.2 % (0-2); Eosinophils Absolute Auto 100 /uL (0-450); Eosinophils Percent Auto 0.9 % (2-4); Hematocrit 40.7 % (36-46); Hemoglobin 14.2 g/dL (12.0-16.0); Lymphocytes Absolute Auto 1900 /uL (1100-4500); Lymphocytes Percent Auto 13.6 % (25-40); Mean Corpuscular HGB Conc 34.8 % (30-36); Mean Corpuscular Hemoglobin 30.9 PG (26-34); Mean Corpuscular Volume 88.9 fL (80-100); Monocytes Absolute Auto 800 /uL (0-900); Monocytes Percent Auto 5.5 % (3-14); Neutrophils Absolute Auto 11000 /uL (1500-7000); Neutrophils Percent Auto 79.8 % (50-75); Platelet Count 158 X10^3/uL (150-400); Red Blood Cell Count 4.58 X10^6/uL (4.0-5.2); Red Cell Distribution Width 13.5 % (11.6-14.8); White Blood Cell Count 13.7 X10^3/uL (4.5-11.0)
[2021-10-17 16:00] VITALS: BP 114/65; PULSE 85; RESP 20; O2SAT 98
[2021-10-17 16:04] LABS: Procalcitonin 0.13 ng/mL (<0.5)
[2021-10-17 16:05] LABS: Amorphous Sediment Urine 1+; Bacteria Urine Moderate (10-30); RBC Urine 5-10/HPF (0-5/HPF); Renal Epithelial Cells Urine 1-5/HPF (0-1/HPF); Squamous Epithelial Cell Urine 1-5 /HPF (0-5/HPF); WBC Urine 10-30/HPF (0-5/HPF)
[2021-10-17 16:06] LABS: Mucus Urine 1+ (Negative)
[2021-10-17 16:14] LABS: COVID19 -Nasal RAPID Negative (Negative)
[2021-10-17 16:30] VITALS: BP 108/63; PULSE 91; RESP 17; O2SAT 99
[2021-10-17 17:00] VITALS: BP 109/66; PULSE 90; RESP 17; O2SAT 99
--- NOTE | 2021-10-17 18:20 | DI.US.S_ITS ---
PROCEDURE: US BREAST RT LIMITED COMPARISON: [facility], BREAST RT LIMITED, 09/04/2018, 13:08. INDICATIONS: Pain to right breast FINDINGS: There is an irregular complex mass within the is the upper outer quadrant of the right breast measuring 74 mm x 20 mm x 62 mm. There is minimal internal vascularity. IMPRESSION: Right breast lesion as described above, consistent with phlegmon. Continued follow-up is recommended to exclude underlying neoplasm. Dictated by: Jones Mendiola M.D. on 10/17/2021 at 19:27 Approved by: Jones Mendiola M.D. on 10/17/2021 at 19:28
--- NOTE | 2021-10-17 18:37 | ED_ITS ---
HPI - Fever <Rashid Bustamante PA-C - Last Filed: 10/17/21 20:13> General Chief Complaint: Fever Stated Complaint: fever sweating mastitis Time Seen by Provider: 10/17/21 15:41 Source: patient Mode of arrival: Wheelchair History of Present Illness HPI Narrative: Patient is a 31-year-old female who presents to the emergency room today with complaint right-sided breast pain that started yesterday afternoon. Denies any abnormal drainage from the breast states the pain is a throbbing sensation that her arms. Pain is on the right side and top of the breast near the nipple area. Also has a sensation of the mass inside the breast on the right side near the right nipple. Has twin [place] and has been breast-feeding for 5 weeks. Had a temperature yesterday as high as 104 and a temperature today as high as 103 also states the right-sided breast is larger than the left-sided breast admits to being on citalopram now for depression and has been trying to wean off of it. Denies any other concerns. Related Data Home Medications Medication Instructions Recorded Confirmed prenat.vits,miguel,[id number] 1 tab PO DAILY 03/08/21 10/21/21 Previous Rx's Medication Instructions Recorded citalopram 40 mg tablet 40 mg PO DAILY #90 tabs 07/13/21 Double electric breast pump #1 ea 08/06/21 docusate sodium 100 mg capsule 100 mg PO DAILY #30 caps 09/14/21 ibuprofen 600 mg tablet 600 mg PO Q6HR PRN Pain, Mild 09/14/21 (1-3) #30 tabs fluoxetine 40 mg capsule 80 mg PO DAILY #60 caps 10/11/21 propranolol 10 mg tablet 10 mg PO TID PRN anxiety #30 tabs 10/11/21 hydroxyzine HCl 25 mg tablet 25 mg PO TID PRN anxiety #30 tabs 10/15/21 clindamycin HCl 150 mg capsule 150 mg PO TID #15 caps 10/17/21 clindamycin HCl 300 mg capsule 300 mg PO TID #15 caps 10/17/21 oxycodone-acetaminophen 5 mg-325 1 tab PO Q8H PRN pain #10 tabs 10/17/21 mg tablet (Percocet) Allergies Allergy/AdvReac Type Severity Reaction Status Date / Time cyclobenzaprine AdvReac Mild Anger Verified 10/21/21 11:04 penicillin G AdvReac Verified 10/21/21 11:04 Review of Systems <Rashid Bustamante PA-C - Last Filed: 10/17/21 20:13> Review of Systems Narrative: R.O.S.: General: No fever, chills or fatigue. Cardiovascular: No chest pain or palpitations Respiratory: No S.O.B. HEENT: No congestion, ear pain, rhinorrhea, sore throat or tinnitus Gastrointestinal: No nausea or vomiting Skin: Right breast pain Musculoskeletal: No pain in muscles or joints, no limitation of range of motion, no paresthesia or numbness. ?? Neurological: Awake, alert and in not apparent distress. No Headaches, changes in vision or other related neurological concerns. Patient History <Rashid Bustamante PA-C - Last Filed: 10/17/21 20:13> Medical History Acute right-sided low back pain Acute tension-type headache Acute thoracic back pain Anxiety associated with depression (~2019) Body posture problem Cellulitis Cervical somatic dysfunction Chronic neck pain (~2019) Cranial somatic dysfunction Elevated blood pressure reading without diagnosis of hypertension Lumbar region somatic dysfunction Major depression Mastitis No significant past medical history Pelvic somatic dysfunction Rib pain on right side Sacral region somatic dysfunction Segmental and somatic dysfunction of abdomen and other regions Segmental and somatic dysfunction of rib cage SIRS (systemic inflammatory response syndrome) Thoracic region somatic dysfunction Viral syndrome Surgical History History of tonsillectomy (~2004) Hx of dilation and curettage No pertinent past surgical history Family History Mother PTSD (post-traumatic stress disorder) Anxiety TBI (traumatic brain injury) Mental health problem Preeclampsia Brother Down syndrome Grandfather Diabetes mellitus Grandmother Cancer Social History marital status: unmarried,single number of children: 1 household members: family lives independently: Yes caregiver/support person: Yes housing: house pets and animals: Yes (Dog) education level: college occupational status: student current occupational exposures/hazards: No seatbelt use: always water heater temp set < 120 deg: Yes working smoke detector in home: Yes fire extinguisher in home: Yes carbon monox detector in home: Yes firearms in home: No do you feel safe at home: No Smoking Status: Former smoker Tobacco: How many years used: 5 second hand exposure: Yes (rare by mother in law) alcohol intake: never substance use type: does not use and former substance user during the past year weight has: increased > 10 lbs well-balanced diet: about half the time daily servings fruits/ve-4 caffeine: Yes (Not right now, not feeling well) Smoking Status: Former smoker Substance Use Type: does not use Exam <Rashid Bustamante PA-C - Last Filed: 10/17/21 20:13> Narrative Exam Narrative: Physical Exam: ? General: normal appearance, well developed, well nourished, alert, and awake. Not in acute distress. ? Head: Normocephalic, no lesions. Chest: Lungs CTAB, no rales, rhonchi or wheezes. ?? Heart: RRR, no murmurs, rubs or gallops. Eyes: PERRLA, EOM's full, conjunctivae clear. ? Neuro: Physiological, no localizing findings, CN3-12 intact. ?? Extremities: Warm, well perfused, FROM, no deformities, no edema. ?? Skin/Breast: Right breast is slightly enlarged and moderately erythematous to the dorsal and lateral areas. On palpation patient has a hardened mass like lump on the dorsal lateral breast near the nipple. Area appears to be about 1 cm in diameter. The right area for is also erythematous and address has no drainage at this time. The breast and the right axilla also have no abscesses appreciated. PSYCHIATRIC: The mood is good, no blunted affect. Speech is clear. Thought process is linear, thought content is appropriate. The voice is without significant inflection. Gastrointestinal: Soft; NT; ND; Pos BS with Neg. rebound tenderness. No scars or major deformities noted on Visual Inspection. Initial Vital Signs Initial Vital Signs: Vital Signs Temperature 99.7 F H 10/17/21 14:51 Pulse Rate 100 H 10/17/21 14:51 Respiratory Rate 20 10/17/21 14:51 Blood Pressure 122/76 10/17/21 14:51 Pulse Oximetry 99 10/17/21 14:51 Oxygen Delivery Method 10/17/21 14:51 <Cris Wells DO - Last Filed: 10/23/21 08:23> Initial Vital Signs Initial Vital Signs: Vital Signs Temperature 99.7 F H 10/17/21 14:51 Pulse Rate 100 H 10/17/21 14:51 Respiratory Rate 20 10/17/21 14:51 Blood Pressure 122/76 10/17/21 14:51 Pulse Oximetry 99 10/17/21 14:51 Oxygen Delivery Method 10/17/21 14:51 Course <Rashid Bustamante PA-C - Last Filed: 10/17/21 20:13> Orders Ordered: Discontinued Medications Sodium Chloride (Normal Saline 0.9%) 1,000 mls @ 1,000 mls/hr IV BOLUS ONE Stop: 10/17/21 15:58 Last Infusion: 10/17/21 16:30 Dose: 0 mls/hr Documented By: Admin: 10/17/21 15:31 Dose: 1,000 mls/hr Documented By: PATRICIA Oxycodone/Acetaminophen (Oxycodone/Acetaminophen 5/325 Tablet) 1 tab PO NOW ONE Stop: 10/17/21 18:38 Last Admin: 10/17/21 18:52 Dose: 1 tab Documented By: LV Vital Signs Vital signs: Vital Signs - 8 hr 10/17/21 14:51 10/17/21 15:48 10/17/21 16:00 Temperature 99.7 F H Pulse Rate 100 H 89 Respiratory Rate 20 15 Blood Pressure 122/76 114/65 Pulse Oximetry 99 99 Oxygen Delivery Method Room Air 10/17/21 16:00 10/17/21 16:30 10/17/21 16:30 Temperature Pulse Rate 85 91 H Respiratory Rate 20 17 Blood Pressure 108/63 Pulse Oximetry 98 99 Oxygen Delivery Method 10/17/21 17:00 10/17/21 17:00 Temperature Pulse Rate 90 Respiratory Rate 17 Blood Pressure 109/66 Pulse Oximetry 99 Oxygen Delivery Method <Cris Wells DO - Last Filed: 10/23/21 08:23> Orders Ordered: Discontinued Medications Sodium Chloride (Normal Saline 0.9%) 1,000 mls @ 1,000 mls/hr IV BOLUS ONE Stop: 10/17/21 15:58 Last Infusion: 10/17/21 16:30 Dose: 0 mls/hr Documented By: Admin: 10/17/21 15:31 Dose: 1,000 mls/hr Documented By: PATRICIA Oxycodone/Acetaminophen (Oxycodone/Acetaminophen 5/325 Tablet) 1 tab PO NOW ONE Stop: 10/17/21 18:38 Last Admin: 10/17/21 18:52 Dose: 1 tab Documented By: LV Vital Signs Vital signs: Vital Signs - 8 hr 10/17/21 14:51 10/17/21 15:48 10/17/21 16:00 Temperature 99.7 F H Pulse Rate 100 H 89 Respiratory Rate 20 15 Blood Pressure 122/76 114/65 Pulse Oximetry 99 99 Oxygen Delivery Method Room Air 10/17/21 16:00 10/17/21 16:30 10/17/21 16:30 Temperature Pulse Rate 85 91 H Respiratory Rate 20 17 Blood Pressure 108/63 Pulse Oximetry 98 99 Oxygen Delivery Method 10/17/21 17:00 10/17/21 17:00 Temperature Pulse Rate 90 Respiratory Rate 17 Blood Pressure 109/66 Pulse Oximetry 99 Oxygen Delivery Method MDM - Fever <Rashid Bustamante PA-C - Last Filed: 10/17/21 20:13> Lab Data Result diagrams: 10/17/21 15:19 10/17/21 15:19 Labs: Lab Results 10/17/21 10/17/21 10/17/21 Range/Units 15:19 15:19 15:19 WBC 13.7 H (4.5-11.0) X10^3/uL RBC 4.58 (4.0-5.2) X10^6/uL Hgb 14.2 (12.0-16.0) g/dL Hct 40.7 (36-46) % MCV 88.9 (80-100) fL MCH 30.9 (26-34) PG MCHC 34.8 (30-36) % RDW 13.5 (11.6-14.8) % Plt Count 158 (150-400) X10^3/uL Neut % (Auto) 79.8 H (50-75) % Lymph % (Auto) 13.6 L (25-40) % Imperial % (Auto) 5.5 (3-14) % Eos % (Auto) 0.9 L (2-4) % Baso % (Auto) 0.2 (0-2) % Neut # (Auto) 34512 H (4979-3567) /uL Lymph # (Auto) 1900 (6811-6525) /uL Imperial # (Auto) 800 (0-900) /uL Eos # (Auto) 100 (0-450) /uL Baso # (Auto) 0 (0-100) /uL PT 14.0 H (10.1-12.7) SECONDS INR 1.2 (0.9-1.3) APTT 31 (26-36) SECONDS Sodium 132 L (137-145) mmol/L Potassium 3.8 (3.4-5.1) mmol/L Chloride 101 (98-107) mmol/L Carbon Dioxide 23 (22-32) mmol/L BUN 11 (7-17) mg/dL Creatinine 0.69 (0.52-1.04) mg/dL Estimated GFR > 60 (>60) mL/min BUN/Creatinine Ratio 15.9 (6-22) Glucose 102 H (70-100) mg/dL Lactate (0.7-2.1) mmol/L Calcium 8.8 (8.4-10.2) mg/dL Total Bilirubin 0.7 (0.2-1.3) mg/dL AST 45 H (14-36) IU/L ALT 61 H (<35) IU/L Alkaline Phosphatase 136 H (38-126) U/L Total Protein 7.5 (6.3-8.2) g/dL Albumin 4.0 (3.5-5.0) g/dL Globulin 3.5 (1.7-4.1) g/dL Albumin/Globulin Ratio 1.1 (1.0-2.8) Lipase 78 (23-300) U/L Procalcitonin 0.13 (<0.5) ng/mL Urine RBC (0-5/HPF) Urine WBC (0-5/HPF) Ur Squamous Epith Cells (0-5/HPF) Ur Renal Epithelial Cell (0-1/HPF) Amorphous Sediment Urine Bacteria (None) Urine Mucus (Negative) Ur Culture Indicated? SARS-CoV-2 (PCR) (Negative) 10/17/21 10/17/21 10/17/21 Range/Units 15:19 15:21 15:36 WBC (4.5-11.0) X10^3/uL RBC (4.0-5.2) X10^6/uL Hgb (12.0-16.0) g/dL Hct (36-46) % MCV (80-100) fL MCH (26-34) PG MCHC (30-36) % RDW (11.6-14.8) % Plt Count (150-400) X10^3/uL Neut % (Auto) (50-75) % Lymph % (Auto) (25-40) % Imperial % (Auto) (3-14) % Eos % (Auto) (2-4) % Baso % (Auto) (0-2) % Neut # (Auto) (3347-8585) /uL Lymph # (Auto) (0723-4600) /uL Imperial # (Auto) (0-900) /uL Eos # (Auto) (0-450) /uL Baso # (Auto) (0-100) /uL PT (10.1-12.7) SECONDS INR (0.9-1.3) APTT (26-36) SECONDS Sodium (137-145) mmol/L Potassium (3.4-5.1) mmol/L Chloride (98-107) mmol/L Carbon Dioxide (22-32) mmol/L BUN (7-17) mg/dL Creatinine (0.52-1.04) mg/dL Estimated GFR (>60) mL/min BUN/Creatinine Ratio (6-22) Glucose (70-100) mg/dL Lactate 1.0 (0.7-2.1) mmol/L Calcium (8.4-10.2) mg/dL Total Bilirubin (0.2-1.3) mg/dL AST (14-36) IU/L ALT (<35) IU/L Alkaline Phosphatase (38-126) U/L Total Protein (6.3-8.2) g/dL Albumin (3.5-5.0) g/dL Globulin (1.7-4.1) g/dL Albumin/Globulin Ratio (1.0-2.8) Lipase (23-300) U/L Procalcitonin (<0.5) ng/mL Urine RBC 5-10/hpf H (0-5/HPF) Urine WBC 10-30/hpf H (0-5/HPF) Ur Squamous Epith Cells 1-5 /hpf (0-5/HPF) Ur Renal Epithelial Cell 1-5/hpf H (0-1/HPF) Amorphous Sediment 1+ Urine Bacteria Moderate (10-30) H (None) Urine Mucus 1+ H (Negative) Ur Culture Indicated? Culture not indicate SARS-CoV-2 (PCR) Negative (Negative) Point of Care Testing Test Results Negative Urine Dip Bedside Urine Glucose Negative Bedside Urine Bilirubin - Negative Bedside Urine Ketone +/- 5 Urine Specific Hutchinson 1.010 Bedside Urine Occult Blood +++ Bedside Urine pH 6.0 Bedside Urine Protein + 30 Bedside Urine Urobilinogen - Negative Bedside Urine Nitrite - Negative Bedside Urine Leukocytes ++ 125 Esterase Imaging Data US breast: Radiologist's Impression: PROCEDURE: US BREAST RT LIMITED ? COMPARISON: [facility], BREAST RT LIMITED, 09/04/2018, 13:08. ? INDICATIONS: Pain to right breast ? FINDINGS: There is an irregular complex mass within the is the upper outer quadrant of the right breast measuring 74 mm x 20 mm x 62 mm.? There is minimal internal vascularity. ? IMPRESSION: Right breast lesion as described above, consistent with phlegmon.? Continued follow-up is recommended to exclude underlying neoplasm. ? ? ? Dictated by: Jones Mendiola M.D. on 10/17/2021 at 19:27 ? ? Approved by: Jones Mendiola M.D. on 10/17/2021 at 19:28 ? [facility] Narrative Medical decision making narrative: Patient is a 31-year-old female who presents to the emergency room today with complaint of right-sided breast pain that started yesterday afternoon. Admits having twins and breast-feeding for the last 5 weeks. Physical exam confirms a right-sided tender breast with erythema. Patient has a stated allergy to penicillin and clindamycin was ordered. Culture of the breast milk was also ordered and collected. Ultrasound was ordered and had an impresson of:Right breast lesion as described above, consistent with phlegmon. Consulted with Dr Roa at [facility] and he agrees the plan to administer Clindamycin and continue to breast feed. He also suggest having the patient f/u with his office next week. Percocet was ordered pain. Patient was informed of this and agrees with this plan. <Cris Norman Wells, DO - Last Filed: 10/23/21 08:23> Lab Data Labs: Lab Results 10/17/21 10/17/21 10/17/21 Range/Units 15:19 15:19 15:19 WBC 13.7 H (4.5-11.0) X10^3/uL RBC 4.58 (4.0-5.2) X10^6/uL Hgb 14.2 (12.0-16.0) g/dL Hct 40.7 (36-46) % MCV 88.9 (80-100) fL MCH 30.9 (26-34) PG MCHC 34.8 (30-36) % RDW 13.5 (11.6-14.8) % Plt Count 158 (150-400) X10^3/uL Neut % (Auto) 79.8 H (50-75) % Lymph % (Auto) 13.6 L (25-40) % Imperial % (Auto) 5.5 (3-14) % Eos % (Auto) 0.9 L (2-4) % Baso % (Auto) 0.2 (0-2) % Neut # (Auto) 44818 H (9295-5814) /uL Lymph # (Auto) 1900 (9336-6837) /uL Imperial # (Auto) 800 (0-900) /uL Eos # (Auto) 100 (0-450) /uL Baso # (Auto) 0 (0-100) /uL PT 14.0 H (10.1-12.7) SECONDS INR 1.2 (0.9-1.3) APTT 31 (26-36) SECONDS Sodium 132 L (137-145) mmol/L Potassium 3.8 (3.4-5.1) mmol/L Chloride 101 (98-107) mmol/L Carbon Dioxide 23 (22-32) mmol/L BUN 11 (7-17) mg/dL Creatinine 0.69 (0.52-1.04) mg/dL Estimated GFR > 60 (>60) mL/min BUN/Creatinine Ratio 15.9 (6-22) Glucose 102 H (70-100) mg/dL Lactate (0.7-2.1) mmol/L Calcium 8.8 (8.4-10.2) mg/dL Total Bilirubin 0.7 (0.2-1.3) mg/dL AST 45 H (14-36) IU/L ALT 61 H (<35) IU/L Alkaline Phosphatase 136 H (38-126) U/L Total Protein 7.5 (6.3-8.2) g/dL Albumin 4.0 (3.5-5.0) g/dL Globulin 3.5 (1.7-4.1) g/dL Albumin/Globulin Ratio 1.1 (1.0-2.8) Lipase 78 (23-300) U/L Procalcitonin 0.13 (<0.5) ng/mL Urine RBC (0-5/HPF) Urine WBC (0-5/HPF) Ur Squamous Epith Cells (0-5/HPF) Ur Renal Epithelial Cell (0-1/HPF) Amorphous Sediment Urine Bacteria (None) Urine Mucus (Negative) Ur Culture Indicated? SARS-CoV-2 (PCR) (Negative) 10/17/21 10/17/21 10/17/21 Range/Units 15:19 15:21 15:36 WBC (4.5-11.0) X10^3/uL RBC (4.0-5.2) X10^6/uL Hgb (12.0-16.0) g/dL Hct (36-46) % MCV (80-100) fL MCH (26-34) PG MCHC (30-36) % RDW (11.6-14.8) % Plt Count (150-400) X10^3/uL Neut % (Auto) (50-75) % Lymph % (Auto) (25-40) % Imperial % (Auto) (3-14) % Eos % (Auto) (2-4) % Baso % (Auto) (0-2) % Neut # (Auto) (4151-8046) /uL Lymph # (Auto) (2604-3663) /uL Imperial # (Auto) (0-900) /uL Eos # (Auto) (0-450) /uL Baso # (Auto) (0-100) /uL PT (10.1-12.7) SECONDS INR (0.9-1.3) APTT (26-36) SECONDS Sodium (137-145) mmol/L Potassium (3.4-5.1) mmol/L Chloride (98-107) mmol/L Carbon Dioxide (22-32) mmol/L BUN (7-17) mg/dL Creatinine (0.52-1.04) mg/dL Estimated GFR (>60) mL/min BUN/Creatinine Ratio (6-22) Glucose (70-100) mg/dL Lactate 1.0 (0.7-2.1) mmol/L Calcium (8.4-10.2) mg/dL Total Bilirubin (0.2-1.3) mg/dL AST (14-36) IU/L ALT (<35) IU/L Alkaline Phosphatase (38-126) U/L Total Protein (6.3-8.2) g/dL Albumin (3.5-5.0) g/dL Globulin (1.7-4.1) g/dL Albumin/Globulin Ratio (1.0-2.8) Lipase (23-300) U/L Procalcitonin (<0.5) ng/mL Urine RBC 5-10/hpf H (0-5/HPF) Urine WBC 10-30/hpf H (0-5/HPF) Ur Squamous Epith Cells 1-5 /hpf (0-5/HPF) Ur Renal Epithelial Cell 1-5/hpf H (0-1/HPF) Amorphous Sediment 1+ Urine Bacteria Moderate (10-30) H (None) Urine Mucus 1+ H (Negative) Ur Culture Indicated? Culture not indicate SARS-CoV-2 (PCR) Negative (Negative) Point of Care Testing Test Results Negative Urine Dip Bedside Urine Glucose Negative Bedside Urine Bilirubin - Negative Bedside Urine Ketone +/- 5 Urine Specific Hutchinson 1.010 Bedside Urine Occult Blood +++ Bedside Urine pH 6.0 Bedside Urine Protein + 30 Bedside Urine Urobilinogen - Negative Bedside Urine Nitrite - Negative Bedside Urine Leukocytes ++ 125 Esterase Discharge Plan Departure Patient Disposition: Home Clinical Impression: Mastitis Instructions: DI for Mastitis Activity Restrictions/Additional Instructions: *You have been diagnosed with mastitis. Your been ordered antibiotic cli ndamycin for your breast infection. I suggest you continue to breast feed and she have been normally. I have also scheduled a referral for you to see [facility] and suggestion restarted them early next week and as per Dr. Roa. Their phone number is [phone]. I also suggest you contact car unloader helper provider tissue having any non emergent concerns. I suggest she return to the emergency room with any emergent concern. Emergent concerns would be intractable breast pain development of a fluctuant abscess in any area of the breast or your right adnexal area. For fever above 101? that is not relieved Tylenol. [ ] *What to do: *Please continue to take your regular medications as directed. [x] New medication prescriptions sent to your pharmacy: [ ] [ ] New medication written as a paper prescription [ ] No new medications given *Please follow up with your primary care provider in 2-3 days, call for an appointment. Let them know you were seen in the Emergency Department and that we ask that you be seen in follow up. We will electronically transmit a record of today's note if your PCP is in our system *If you do not have a primary care provider please contact the [facility] Resource line at [phone]. They will ask some questions about your medical history and help get you set up with a doctor in the community. *Return to Emergency Department if you should have any new, worsening or concerning symptoms, such as [fever greater than 101 F, shaking chills, worsening pain, persistent vomiting or other bothersome symptoms] Prescriptions: New clindamycin HCl 300 mg capsule 300 mg PO TID Qty: 15 0RF clindamycin HCl 150 mg capsule 150 mg PO TID Qty: 15 0RF oxycodone-acetaminophen [Percocet] 5-325 mg tablet 1 tab PO Q8H PRN (Reason: pain) Qty: 10 0RF No Action fluoxetine 40 mg capsule 80 mg PO DAILY Qty: 60 2RF propranolol 10 mg tablet 10 mg PO TID PRN (Reason: anxiety) Qty: 30 2RF citalopram 40 mg tablet 40 mg PO DAILY Qty: 90 1RF Hold Instructions: change meds (DME) Double electric breast pump See Rx Instructions .Route .MEDSUPPLY Qty: 1 0RF Rx Instructions: Use electric breast pump and supplies as directed for 99 months. FREDRICK 10/15/21 hydroxyzine HCl 25 mg tablet 25 mg PO TID PRN (Reason: anxiety) Qty: 30 0RF prenat.vits,miguel,[id number] Tablet 1 tab PO DAILY docusate sodium 100 mg Capsule 100 mg PO DAILY Qty: 30 0RF ibuprofen 600 mg Tablet 600 mg PO Q6HR PRN (Reason: Pain, Mild (1-3)) Qty: 30 0RF Referrals: Anthony White MD [Primary Care Provider] - Oscar Roa MD [Physician] - Visit Report Forms: Patient Portal/API <Cris Wells DO - Last Filed: 10/23/21 08:23> Cosign ED Attending Cosignature Attestation: I was immediately available in the department for consultation. Documentation has been reviewed. Patient case was discussed with myself. Patient initially met septic criteria, responded to fluids, started antibiotics for phlegmon in the setting of mastitis while actively with close follow-up set up with General surgery for possible serial aspiration if needed. Return precautions discussed.
[2021-10-17] MEDS: OXYCODONE/ACETAMINOPHEN 5/325 TABLET 1 TAB PO (18:52)
[2021-10-17 20:17] VITALS: BP 117/71; PULSE 91; RESP 14; O2SAT 100
== END 2021-10-17 20:19 | disposition home or self-care (01) ==
PROVIDERS: Emergency Medicine; Emergency Provider Physician Assistant; Family Provider Student in an Organized Health Care Education/Training Program; PCP Student in an Organized Health Care Education/Training Program
DX: N61.0 Mastitis without abscess (principal); Z20.822 Contact with and (suspected) exposure to COVID-19
CPT/HCPCS: 36415; 71045; 76642; 80053; 81003; 81015; 81025; 83605; 83690; 84145; 85025; 85610; 85730; 87040; 87070; 87075; 87086; 87205; 87635; 93005; 96360; 99284; C9803

== ENCOUNTER → 2021-11-26 09:20 | Outpatient (CLI) | payer OTHER, MEDICAID, SELFPAY ==
[2021-10-18 12:51] VITALS: BMI 32.2
--- NOTE | 2021-11-26 09:22 | DI.MG.S_ITS ---
BILATERAL DIGITAL DIAGNOSTIC MAMMOGRAM 3D/2D: 11/26/2021 CLINICAL: Bilateral mastitis. Baseline. Comparison is made to exams dated: 10/17/2021 ultrasound and 09/04/2018 [facility]. Both breasts are heterogeneously dense, which may obscure small masses (category c / 51-75% glandular tissue). There is a 1.9 cm oval low density mass with an obscured and circumscribed margin in the right breast at 9 o'clock anterior depth 4 cm from the nipple. No other significant masses, calcifications, or other findings are seen in either breast. IMPRESSION: INCOMPLETE: NEEDS ADDITIONAL IMAGING EVALUATION The 1.9 cm oval low density mass in the right breast is indeterminate. A right breast ultrasound is recommended for further evaulation. There is no abnormality seen in the right breast to correspond with the ultrasound finding, however, right breast ultrasound is recommended for further evaluation. There is no abnormality seen in the left breast to correspond with the area of clinical concern, however, clinical followup is recommended. Patient is scheduled to return for right breast ultrasound on Monday11/29/2021. Based on the Tyrer Cuzick model (a risk assessment model) the patient's lifetime risk is 13.2% and her 10 year risk is 0.7%. According to the ACR, ACS, and NCCN guidelines, an annual breast MRI exam along with mammogram is recommended if the patient's lifetime risk is 20% or greater. This exam was interpreted at Station ID: [id number]. NOTE: For mammograms, a report in lay terms will be sent to the patient. Approximately 15% of breast malignancies will not be visualized mammographically. In the management of a palpable breast mass, a negative mammogram must not discourage biopsy of a clinically suspicious lesion. Electronically Signed By: Patrick Cote M.D. ar/:11/26/2021 14:03:00 ACR BI-RADS Category 0: Incomplete [id number]
== END ==
PROVIDERS: Family Provider Student in an Organized Health Care Education/Training Program; PCP Student in an Organized Health Care Education/Training Program; Referring Provider Family Medicine; Visit Provider Family Medicine
DX: L02.91 Cutaneous abscess, unspecified (principal); N63.15 Unspecified lump in the right breast, overlapping quadrants
CPT/HCPCS: 77066; G0279

== ENCOUNTER → 2021-11-29 13:00 | Outpatient (CLI) | payer OTHER, MEDICAID, SELFPAY ==
[2021-10-18 12:51] VITALS: BMI 32.2
--- NOTE | 2021-11-29 | DI.US.S_ITS ---
ULTRASOUND OF RIGHT BREAST AND AXILLA: 11/29/2021 CLINICAL: Patient returns today to evaluate a focal asymmetry in the right breast. Comparison is made to exams dated: 11/26/2021 mammogram, 10/17/2021 ultrasound, and 09/04/2018 [facility]. Color flow ultrasound of the right breast axilla was performed. Wong scale images of the real-time examination were reviewed. Prior area of fluid collection and pain in the right breast in the upper outer quadrant has resolved. There is an incidental 1.6 cm x 1.4 cm x 0.8 cm oval mass with a circumscribed margin in the right breast at 8 o'clock anterior depth 3 cm from the nipple with the long axis parallel to the skin. This oval mass is hypoechoic with an abrupt boundary and posterior acoustic enhancement. This correlates with the incidental mammography findings. Color flow imaging demonstrates that there is vascularity present. There also is a 0.6 cm x 0.5 cm x 0.6 cm round cyst in the right breast at 9 o'clock anterior depth 4 cm from the nipple. This round cyst is hypoechoic with low level internal echoes, an abrupt boundary and posterior acoustic enhancement. This correlates with mammography findings. Color flow imaging demonstrates that there is no vascularity present. No significant abnormalities were seen sonographically in the right axilla. IMPRESSION: SUSPICIOUS OF MALIGNANCY There has been interval resolution of fluid and phlegmon in the right breast upper outer quadrant. The 1.6 cm incidental mass in the right breast at 8 o'clock anterior depth most likely is a fibroadenoma and is at a low suspicion for malignancy. An ultrasound guided biopsy is recommended. The 0.6 cm x 0.5 cm x 0.6 cm round cyst in the right breast at 9 o'clock anterior depth most likely is a complicated cyst and is probably benign. 6 month follow up ultrasound is recommended. Findings and recommendations were discussed with the patient by Dr. Cifuentes in person at time of exam. This exam was interpreted at Station ID: [id number]. Electronically Signed By: Ruchi watkins/:11/29/2021 14:28:25 letter sent: Biopsy Required Ultrasound BI-RADS: 4a Low suspicion for malignancy
== END ==
PROVIDERS: Family Provider Student in an Organized Health Care Education/Training Program; PCP Student in an Organized Health Care Education/Training Program; Referring Provider Student in an Organized Health Care Education/Training Program; Visit Provider Student in an Organized Health Care Education/Training Program
DX: R92.8 Other abnormal and inconclusive findings on diagnostic imaging of breast (principal); N63.13 Unspecified lump in the right breast, lower outer quadrant; N60.01 Solitary cyst of right breast
CPT/HCPCS: 76642

== ENCOUNTER → 2021-12-14 14:11 | Outpatient (CLI) | payer OTHER, MEDICAID, SELFPAY ==
[2021-10-18 12:51] VITALS: BMI 32.2
--- NOTE | 2021-12-14 | PATH_ITS ---
[facility] Accession Number: [id number] . 01 Material submitted: . breast - RIGHT BREAST MASS 8:00 3 CM FROM NIPPLE . 01 Diagnosis: A. Right Breast Mass, 8 o'clock, 3 cm From The Nipple, Biopsy: Adenosis with associated secretory change; see comment. Background with microcystic duct dilatation. Negative for atypia, carcinoma in situ, and malignancy. . COMMENT: Given the reported radiographic and clinical history of a mass, the features are consistent with nodular adenosis. Secretions reminiscent of those seen in -like (pseudolactational) change are seen, consisting of mildly dilated glands lined by cells with foamy cytoplasm and dense eosinophilic secretions with histiocytes. Deeper levels are examined. Clinical and radiographic correlation is necessary. MRV 12/20/2021 1435 Local . 01 Electronically signed: . Cindy Dobson MD, Pathologist NPI- [id number] . 01 Gross description: . The specimen is received in formalin labeled with the patient's name and right breast 8 o'clock, and consists of multiple yellow to white soft tissue fragments aggregating to 1.5 x 1.4 x 0.3 cm The specimen is filtered into a biopsy bag, inked blue, and submitted entirely in cassette A1. . The specimen was removed on 12/14/2021 at approximately 1535. Time in formalin not provided. Cold ischemic time cannot be calculated. Total fixation time is approximately 32 hours. ([id number]) /MRV 12/15/2021 1226 Local . 01 Pathologist provided ICD-10: R93.89 . 01 CPT . 912647 Specimen Comment: A courtesy copy of this report has been sent to [phone] Performed at: 01 [facility] [address], [place], [place] [id number] MD Javi Gallardo MD Phone: [phone]
--- NOTE | 2021-12-14 14:40 | DI.US.S_ITS ---
Procedure: US bx breast perc w vac device ULTRASOUND GUIDED BIOPSY RIGHT BREAST USING VACUUM DEVICE WITH MARKING DEVICE INSERTED: 12/14/2021 CLINICAL: Right breast mass. PATIENT CONSENT: Risks (minor bleeding, infection, vasovagal reaction and repeat procedure), benefits and alternatives were explained to the patient and written informed consent was obtained. Correlation is made to exams dated: 11/29/2021 ultrasound, 11/26/2021 mammogram, 10/17/2021 ultrasound, and 09/04/2018 [facility]. An ultrasound guided biopsy using real-time ultrasound was performed for the 1.6 cm x 1.4 cm x 0.8 cm mass located in the right breast at 8 o'clock anterior depth 3 cm from the nipple. This was described on the previous ultrasound report. The skin was prepped in the usual manner. Local anesthetic was administered to the access site. A skin maci was made in the breast. The abnormality was approached from the lateral aspect. A biopsy needle was placed adjacent to the abnormality under ultrasound guidance. Once the needle was documented to be in the correct location, a specimen was obtained using the Mammotome biopsy system. A clip was inserted into the biopsy cavity. The specimen was sent to the laboratory for pathological analysis. IMPRESSION: ULTRASOUND GUIDED BIOPSY BENIGN Ultrasound guided biopsy of the 1.6 cm x 1.4 cm x 0.8 cm mass in the right breast at 8 o'clock anterior depth 3 cm from the nipple was successful. Pathology indicates benign nodular adenosis (AD). Pathology results are concordant with imaging findings. Future imaging is recommended as follows: 05/30/2022 follow-up right ultrasound. Continued Report - Page 2 of 2 Patient Name: SID DE LA PAZ date: 1990 Sex: F Attending Physician: Cindy Indications: Date: 12/14/2021 15:56 At the request of: KEY WREN Procedure: US bx breast perc w vac device This exam was interpreted at Station ID: [id number]. Dr. Patrick lino,lk/:12/22/2021 17:58:24
--- NOTE | 2021-12-14 15:34 | DI.MG.S_ITS ---
Procedure: MM diagnostic mammo [id number] UNILATERAL RIGHT DIGITAL DIAGNOSTIC MAMMOGRAM 3D/2D POST-EXCISIONAL BIOPSY: 12/14/2021 CLINICAL: Right breast mass. Comparison is made to exam dated: 11/26/2021 mammogram - [facility]. The right breast is heterogeneously dense, which may obscure small masses (category c / 51-75% glandular tissue). There is a marker clip in the appropriate position in the right breast at 9 o'clock anterior depth 4 cm from the skin. There is a biopsy clip associated with the mass described previously. IMPRESSION: POST PROCEDURE MAMMOGRAM FOR MARKER PLACEMENT There was a successful marker clip placement in the right breast anterior depth. Based on the Tyrer Cuzick model (a risk assessment model) the patient?s lifetime risk is 13.2% and her 10 year risk is 0.7%. According to the ACR, ACS, and NCCN guidelines, an annual breast MRI exam along with mammogram is recommended if the patient?s lifetime risk is 20% or greater. This exam was interpreted at Station ID: [id number]. Continued Report - Page 2 of 2 Patient Name: SID DE LA PAZ date: 1990 Sex: F Attending Physician: Cindy Indications: Date: 12/14/2021 15:31 At the request of: KEY WREN Procedure: MM diagnostic mammo [id number] NOTE: For mammograms, a report in lay terms will be sent to the patient. Approximately 15% of breast malignancies will not be visualized mammographically. In the management of a palpable breast mass, a negative mammogram must not discourage biopsy of a clinically suspicious lesion. Electronically Signed By: Dr. Patrick Foster M.D. an/:12/14/2021 17:14:34 ACR BI-RADS Category Post-procedure mammogram for marker placement
== END ==
PROVIDERS: Family Provider Student in an Organized Health Care Education/Training Program; PCP Student in an Organized Health Care Education/Training Program; Referring Provider Student in an Organized Health Care Education/Training Program; Visit Provider Student in an Organized Health Care Education/Training Program
DX: N60.21 Fibroadenosis of right breast (principal)
CPT/HCPCS: 19083; 77065

== ENCOUNTER → 2022-01-02 13:54 | Outpatient (CLI) | payer OTHER, MEDICAID, SELFPAY ==
[2021-10-18 12:51] VITALS: BMI 32.2
[2022-01-02 22:19] LABS: Influenza A - CEPHEID Flu A NEGATIVE (NEGATIVE); Influenza B - CEPHEID Flu B NEGATIVE (NEGATIVE); Respiratory Syncytial Virus Negative (Negative)
[2022-01-02 22:21] LABS: COVID-19 CEPHEID 4-PLEX PCR Negative (Negative)
== END ==
PROVIDERS: Family Provider Student in an Organized Health Care Education/Training Program; PCP Student in an Organized Health Care Education/Training Program; Visit Provider Physician Assistant
DX: J02.9 Acute pharyngitis, unspecified (principal)
CPT/HCPCS: 0241U

== ENCOUNTER → 2022-10-25 12:44 | Outpatient (CLI) | payer OTHER, MEDICAID, SELFPAY ==
[2021-10-18 12:51] VITALS: BMI 32.2
--- NOTE | 2022-10-25 12:46 | DI.US.S_ITS ---
ULTRASOUND OF RIGHT BREAST AND AXILLA: 10/25/2022 CLINICAL: Patient returns today to evaluate two focal asymmetries in the right breast. Comparison is made to exams dated: 12/14/2021 ultrasound biopsy, 12/14/2021 mammogram, 11/29/2021 ultrasound, 11/26/2021 mammogram, 10/17/2021 ultrasound, and 09/04/2018 ultrasound - [facility]. Color flow and real-time ultrasound of the right breast axilla were performed. Wong scale images of the real-time examination were reviewed. There is a 0.6 cm x 0.5 cm x 0.5 cm round cyst in the right breast at 9 o'clock anterior depth 4 cm from the nipple. This round cyst is hypoechoic with an abrupt boundary and posterior acoustic enhancement. This abnormality is not significantly changed and correlates with mammography findings. Color flow imaging demonstrates that there is no vascularity present. There also is a benign 1.7 cm x 1.4 cm x 0.7 cm wider than tall oval mass with a circumscribed margin in the right breast at 8 o'clock anterior depth 3 cm from the nipple. This oval mass is hypoechoic with an abrupt boundary and posterior acoustic enhancement. This abnormality is not significantly changed and correlates with mammography findings and the previous biopsy. Color flow imaging demonstrates that there is vascularity present. No significant abnormalities were seen sonographically in the right axilla. IMPRESSION: PROBABLY BENIGN The 0.6 cm x 0.5 cm x 0.5 cm round cyst in the right breast at 9 o'clock anterior depth most likely is a complicated cyst and is probably benign. The 1.7 cm x 1.4 cm x 0.7 cm wider than tall oval mass in the right breast at 8 o'clock anterior depth has been biopsied and is benign. A follow-up right ultrasound in 12 months is recommended to document nursing home stability of the complicated cyst. Findings and recommendations were conveyed to the patient during today's evaluation. This exam was interpreted at Station ID: [id number]. Electronically Signed By: Aram Isaac M.D. aty/:10/25/2022 13:38:52 letter sent: Followup Recommended Ultrasound BI-RADS: 3 Probably benign
== END ==
PROVIDERS: Family Provider Student in an Organized Health Care Education/Training Program; PCP Pediatrics; Referring Provider Pediatrics; Visit Provider Pediatrics
DX: R92.8 Other abnormal and inconclusive findings on diagnostic imaging of breast (principal); D24.1 Benign neoplasm of right breast; N60.01 Solitary cyst of right breast
CPT/HCPCS: 76642

== ENCOUNTER → 2022-11-14 12:04 | Outpatient (CLI) | payer OTHER, MEDICAID, SELFPAY ==
[2021-10-18 12:51] VITALS: BMI 32.2
[2022-11-14 13:00] LABS: Influenza A - CEPHEID Flu A NEGATIVE (NEGATIVE); Influenza B - CEPHEID Flu B NEGATIVE (NEGATIVE); Respiratory Syncytial Virus Negative (Negative)
[2022-11-14 13:18] LABS: COVID-19 CEPHEID 4-PLEX PCR Negative (Negative)
== END ==
PROVIDERS: Family Provider Student in an Organized Health Care Education/Training Program; Visit Provider Physician Assistant
DX: R05.1 Acute cough (principal)
CPT/HCPCS: 0241U

== ENCOUNTER → 2023-03-15 09:03 | Outpatient (CLI) | payer OTHER, MEDICAID, SELFPAY ==
[2023-01-18 09:41] VITALS: BMI 32.2
[2023-03-15 10:20] LABS: Add Manual Diff / Slide Review NO; Basophils Absolute Auto 100 /uL (0-100); Eosinophils Absolute Auto 400 /uL (0-450); Eosinophils Percent Auto 7.1 % (2-4); Hematocrit 44.3 % (36-46); Hemoglobin 14.9 g/dL (12.0-16.0); Lymphocytes Absolute Auto 1700 /uL (1100-4500); Lymphocytes Percent Auto 31.1 % (25-40); Mean Corpuscular HGB Conc 33.7 % (30-36); Mean Corpuscular Hemoglobin 30.5 PG (26-34); Mean Corpuscular Volume 90.5 fL (80-100); Monocytes Absolute Auto 300 /uL (0-900); Neutrophils Absolute Auto 3000 /uL (1500-7000); Neutrophils Percent Auto 54.8 % (50-75); Platelet Count 234 X10^3/uL (150-400); Red Cell Distribution Width 13.1 % (11.6-14.8); White Blood Cell Count 5.6 X10^3/uL (4.5-11.0)
[2023-03-15 10:35] LABS: Hemoglobin A1C% w Est Avg Glu 5.1 % (4.0-6.0)
[2023-03-15 10:42] LABS: UR Morphine/Opiate cutoff 300 Negative (Negative); Ur Creatinine Normal (Normal); Ur Specific Gravity Normal (Normal); Urine Amphetamines Negative (Negative); Urine Barbiturates Negative (Negative); Urine Benzodiazepines Negative (Negative); Urine Cocaine Negative (Negative); Urine MDMA Negative (Negative); Urine Methadone Negative (Negative); Urine Methamphetamines Negative (Negative); Urine Oxycodone Negative (Negative); Urine Phencyclidine Negative (Negative); Urine Tetrahydrocannabinol Negative (Negative); Urine Tricyclic Antidepressant Negative (Negative); Urine pH Normal (Normal)
[2023-03-15 10:54] LABS: HEMOLYSIS < 15 (0-50); Iron 143 ug/dL (37-170)
[2023-03-15 10:57] LABS: Alanine Aminotransferase 21 IU/L (<35); Albumin 4.6 g/dL (3.5-5.0); Albumin Globulin Ratio 1.4 (1.0-2.8); Alkaline Phosphatase 55 U/L (38-126); Aspartate Aminotransferase 30 IU/L (14-36); BUN Creatinine Ratio 18.8 (6-22); Bilirubin Total 0.9 mg/dL (0.2-1.3); Blood Urea Nitrogen 13 mg/dL (7-17); Calcium 9.6 mg/dL (8.4-10.2); Carbon Dioxide 27 mmol/L (22-32); Chloride 102 mmol/L (98-107); Cholesterol 194 mg/dL (140-199); Estimated Glomerular Filt Rate > 60 mL/min (>60); Globulin 3.3 g/dL (1.7-4.1); Glucose 76 mg/dL (70-100); HDL Cholesterol 56 mg/dL (40-60); HEMOLYSIS < 15 (0-50); LDL Cholesterol Calculated 123 mg/dL (<100); Potassium 4.8 mmol/L (3.4-5.1); Sodium 137 mmol/L (137-145); Total Protein 7.9 g/dL (6.3-8.2); Triglycerides 74 mg/dL (35-150)
[2023-03-15 11:04] LABS: Percent Iron Saturation 40 % (15-50); Total Iron Binding Capacity 361 ug/dL (265-497); Transferrin 306 mg/dL (206-381)
[2023-03-15 11:26] LABS: TSH w/ Reflex to FT4 0.75 uIU/mL (0.47-4.68)
== END ==
PROVIDERS: Family Provider Student in an Organized Health Care Education/Training Program; PCP Family Medicine; Referring Provider Family Medicine; Visit Provider Family Medicine
DX: Z00.00 Encounter for general adult medical examination without abnormal findings (principal); Z72.0 Tobacco use; F41.8 Other specified anxiety disorders; E66.9 Obesity, unspecified; Z13.220 Encounter for screening for lipoid disorders; R53.83 Other fatigue; Z13.1 Encounter for screening for diabetes mellitus; F13.20 Sedative, hypnotic or anxiolytic dependence, uncomplicated
CPT/HCPCS: 36415; 80053; 80061; 80305; 83036; 83540; 83550; 84443; 85025

== ENCOUNTER → 2023-07-13 17:45 | Outpatient (CLI) | payer OTHER, MEDICAID, SELFPAY ==
[2023-01-18 09:41] VITALS: BMI 32.2
--- NOTE | 2023-07-13 17:47 | DI.RAD.S_ITS ---
PROCEDURE: XR CHEST 2V INDICATIONS: cough TECHNIQUE: 2 views of the chest were acquired. COMPARISON: [facility], , XR CHEST 1V, 10/17/2021, 15:12. FINDINGS: Surgical changes and devices: None. Lungs and pleura: No dense consolidation or pleural effusion Low lung volumes. Mediastinum: Normal heart size Bones and chest wall: Unremarkable IMPRESSION: No acute radiographic abnormality. Low lung volumes. Dictated by: Gwyn Reyes M.D. on 07/14/2023 at 10:23 Approved by: Gwyn Reyes M.D. on 07/14/2023 at 10:33
== END ==
PROVIDERS: Family Provider Student in an Organized Health Care Education/Training Program; PCP Family Medicine; Referring Provider Family Medicine; Visit Provider Family Medicine
DX: R05.9 Cough, unspecified (principal)
CPT/HCPCS: 71046

== ENCOUNTER → 2023-11-23 10:03 | Outpatient (CLI) | payer OTHER, MEDICAID, SELFPAY ==
[2023-01-18 09:41] VITALS: BMI 32.2
--- NOTE | 2023-11-23 10:04 | DI.US.S_ITS ---
LIMITED ULTRASOUND OF RIGHT BREAST AND AXILLA: 11/23/2023 CLINICAL: Patient returns for a 6 month follow up of the right breast. Comparison is made to exams dated: 10/25/2022 ultrasound, 12/14/2021 ultrasound biopsy, 12/14/2021 mammogram, 11/29/2021 ultrasound, 11/26/2021 mammogram, and 10/17/2021 ultrasound - [facility]. Color flow and real-time ultrasound of the right breast 8-9 o'clock, and axilla regions were performed. Wong scale images of the real-time examination were reviewed. Prior area of pain in the right breast in the upper outer quadrant has been resolved. There is a stable benign 1.7 cm x 1.4 cm x 0.7 cm wider than tall oval mass with a circumscribed margin in the right breast at 8 o'clock anterior depth 3 cm from the nipple. This oval mass is hypoechoic with an abrupt boundary and posterior acoustic enhancement. This correlates with mammography findings and the previous biopsy. There is an associated biopsy clip. Color flow imaging demonstrates that there is vascularity present. There also is a 0.5 cm x 0.5 cm x 0.4 cm round cystic mass in the right breast at 9 o'clock anterior depth 4 cm from the nipple. This is hypoechoic with an abrupt boundary and posterior acoustic enhancement. This abnormality is decreased in size and correlates with mammography findings. Color flow imaging demonstrates that there is no vascularity present. No abnormalities in the axilla. IMPRESSION: BENIGN There is no sonographic evidence of malignancy. The 1.7 cm mass in the right breast at 8 o'clock has has been biopsied, demontrated two years of stability, and is therefore benign. The 0.5 cm x 0.5 cm x 0.4 cm round cyst in the right breast at 9 o'clock anterior depth most likely is a complicated cyst, has demontrated two years of stability and is therefore benign. Screening mammography beginning at age 40 is recommended. Findings and recommendations were conveyed to the patient at time of exam. This exam was interpreted at Station ID: [id number]. Electronically Signed By: Ruchi watkins/:11/23/2023 15:43:45 letter sent: Normal Exam ACR BI-RADS Category 2: Benign
== END ==
LOC: US 10:04
PROVIDERS: Family Provider Student in an Organized Health Care Education/Training Program; PCP Family Medicine; Referring Provider Family Medicine; Visit Provider Family Medicine
DX: D24.1 Benign neoplasm of right breast (principal); N60.01 Solitary cyst of right breast
CPT/HCPCS: 76642

== ENCOUNTER → 2024-02-12 09:33 | Outpatient (CLI) | payer OTHER, SELFPAY ==
[2024-01-02 09:22] VITALS: BMI 32.2
[2024-02-12 10:53] LABS: Add Manual Diff / Slide Review NO; Basophils Absolute Auto 100 /uL (0-100); Basophils Percent Auto 0.7 % (0-2); Eosinophils Absolute Auto 600 /uL (0-450); Eosinophils Percent Auto 8.1 % (2-4); Hematocrit 45.1 % (36-46); Hemoglobin 15.1 g/dL (12.0-16.0); Lymphocytes Absolute Auto 2000 /uL (1100-4500); Lymphocytes Percent Auto 27.6 % (25-40); Mean Corpuscular HGB Conc 33.5 % (30-36); Mean Corpuscular Hemoglobin 30.4 PG (26-34); Mean Corpuscular Volume 90.6 fL (80-100); Monocytes Absolute Auto 600 /uL (0-900); Monocytes Percent Auto 8.2 % (3-14); Neutrophils Absolute Auto 4000 /uL (1500-7000); Neutrophils Percent Auto 55.4 % (50-75); Platelet Count 233 X10^3/uL (150-400); Red Blood Cell Count 4.98 X10^6/uL (4.0-5.2); Red Cell Distribution Width 13.6 % (11.6-14.8); White Blood Cell Count 7.2 X10^3/uL (4.5-11.0)
[2024-02-12 11:08] LABS: Alanine Aminotransferase 25 IU/L (<35); Albumin 4.6 g/dL (3.5-5.0); Albumin Globulin Ratio 1.7 (1.0-2.8); Alkaline Phosphatase 62 U/L (38-126); Aspartate Aminotransferase 34 IU/L (14-36); BUN Creatinine Ratio 21.9 (6-22); Bilirubin Total 0.6 mg/dL (0.2-1.3); Blood Urea Nitrogen 16 mg/dL (7-17); Calcium 9.6 mg/dL (8.4-10.2); Carbon Dioxide 26 mmol/L (22-32); Chloride 104 mmol/L (98-107); Estimated Glomerular Filt Rate > 60 mL/min (>60); Globulin 2.7 g/dL (1.7-4.1); Glucose 86 mg/dL (70-100); HEMOLYSIS < 15 (0-50); Potassium 4.5 mmol/L (3.4-5.1); Sodium 138 mmol/L (137-145); Total Protein 7.3 g/dL (6.3-8.2)
[2024-02-12 11:32] LABS: Thyroid Stimulating Hormone 1.25 uIU/mL (0.47-4.68)
== END ==
LOC: LAB 09:35
PROVIDERS: Family Provider Student in an Organized Health Care Education/Training Program; PCP Student in an Organized Health Care Education/Training Program; Referring Provider Student in an Organized Health Care Education/Training Program; Visit Provider Student in an Organized Health Care Education/Training Program
DX: F33.1 Major depressive disorder, recurrent, moderate (principal); R63.5 Abnormal weight gain; F41.8 Other specified anxiety disorders; Z72.0 Tobacco use
CPT/HCPCS: 36415; 80053; 83036; 84443; 85025; 99215

== ENCOUNTER → 2024-04-04 12:13 | Outpatient (CLI) | payer OTHER, SELFPAY ==
[2024-03-06 11:29] VITALS: BMI 32.2
--- NOTE | 2024-04-04 12:14 | DI.RAD.S_ITS ---
PROCEDURE: XR KNEE LT 1TO2V INDICATIONS: left knee pain and swelling TECHNIQUE: 2 views of the knee were acquired. COMPARISON: None. FINDINGS: Bones: No fractures or dislocations. No suspicious bony lesions. Soft tissues: No joint effusion. No suspicious soft tissue calcifications. IMPRESSION: No acute bony abnormality or significant effusion. Dictated by: Erick Shah M.D. on 04/04/2024 at 12:54 Approved by: Erick Shah M.D. on 04/04/2024 at 12:54
== END ==
PROVIDERS: PCP Student in an Organized Health Care Education/Training Program; Referring Provider Student in an Organized Health Care Education/Training Program; Visit Provider Student in an Organized Health Care Education/Training Program
DX: M25.562 Pain in left knee (principal)
CPT/HCPCS: 73560

== ENCOUNTER 2024-04-22 16:34 | Emergency (ER) | payer OTHER, SELFPAY ==
[2024-03-06 11:29] VITALS: BMI 32.2
[2024-04-22 16:38] VITALS: BP 123/78; PULSE 91; RESP 16; TEMP 36.9; O2SAT 99; BMI 32.1
--- NOTE | 2024-04-22 16:42 | DI.RAD.S_ITS ---
PROCEDURE: XR KNEE LT 3V INDICATIONS: felt a pop/pain TECHNIQUE: 3 views of the knee were acquired. COMPARISON: [facility], , XR KNEE LT 1TO2V, 04/04/2024, 12:21. FINDINGS: Bones: No fractures or dislocations. No suspicious bony lesions. Lateral patellar subluxation. Soft tissues: Mild joint effusion. No suspicious soft tissue calcifications. IMPRESSION: No visualized acute fracture or dislocation. However, if clinical concern and/or pain persist, short interval imaging followup in 7-10 days is recommended, as occult injury cannot be definitively excluded. Dictated by: Bell Judge M.D. on 04/22/2024 at 17:55 Approved by: Bell Judge M.D. on 04/22/2024 at 17:56
--- NOTE | 2024-04-22 17:59 | ED.LOWEXIN ---
HPI - Extremity Injury (Lower) <Gisele Maldonado PA-C - Last Filed: 04/23/24 15:00> General Chief Complaint: Extremity Injury, Lower Stated Complaint: left knee pain Time Seen by Provider: 04/22/24 17:57 History of Present Illness HPI Narrative: 34-year-old female presents to the ED status post a left knee injury sustained just prior to arrival. Patient states that she accidentally struck her left knee against a hitch of a truck. Patient is complaining of a tearing pain and pain with bearing weight. No numbness, tingling, weakness. Related Data Home Medications Medication Instructions Recorded Confirmed cholecalciferol (vitamin D3) 50 50 mcg PO DAILY 02/12/24 04/04/24 mcg (2,000 unit) capsule buspirone 5 mg tablet 5 mg PO TID 03/22/24 04/08/24 magnesium glycinate 100 mg (as 100 mg PO DAILY 03/22/24 04/04/24 glycinate) tablet vitamin B complex cap PO DAILY 03/22/24 04/04/24 Previous Rx's Medication Instructions Recorded ondansetron 4 mg disintegrating 4 mg PO Q8H #30 tabs 02/19/24 tablet semaglutide 0.25 mg or 0.5 mg (2 0.5 mg (0.736 mL) SUBCUT QWEEK #6 03/22/24 mg/3 mL) subcutaneous pen injector mL tizanidine 2 mg capsule 2 mg PO TID PRN muscle spasticity 03/25/24 #30 caps naproxen 500 mg tablet 500 mg PO BID #60 tabs 04/04/24 citalopram 20 mg tablet 20 mg PO DAILY #30 tabs 04/08/24 lorazepam 1 mg tablet 1 mg PO DAILY PRN anxiety #2 tabs 04/08/24 Allergies Allergy/AdvReac Type Severity Reaction Status Date / Time cyclobenzaprine AdvReac Mild Anger Verified 04/04/24 11:04 ketorolac AdvReac Mild Verified 04/04/24 11:04 penicillin G AdvReac Verified 04/04/24 11:04 Review of Systems <Gisele Maldonado PA-C - Last Filed: 04/23/24 15:00> Constitutional Constitutional: Denies chills, Denies fatigue, Denies fever(s), Denies frequent falls, Denies lethargy and Denies weakness Eyes Eyes: Denies change in vision, Denies eye discharge, Denies irritation and Denies loss of vision ENT Ears, Nose, Mouth, and Throat: Denies change in voice, Denies dizziness, Denies neck pain, Denies sore throat and Denies throat swelling Cardiovascular Cardiovascular: Denies chest pain, Denies irregular heart rhythm, Denies lightheadedness, Denies palpitations, Denies dyspnea, Denies dyspnea on exertion and Denies orthopnea Respiratory Respiratory: Denies cough, Denies dyspnea, Denies dyspnea on exertion and Denies wheezing Gastrointestinal Gastrointestinal: Denies abdominal pain, Denies change in bowel habits, Denies diarrhea, Denies nausea and Denies vomiting Musculoskeletal Musculoskeletal: Denies neck pain and Denies numbness Comments: Left-sided knee pain Integumentary/Breasts Skin/Breast: Denies pruritus, Denies erythema, Denies rash and Denies wounds Neurologic Neurologic: Denies behavioral changes, Denies confusion, Denies dizziness, Denies frequent falls, Denies loss of vision, Denies numbness and Denies weakness Psychiatric Psychiatric: Denies anxiety, Denies behavioral changes, Denies confusion, Denies depression, Denies homicidal ideation and Denies suicidal ideation Endocrine Endocrine: Denies fatigue, Denies flushing and Denies palpitations Hematologic/Lymphatic Hematologic/Lymphatic: Denies easy bruising Allergic/Immunologic Allergic/Immunologic: Denies urticaria, Denies throat swelling and Denies wheezing Patient History <Gisele Maldonado PA-C - Last Filed: 04/23/24 15:00> Medical History Major depressive disorder, recurrent episode, moderate with anxious distress Somatic dysfunction of thoracic region Somatic dysfunction of sacral region Somatic dysfunction of pelvis region Somatic dysfunction of lumbar region Somatic dysfunction of lower extremities Currently attempting to quit smoking Vapes nicotine containing substance endometritis Dichorionic diamniotic twin gestation Anxiety associated with depression (~2019) Major depression Tension headache, chronic 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 Surgical History Hx of dilation and curettage History of tonsillectomy (~2004) Family History Mother PTSD (post-traumatic stress disorder) Anxiety TBI (traumatic brain injury) Mental health problem Preeclampsia Brother Down syndrome Grandfather Diabetes mellitus Grandmother Cancer Social History marital status: unmarried,single number of children: 1 household members: family lives independently: Yes caregiver/support person: Yes housing: house pets and animals: Yes (Dog) education level: college occupational status: student current occupational exposures/hazards: No seatbelt use: always water heater temp set < 120 deg: Yes working smoke detector in home: Yes fire extinguisher in home: Yes carbon monox detector in home: Yes firearms in home: No do you feel safe at home: No Smoking Status: Current every day smoker Tobacco: How many years used: 5 second hand exposure: Yes (rare by mother in law) alcohol intake: never substance use type: does not use and former substance user during the past year weight has: increased > 10 lbs well-balanced diet: about half the time daily servings fruits/ve-4 caffeine: Yes (Not right now, not feeling well) Smoking Status: Current every day smoker Exam <Gisele Maldonado PA-C - Last Filed: 04/23/24 15:00> Narrative Exam Narrative: Const General:?cooperative, healthy appearing and comfortable [facility] Head:?normal to inspection Ears:?hearing grossly normal bilaterally Nose:?external nose normal Face and sinus:?normal facial exam and sinuses nontender Mouth:?oral mucosae normal Throat:?posterior oropharynx normal Eyes General:?appearance normal, both eyes and all related structures Neck Neck:?normal visual inspection and no lymphadenopathy noted Resp Effort & Inspection:?normal respiratory effort Auscultation:?clear to auscultation bilaterally Cardio Rate:?regular rate Rhythm:?regular rhythm Musculoskeletal There is no swelling, bony tenderness to palpation, erythema, deformities. Full range of motion. Patient does have pain with weight-bearing. Patient is neurovascularly intact. Neuro General:?patient alert, patient awake and patient oriented x3 Initial Vital Signs Initial Vital Signs: Vital Signs Temperature 98.5 F 04/22/24 16:38 Pulse Rate 91 H 04/22/24 16:38 Respiratory Rate 16 04/22/24 16:38 Blood Pressure 123/78 04/22/24 16:38 Pulse Oximetry 99 04/22/24 16:38 Oxygen Delivery Method Room Air 04/22/24 16:38 <Julien Krishna MD - Last Filed: 04/25/24 20:10> Initial Vital Signs Initial Vital Signs: Vital Signs Temperature 98.5 F 04/22/24 16:38 Pulse Rate 91 H 04/22/24 16:38 Respiratory Rate 16 04/22/24 16:38 Blood Pressure 123/78 04/22/24 16:38 Pulse Oximetry 99 04/22/24 16:38 Oxygen Delivery Method Room Air 04/22/24 16:38 Course <Gisele Maldonado PA-C - Last Filed: 04/23/24 15:00> Orders Ordered: ED Orders 04/22/24 16:42 XR knee LT 3V Stat Vital Signs Vital signs: Vital Signs - 8 hr 04/22/24 16:38 Temperature 98.5 F Pulse Rate 91 H Respiratory Rate 16 Blood Pressure 123/78 Pulse Oximetry 99 Oxygen Delivery Method Room Air <Julien Krishna MD - Last Filed: 04/25/24 20:10> Orders Ordered: ED Orders 04/22/24 16:42 XR knee LT 3V Stat Vital Signs Vital signs: Vital Signs - 8 hr 04/22/24 16:38 Temperature 98.5 F Pulse Rate 91 H Respiratory Rate 16 Blood Pressure 123/78 Pulse Oximetry 99 Oxygen Delivery Method Room Air MDM - Extremity Injury (Lower) <Gisele Maldonado PA-C - Last Filed: 04/23/24 15:00> MDM Narrative Medical decision making narrative: 34-year-old female presents to the ED status post a left knee injury sustained just prior to arrival. Obtain an x-ray which shows no acute fracture or dislocation. Mild joint effusion. Discussed findings with patient. Provided crutches for ambulation. Recommend continuing flexible knee brace, ibuprofen, Tylenol, heat/ice. Recommend follow-up with PCP as soon as possible. Patient has a ortho appointment coming up and agrees to follow-up regarding this issue as well. ED return precautions discussed with patient. Patient verbalized understanding. Medical records reviewed: Yes Discharge Plan Departure Patient Disposition: Home Clinical Impression: Injury of knee Qualifiers: Encounter type: initial encounter Laterality: right Qualified Code(s): S89.91XA - Unspecified injury of right lower leg, initial encounter Instructions: DI for Knee Sprain Activity Restrictions/Additional Instructions: You were evaluated in the ED today for a knee injury. Your x-ray did not show any fractures or dislocations. It appears you have a musculoskeletal sprain/strain of the knee. You may continue using your knee brace, taking Tylenol, ibuprofen. You may also ice your knee for the 1st 24 hours, followed by heat. Please follow-up with your PCP/ortho surgeon if your symptoms do not improve over the next few days. Return to the ED if you have worsening symptoms, numbness, tingling, weakness. Prescriptions: No Action buspirone 5 mg tablet 5 mg PO TID vitamin B complex Capsule PO DAILY magnesium glycinate 100 mg tablet 100 mg PO DAILY semaglutide 0.25 mg or 0.5 mg (2 mg/3 mL) pen injector 0.5 mg SUBCUT QWEEK Qty: 6 3RF Rx Instructions: for 4 weeks ondansetron 4 mg tablet,disintegrating 4 mg PO Q8H Qty: 30 3RF naproxen 500 mg tablet 500 mg PO BID Qty: 60 0RF cholecalciferol (vitamin D3) 50 mcg (2,000 unit) capsule 50 mcg PO DAILY citalopram 20 mg tablet 20 mg PO DAILY Qty: 30 2RF lorazepam 1 mg tablet 1 mg PO DAILY PRN (Reason: anxiety) Qty: 2 0RF Rx Instructions: Take half a tablet one hour before flight. Can take other half if needed for anxiety during flight. tizanidine 2 mg capsule 2 mg PO TID PRN (Reason: muscle spasticity) Qty: 30 2RF Referrals: Arabella Goodrich MD [Primary Care Provider] - Stand Alone Forms: Patient Portal/API/Survey ED Sign-out <Julien Krishna MD - Last Filed: 04/25/24 20:10> Cosign ED Attending Gabyature Attestation: I was immediately available in the department for consultation. ?This documentation has been reviewed and I agree with assessment and plan. Supervised by Julien Krishna MD
[2024-04-22 18:53] VITALS: BP 107/62; PULSE 81; RESP 16; O2SAT 97
== END 2024-04-22 18:58 | disposition home or self-care (01) ==
PROVIDERS: Emergency Provider Student in an Organized Health Care Education/Training Program; PCP Student in an Organized Health Care Education/Training Program
DX: S89.92XA Unspecified injury of left lower leg, initial encounter (principal); W22.09XA Striking against other stationary object, initial encounter
CPT/HCPCS: 73562; 99282; 99283

== ENCOUNTER → 2024-06-18 11:36 | Outpatient (CLI) | payer OTHER, SELFPAY ==
[2024-03-06 11:29] VITALS: BMI 32.2
[2024-06-18 12:46] LABS: Ur Creatinine Normal (Normal); Ur Specific Gravity Normal (Normal); Urine pH Normal (Normal)
[2024-06-18 12:47] LABS: Urine Amphetamines Negative (Negative); Urine Barbiturates Negative (Negative); Urine Benzodiazepines Negative (Negative); Urine Cocaine Negative (Negative); Urine MDMA Negative (Negative); Urine Methadone Negative (Negative); Urine Opiates Negative (Negative); Urine Oxycodone Negative (Negative); Urine Phencyclidine Negative (Negative); Urine THC Negative (Negative); Urine Tricyclic Antidepressant Negative (Negative)
[2024-06-20 16:11] LABS: Clonazepam <5 ng/mL (20-70)
== END ==
PROVIDERS: Family Provider Student in an Organized Health Care Education/Training Program; PCP Student in an Organized Health Care Education/Training Program; Referring Provider Student in an Organized Health Care Education/Training Program; Visit Provider Student in an Organized Health Care Education/Training Program
DX: Z51.81 Encounter for therapeutic drug level monitoring (principal)
CPT/HCPCS: 36415; 80305; 80346

== ENCOUNTER → 2024-07-13 13:12 | Outpatient (CLI) | payer OTHER, SELFPAY ==
[2024-06-28 10:23] VITALS: BMI 32.2
--- NOTE | 2024-07-13 13:13 | DI.MRI.S_ITS ---
PROCEDURE: MR LUMBAR SPINE WO CON INDICATIONS: Left leg weekness and numbness TECHNIQUE: Noncontrast sagittal T1 spin echo and T2 fast echo, sagittal STIR, and T2 fast spin echo through the lumbar spine. In cases with scoliosis, additional coronal T2 fast spin echo may be performed. COMPARISON: None. FINDINGS: Image quality: Excellent. Alignment and Curvature: There is trace, approximately 2 millimeters of L4-L5 anterolisthesis. Mild convex left curvature of lower lumbar spine and convex right curvature of the lower thoracic spine. Bone Marrow: Modic type 1 reactive endplate changes adjacent to the L4-L5 disc. No acute vertebral body compression fractures. Spinal Cord: Conus medullaris terminates at the L1 level. Visualized cord demonstrates normal signal and size. Paraspinous Soft Tissues: No paravertebral masses. T12-L1: Loss of disc signal and mild loss of disc height. Mild, diffuse disc bulge. Mild narrowing of the central canal. No neural foraminal narrowing. No neural compression. central L1-L2: Normal appearance. L2-L3: Normal appearance. L3-L4: Loss of disc signal. Mild, diffuse disc bulge. Mild narrowing of the central canal. Mild left neural foraminal narrowing. No neural compression. L4-L5: Loss of disc signal and height. Mild, diffuse disc bulge. Mild bilateral facet hypertrophy. Mild narrowing of the central canal. Mild bilateral neural foraminal narrowing. No neural compression. L5-S1: Disc has a normal appearance. Mild bilateral facet hypertrophy. No central canal narrowing. No neural foraminal foraminal narrowing IMPRESSION: 1. Multilevel degenerative disc disease. 2. Multilevel facet arthropathy. 3. No severe central canal stenosis. 4. No severe neural foraminal stenosis. 5. No neural compression. Dictated by: Ameena Hodge MD, PhD on 07/16/2024 at 9:11 Approved by: Ameena Hodge MD, PhD on 07/16/2024 at 9:15
--- NOTE | 2024-07-13 13:13 | DI.MRI.S_ITS ---
PROCEDURE: MR KNEE LT WO CON INDICATIONS: Left leg weekness and numbness TECHNIQUE: Noncontrast sagittal PD fast spin echo and T2 fast spin echo with fat saturation, sagittal 3-D FLASH with fat saturation; coronal T1 spin echo and PD fast spin echo with fat saturation, and axial PD fast spin echo with fat saturation through the knee. COMPARISON: None. FINDINGS: Image quality: Excellent. Menisci: The medial and lateral menisci demonstrate normal morphology and internal signal. The meniscal root ligaments appear intact. Cruciate ligaments: The anterior and posterior cruciate ligaments appear intact. Medial structures: The medial collateral ligament appears intact. The posterior oblique ligament, semimembranosus tendon insertions, oblique popliteal ligament, and meniscocapsular junction appear intact. Visualized portions of the pes anserinus tendons appear normal. No abnormal bursal fluid. Lateral structures: The lateral collateral ligament, long and short heads of the biceps femoris tendon appear intact. The popliteus tendon appears normal; the popliteofibular ligament appears intact. The posterosuperior and anteroinferior popliteomeniscal fascicles appear intact. The arcuate and fabellofibular ligaments appear intact, on either side of the lateral inferior geniculate artery. Iliotibial band appears normal. Anterior structures: There is increased signal involving the lateral facet cartilage of the patella. No deep tear or bony contusion is seen. The quadriceps and patellar tendons appear intact. Patellar alignment is normal. No femoral trochlear dysplasia or ventral trochlear prominence. No edema in the infrapatellar fat pad. Bones and cartilage: No bone marrow contusions or fractures. The cartilage of the medial and lateral femorotibial compartments. There is chondromalacia patella involving the lateral facet. Joint space: There is a small suprapatellar bursa effusion. No Garcia's cyst. Normal appearing synovial plicae are incidentally noted. IMPRESSION: Chondromalacia patella involving the lateral facet. Dictated by: Lewis Ochoa M.D. on 07/16/2024 at 9:39 Approved by: Lewis Ochoa M.D. on 07/16/2024 at 9:46
== END ==
PROVIDERS: Family Provider Student in an Organized Health Care Education/Training Program; PCP Student in an Organized Health Care Education/Training Program; Referring Provider Student in an Organized Health Care Education/Training Program; Visit Provider Student in an Organized Health Care Education/Training Program
DX: R29.898 Other symptoms and signs involving the musculoskeletal system (principal); R20.0 Anesthesia of skin; M51.369 Other intervertebral disc degeneration, lumbar region without mention of lumbar back pain or lower extremity pain; M47.816 Spondylosis without myelopathy or radiculopathy, lumbar region; M47.817 Spondylosis without myelopathy or radiculopathy, lumbosacral region; M22.42 Chondromalacia patellae, left knee
CPT/HCPCS: 72148; 73721

== ENCOUNTER 2024-09-16 21:26 | Emergency (ER) | payer OTHER, SELFPAY ==
[2024-06-28 10:23] VITALS: BMI 32.2
[2024-09-16 21:34] VITALS: BP 105/56; PULSE 74; RESP 17; TEMP 36.5; O2SAT 100; BMI 27.8
--- NOTE | 2024-09-16 21:37 | DI.RAD.S_ITS ---
PROCEDURE: XR TOE RT MIN 2V INDICATIONS: r/o fracture TECHNIQUE: 3 views of the 5th toe(s) acquired. COMPARISON: None. FINDINGS: Bones: Comminuted mildly displaced fracture within the midportion of the proximal 5th phalanx. No intra-articular extension. Soft tissues: No suspicious soft tissue densities. IMPRESSION: Mildly displaced proximal 5th phalanx fracture. Dictated by: Bell Judge M.D. on 09/16/2024 at 22:16 Approved by: Bell Judge M.D. on 09/16/2024 at 22:17
[2024-09-17 01:44] VITALS: BP 112/55
--- NOTE | 2024-09-17 02:26 | ED.LOWEXIN ---
HPI - Extremity Injury (Lower) General Chief Complaint: Extremity Injury, Lower Stated Complaint: Broken toe rt foot Time Seen by Provider: 09/17/24 02:22 Source: patient Mode of arrival: Wheelchair History of Present Illness HPI Narrative: 34-year-old female with ongoing back pain, scoliosis, degenerative arthritis, being managed through [facility], recently starting gabapentin and citalopram as well as oral Toradol, in the past has been treated with tizanidine for muscle spasticity. Yesterday she stubbed her toe caught in the door frame, with pain and swelling to the left 5th toe, increasing pain. No other injuries from this event. Related Data Home Medications ?Medication ?Instructions ?Recorded ?Confirmed cholecalciferol (vitamin D3) 50 50 mcg PO DAILY 02/12/24 08/29/24 mcg (2,000 unit) capsule magnesium glycinate 100 mg (as 100 mg PO DAILY 03/22/24 08/29/24 glycinate) tablet vitamin B complex cap PO DAILY 03/22/24 08/29/24 Previous Rx's ?Medication ?Instructions ?Recorded ondansetron 4 mg disintegrating 4 mg PO Q8H #30 tabs 02/19/24 tablet semaglutide 0.25 mg or 0.5 mg (2 0.5 mg (0.736 mL) SUBCUT QWEEK #6 03/22/24 mg/3 mL) subcutaneous pen injector mL tizanidine 4 mg tablet 4 mg PO Q8H PRN muscle spasticity 06/06/24 #30 tabs citalopram 20 mg tablet 20 mg PO DAILY #30 tabs 07/09/24 gabapentin 100 mg capsule 200 mg (2 x 100 mg) PO TID #180 07/29/24 caps clonazepam 0.5 mg tablet 0.5 mg PO BID PRN anxiety #60 tabs 08/26/24 pregabalin 150 mg capsule 150 mg PO BID #60 caps 09/16/24 Allergies Allergy/AdvReac Type Severity Reaction Status Date / Time penicillin G Allergy Anaphylaxis Verified 09/16/24 21:34 cyclobenzaprine AdvReac Mild Anger Verified 09/16/24 21:34 ketorolac AdvReac Mild Verified 09/16/24 21:34 Patient History Medical History Major depressive disorder, recurrent episode, moderate with anxious distress Somatic dysfunction of thoracic region Somatic dysfunction of sacral region Somatic dysfunction of pelvis region Somatic dysfunction of lumbar region Somatic dysfunction of lower extremities Currently attempting to quit smoking Vapes nicotine containing substance endometritis Dichorionic diamniotic twin gestation Anxiety associated with depression (~2019) Major depression Tension headache, chronic 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 Surgical History Hx of dilation and curettage History of tonsillectomy (~2004) Family History Mother PTSD (post-traumatic stress disorder) Anxiety TBI (traumatic brain injury) Mental health problem Preeclampsia Brother Down syndrome Grandfather Diabetes mellitus Grandmother Cancer Social History marital status: unmarried,single number of children: 1 household members: family lives independently: Yes caregiver/support person: Yes housing: house pets and animals: Yes (Dog) education level: college occupational status: student current occupational exposures/hazards: No seatbelt use: always water heater temp set < 120 deg: Yes working smoke detector in home: Yes fire extinguisher in home: Yes carbon monox detector in home: Yes firearms in home: No do you feel safe at home: No Tobacco: How many years used: 5 second hand exposure: Yes (rare by mother in law) alcohol intake: never substance use type: does not use and former substance user during the past year weight has: increased > 10 lbs well-balanced diet: about half the time daily servings fruits/ve-4 caffeine: Yes (Not right now, not feeling well) Exam Narrative Exam Narrative: GENERAL: Well-developed patient, in mild distress. HEAD: Atraumatic. Normocephalic. EYES: Pupils equal round and reactive. Extraocular motions intact. No scleral icterus. No injection or drainage. ENT: Nose without bleeding, purulent drainage. Throat without erythema, tonsillar hypertrophy or exudate. Airway patent. NECK: Trachea midline. Non tender CARDIOVASCULAR: Regular rate and rhythm without murmurs, gallops, or rubs. RESPIRATORY: Clear to auscultation. Breath sounds equal bilaterally. No wheezes, rales, or rhonchi. GASTROINTESTINAL: Abdomen soft, non-tender, nondistended. EXTREMITIES: Tenderness to left 5th toe MTP and digit phalanx, no lacerations or gross deformity. No subungual hematoma. BACK: Nontender without deformity or crepitance. No flank tenderness. NEURO: AOx3. Motor functions grossly nonfocal. SKIN: No rash or erythema of visible areas Initial Vital Signs Initial Vital Signs: Vital Signs Temperature 97.7 F 09/16/24 21:34 Pulse Rate 74 09/16/24 21:34 Respiratory Rate 17 09/16/24 21:34 Blood Pressure 105/56 L 09/16/24 21:34 Pulse Oximetry 100 09/16/24 21:34 Oxygen Delivery Method Room Air 09/16/24 21:34 Course Orders Ordered: ED Orders 09/16/24 21:37 XR toe RT min 2V Stat Discontinued Medications Hydrocodone Bitart/Acetaminophen (Hydrocodone/Acet 5/325 Tablet) 1 tab PO NOW ONE Stop: 09/17/24 02:39 Last Admin: 09/17/24 02:54 Dose: 1 tab Documented By: YOANNA Tramadol HCl (Tramadol 50 Mg Prepack) 1 bottle MISC DIRECTED ONE Stop: 09/17/24 02:23 Last Admin: 09/17/24 02:49 Dose: Not Given Documented By: YOANNA Vital Signs Vital signs: Vital Signs - 8 hr 09/16/24 21:34 09/17/24 01:44 09/17/24 03:25 Temperature 97.7 F Pulse Rate 74 74 Respiratory Rate 17 18 Blood Pressure 105/56 L 112/55 L 112/65 Pulse Oximetry 100 100 Oxygen Delivery Method Room Air MDM - Extremity Injury (Lower) MDM Narrative Medical decision making narrative: Ongoing back pain management through orthopedics at [facility], on multiple medications including citalopram and tizanidine and gabapentin, oral Toradol, had toe stubbing, increased pain and swelling to the left 5th toe. On x-ray has phalanx fracture left 5th toe. Cast shoe. Offered crutches, declined, stated that she could heel walk to get home where she has crutches to help with remaining nonweightbearing until further follow up with her [facility] orthopedic providers. Oral hydrocodone dose, home pack hydrocodone. Discharged home with family. Follow up with [facility] orthopedics where she is receiving ongoing back pain care. Discharge Plan Departure Patient Disposition: Home Clinical Impression: Fracture of toe Instructions: DI for Fracture Activity Restrictions/Additional Instructions: Ongoing back pain management through Orthopedic surgery [facility] clinic with use of gabapentin and citalopram, taking oral Toradol. New injury to the left toe, x-ray shows phalanx fracture to the 5th left toe. Cast shoe, Coban wrap to the adjacent 4th toe. Consider nonweightbearing with crutches, you stated that he had apparent home to use. Follow up with your orthopedic clinic later this week at [facility]. Pain medication home pack hydrocodone/acetaminophen provided, oral dose given in the emergency department as well. Continue your other chronic medications as above. Return earlier to this/nearest emergency department for any change worsening symptoms or any concerns prior. Prescriptions: No Action vitamin B complex Capsule PO DAILY magnesium glycinate 100 mg tablet 100 mg PO DAILY semaglutide 0.25 mg or 0.5 mg (2 mg/3 mL) pen injector 0.5 mg SUBCUT QWEEK Qty: 6 3RF Rx Instructions: for 4 weeks ondansetron 4 mg tablet,disintegrating 4 mg PO Q8H Qty: 30 3RF cholecalciferol (vitamin D3) 50 mcg (2,000 unit) capsule 50 mcg PO DAILY tizanidine 4 mg tablet 4 mg PO Q8H PRN (Reason: muscle spasticity) Qty: 30 2RF citalopram 20 mg tablet 20 mg PO DAILY Qty: 30 2RF gabapentin 100 mg capsule 200 mg PO TID Qty: 180 0RF Rx Instructions: dosage increase clonazepam 0.5 mg tablet 0.5 mg PO BID PRN (Reason: anxiety ) Qty: 60 1RF pregabalin 150 mg capsule 150 mg PO BID Qty: 60 2RF Rx Instructions: dosage increase, called into pharmacist at [facility] Referrals: Arabella Goodrich MD [Primary Care Provider, Family Practice] Stand Alone Forms: Patient Portal/API
--- NOTE | 2024-09-17 02:37 | PC.NURSE ---
pt's 5th and 4th toe taped together with paper tape with gauze between and then coban was wrapped around the foot just below the toe
[2024-09-17] MEDS: HYDROCODONE/ACET 5/325 TABLET 1 TAB PO (02:54)
[2024-09-17 03:25] VITALS: BP 112/65; PULSE 74; RESP 18; O2SAT 100
== END 2024-09-17 03:25 | disposition home or self-care (01) ==
PROVIDERS: Emergency Provider Emergency Medicine; Family Provider Student in an Organized Health Care Education/Training Program; PCP Student in an Organized Health Care Education/Training Program
DX: S92.511A Displaced fracture of proximal phalanx of right lesser toe(s), initial encounter for closed fracture (principal); X58.XXXA Exposure to other specified factors, initial encounter
CPT/HCPCS: 73660; 99283

== ENCOUNTER → 2024-10-30 11:30 | Outpatient (CLI) | payer OTHER, SELFPAY ==
[2024-10-25 15:11] VITALS: BMI 32.2
[2024-10-30 13:19] LABS: HEMOLYSIS < 15 (0-50); Iron 88 ug/dL (37-170)
[2024-10-30 13:31] LABS: Percent Iron Saturation 25 % (15-50); Total Iron Binding Capacity 357 ug/dL (265-497); Transferrin 304 mg/dL (206-381)
[2024-10-30 13:52] LABS: Ferritin 16 ng/mL (6-137)
== END ==
PROVIDERS: Family Provider Student in an Organized Health Care Education/Training Program; PCP Student in an Organized Health Care Education/Training Program; Referring Provider Student in an Organized Health Care Education/Training Program; Visit Provider Student in an Organized Health Care Education/Training Program
DX: M79.606 Pain in leg, unspecified (principal)
CPT/HCPCS: 36415; 82728; 83540; 83550

== ENCOUNTER → 2024-12-16 09:34 | Outpatient (CLI) | payer OTHER, SELFPAY ==
[2024-10-25 15:11] VITALS: BMI 32.2
--- NOTE | 2024-12-16 09:36 | DI.RAD.S_ITS ---
PROCEDURE: XR CERVICAL SPINE 2V OR 3V INDICATIONS: Neck pain TECHNIQUE: 3 view(s) of the cervical spine were acquired. COMPARISON: [facility], CR, XR CERVICAL SPINE 2V OR 3V, 12/18/2019, 14:58. FINDINGS: Bones: No fractures or dislocations to the T1 level. The lateral masses of C1 appear intact on the odontoid view. No suspicious bony lesions. Soft tissues: No prevertebral soft tissue swelling. IMPRESSION: No displaced fracture or traumatic subluxation. Dictated by: Gary Avery M.D. on 12/20/2024 at 6:55 Approved by: Gary Avery M.D. on 12/20/2024 at 6:56
== END ==
PROVIDERS: Family Provider Student in an Organized Health Care Education/Training Program; PCP Student in an Organized Health Care Education/Training Program; Referring Provider Student in an Organized Health Care Education/Training Program; Visit Provider Student in an Organized Health Care Education/Training Program
DX: M54.2 Cervicalgia (principal)
CPT/HCPCS: 72040

== ENCOUNTER → 2025-01-09 13:50 | Outpatient (CLI) | payer OTHER, SELFPAY ==
[2025-01-08 11:04] VITALS: BMI 32.2
== END ==
LOC: PHYS 13:51
PROVIDERS: Family Provider Student in an Organized Health Care Education/Training Program; PCP Student in an Organized Health Care Education/Training Program; Referring Provider Student in an Organized Health Care Education/Training Program; Visit Provider Student in an Organized Health Care Education/Training Program
DX: R29.898 Other symptoms and signs involving the musculoskeletal system (principal)
CPT/HCPCS: 95886; 95911

== ENCOUNTER → 2025-02-08 10:48 | Outpatient (CLI) | payer OTHER, SELFPAY ==
[2025-01-08 11:04] VITALS: BMI 32.2
[2025-02-08 11:23] LABS: HEMOLYSIS < 15 (0-50); Iron 123 ug/dL (37-170)
[2025-02-08 11:25] LABS: Alanine Aminotransferase 25 IU/L (<35); Albumin 4.4 g/dL (3.5-5.0); Albumin Globulin Ratio 1.8 (1.0-2.8); Alkaline Phosphatase 43 U/L (38-126); Blood Urea Nitrogen 8 mg/dL (7-17); Calcium 9.4 mg/dL (8.4-10.2); Carbon Dioxide 28 mmol/L (22-32); Chloride 104 mmol/L (98-107); Estimated Glomerular Filt Rate > 60 mL/min (>60); Globulin 2.4 g/dL (1.7-4.1); Glucose 78 mg/dL (70-99); HEMOLYSIS < 15 (0-50); Potassium 3.8 mmol/L (3.4-5.1); Sodium 139 mmol/L (137-145); Total Protein 6.8 g/dL (6.3-8.2)
[2025-02-08 11:28] LABS: Add Manual Diff / Slide Review NO; Hematocrit 40.5 % (36-46); Hemoglobin 13.8 g/dL (12.0-16.0); Lymphocytes Absolute Auto 1900 /uL (1100-4500); Mean Corpuscular HGB Conc 34.1 % (30-36); Mean Corpuscular Hemoglobin 30.9 PG (26-34); Mean Corpuscular Volume 90.4 fL (80-100); Platelet Count 199 X10^3/uL (150-400)
[2025-02-08 11:35] LABS: Percent Iron Saturation 45 % (15-50); Total Iron Binding Capacity 271 ug/dL (265-497); Transferrin 218 mg/dL (206-381)
[2025-02-08 12:00] LABS: Ferritin 148 ng/mL (6-137)
== END ==
PROVIDERS: PCP Student in an Organized Health Care Education/Training Program; Referring Provider Student in an Organized Health Care Education/Training Program; Visit Provider Student in an Organized Health Care Education/Training Program
DX: E61.1 Iron deficiency (principal)
CPT/HCPCS: 36415; 80053; 82728; 83540; 83550; 85025

== ENCOUNTER → 2025-02-16 10:51 | Outpatient (CLI) | payer OTHER, SELFPAY ==
[2025-01-08 11:04] VITALS: BMI 32.2
--- NOTE | 2025-02-16 10:52 | DI.MRI.S_ITS ---
PROCEDURE: MR THORACIC SPINE WO CON INDICATIONS: Pain in thoracic spine TECHNIQUE: Noncontrast sagittal T1 spine echo and T2 fast spin echo, sagittal STIR, and T2 fast spin echo through the thoracic spine. COMPARISON: [facility], CR, XR SCOLIOSIS STUDY, 09/13/2024, 11:34. [facility], CR, XR THORACIC SPINE 2 VIEWS, 09/13/2024, 9:42. FINDINGS: Image quality: Excellent. Alignment and Curvature: There is mild S shaped curvature of thoracic spine is seen unchanged from previous studies. Bone Marrow: Marrow is of normal overall signal. No acute vertebral body compression fractures. Spinal Cord: Visualized spinal cord is normal in size and signal. Paraspinous Soft Tissues: No paravertebral masses. Miscellaneous: There is mild central disc bulge at T9-10 and T11-12 levels causing mild central canal stenosis, no significant neural foraminal narrowing. IMPRESSION: 1. No marrow edema. No compression fracture or spondylolisthesis. Mild S shaped curvature of thoracic spine unchanged from previous scoliosis series findings. 2. Mild spondylitic changes in lower thoracic spine causing mild central canal stenosis as above. No significant neural foraminal narrowing. 3. No abnormal thoracic spinal cord signal. No gross paraspinous soft tissue abnormalities. Dictated by: Ray Shipman M.D. on 02/17/2025 at 10:26 Approved by: Ray Shipman M.D. on 02/17/2025 at 10:30
== END ==
LOC: MRI 10:52
PROVIDERS: PCP Student in an Organized Health Care Education/Training Program; Referring Provider Physician Assistant; Visit Provider Physician Assistant
DX: M47.814 Spondylosis without myelopathy or radiculopathy, thoracic region (principal); M54.6 Pain in thoracic spine; M41.9 Scoliosis, unspecified
CPT/HCPCS: 72146